=== PATIENT | male | born 1970 | race Caucasian/White ===

== ENCOUNTER 2023-12-22 12:43 | Inpatient (IN) | payer MEDICARE, OTHER, SELFPAY ==
[2023-12-22] VITALS (9 sets, daily range): BP systolic 141–172; BP diastolic 56–127; BMI 44.9; BMI 43.0; BMI 43.2
[2023-12-22] MEDS: DUONEB 3 ML INH ×3 (09:48→21:00)
[2023-12-22] MEDS: ZITHROMAX INFUSION 250 IV (10:00)
[2023-12-22] MEDS: DECADRON 10 MG IV (10:00)
--- NOTE | 2023-12-22 10:01 | ED.GENMED ---
History of Present Illness
<Ezra Mendoza Jr., PA-C - Last Filed: 12/22/23 11:08>
General
Chief Complaint: Breathing Problem
Source: patient, spouse and ambulance crew
Exam Limitations: none
Time Seen by Provider: 12/22/23 09:10
Nursing documentation reviewed up to this point in time: agreed with
Travel History
Have you had any contact with someone who has COVID-19?: No
Do you have any symptoms of coronavirus? Fever > 100 degrees, chills, cough, shortness of breath, sore throat, loss of taste or smell, muscle aches, or headache?: Yes
Symptoms:: SOB
History of Present Illness
History of Present Illness:
53-year-old male past medical history of paraplegia from the chest, COPD on chronic oxygen 2 L nasal cannula, CHF, pacemaker presenting to the emergency department today with concerns of significant worsening shortness of breath over the past few
days. Increasing oxygen need at home using nebulizers at home without relief. Denies specific chest pain. Denies obvious significant increasing swelling.
Past History
<Ezra Mendoza Jr., PA-C - Last Filed: 12/22/23 11:08>
Past History
ED Past Medical History: COPD, HTN, Hypercholesterolemia and Other (T6 paraplegic, Hematuria, DVT L leg)
ED Past Surgical History: Other (Green field filter)
Social History
Tobacco: Former smoker
Alcohol: None
Drug: None
Personal:
Living: with family
Employment: Disabled
Family History
Family History: Other (Noncontributory)
Review of Systems
<Ezra Mendoza Jr., PA-C - Last Filed: 12/22/23 11:08>
Review of Systems
Allergies reviewed?: Yes
All Other Systems: ROS reviewed and negative except as documented in HPI and ROS
Phy Exam
<Ezra Mendoza Jr., PA-C - Last Filed: 12/22/23 11:08>
Physical Exam
Physical Exam:
GENERAL: Alert , in no apparent distress
EYE: pupils equal and reactive
NECK: Supple, no significant adenopathy.
ENT: o/p clr, mmm.
CARDIAC: Regular rate and rhythm .
LUNGS: Diffuse inspiratory and expiratory wheezing
ABDOMEN: Soft, without focal tenderness, no r/g, no cvat
NEUROLOGICAL: Alert and oriented, no focal neuro deficits
SKIN: Warm and dry, skin intact.
MUSCULOSKELETAL: No edema, well perfused.
PSYCH: Normal and appropriate interaction.
Scores
<Ezra Mendoza Jr., PA-C - Last Filed: 12/22/23 11:08>
Heart Failure Risk
Heart Failure Risk Score: Not Applicable
Course
<Ezra Mendoza Jr., PA-C - Last Filed: 12/22/23 11:08>
Orders/Labs/Results
Orders:
Orders
12/22/23 09:21
EKG [Electrocardiogram (*1)] Urgent
Reason for Study: Chest Pain
EKG- Treatment ONCE
12/22/23 09:36
Dexamethasone Sod Phosphate [Decadron] 20 mg .ROUTE .STK-MED ONE
Ipratropium/Albuterol Sulfate [Duoneb] 3 ml .ROUTE .STK-MED ONE
12/22/23 09:39
Azithromycin 500 mg/250 ml [Zithromax Infusion] 500 mg in 250 ml IV NOW
Dexamethasone Sod Phosphate [Decadron] 10 mg IV NOW STA
Ipratropium/Albuterol Sulfate [Duoneb] 3 ml INH R NOW STA
Chest X-ray Portable [CR Chest Portable - 1 View] Urgent
Comment:
Reason For Exam: sob
Reason Study Needs to be Portable: Patient Unstable
12/22/23 09:48
Complete Blood Count/With Diff Urgent
Comprehensive Metabolic Panel Urgent
Lactic Acid Q4H
Comment: CANCEL 2nd LACTIC ACID IF 1st LACTIC ACID IS LESS THAN 2
NT-proBNP Urgent
PT/INR [Prothrombin Time] Urgent
Troponin I Urgent
12/22/23 09:58
Venous Blood Gas Urgent
%Oxygen/Room Air: 6
12/22/23 10:00
CefTRIAXone [Rocephin] 2,000 mg IV NOW STA
12/22/23 10:19
Sputum Culture [Respiratory Culture/Gram Stain] Urgent
GREGORIO Source: Sputum
Specimen Description:
Date Specimen was Collected: 12/22/23
Time Specimen was Collected: 10:07
12/22/23 11:37
Albuterol Nebs [Ventolin Nebules] 2.5 mg INH R NOW STA
12/22/23 11:44
COVID-19 Antigen Routine
Source: Nasal Swab
Procalcitonin Routine
PCT Algorithmm Indication: Respiratory
Influenza A+B Rapid Molecular Routine
GREGORIO Source: Nasal Swab
Specimen Description:
12/22/23 13:45
Lactic Acid Q4H
Comment: CANCEL 2nd LACTIC ACID IF 1st LACTIC ACID IS LESS THAN 2
Abnormal Lab Results
12/22/23 12/22/23
09:48 09:58
WBC 13.6 H 10^3/uL
(4.8-10.8)
MCHC 30.3 L g/dL
(33.0-37.0)
RDW 15.5 H %
(11.5-14.5)
MPV 11.3 H fL
(7.4-10.4)
Abs Immat Gran (auto) 0.2 H 10^3/uL
(0-0.05)
Absolute Neuts (auto) 11.8 H 10^3/uL
(1.4-6.5)
Absolute Lymphs (auto) 0.8 L 10^3/uL
(1.2-3.4)
Absolute Monos (auto) 0.7 H 10^3/uL
(0.1-0.6)
Immature Gran % 1.2 H %
(0-0.5)
Neutrophils % 86.5 H %
(42.2-75.2)
Lymphocytes % 5.8 L %
(20.5-51.1)
PT 31.9 H Sec
(11.4-14.6)
VBG pH 7.29 L
(7.32-7.43)
VBG pCO2 85 H* mmHg
(35-48)
VBG pO2 51 H mmHg
(30-50)
VBG HCO3 40.9 H mmol/L
(22-27)
Chloride 92 L mmol/L
(98-107)
Carbon Dioxide 40 H mmol/L
(22-30)
Creatinine 0.4 L mg/dL
(0.7-1.3)
Glucose 129 H mg/dl
(70-99)
Alkaline Phosphatase 128 H U/L
(38-126)
12/22/23 09:48
12/22/23 09:48
Vital Signs
Initial and Last Documented VS:
Initial Vital Signs
Temp Pulse Resp BP Pulse Ox
98.3 F 121 22 159/72 80
12/22/23 09:10 12/22/23 09:10 12/22/23 09:10 12/22/23 09:10 12/22/23 09:10
Last Documented Vital Signs
Temp Pulse Resp BP Pulse Ox
99.1 F 70 24 159/72 77
12/22/23 11:30 12/22/23 11:30 12/22/23 11:30 12/22/23 09:10 12/22/23 09:22
<Henry Sidhu MD - Last Filed: 12/22/23 11:45>
Orders/Labs/Results
Orders:
Orders
12/22/23 09:21
EKG [Electrocardiogram (*1)] Urgent
Reason for Study: Chest Pain
EKG- Treatment ONCE
12/22/23 09:36
Dexamethasone Sod Phosphate [Decadron] 20 mg .ROUTE .STK-MED ONE
Ipratropium/Albuterol Sulfate [Duoneb] 3 ml .ROUTE .STK-MED ONE
12/22/23 09:39
Azithromycin 500 mg/250 ml [Zithromax Infusion] 500 mg in 250 ml IV NOW
Dexamethasone Sod Phosphate [Decadron] 10 mg IV NOW STA
Ipratropium/Albuterol Sulfate [Duoneb] 3 ml INH R NOW STA
Chest X-ray Portable [CR Chest Portable - 1 View] Urgent
Comment:
Reason For Exam: sob
Reason Study Needs to be Portable: Patient Unstable
12/22/23 09:48
Complete Blood Count/With Diff Urgent
Comprehensive Metabolic Panel Urgent
Lactic Acid Q4H
Comment: CANCEL 2nd LACTIC ACID IF 1st LACTIC ACID IS LESS THAN 2
NT-proBNP Urgent
PT/INR [Prothrombin Time] Urgent
Troponin I Urgent
12/22/23 09:58
Venous Blood Gas Urgent
%Oxygen/Room Air: 6
12/22/23 10:00
CefTRIAXone [Rocephin] 2,000 mg IV NOW STA
12/22/23 10:19
Sputum Culture [Respiratory Culture/Gram Stain] Urgent
GREGORIO Source: Sputum
Specimen Description:
Date Specimen was Collected: 12/22/23
Time Specimen was Collected: 10:07
12/22/23 11:37
Albuterol Nebs [Ventolin Nebules] 2.5 mg INH R NOW STA
12/22/23 11:44
COVID-19 Antigen Routine
Source: Nasal Swab
Procalcitonin Routine
PCT Algorithmm Indication: Respiratory
Influenza A+B Rapid Molecular Routine
GREGORIO Source: Nasal Swab
Specimen Description:
12/22/23 13:45
Lactic Acid Q4H
Comment: CANCEL 2nd LACTIC ACID IF 1st LACTIC ACID IS LESS THAN 2
Abnormal Lab Results
12/22/23 12/22/23
09:48 09:58
WBC 13.6 H 10^3/uL
(4.8-10.8)
MCHC 30.3 L g/dL
(33.0-37.0)
RDW 15.5 H %
(11.5-14.5)
MPV 11.3 H fL
(7.4-10.4)
Abs Immat Gran (auto) 0.2 H 10^3/uL
(0-0.05)
Absolute Neuts (auto) 11.8 H 10^3/uL
(1.4-6.5)
Absolute Lymphs (auto) 0.8 L 10^3/uL
(1.2-3.4)
Absolute Monos (auto) 0.7 H 10^3/uL
(0.1-0.6)
Immature Gran % 1.2 H %
(0-0.5)
Neutrophils % 86.5 H %
(42.2-75.2)
Lymphocytes % 5.8 L %
(20.5-51.1)
PT 31.9 H Sec
(11.4-14.6)
VBG pH 7.29 L
(7.32-7.43)
VBG pCO2 85 H* mmHg
(35-48)
VBG pO2 51 H mmHg
(30-50)
VBG HCO3 40.9 H mmol/L
(22-27)
Chloride 92 L mmol/L
(98-107)
Carbon Dioxide 40 H mmol/L
(22-30)
Creatinine 0.4 L mg/dL
(0.7-1.3)
Glucose 129 H mg/dl
(70-99)
Alkaline Phosphatase 128 H U/L
(38-126)
12/22/23 09:48
12/22/23 09:48
Vital Signs
Initial and Last Documented VS:
Initial Vital Signs
Temp Pulse Resp BP Pulse Ox
98.3 F 121 22 159/72 80
12/22/23 09:10 12/22/23 09:10 12/22/23 09:10 12/22/23 09:10 12/22/23 09:10
Last Documented Vital Signs
Temp Pulse Resp BP Pulse Ox
99.1 F 70 24 159/72 77
12/22/23 11:30 12/22/23 11:30 12/22/23 11:30 12/22/23 09:10 12/22/23 09:22
<Ezra Mendoza Jr., PA-C - Last Filed: 12/22/23 11:08>
MDM/Problems Addressed
MDM/Problems Addressed:
53-year-old male presenting to the emergency department with worsening shortness of breath over the past few days. History of severe COPD. Upon arrival patient is tachycardic hypertensive pulse ox initially on 3 L nasal cannula in the high 70s.
This improved when receiving DuoNeb with oxygen at 6 L via facemask. Chest x-ray performed that showed likely pneumonia with started on ceftriaxone as well as azithromycin. Patient additionally given steroid. Patient found to have potential
pneumonia on x-ray given additional dose of ceftriaxone otherwise doing well here on additional nasal cannula oxygen at 6 L staying around 90% oxygen level. Plan to admit for further treatment as symptoms are ongoing.
<Ezra Mendoza Jr., PA-C - Last Filed: 12/22/23 11:08>
*Critical Care Note
Total Time (30-74mins, 75-104mins- exclusive of procedures): Not Applicable
ED Attending Note
<Ezra Mendoza Jr., PA-C - Last Filed: 12/22/23 11:08>
-
Portions of this chart may have been created with voice recognition software.� Occasional wrong word or��sound alike� substitutions may have occurred due to the inherent limitations of voice recognition software.
<Henry Sidhu MD - Last Filed: 12/22/23 11:45>
ED Attending Note
Patient seen and examined by attending physician: Yes
I performed the substantive portion of visit, reviewed & personally made and approve the management plan that is documented in note by myself or ISATU.: Yes
ED Attending Note:
53-year-old male history of paraplegia on chronic 2 L of oxygen presents with increased shortness of breath and cough the last 2 days. Patient is on Coumadin and faithful with medications. INR has been therapeutic per the patient. Symptoms are
moderate in nature. Normally runs a pulse ox in the low 90s on 2 L nasal cannula.
On arrival patient is mildly tachypneic and minimally breathless but able to speak well. Pulse ox 78% on 2 L when I walked in the room however this was just after x-ray.
Patient is paraplegic. He is warm and dry and perfusing well. No drooling or stridor. He has diffuse expiratory wheezing and a coarse cough with some yellow sputum. He is mildly tachycardic. Pacemaker in place.
EKG shows a paced rhythm at 120. Chest x-ray appears to be likely an infiltrate at the right base although questionable atypical CHF. This was reviewed with radiology.
Including cardiac pneumonia workup blood cultures sputum culture chest x-ray Neb treatments. Clearly warrants admission.
Patient was rechecked multiple times during his ER stay and remained relatively stable. Pulse ox is borderline but awake alert speaking without significant difficulty.
Discharge Plan
Departure
Patient Disposition: Admit
Date of Disposition: 12/22/23
Time of Disposition: 11:08
Admit to: Telemetry
Admit to doctor: Sandra
Presentation/result/management discussed w/ accepting MD/DO: Hospitalist
Patient with high blood pressure during this ER visit?: No
Condition: Good
Covid-19: Not Applicable
Discharge Problem:
COPD exacerbation, Pneumonia
Prescriptions:
No Action
gabapentin 300 MG capsule
300 mg PO BID
sertraline 50 MG tablet
50 mg PO DAILY
albuterol sulfate 1 PUFF HFA aerosol inhaler
1 puff inhalation R Q6HPRN PRN (Reason: sob)
amlodipine 5 MG tablet
5 mg PO DAILY
Trelegy Ellipta 1 EACH blister with device
1 puff inhalation R DAILY
sennosides [senna] 1 TABLET tablet
2 tab PO BID Qty: 120 0RF
warfarin [Coumadin] 6 MG tablet
12 mg PO QPM
Patient Comments:
dose per INR - pt has an INR monitoring device at home
docusate sodium 100 MG capsule
100 mg PO BID
lidocaine [Aspercreme (lidocaine)] 1 PATCH adhesive patch,medicated
2 patch topical DAILY 0RF
Rx Instructions:
apply to sacrum
Oxycodone Hcl [Oxycodone Hcl Er] 20 MG Tab.Er.12h
20 mg PO BID Qty: 10 0RF
oxycodone 5 MG tablet
5 mg PO Q4HPRN PRN (Reason: moderate to severe pain)
prednisone 10 mg Tablet
10 mg PO DAILY Qty: 20 0RF
Rx Instructions:
Take 40mg x 2 days; 30mg x 2 days; 20mg x 2 days; 10mg x 2 days then stop
furosemide 40 mg tablet
40 mg PO DAILY
baclofen 20 mg tablet
40 mg PO BID
aspirin 81 mg Tablet,Delayed Release (Dr/Ec)
81 mg PO DAILY Qty: 30 0RF
sulfamethoxazole-trimethoprim [Bactrim DS] 800-160 mg tablet
1 tab PO BID Qty: 12 0RF
pantoprazole [Protonix] 40 mg tablet,delayed release (DR/EC)
40 mg PO DAILY Qty: 30 0RF
Referrals:
Alida Sandy DO [Family Provider] -
Interventions
Interventions:
*Risk Screen - Suicide Last Done: 12/22/23 09:22
*General Assessment Last Done: 12/22/23 09:22
*Neglect/Abuse Screening Last Done: 12/22/23 09:22
ED- Fall Risk Assessment Last Done: 12/22/23 09:22
*ED COVID-19 Vaccine History Last Done: 12/22/23 09:22
ED- Cardiac Assessment Last Done: 12/22/23 09:22
ED- Pulmonary Assessment Last Done: 12/22/23 09:22
Discharge Date and Time
Print Language: TRINIDADIAN
[2023-12-22 10:06] LABS: % Basophils 0.4 % (0-2); % Eosinophils 0.7 % (0-6); % Immature Granulocytes 1.2 % (0-0.5); % Lymphocytes 5.8 % (20.5-51.1); % Monocytes 5.4 % (1.7-9.3); % Neutrophils 86.5 % (42.2-75.2); Absolute Basophils 0.1 10^3/uL (0-0.2); Absolute Eosinophils 0.1 10^3/uL (0-0.7); Absolute Immature Granulocytes 0.2 10^3/uL (0-0.05); Absolute Lymphocytes 0.8 10^3/uL (1.2-3.4); Absolute Monocytes 0.7 10^3/uL (0.1-0.6); Absolute Neutrophils 11.8 10^3/uL (1.4-6.5); Hematocrit 50.1 % (39.0-52.0); Hemoglobin 15.2 g/dL (13.0-18.0); Mean Corp Hgb Conc. 30.3 g/dL (33.0-37.0); Mean Corpuscular Hgb 27.8 pg (27.0-31.0); Mean Corpuscular Volume 91.6 fL (80.0-94.0); Mean Platelet Volume 11.3 fL (7.4-10.4); Nucleated Red Blood Cells % 0 % (-); Platelet Count 231 10^3/uL (130-400); Red Blood Cell Count 5.47 10^6/uL (4.70-6.10); Red Cell Dist. Width 15.5 % (11.5-14.5); White Blood Cell Count 13.6 10^3/uL (4.8-10.8)
[2023-12-22 10:10] LABS: Venous Blood Gas B.E. 10.2 mmol/L (-4 to +4); Venous Blood Gas HCO3 40.9 mmol/L (22-27); Venous Blood Gas O2 Sat % 85.1 %; Venous Blood Gas pH 7.29 (7.32-7.43); Venous Blood Gas pO2 51 mmHg (30-50)
[2023-12-22 10:13] LABS: Venous Blood Gas O2 Therapy 6
[2023-12-22 10:15] LABS: Venous Blood Gas pCO2 85 mmHg (35-48)
[2023-12-22 10:17] LABS: PT 31.9 Sec (11.4-14.6)
[2023-12-22 10:18] LABS: Lactic Acid 1.2 mmol/L (0.7-2.0)
[2023-12-22 10:20] LABS: ALT (SGPT) 20 U/L (0-50); AST (SGOT) 22 U/L (17-59); Alkaline Phosphatase 128 U/L (38-126); Blood Urea Nitrogen 11 mg/dl (9-20); Calcium 9.5 mg/dl (8.4-10.2); Carbon Dioxide 40 mmol/L (22-30); Chloride 92 mmol/L (98-107); Estimated Creatinine Clearance > 125 ml/min; Glucose 129 mg/dl (70-99); Potassium 4.4 mmol/L (3.5-5.1); Sodium 138 mmol/L (135-145); Total Bilirubin 0.9 mg/dl (0.2-1.3); Total Protein 7.8 g/dl (6.3-8.2); eGFR > 60.00
[2023-12-22 10:31] LABS: NT-proBNP 1580 pg/ml; Troponin I < 0.012 ng/ml
[2023-12-22] MEDS: ROCEPHIN 2000 MG IV (11:25)
--- NOTE | 2023-12-22 11:41 | HPS.HSE ---
Family Physician
-
Family Physician: Alida Sandy
Chief Complaint
-
Shortness of breath, wheezing
History of Present Illness
HPI: 53-year-old male past medical history of T6 paraplegia, COPD on chronic oxygen 2 L nasal cannula, CHF, pacemaker, history of left leg DVT/PE status post IVC filter, A-fib on Coumadin, niv-astohhh-requnzlja diabetes, chronic CHF,
okx-vxskeua-svjlrikxu diabetes; p/w worsening shortness of breath for several days, associated with wheezing.
Symptom did not improve despite increased use of inhaler, nebulizer, and home oxygen.
Patient denies other symptoms, such as fever/chills, chest pain/shortness of breath etc.
Medical History
Past Medical History
Past Medical History: Reports Other (As per HPI above)
Past Surgical History: Reports Other (IVC Green field filter)
Social History
Tobacco: Former Smoker
Alcohol: None
Drug: None
Living: Other (with girlfriend)
Family History
Family History: Not pertinent
Allergies / Home Medications
Allergies reflects when Allergies were last updated in [facility].
Home Medications with original date entered in [facility]
Allergy/Medication List:
Medications on admission are unable to be verified or confirmed at this time.
Review of Systems
-
Respiratory: Reports See HPI and Trouble Breathing
Physical Exam
Vital Signs
Vital Signs
Temp Pulse Resp BP Pulse Ox
37.3 C 70 24 159/72 77
12/22/23 11:30 12/22/23 11:30 12/22/23 11:30 12/22/23 09:10 12/22/23 09:22
Physical Exam
General: Well Developed, Well Nourished, Conversant, Respiratory Distress and Morbidly Obese
HEENT: NormoCephalic
Respiratory: Rhonchi and Non Labored Respirations; No Accessory Resp Muscle Use
Cardiac: S1/S2 and Regular Rhythm
GI: Soft and Normal Bowel Sounds
Skin: Warm and Dry
Neuro: Awake
Psych: Calm and Intact Judgment/Insight
Laboratory Results
-
12/22/23 09:48
12/22/23 09:48
Laboratory Results
PT 31.9 Sec (11.4-14.6) H 12/22/23 09:48
INR 3.10 12/22/23 09:48
Lactic Acid 1.2 mmol/L (0.7-2.0) 12/22/23 09:48
Total Bilirubin 0.9 mg/dl (0.2-1.3) 12/22/23 09:48
AST 22 U/L (17-59) 12/22/23 09:48
ALT 20 U/L (0-50) 12/22/23 09:48
Alkaline Phosphatase 128 U/L (38-126) H 12/22/23 09:48
Troponin I < 0.012 ng/ml 12/22/23 09:48
Data Reviewed
-
Diagnostic Radiology: Image Personally Visualized and interpreted and Report Reviewed by me
Lab Data: Labs Reviewed by me
Impression/Plan
-
HPI: 53-year-old male past medical history of T6 paraplegia, COPD on chronic oxygen 2 L nasal cannula, CHF, pacemaker, history of left leg DVT/PE status post IVC filter, A-fib on Coumadin, dja-rscwhcn-iqhrutjkw diabetes, chronic CHF,
eqj-vaowoty-qnyfeivpu diabetes; p/w worsening shortness of breath for several days, associated with wheezing.
Symptom did not improve despite increased use of inhaler, nebulizer, and home oxygen.
Patient denies other symptoms, such as fever/chills, chest pain/shortness of breath etc.
A/P:
# Acute on chronic hypoxic resp failure
# Acute hypercapnic resp failure
# COPD exacerbation
# Possible CAP
Cont 6L NC, HOME OFFICE CLAIM SPECIALIST on 2L NC
CXR with BL infiltrate, Check procal
cont empiric Abc ceftriaxone/azithromycin for now
Check MRSA screen, COVID and flu
# T6 level paraplegia (from a mechanical fall)
# History of spinal surgery with hardware placement
# Morbid Obesity , BMI 44
# Chronic Heart failure with preserved ejection fraction
hold diuresis as above
# Severe pulmonary hypertension
# Paroxysmal atrial fibrillation on Coumadin
Monitor daily INR
# Chronic opioid use and dependence
# Hypertension
cont HOME OFFICE CLAIM SPECIALIST Norvasc with holding parameter
# Hyperlipidemia
# NIDDM
cover with ISS
# Neurogenic bladder with chronic indwelling Burnett catheter
# History of urinary tract infection
# Chronic nephrolithiasis
# Left humerus fracture
# Chronic left lower extremity deep vein thrombosis with history of pulmonary embolism, s/p IVC filter placement
# Chronic calculous cholecystitis status post cholecystectomy
# Depression
DVT PPx: HOME OFFICE CLAIM SPECIALIST Coumadin. Monitor INR.
Code Status: Full Code
[2023-12-22] MEDS: VENTOLIN NEBULES 2.5 MG INH (11:44)
[2023-12-22 12:41] LABS: COVID-19 Antigen Negative (Negative)
[2023-12-22 13:01] LABS: Procalcitonin < 0.05 ng/ml (0.0-0.25)
[2023-12-22 14:47] LABS: Glucose - Point of Care 149 mg/dl (70-99)
[2023-12-22 17:21] LABS: Glucose - Point of Care 165 mg/dl (70-99)
[2023-12-22] MEDS: COUMADIN 12 MG PO (17:25)
[2023-12-22] MEDS: NOVOLOG FLEXPEN-LOW RESISTANCE 1 UNITS SC (17:42)
[2023-12-22] MEDS: LIORESAL 40 MG PO (19:52)
[2023-12-22] MEDS: COLACE 100 MG PO (19:52)
[2023-12-22] MEDS: SENOKOT 17.1999999999999993 MG PO (19:52)
[2023-12-22] MEDS: NEURONTIN 300 MG PO (19:52)
[2023-12-22] MEDS: MS CONTIN (EXTENDED RELEASE) 30 MG PO (19:54)
[2023-12-22 21:39] LABS: Glucose - Point of Care 127 mg/dl (70-99)
[2023-12-22] MEDS: DECADRON 4 MG IV (21:39)
[2023-12-22] MEDS: FLUSH (NSS) 2 FLUSH IV (21:42)
[2023-12-23 03:33] VITALS: BP 160/76
[2023-12-23 06:00] VITALS: BMI 43.0
[2023-12-23 06:49] LABS: % Basophils 0.1 % (0-2); % Immature Granulocytes 0.7 % (0-0.5); % Lymphocytes 7.1 % (20.5-51.1); % Monocytes 4.2 % (1.7-9.3); % Neutrophils 87.9 % (42.2-75.2); Absolute Immature Granulocytes 0.1 10^3/uL (0-0.05); Absolute Lymphocytes 0.7 10^3/uL (1.2-3.4); Absolute Monocytes 0.4 10^3/uL (0.1-0.6); Absolute Neutrophils 8.4 10^3/uL (1.4-6.5); Hemoglobin 14.5 g/dL (13.0-18.0); Mean Corp Hgb Conc. 30.9 g/dL (33.0-37.0); Mean Corpuscular Hgb 27.8 pg (27.0-31.0); Mean Platelet Volume 11.1 fL (7.4-10.4); Nucleated Red Blood Cells % 0 % (-); Platelet Count 234 10^3/uL (130-400); Red Blood Cell Count 5.22 10^6/uL (4.70-6.10); Red Cell Dist. Width 15.1 % (11.5-14.5); White Blood Cell Count 9.5 10^3/uL (4.8-10.8)
[2023-12-23 06:58] LABS: INR 3.17; PT 32.4 Sec (11.4-14.6)
[2023-12-23 07:30] LABS: Blood Urea Nitrogen 15 mg/dl (9-20); Calcium 9.5 mg/dl (8.4-10.2); Carbon Dioxide 36 mmol/L (22-30); Chloride 96 mmol/L (98-107); Estimated Creatinine Clearance > 125 ml/min; Glucose 129 mg/dl (70-99); Magnesium 2.1 mg/dl (1.6-2.3); Potassium 4.8 mmol/L (3.5-5.1); Sodium 139 mmol/L (135-145); eGFR > 60.00
[2023-12-23 07:40] VITALS: BP 165/74
[2023-12-23] MEDS: DUONEB INH (07:55)
[2023-12-23] MEDS: VENTOLIN NEBULES 2.5 MG INH ×4 (07:56→20:41)
[2023-12-23] MEDS: SYMBICORT 160/4.5 MCG INHALER 2 PUFF INH ×2 (07:56→20:40)
[2023-12-23] MEDS: SPIRIVA RESPIMAT 2.5 MCG 2 PUFF INH (07:56)
[2023-12-23 07:59] LABS: Glucose - Point of Care 121 mg/dl (70-99)
[2023-12-23] MEDS: NOVOLOG FLEXPEN-LOW RESISTANCE SC ×2 (08:31→11:33)
[2023-12-23] MEDS: LIORESAL 40 MG PO ×2 (08:32→21:00)
[2023-12-23] MEDS: NEURONTIN 300 MG PO ×2 (08:32→21:00)
[2023-12-23] MEDS: PROTONIX 40 MG PO (08:33)
[2023-12-23] MEDS: ZOLOFT 50 MG PO (08:33)
[2023-12-23] MEDS: LASIX 40 MG PO (08:33)
[2023-12-23] MEDS: MS CONTIN (EXTENDED RELEASE) 30 MG PO ×2 (08:33→21:00)
[2023-12-23] MEDS: SENOKOT 17.1999999999999993 MG PO ×2 (08:33→21:00)
[2023-12-23] MEDS: COLACE 100 MG PO ×2 (08:33→21:00)
[2023-12-23] MEDS: NORVASC 5 MG PO (08:33)
[2023-12-23] MEDS: ASPIR LOW (ENTERIC COATED) 81 MG PO (08:33)
[2023-12-23] MEDS: LIDOCAINE 4% PATCH TOPICAL (08:41)
[2023-12-23 08:59] LABS: Glycohemoglobin (HgbA1c) 6.5 % (4.0-5.6)
[2023-12-23] MEDS: DECADRON 4 MG IV ×2 (09:58→21:26)
[2023-12-23] MEDS: FLUSH (NSS) 1 FLUSH IV (09:59)
[2023-12-23] MEDS: DULCOLAX 10 MG RECTAL (10:01)
[2023-12-23] MEDS: OMNICEF 300 MG PO ×2 (10:17→21:00)
[2023-12-23 11:21] LABS: Glucose - Point of Care 148 mg/dl (70-99)
[2023-12-23 11:30] VITALS: BP 141/62
[2023-12-23] MEDS: MIRALAX 17 GRAMS PO (12:21)
[2023-12-23] MEDS: SENOKOT-S 1 TABLET PO (12:21)
--- NOTE | 2023-12-23 12:25 | W.PN.HOSP.TC ---
Addendum entered and electronically signed by Yohana Flores MD 12/23/23 12:37:
continue IV Decadron 4 IV Q12 hour for COPD exacerbation
Original Note:
Today's Communication/Plan
-
see A/P
Assessment / Plan
Assessment / Plan
HPI: 53-year-old male past medical history of T6 paraplegia, COPD on chronic oxygen 2 L nasal cannula, CHF, pacemaker, history of left leg DVT/PE status post IVC filter, A-fib on Coumadin, aee-ydvdbmv-vglnnxzva diabetes, chronic CHF,
lnq-thopkcd-yfgpujpzz diabetes; p/w worsening shortness of breath for several days, associated with wheezing.
Symptom did not improve despite increased use of inhaler, nebulizer, and home oxygen.
Patient denies other symptoms, such as fever/chills, chest pain/shortness of breath etc.
A/P:
# Acute on chronic hypoxic resp failure
# Acute hypercapnic resp failure
# COPD exacerbation
Cont 6L NC, NEEDLE VALVE OPERATOR on 2L NC
CXR with BL infiltrate however procal neg
Would cont empiric cefdinir, total Abx 5 days only
Follow MRSA screen which was already sent
COVID and flu are negative
# T6 level paraplegia (from a mechanical fall)
# History of spinal surgery with hardware placement
# Morbid Obesity, BMI 44
# Chronic Heart failure with preserved ejection fraction
cont NEEDLE VALVE OPERATOR lasix 40 mg daily
# Severe pulmonary hypertension
# Paroxysmal atrial fibrillation on Coumadin
Monitor daily INR
Hold Coumadin for 1 night 12/22 and restart 12/23 pm
# Chronic opioid use and dependence
# Hypertension
cont NEEDLE VALVE OPERATOR Norvasc with holding parameter
# Hyperlipidemia
# NIDDM
cover with ISS
# Neurogenic bladder with chronic indwelling Burnett catheter
# History of urinary tract infection
# Chronic nephrolithiasis
# Left humerus fracture
# Chronic left lower extremity deep vein thrombosis with history of pulmonary embolism, s/p IVC filter placement
# Chronic calculous cholecystitis status post cholecystectomy
# Depression
DVT PPx: NEEDLE VALVE OPERATOR Coumadin. Monitor INR.
Code Status: Full Code
DW partner at bedside
Anticipated Discharge: > 48 hours
Subjective/Interval History
-
Date of Service: December 23, 2023
Objective Data
-
Labs:
Laboratory Results
12/23/23
06:30
WBC 9.5
Hgb 14.5
Hct 47.0
Plt Count 234
PT 32.4 H
INR 3.17
Sodium 139
Potassium 4.8
Chloride 96 L
Carbon Dioxide 36 H
BUN 15
Creatinine 0.4 L
Glucose 129 H
Calcium 9.5
Vital Signs:
Vital Signs
Temp Pulse Resp BP Pulse Ox
36.6 C 72 18 141/62 94
12/23/23 11:30 12/23/23 11:30 12/23/23 11:30 12/23/23 11:30 12/23/23 11:30
I&O
12/22/23 12/23/23 12/24/23
06:59 06:59 06:59
Intake Total 1000 / 1000
Output Total 1525 / 1525
Balance -525 / -525
Review of Systems
-
History Source: Patient
All other systems: Reviewed and negative
Physical Exam
-
General: Well Developed, Well Nourished, Comfortable, Respiratory Distress, Conversant and Morbidly Obese
HEENT: Normocephalic, Atraumatic, Nose Appears Normal, Ears Appear Normal and Oxygen (6L NC)
Respiratory: Clear to Auscultation, Wheezes and Non Labored Respirations; Negative Accessory Resp Muscle Use
Cardiac: Regular Rhythm and S1/S2
GI: Soft, Nontender, Nondistended and Normal Bowel Sounds
Skin: Warm and Dry
Neuro: Awake, Alert, Oriented, AO x 3 and Other (paraplegic)
Psych: Calm and Intact Judgement/Insight
Data Reviewed
-
Diagnostic Radiology: Image personally visualized and interpreted and Report Reviewed by me
Labs: Labs Reviewed by me
--- NOTE | 2023-12-23 14:31 | CM ---
Reviewed the chart notes and spoke with the patient and his significant other at the bedside. The patient resides with his significant other in a two story home with a ramp to enter. The patient resides on first level. The patient has an electric
wheelchair, bariatric bed, home O2 through [employer]. The patient has had [facility] and [facility] in the past. The patient has [facility] daily. The patient confirmed his pharmacy of choice is the [facility]. continues to be
available to patient/family and is monitoring medical plan for needs at discharge.
Plan: Discharge plans will depend on the patient's progress.
--- NOTE | 2023-12-23 15:29 | PTOTSP ---
SPEECH THERAPY SWALLOW EVALUATION:
Patient exhibits grossly functional oropharyngeal swallow at bedside; However, patient is at risk for dysphagia/aspiration and related complications given complaints of chronic dysphagia symptoms, tenuous respiratory status, and limited mobility.
Patient with dysphagia/aspiration risk factors including COPD, CHF, T6 paraplegia, and chronic opioid use. Patient with history of recurrent pneumonia, now with elevated WBC (12/21 13.6) and Neutrophils % (12/22 87.9). CXR concerning for pneumonia.
Patient endorsed dysphagia symptoms including occasional choking with solid textures and globus sensation in throat. Recommend Videofluoroscopic Swallowing Study to further assess swallow physiology. Given chronicity of dysphagia, patient appears
safe to continue baseline diet of Regular solids and thin liquids until VSE. Recommend medications whole in puree. Aspiration precautions including: Upright positioning; Small single sips/bites; Slow rate of intake; Partial assist with set-up; Take
breaks for breathing; Oral care 3x/day to reduce risk for nosocomial infection. Speech therapy to follow with further recommendations following VSE and provide continued education regarding aspiration risks and precautions.
RECOMMEND:
1) Videofluoroscopic Swallowing Study
2) Regular texture diet and thin liquids
3) Medications whole in puree
4) Aspiration precautions including: Upright positioning; Small single sips/bites; Slow rate of intake; Partial assist with set-up; Take breaks for breathing; Oral care 3x/day to reduce risk for nosocomial infection
5) Speech therapy to follow
[2023-12-23 15:35] VITALS: BP 135/67
[2023-12-23 17:11] LABS: Glucose - Point of Care 156 mg/dl (70-99)
[2023-12-23] MEDS: NOVOLOG FLEXPEN-LOW RESISTANCE 1 UNITS SC (17:37)
[2023-12-23 19:33] VITALS: BP 139/57
[2023-12-23 21:45] LABS: Glucose - Point of Care 106 mg/dl (70-99)
[2023-12-23 23:14] VITALS: BP 142/72
[2023-12-24 03:32] VITALS: BP 139/72
[2023-12-24 06:00] VITALS: BMI 43.2
[2023-12-24 06:09] LABS: % Basophils 0.1 % (0-2); % Eosinophils 0.1 % (0-6); % Immature Granulocytes 0.6 % (0-0.5); % Lymphocytes 6.4 % (20.5-51.1); % Neutrophils 88.8 % (42.2-75.2); Absolute Immature Granulocytes 0.1 10^3/uL (0-0.05); Absolute Lymphocytes 0.8 10^3/uL (1.2-3.4); Absolute Monocytes 0.5 10^3/uL (0.1-0.6); Absolute Neutrophils 11.4 10^3/uL (1.4-6.5); Hematocrit 44.4 % (39.0-52.0); Hemoglobin 13.6 g/dL (13.0-18.0); Mean Corp Hgb Conc. 30.6 g/dL (33.0-37.0); Mean Corpuscular Hgb 27.5 pg (27.0-31.0); Mean Corpuscular Volume 89.9 fL (80.0-94.0); Mean Platelet Volume 11.4 fL (7.4-10.4); Nucleated Red Blood Cells % 0 % (-); Platelet Count 223 10^3/uL (130-400); Red Blood Cell Count 4.94 10^6/uL (4.70-6.10); Red Cell Dist. Width 15.3 % (11.5-14.5); White Blood Cell Count 12.9 10^3/uL (4.8-10.8)
[2023-12-24 06:14] LABS: INR 3.06; PT 31.6 Sec (11.4-14.6)
[2023-12-24 06:34] LABS: Blood Urea Nitrogen 18 mg/dl (9-20); Calcium 9.1 mg/dl (8.4-10.2); Carbon Dioxide 38 mmol/L (22-30); Chloride 95 mmol/L (98-107); Estimated Creatinine Clearance > 125 ml/min; Glucose 131 mg/dl (70-99); Potassium 4.7 mmol/L (3.5-5.1); Sodium 140 mmol/L (135-145); eGFR > 60.00
[2023-12-24 07:25] VITALS: BP 122/83
[2023-12-24] MEDS: SYMBICORT 160/4.5 MCG INHALER 2 PUFF INH ×2 (08:17→20:37)
[2023-12-24] MEDS: SPIRIVA RESPIMAT 2.5 MCG 2 PUFF INH (08:17)
[2023-12-24] MEDS: VENTOLIN NEBULES 2.5 MG INH ×4 (08:17→20:37)
[2023-12-24 08:27] LABS: Glucose - Point of Care 116 mg/dl (70-99)
[2023-12-24] MEDS: NORVASC 5 MG PO (09:22)
[2023-12-24] MEDS: NEURONTIN 300 MG PO ×2 (09:33→21:40)
[2023-12-24] MEDS: COLACE 100 MG PO ×2 (09:33→21:36)
[2023-12-24] MEDS: OMNICEF 300 MG PO ×2 (09:34→21:41)
[2023-12-24] MEDS: SENOKOT 17.1999999999999993 MG PO ×2 (09:34→21:41)
[2023-12-24] MEDS: LIORESAL 40 MG PO ×2 (09:35→21:36)
[2023-12-24] MEDS: MS CONTIN (EXTENDED RELEASE) 30 MG PO ×2 (09:35→21:40)
[2023-12-24] MEDS: PROTONIX 40 MG PO (09:35)
[2023-12-24] MEDS: LASIX 40 MG PO (09:35)
[2023-12-24] MEDS: ZOLOFT 50 MG PO (09:35)
[2023-12-24] MEDS: ASPIR LOW (ENTERIC COATED) 81 MG PO (09:35)
[2023-12-24] MEDS: LIDOCAINE 4% PATCH 2 PATCH TOPICAL (09:36)
[2023-12-24] MEDS: NOVOLOG FLEXPEN-LOW RESISTANCE SC ×2 (09:36→13:17)
[2023-12-24] MEDS: DECADRON 4 MG IV ×2 (10:48→21:41)
[2023-12-24] MEDS: ANTIFUNGAL CLEAR 1 APPLIC TOPICAL ×2 (10:48→21:36)
[2023-12-24 11:20] VITALS: BP 126/55
--- NOTE | 2023-12-24 11:21 | W.PN.HOSP.TC ---
Today's Communication/Plan
-
Monitor vital signs see plan
Continue with breathing treatments, steroids
Continue with Coumadin
Monitor INR
Metolazone
VSE
Assessment / Plan
Assessment / Plan
HPI: 53-year-old male past medical history of T6 paraplegia, COPD on chronic oxygen 2 L nasal cannula, CHF, pacemaker, history of left leg DVT/PE status post IVC filter, A-fib on Coumadin, huq-xtwjxta-fxebkqrfw diabetes, chronic CHF,
zsj-fnuciuc-mmoyskkbx diabetes; p/w worsening shortness of breath for several days, associated with wheezing.
Symptom did not improve despite increased use of inhaler, nebulizer, and home oxygen.
Patient denies other symptoms, such as fever/chills, chest pain/shortness of breath etc.
A/P:
# Acute on chronic hypoxic resp failure
# Acute hypercapnic resp failure
# COPD exacerbation
Cont 5L NC, MANAGER UTILITIES on 2L NC
CXR with BL infiltrate however procal neg
Would cont empiric cefdinir, total Abx 5 days only
Follow MRSA screen which was already sent
COVID and flu are negative
If symptoms do not improve then will need pulmonary evaluation
Patient has history of sleep apnea however not compliant with CPAP
VSE 12/23
# T6 level paraplegia (from a mechanical fall)
# History of spinal surgery with hardware placement
# Morbid Obesity, BMI 44
Groin fungal rash
cw micanozole
# Chronic Heart failure with preserved ejection fraction
cont MANAGER UTILITIES lasix 40 mg daily
# Severe pulmonary hypertension
# Paroxysmal atrial fibrillation on Coumadin
Monitor daily INR
coumadin restarted at lower dose 5mg
# Chronic opioid use and dependence
# Hypertension
cont MANAGER UTILITIES Norvasc with holding parameter
# Hyperlipidemia
# NIDDM
cover with ISS
# Neurogenic bladder with chronic indwelling Burnett catheter
# History of urinary tract infection
# Chronic nephrolithiasis
# Left humerus fracture
# Chronic left lower extremity deep vein thrombosis with history of pulmonary embolism, s/p IVC filter placement
# Chronic calculous cholecystitis status post cholecystectomy
# Depression
DVT PPx: MANAGER UTILITIES Coumadin. Monitor INR.
Code Status: Full Code
General: Well Developed, Well Nourished, Comfortable, Respiratory Distress, Conversant and Morbidly Obese
HEENT: Normocephalic, Atraumatic, Nose Appears Normal, Ears Appear Normal and Oxygen (6L NC)
Respiratory: Clear to Auscultation, Wheezes and Non Labored Respirations; Negative Accessory Resp Muscle Use
Cardiac: Regular Rhythm and S1/S2
GI: Soft, Nontender, Nondistended and Normal Bowel Sounds
Skin: Warm and Dry
Neuro: Awake, Alert, Oriented, AO x 3 and Other (paraplegic)
Psych: Calm and Intact Judgement/Insight
I spent a total of 52 minutes with the patient or on the floor. More than 50% of this time involved counseling and coordination of care.
Anticipated Discharge: > 48 hours
Subjective/Interval History
-
Date of Service: December 24, 2023
denies pain
Objective Data
-
Labs:
Laboratory Results
12/24/23
04:44
WBC 12.9 H
Hgb 13.6
Hct 44.4
Plt Count 223
PT 31.6 H
INR 3.06
Sodium 140
Potassium 4.7
Chloride 95 L
Carbon Dioxide 38 H
BUN 18
Creatinine 0.4 L
Glucose 131 H
Calcium 9.1
Vital Signs:
Vital Signs
Temp Pulse Resp BP Pulse Ox
97.6 F 84 18 122/83 95
12/24/23 07:25 12/24/23 09:35 12/24/23 08:21 12/24/23 09:35 12/24/23 08:21
I&O
12/23/23 12/24/23 12/25/23
06:59 06:59 06:59
Intake Total 1000 / 1000 0 / 1879
Output Total 1525 / 1525 3125 / 3125
Balance -525 / -525 -1245 / -1245
[2023-12-24 12:15] LABS: Glucose - Point of Care 121 mg/dl (70-99)
[2023-12-24 15:20] VITALS: BP 138/62
[2023-12-24 17:54] LABS: Glucose - Point of Care 159 mg/dl (70-99)
[2023-12-24] MEDS: NOVOLOG FLEXPEN-LOW RESISTANCE 1 UNITS SC (18:19)
[2023-12-24 19:18] VITALS: BP 113/68
[2023-12-24 21:33] LABS: Glucose - Point of Care 93 mg/dl (70-99)
[2023-12-24 23:22] VITALS: BP 130/66
[2023-12-25 03:41] VITALS: BP 136/78
[2023-12-25 03:41] LABS: Glucose - Point of Care 143 mg/dl (70-99)
[2023-12-25 06:00] VITALS: BMI 43.4
[2023-12-25 07:26] LABS: Glucose - Point of Care 112 mg/dl (70-99)
[2023-12-25] MEDS: NOVOLOG FLEXPEN-LOW RESISTANCE SC ×3 (07:26→17:00)
[2023-12-25 07:36] LABS: % Basophils 0.1 % (0-2); % Eosinophils 0.1 % (0-6); % Immature Granulocytes 0.3 % (0-0.5); % Lymphocytes 9.7 % (20.5-51.1); % Monocytes 8.3 % (1.7-9.3); % Neutrophils 81.5 % (42.2-75.2); Absolute Lymphocytes 1.1 10^3/uL (1.2-3.4); Absolute Neutrophils 9.4 10^3/uL (1.4-6.5); Hemoglobin 14.1 g/dL (13.0-18.0); Mean Corp Hgb Conc. 31.3 g/dL (33.0-37.0); Mean Corpuscular Hgb 27.8 pg (27.0-31.0); Mean Corpuscular Volume 88.6 fL (80.0-94.0); Mean Platelet Volume 11.1 fL (7.4-10.4); Nucleated Red Blood Cells % 0 % (-); Platelet Count 218 10^3/uL (130-400); Red Blood Cell Count 5.08 10^6/uL (4.70-6.10); Red Cell Dist. Width 15.1 % (11.5-14.5); White Blood Cell Count 11.5 10^3/uL (4.8-10.8)
[2023-12-25 07:45] LABS: PT 23.4 Sec (11.4-14.6)
[2023-12-25] MEDS: SYMBICORT 160/4.5 MCG INHALER 2 PUFF INH ×2 (07:49→20:06)
[2023-12-25] MEDS: VENTOLIN NEBULES 2.5 MG INH ×4 (07:49→20:06)
[2023-12-25] MEDS: SPIRIVA RESPIMAT 2.5 MCG 2 PUFF INH (07:52)
[2023-12-25 07:55] VITALS: BP 154/73
[2023-12-25 08:10] LABS: Blood Urea Nitrogen 18 mg/dl (9-20); Calcium 9.5 mg/dl (8.4-10.2); Chloride 93 mmol/L (98-107); Estimated Creatinine Clearance > 125 ml/min; Glucose 121 mg/dl (70-99); Potassium 4.2 mmol/L (3.5-5.1); Sodium 138 mmol/L (135-145); eGFR > 60.00
[2023-12-25 08:21] LABS: Carbon Dioxide 38 mmol/L (22-30)
[2023-12-25] MEDS: MS CONTIN (EXTENDED RELEASE) 30 MG PO ×2 (09:15→21:31)
[2023-12-25] MEDS: LIDOCAINE 4% PATCH 2 PATCH TOPICAL (09:15)
[2023-12-25] MEDS: OMNICEF 300 MG PO ×2 (09:15→21:30)
[2023-12-25] MEDS: ZOLOFT 50 MG PO (09:15)
[2023-12-25] MEDS: LIORESAL 40 MG PO ×2 (09:15→21:31)
[2023-12-25] MEDS: NORVASC 5 MG PO (09:16)
[2023-12-25] MEDS: LASIX 40 MG PO (09:16)
[2023-12-25] MEDS: SENOKOT 17.1999999999999993 MG PO ×2 (09:16→21:30)
[2023-12-25] MEDS: NEURONTIN 300 MG PO ×2 (09:16→21:30)
[2023-12-25] MEDS: ASPIR LOW (ENTERIC COATED) 81 MG PO (09:16)
[2023-12-25] MEDS: PROTONIX 40 MG PO (09:16)
[2023-12-25] MEDS: DECADRON 4 MG IV ×2 (09:17→21:31)
[2023-12-25] MEDS: COLACE 100 MG PO ×2 (09:17→21:31)
[2023-12-25] MEDS: ANTIFUNGAL CLEAR 1 APPLIC TOPICAL ×2 (09:18→21:30)
[2023-12-25 11:30] VITALS: BP 133/51
--- NOTE | 2023-12-25 11:30 | W.PN.HOSP.TC ---
Today's Communication/Plan
-
Monitor vital signs
see plan
Wean oxygen as tolerated
Increase Coumadin to home dose
cw decadron
monitor INR
Assessment / Plan
Assessment / Plan
HPI: 53-year-old male past medical history of T6 paraplegia, COPD on chronic oxygen 2 L nasal cannula, CHF, pacemaker, history of left leg DVT/PE status post IVC filter, A-fib on Coumadin, bog-cscican-ofjgtmnbp diabetes, chronic CHF,
dzm-wwaqfvm-ikimoihvr diabetes; p/w worsening shortness of breath for several days, associated with wheezing.
Symptom did not improve despite increased use of inhaler, nebulizer, and home oxygen.
Patient denies other symptoms, such as fever/chills, chest pain/shortness of breath etc.
A/P:
# Acute on chronic hypoxic resp failure
# Acute hypercapnic resp failure
# COPD exacerbation
Cont 4L NC, SHEET METAL WORKER SUPERVISOR on 2L NC
CXR with BL infiltrate however procal neg
Would cont empiric cefdinir, total Abx 5 days only
Follow MRSA screen which was already sent
COVID and flu are negative
If symptoms do not improve then will need pulmonary evaluation
Patient has history of sleep apnea however not compliant with CPAP
patient refused VSE; he will f/u with speech outpatient
# T6 level paraplegia (from a mechanical fall)
# History of spinal surgery with hardware placement
# Morbid Obesity, BMI 44
Groin fungal rash
cw micanozole
# Chronic Heart failure with preserved ejection fraction
cont SHEET METAL WORKER SUPERVISOR lasix 40 mg daily
# Severe pulmonary hypertension
# Paroxysmal atrial fibrillation on Coumadin
Monitor daily INR
coumadin restarted at lower dose 5mg
# Chronic opioid use and dependence
# Hypertension
cont SHEET METAL WORKER SUPERVISOR Norvasc with holding parameter
# Hyperlipidemia
# NIDDM
cover with ISS
# Neurogenic bladder with chronic indwelling Burnett catheter
# History of urinary tract infection
# Chronic nephrolithiasis
# Left humerus fracture
# Chronic left lower extremity deep vein thrombosis with history of pulmonary embolism, s/p IVC filter placement
# Chronic calculous cholecystitis status post cholecystectomy
# Depression
DVT PPx: SHEET METAL WORKER SUPERVISOR Coumadin. Monitor INR.
Code Status: Full Code
General: Well Developed, Well Nourished, Comfortable, Respiratory Distress, Conversant and Morbidly Obese
HEENT: Normocephalic, Atraumatic, Nose Appears Normal, Ears Appear Normal and Oxygen (6L NC)
Respiratory: Clear to Auscultation, Wheezes and Non Labored Respirations; Negative Accessory Resp Muscle Use
Cardiac: Regular Rhythm and S1/S2
GI: Soft, Nontender, Nondistended and Normal Bowel Sounds
Skin: Warm and Dry
Neuro: Awake, Alert, Oriented, AO x 3 and Other (paraplegic)
Psych: Calm and Intact Judgement/Insight
Anticipated Discharge: 24 - 48 hours
Subjective/Interval History
-
Date of Service: December 25, 2023
denies pain
Objective Data
-
Labs:
Laboratory Results
12/25/23
07:12
WBC 11.5 H
Hgb 14.1
Hct 45.0
Plt Count 218
PT 23.4 H
INR 2.10
Sodium 138
Potassium 4.2
Chloride 93 L
Carbon Dioxide 38 H
BUN 18
Creatinine 0.5 L
Glucose 121 H
Calcium 9.5
Vital Signs:
Vital Signs
Temp Pulse Resp BP Pulse Ox
97.8 F 72 16 154/73 100
12/25/23 07:55 12/25/23 09:16 12/25/23 07:55 12/25/23 09:16 12/25/23 07:55
I&O
12/24/23 12/25/2324
06:59 06:59 06:59
Intake Total 1879
Output Total 3125 / 3125 3725 / 3725
Balance -1245 / -1245 -1635 / -1635
[2023-12-25 11:41] LABS: Glucose - Point of Care 115 mg/dl (70-99)
[2023-12-25 15:00] VITALS: BP 144/75
[2023-12-25 16:47] LABS: Glucose - Point of Care 146 mg/dl (70-99)
[2023-12-25] MEDS: COUMADIN 4 MG PO (17:00)
[2023-12-25] MEDS: COUMADIN 5 MG PO (17:01)
[2023-12-25 19:37] VITALS: BP 143/61
[2023-12-25 21:54] LABS: Glucose - Point of Care 127 mg/dl (70-99)
[2023-12-25 23:24] VITALS: BP 142/65
[2023-12-26 03:23] VITALS: BP 132/65
--- NOTE | 2023-12-26 04:15 | DOWNTIME ---
There was a [employer] Client Tractor Mechanic Helper Downtime on 12/26/2023 from 0100 to 12/26/2023 at 0337. Downtime documentation of patient's care, including medication administrations, has been reconciled in the electronic record per guidelines. Refer to the
patient's paper chart under the miscellaneous tab to see printed paper medication records and downtime forms.
[2023-12-26 06:00] VITALS: BMI 42.4
[2023-12-26] MEDS: SPIRIVA RESPIMAT 2.5 MCG 2 PUFF INH (06:08)
[2023-12-26] MEDS: VENTOLIN NEBULES 2.5 MG INH ×4 (06:08→19:45)
[2023-12-26] MEDS: SYMBICORT 160/4.5 MCG INHALER 2 PUFF INH ×2 (06:08→19:45)
[2023-12-26 07:03] LABS: % Basophils 0.1 % (0-2); % Immature Granulocytes 0.3 % (0-0.5); % Lymphocytes 10.5 % (20.5-51.1); % Monocytes 8.4 % (1.7-9.3); % Neutrophils 80.7 % (42.2-75.2); Absolute Monocytes 0.8 10^3/uL (0.1-0.6); Absolute Neutrophils 7.6 10^3/uL (1.4-6.5); Hematocrit 46.5 % (39.0-52.0); Hemoglobin 14.1 g/dL (13.0-18.0); Mean Corp Hgb Conc. 30.3 g/dL (33.0-37.0); Mean Corpuscular Hgb 27.4 pg (27.0-31.0); Mean Corpuscular Volume 90.3 fL (80.0-94.0); Mean Platelet Volume 11.4 fL (7.4-10.4); Nucleated Red Blood Cells % 0 % (-); Platelet Count 191 10^3/uL (130-400); Red Blood Cell Count 5.15 10^6/uL (4.70-6.10); Red Cell Dist. Width 15.1 % (11.5-14.5); White Blood Cell Count 9.5 10^3/uL (4.8-10.8)
[2023-12-26 07:08] LABS: INR 1.77; PT 20.4 Sec (11.4-14.6)
[2023-12-26 07:33] LABS: Blood Urea Nitrogen 15 mg/dl (9-20); Calcium 9.2 mg/dl (8.4-10.2); Carbon Dioxide 39 mmol/L (22-30); Chloride 96 mmol/L (98-107); Estimated Creatinine Clearance > 125 ml/min; Glucose 125 mg/dl (70-99); Potassium 4.3 mmol/L (3.5-5.1); Sodium 140 mmol/L (135-145); eGFR > 60.00
[2023-12-26 07:35] VITALS: BP 140/58
[2023-12-26 07:49] LABS: Glucose - Point of Care 119 mg/dl (70-99)
[2023-12-26] MEDS: NOVOLOG FLEXPEN-LOW RESISTANCE SC ×2 (08:33→17:16)
[2023-12-26] MEDS: ASPIR LOW (ENTERIC COATED) 81 MG PO (09:02)
[2023-12-26] MEDS: OMNICEF 300 MG PO ×2 (09:02→19:58)
[2023-12-26] MEDS: ZOLOFT 50 MG PO (09:03)
[2023-12-26] MEDS: MS CONTIN (EXTENDED RELEASE) 30 MG PO ×2 (09:03→19:58)
[2023-12-26] MEDS: SENOKOT 17.1999999999999993 MG PO ×2 (09:03→19:58)
[2023-12-26] MEDS: PROTONIX 40 MG PO (09:03)
[2023-12-26] MEDS: LIORESAL 40 MG PO ×2 (09:03→19:58)
[2023-12-26] MEDS: NORVASC 5 MG PO (09:03)
[2023-12-26] MEDS: COLACE 100 MG PO ×2 (09:03→19:58)
[2023-12-26] MEDS: NEURONTIN 300 MG PO ×2 (09:03→19:58)
[2023-12-26] MEDS: DECADRON 4 MG IV ×2 (09:04→22:04)
[2023-12-26] MEDS: LASIX 40 MG PO (09:04)
[2023-12-26] MEDS: ANTIFUNGAL CLEAR 1 APPLIC TOPICAL ×2 (09:05→19:57)
[2023-12-26] MEDS: LIDOCAINE 4% PATCH TOPICAL (09:06)
[2023-12-26 11:20] VITALS: BP 107/52
--- NOTE | 2023-12-26 11:39 | W.PN.HOSP.TC ---
Today's Communication/Plan
-
Monitor vitals
see plan
Wean oxygen as tolerated; at home on 2L
Continue with IV steroids
Nebs
Possible discharge tomorrow if continues to improve
Assessment / Plan
Assessment / Plan
HPI: 53-year-old male past medical history of T6 paraplegia, COPD on chronic oxygen 2 L nasal cannula, CHF, pacemaker, history of left leg DVT/PE status post IVC filter, A-fib on Coumadin, rfp-bysmthx-urmkseuov diabetes, chronic CHF,
uzg-ffuwtsp-zrupnwxlg diabetes; p/w worsening shortness of breath for several days, associated with wheezing.
Symptom did not improve despite increased use of inhaler, nebulizer, and home oxygen.
Patient denies other symptoms, such as fever/chills, chest pain/shortness of breath etc.
A/P:
# Acute on chronic hypoxic resp failure
# Acute hypercapnic resp failure
# COPD exacerbation
Cont 4L NC, HYDROGEOLOGY PROFESSOR on 2L NC; wean o2 as tolerated
CXR with BL infiltrate however procal neg
Would cont empiric cefdinir, total Abx 5 days only
COVID and flu are negative
If symptoms do not improve then will need pulmonary evaluation
Patient has history of sleep apnea however not compliant with CPAP
patient refused VSE; he will f/u with speech outpatient
Continue with IV steroids
# T6 level paraplegia (from a mechanical fall)
# History of spinal surgery with hardware placement
# Morbid Obesity, BMI 44
Groin fungal rash
cw micanozole
# Chronic Heart failure with preserved ejection fraction
cont HYDROGEOLOGY PROFESSOR lasix 40 mg daily
# Severe pulmonary hypertension
# Paroxysmal atrial fibrillation on Coumadin
Monitor daily INR; 1.7 today
coumadin restarted at home dose
# Chronic opioid use and dependence
# Hypertension
cont HYDROGEOLOGY PROFESSOR Norvasc with holding parameter
# Hyperlipidemia
# NIDDM
cover with ISS
# Neurogenic bladder with chronic indwelling Burnett catheter
# History of urinary tract infection
# Chronic nephrolithiasis
# Left humerus fracture
# Chronic left lower extremity deep vein thrombosis with history of pulmonary embolism, s/p IVC filter placement
# Chronic calculous cholecystitis status post cholecystectomy
# Depression
DVT PPx: HYDROGEOLOGY PROFESSOR Coumadin. Monitor INR.
Code Status: Full Code
General: Well Developed, Well Nourished, Comfortable, Respiratory Distress, Conversant and Morbidly Obese
HEENT: Normocephalic, Atraumatic, Nose Appears Normal, Ears Appear Normal and Oxygen (6L NC)
Respiratory: Clear to Auscultation, Wheezes and Non Labored Respirations; Negative Accessory Resp Muscle Use
Cardiac: Regular Rhythm and S1/S2
GI: Soft, Nontender, Nondistended and Normal Bowel Sounds
Skin: Warm and Dry
Neuro: Awake, Alert, Oriented, AO x 3 and Other (paraplegic)
Psych: Calm and Intact Judgement/Insight
Anticipated Discharge: Within 24 hours
Subjective/Interval History
-
Date of Service: December 26, 2023
denies pain
Objective Data
-
Labs:
Laboratory Results
12/26/23
06:37
WBC 9.5
Hgb 14.1
Hct 46.5
Plt Count 191
PT 20.4 H
INR 1.77
Sodium 140
Potassium 4.3
Chloride 96 L
Carbon Dioxide 39 H
BUN 15
Creatinine 0.4 L
Glucose 125 H
Calcium 9.2
Vital Signs:
Vital Signs
Temp Pulse Resp BP Pulse Ox
97.3 F 72 18 140/58 92
12/26/23 07:35 12/26/23 11:33 12/26/23 11:33 12/26/23 09:04 12/26/23 07:35
I&O
12/25/23 12/26/23 12/27/23
06:59 06:59 06:59
Intake Total 2089
Output Total 3725 / 3725 5705 / 5705
Balance -1635 / -1635 -3765 / -3765
[2023-12-26 12:25] LABS: Glucose - Point of Care 215 mg/dl (70-99)
[2023-12-26] MEDS: FLEET MINERAL OIL ENEMA 133 ML RECTAL (12:27)
[2023-12-26] MEDS: NOVOLOG FLEXPEN-LOW RESISTANCE 2 UNITS SC (13:38)
[2023-12-26 15:40] VITALS: BP 116/54
--- NOTE | 2023-12-26 16:10 | PTCARENOTE ---
Patient c/o constipation despite scheduled bowel regimen in place, no documented BM since admission other than occasional smears. MD made aware, order for fleet enema placed, enema administered by this RN with assistance of another RN. No BM noted
after enema; MD made aware, stated monitor throughout rest of day, further treatment for constipation can be ordered overnight if constipation continues.
--- NOTE | 2023-12-26 16:22 | CM ---
IMM reviewed and placed on chart.
[2023-12-26 16:48] LABS: Glucose - Point of Care 123 mg/dl (70-99)
[2023-12-26] MEDS: COUMADIN 5 MG PO (17:16)
[2023-12-26] MEDS: COUMADIN 4 MG PO (17:16)
[2023-12-26 21:13] LABS: Glucose - Point of Care 177 mg/dl (70-99)
[2023-12-26] MEDS: CITROMA 300 ML PO (22:04)
[2023-12-26 23:07] VITALS: BP 91/72
[2023-12-26 23:12] VITALS: BP 121/65
[2023-12-27 06:00] VITALS: BMI 42.3
[2023-12-27 06:57] LABS: % Basophils 0.2 % (0-2); % Eosinophils 0.3 % (0-6); % Immature Granulocytes 0.6 % (0-0.5); % Lymphocytes 12.1 % (20.5-51.1); % Monocytes 6.7 % (1.7-9.3); % Neutrophils 80.1 % (42.2-75.2); Absolute Immature Granulocytes 0.1 10^3/uL (0-0.05); Absolute Lymphocytes 1.3 10^3/uL (1.2-3.4); Absolute Monocytes 0.7 10^3/uL (0.1-0.6); Absolute Neutrophils 8.7 10^3/uL (1.4-6.5); Hematocrit 47.1 % (39.0-52.0); Hemoglobin 14.4 g/dL (13.0-18.0); Mean Corp Hgb Conc. 30.6 g/dL (33.0-37.0); Mean Corpuscular Hgb 27.3 pg (27.0-31.0); Mean Corpuscular Volume 89.4 fL (80.0-94.0); Mean Platelet Volume 11.7 fL (7.4-10.4); Nucleated Red Blood Cells % 0 % (-); Platelet Count 217 10^3/uL (130-400); Red Blood Cell Count 5.27 10^6/uL (4.70-6.10); Red Cell Dist. Width 15.3 % (11.5-14.5); White Blood Cell Count 10.9 10^3/uL (4.8-10.8)
[2023-12-27 07:02] LABS: INR 1.87; PT 21.7 Sec (11.4-14.6)
[2023-12-27] MEDS: VENTOLIN NEBULES 2.5 MG INH ×4 (07:28→19:35)
[2023-12-27] MEDS: SYMBICORT 160/4.5 MCG INHALER 2 PUFF INH ×2 (07:30→19:36)
[2023-12-27] MEDS: SPIRIVA RESPIMAT 2.5 MCG 2 PUFF INH (07:30)
[2023-12-27 07:31] LABS: Glucose - Point of Care 122 mg/dl (70-99)
[2023-12-27 07:45] VITALS: BP 137/71
[2023-12-27] MEDS: NOVOLOG FLEXPEN-LOW RESISTANCE SC (08:32)
[2023-12-27 09:25] VITALS: BP 137/71
[2023-12-27 09:59] LABS: Blood Urea Nitrogen 16 mg/dl (9-20); Calcium 9.7 mg/dl (8.4-10.2); Carbon Dioxide 32 mmol/L (22-30); Chloride 95 mmol/L (98-107); Glucose 140 mg/dl (70-99); Potassium 4.8 mmol/L (3.5-5.1); Sodium 136 mmol/L (135-145)
[2023-12-27 10:13] LABS: Estimated Creatinine Clearance > 125 ml/min; eGFR > 60.00
[2023-12-27] MEDS: SENOKOT 17.1999999999999993 MG PO ×2 (10:14→20:15)
[2023-12-27] MEDS: LIORESAL 40 MG PO ×2 (10:14→20:15)
[2023-12-27] MEDS: ZOLOFT 50 MG PO (10:14)
[2023-12-27] MEDS: ASPIR LOW (ENTERIC COATED) 81 MG PO (10:14)
--- NOTE | 2023-12-27 10:14 | W.PN.HOSP.TC ---
Addendum entered and electronically signed by Hernandez Escalante MD 12/27/23 16:10:
Xray with questionable fracture. Podiatry was consulted however Dr Lozada recommends 'taping toes to splint right 2nd and 3rd toe' and they will follow outpatient
Addendum entered and electronically signed by Hernandez Escalante MD 12/27/23 13:32:
Notified by RN that patient fell off the bed while he was being moved. He denies any loss of consciousness or hit his head. He fell on his knees and appears might of fractured right second toe. Check stat x-ray now. If shows fracture then will
consult podiatry for evaluation
Original Note:
Today's Communication/Plan
-
Monitor vital signs
See plan
Will transition IV steroids to oral upon discharge
Possible discharge later today after bowel movement
Enema
Assessment / Plan
Assessment / Plan
HPI: 53-year-old male past medical history of T6 paraplegia, COPD on chronic oxygen 2 L nasal cannula, CHF, pacemaker, history of left leg DVT/PE status post IVC filter, A-fib on Coumadin, hdf-kphngdg-qosumdjpp diabetes, chronic CHF,
jkc-swahxhy-abcgxopzl diabetes; p/w worsening shortness of breath for several days, associated with wheezing.
Symptom did not improve despite increased use of inhaler, nebulizer, and home oxygen.
Patient denies other symptoms, such as fever/chills, chest pain/shortness of breath etc.
A/P:
# Acute on chronic hypoxic resp failure
# Acute hypercapnic resp failure
# COPD exacerbation
now back on his home o2,2L;
CXR with BL infiltrate however procal neg
finished empiric cefdinir, total Abx 5 days only
COVID and flu are negative
If symptoms do not improve then will need pulmonary evaluation
Patient has history of sleep apnea however not compliant with CPAP
patient refused VSE; he will f/u with speech outpatient
Continue with IV steroids
# T6 level paraplegia (from a mechanical fall)
# History of spinal surgery with hardware placement
Constipation
Continue with laxatives, enema today
Mag citrate 12/25
# Morbid Obesity, BMI 44
Groin fungal rash
cw micanozole
# Chronic Heart failure with preserved ejection fraction
cont STAFF MIDWIFE lasix 40 mg daily
# Severe pulmonary hypertension
# Paroxysmal atrial fibrillation on Coumadin
Monitor daily INR; 1.87 today
coumadin restarted at home dose
# Chronic opioid use and dependence
# Hypertension
cont STAFF MIDWIFE Norvasc with holding parameter
# Hyperlipidemia
# NIDDM
cover with ISS
# Neurogenic bladder with chronic indwelling Burnett catheter
# History of urinary tract infection
# Chronic nephrolithiasis
# Left humerus fracture
# Chronic left lower extremity deep vein thrombosis with history of pulmonary embolism, s/p IVC filter placement
# Chronic calculous cholecystitis status post cholecystectomy
# Depression
DVT PPx: STAFF MIDWIFE Coumadin. Monitor INR.
Code Status: Full Code
General: Well Developed, Well Nourished, Comfortable, Respiratory Distress, Conversant and Morbidly Obese
HEENT: Normocephalic, Atraumatic, Nose Appears Normal, Ears Appear Normal and Oxygen
Respiratory: Clear to Auscultation, Wheezes and Non Labored Respirations; Negative Accessory Resp Muscle Use
Cardiac: Regular Rhythm and S1/S2
GI: Soft, Nontender, Nondistended and Normal Bowel Sounds
Skin: Warm and Dry
Neuro: Awake, Alert, Oriented, AO x 3 and Other (paraplegic)
Psych: Calm and Intact Judgement/Insight
Anticipated Discharge: Today
Subjective/Interval History
-
Date of Service: December 27, 2023
denies pain
Objective Data
-
Labs:
Laboratory Results
12/27/23
06:27
WBC 10.9 H
Hgb 14.4
Hct 47.1
Plt Count 217
PT 21.7 H
INR 1.87
Sodium 136
Potassium 4.8
Chloride 95 L
Carbon Dioxide 32 H
BUN 16
Creatinine 0.5 L
Glucose 140 H
Calcium 9.7
Vital Signs:
Vital Signs
Temp Pulse Resp BP Pulse Ox
97.9 F 72 16 137/71 95
12/27/23 07:45 12/27/23 07:45 12/27/23 07:45 12/27/23 07:45 12/27/23 07:45
I&O
12/26/23 12/27/23 12/28/23
06:59 06:59 06:59
Intake Total 1939 / 1939 2220 / 2220
Output Total 5705 / 5705 4575 / 4575
Balance -3765 / -3765 -2355 / -2355
[2023-12-27] MEDS: PROTONIX 40 MG PO (10:15)
[2023-12-27] MEDS: NEURONTIN 300 MG PO ×2 (10:15→20:15)
[2023-12-27] MEDS: COLACE 100 MG PO ×2 (10:15→20:15)
[2023-12-27] MEDS: LASIX 40 MG PO (10:16)
[2023-12-27] MEDS: NORVASC 5 MG PO (10:16)
[2023-12-27] MEDS: MS CONTIN (EXTENDED RELEASE) 30 MG PO ×2 (10:16→20:15)
[2023-12-27] MEDS: DECADRON 4 MG IV ×2 (10:17→22:55)
[2023-12-27] MEDS: LIDOCAINE 4% PATCH TOPICAL (10:17)
[2023-12-27] MEDS: ANTIFUNGAL CLEAR 1 APPLIC TOPICAL ×2 (10:18→20:14)
--- NOTE | 2023-12-27 11:03 | CM ---
Reviewed the chart notes and spoke with the patient at the bedside. Discussed VN services. Patient declined VN at this time. CM continues to be available to patient/family and is monitoring medical plan for needs at discharge.
Plan: Discharge to home when medically stable.
[2023-12-27 11:26] LABS: Glucose - Point of Care 176 mg/dl (70-99)
[2023-12-27] MEDS: FLEET MINERAL OIL ENEMA 133 ML RECTAL (11:27)
[2023-12-27 12:33] VITALS: BP 138/63
[2023-12-27] MEDS: ROXICODONE 5 MG PO (12:40)
--- NOTE | 2023-12-27 13:07 | FALL ---
Description of Fall: Patient was being turned to side, legs slid on side of bed. Patient was assisted to kneeling position on the floor.
Injuries Noted: Right 2nd toe deformed
Action Taken: Damon lifted patient back to bed, MD notified, x-ray ordered, vitals stable
Name of Provider Notified: Dr Boris Ortega.
[2023-12-27] MEDS: NOVOLOG FLEXPEN-LOW RESISTANCE 1 UNITS SC ×2 (13:19→17:10)
[2023-12-27 15:55] VITALS: BP 125/63
[2023-12-27 16:28] LABS: Glucose - Point of Care 156 mg/dl (70-99)
[2023-12-27] MEDS: COUMADIN 5 MG PO (17:10)
[2023-12-27] MEDS: COUMADIN 4 MG PO (17:10)
[2023-12-27 21:40] LABS: Glucose - Point of Care 148 mg/dl (70-99)
[2023-12-27] MEDS: CITROMA 300 ML PO (22:54)
[2023-12-27 23:33] VITALS: BP 137/69
[2023-12-28 06:00] VITALS: BMI 41.4
[2023-12-28 07:14] LABS: Glucose - Point of Care 147 mg/dl (70-99)
[2023-12-28 07:20] LABS: % Basophils 0.1 % (0-2); % Eosinophils 0.2 % (0-6); % Immature Granulocytes 0.4 % (0-0.5); % Lymphocytes 8.7 % (20.5-51.1); % Monocytes 6.2 % (1.7-9.3); % Neutrophils 84.4 % (42.2-75.2); Absolute Immature Granulocytes 0.1 10^3/uL (0-0.05); Absolute Lymphocytes 1.1 10^3/uL (1.2-3.4); Absolute Monocytes 0.8 10^3/uL (0.1-0.6); Absolute Neutrophils 10.2 10^3/uL (1.4-6.5); Hematocrit 47.1 % (39.0-52.0); Hemoglobin 14.5 g/dL (13.0-18.0); Mean Corp Hgb Conc. 30.8 g/dL (33.0-37.0); Mean Corpuscular Hgb 27.6 pg (27.0-31.0); Mean Corpuscular Volume 89.5 fL (80.0-94.0); Mean Platelet Volume 11.3 fL (7.4-10.4); Nucleated Red Blood Cells % 0 % (-); Platelet Count 196 10^3/uL (130-400); Red Blood Cell Count 5.26 10^6/uL (4.70-6.10); Red Cell Dist. Width 15.3 % (11.5-14.5); White Blood Cell Count 12.1 10^3/uL (4.8-10.8)
[2023-12-28 07:26] LABS: INR 1.97; PT 22.6 Sec (11.4-14.6)
[2023-12-28 07:43] LABS: Blood Urea Nitrogen 14 mg/dl (9-20); Calcium 8.9 mg/dl (8.4-10.2); Carbon Dioxide 37 mmol/L (22-30); Chloride 94 mmol/L (98-107); Estimated Creatinine Clearance > 125 ml/min; Glucose 134 mg/dl (70-99); Potassium 4.5 mmol/L (3.5-5.1); Sodium 137 mmol/L (135-145); eGFR > 60.00
[2023-12-28] MEDS: NOVOLOG FLEXPEN-LOW RESISTANCE SC ×3 (07:44→16:50)
[2023-12-28] MEDS: SYMBICORT 160/4.5 MCG INHALER 2 PUFF INH ×2 (07:50→19:04)
[2023-12-28] MEDS: SPIRIVA RESPIMAT 2.5 MCG 2 PUFF INH (07:50)
[2023-12-28] MEDS: VENTOLIN NEBULES 2.5 MG INH ×2 (07:50→11:07)
[2023-12-28 07:55] VITALS: BP 135/68
[2023-12-28] MEDS: LASIX 40 MG PO (08:06)
[2023-12-28] MEDS: DULCOLAX 10 MG RECTAL (08:06)
[2023-12-28] MEDS: MIRALAX 17 GRAMS PO (08:06)
[2023-12-28] MEDS: NORVASC 5 MG PO (08:09)
[2023-12-28] MEDS: SENOKOT 17.1999999999999993 MG PO (08:09)
[2023-12-28] MEDS: NEURONTIN 300 MG PO (08:09)
[2023-12-28] MEDS: COLACE 100 MG PO (08:09)
[2023-12-28] MEDS: PROTONIX 40 MG PO (08:09)
[2023-12-28] MEDS: ASPIR LOW (ENTERIC COATED) 81 MG PO (08:09)
[2023-12-28] MEDS: MS CONTIN (EXTENDED RELEASE) 30 MG PO (08:09)
[2023-12-28] MEDS: ZOLOFT 50 MG PO (08:09)
[2023-12-28] MEDS: LIDOCAINE 4% PATCH TOPICAL (08:10)
[2023-12-28] MEDS: LIORESAL 40 MG PO (08:15)
[2023-12-28] MEDS: ANTIFUNGAL CLEAR 1 APPLIC TOPICAL (08:16)
[2023-12-28] MEDS: DECADRON 4 MG IV (10:43)
--- NOTE | 2023-12-28 10:53 | W.PN.HOSP.TC ---
Today's Communication/Plan
-
Monitor vital signs
see plan
Pain control
Splint applied, patient to follow-up with podiatry outpatient
Change steroids to oral
Discharge today
Time of discharge 38 minutes
Assessment / Plan
Assessment / Plan
HPI: 53-year-old male past medical history of T6 paraplegia, COPD on chronic oxygen 2 L nasal cannula, CHF, pacemaker, history of left leg DVT/PE status post IVC filter, A-fib on Coumadin, lls-ymnvivx-gimguzjym diabetes, chronic CHF,
lej-cwysbuc-hwrrcoirj diabetes; p/w worsening shortness of breath for several days, associated with wheezing.
Symptom did not improve despite increased use of inhaler, nebulizer, and home oxygen.
Patient denies other symptoms, such as fever/chills, chest pain/shortness of breath etc.
A/P:
# Acute on chronic hypoxic resp failure
# Acute hypercapnic resp failure
# COPD exacerbation
now back on his home o2,2L;
CXR with BL infiltrate however procal neg
finished empiric cefdinir, total Abx 5 days only
COVID and flu are negative
If symptoms do not improve then will need pulmonary evaluation
Patient has history of sleep apnea however not compliant with CPAP
patient refused VSE; he will f/u with speech outpatient
Continue with IV steroids; change to PO today on dc
# T6 level paraplegia (from a mechanical fall)
# History of spinal surgery with hardware placement
12/26 patient fell off the bed while he was being moved. He denies any loss of consciousness or hit his head. He fell on his knees and appears might fractured right second toe.
Xray with questionable fracture. Podiatry was consulted however Dr Lozada recommends 'taping toes to splint right 2nd and 3rd toe' and they will follow outpatient
Constipation
Continue with laxatives, enema today
Mag citrate 12/25;12/26
now with BM 12/27
# Morbid Obesity, BMI 44
Groin fungal rash
cw micanozole
# Chronic Heart failure with preserved ejection fraction
cont SCALE SHOOTER lasix 40 mg daily
# Severe pulmonary hypertension
# Paroxysmal atrial fibrillation on Coumadin
Monitor daily INR; 1.97 today
coumadin restarted at home dose
# Chronic opioid use and dependence
# Hypertension
cont SCALE SHOOTER Norvasc with holding parameter
# Hyperlipidemia
# NIDDM
cover with ISS
# Neurogenic bladder with chronic indwelling Burnett catheter
# History of urinary tract infection
# Chronic nephrolithiasis
# Left humerus fracture
# Chronic left lower extremity deep vein thrombosis with history of pulmonary embolism, s/p IVC filter placement
# Chronic calculous cholecystitis status post cholecystectomy
# Depression
DVT PPx: SCALE SHOOTER Coumadin. Monitor INR.
Code Status: Full Code
General: Well Developed, Well Nourished, Comfortable, Respiratory Distress, Conversant and Morbidly Obese
HEENT: Normocephalic, Atraumatic, Nose Appears Normal, Ears Appear Normal and Oxygen
Respiratory: Clear to Auscultation, Wheezes and Non Labored Respirations; Negative Accessory Resp Muscle Use
Cardiac: Regular Rhythm and S1/S2
GI: Soft, Nontender, Nondistended and Normal Bowel Sounds
Skin: Warm and Dry
Neuro: Awake, Alert, Oriented, AO x 3 and Other (paraplegic)
MSK: right 2nd toe splint
Psych: Calm and Intact Judgement/Insight
Anticipated Discharge: Today
Subjective/Interval History
-
Date of Service: December 28, 2023
denies pain
Objective Data
-
Labs:
Laboratory Results
12/28/23
06:52
WBC 12.1 H
Hgb 14.5
Hct 47.1
Plt Count 196
PT 22.6 H
INR 1.97
Sodium 137
Potassium 4.5
Chloride 94 L
Carbon Dioxide 37 H
BUN 14
Creatinine 0.5 L
Glucose 134 H
Calcium 8.9
Vital Signs:
Vital Signs
Temp Pulse Resp BP Pulse Ox
97.7 F 71 16 135/68 96
12/28/23 07:55 12/28/23 08:09 12/28/23 07:55 12/28/23 08:09 12/28/23 07:55
I&O
12/27/23 12/28/23 12/29/23
06:59 06:59 06:59
Intake Total 2220 / 2220 480 / 480
Output Total 4575 / 4575 3075 / 3075
Balance -2355 / -2355 -2595 / -2595
--- NOTE | 2023-12-28 11:08 | W.DCSUMMARY ---
Discharge Summary
Discharge Data
Date of Admission: 12/22/23
Date of Discharge: 12/28/23
-
Pending Results: No
Hospital Course
53-year-old male with past medical history of T6 paraplegia, COPD, CHF, pacemaker, DVT/PE, A-fib, ice-xoncbui-mrtyhpsuo diabetes mellitus, CHF, chronic opioid use and dependence, hypertension, hyperlipidemia, neurogenic bladder with chronic
indwelling Burnett catheter, cholecystitis, depression came to the hospital with acute on chronic hypoxic hypercapnic respiratory failure. Patient was treated with COPD exacerbation. Chest x-ray showed bilateral infiltrate however procalcitonin was
negative. Given COPD, patient was treated with 5 total days of cefdinir. COVID and flu was checked and were negative. It appeared that patient symptoms could also be secondary to his noncompliance with his CPAP for his sleep apnea. Video swallow
study was ordered however patient refused. Patient symptoms over time improved with IV steroids and breathing treatments. He was able to be weaned down to his home oxygen which is 2 L. While he was in the hospital, he fell off the bed and
appeared fractured right second toe. Podiatry was consulted who recommended patient to get tapping toes to splint right second and third toe and to follow-up with them outpatient. X-ray was consistent with questionable fracture. Patient was also
constipated on this hospitalization which over time improved with laxatives, enema. Once patient symptoms continue to improve he was then discharged home with instructions to follow-up with all his physicians outpatient.
Discharge Plan
-
Patient Disposition: Home (Routine Discharge)
Discharge Diagnosis/Procedures: Acute on chronic hypoxic respiratory failure
Acute hypercapnic respiratory failure
Possible right 2nd toe fracture 2/2 trauma
COPD exacerbation
Diet: As tolerated
Activity: As tolerated
Driving Restrictions: No driving
Bathing Restrictions: None
Blood Work: INR check over the weekend or sunday with PCP
Referrals:
Nikko Lozada DPM [Specified Professional Personl] - in less than 1 week
Santhosh Marquez MD [Active] -
Alida Sandy DO [Family Provider] - in less than 1 week
Prescriptions:
New
prednisone 10 mg Tablet
See Rx Instructions .ROUTE .COMPLEX Qty: 30 0RF
Rx Instructions:
Take By Mouth:
40 mg daily x3 days, 30 mg daily x3 days,
20 mg daily x3 days, 10 mg daily x3 days.
lidocaine 4 % Adhesive Patch,Medicated
2 patch topical DAILY Qty: 30 0RF
polyethylene glycol 3350 [HealthyLax] 17 gram Powder In Packet
17 g PO DAILYPRN PRN (Reason: constipation) Qty: 0 0RF
aspirin 81 mg Tablet,Delayed Release (Dr/Ec)
81 mg PO DAILY Qty: 0 0RF
Continued
sertraline 50 MG tablet
50 mg PO DAILY
amlodipine 5 MG tablet
5 mg PO DAILY
docusate sodium 100 MG capsule
100 mg PO BID
oxycodone 5 MG tablet
5 mg PO DAILYPRN PRN (Reason: severe pain)
furosemide 40 mg tablet
40 mg PO DAILY
baclofen 20 mg tablet
40 mg PO BID
pantoprazole [Protonix] 40 mg tablet,delayed release (DR/EC)
40 mg PO DAILY Qty: 30 0RF
sennosides [senna] 8.6 mg Tablet
17.2 mg PO DAILY
gabapentin 600 mg Tablet
300 mg PO BID
morphine 30 mg Tablet Extended Release
30 mg PO BID
warfarin 6 mg Tablet
9 mg PO HS
Fleet Enema 19-7 gram/118 mL Enema
118 ml MS DAILYPRN PRN (Reason: constipation)
albuterol sulfate 90 mcg/actuation Hfa Aerosol Inhaler
2 puff INHALATION R Q6HPRN PRN (Reason: wheezing)
unswlwwnorco-msdcqmss-dndvzl Tablet
1 tab PO DAILY
Trelegy Ellipta 200-62.5-25 mcg Blister With Device
1 inh INHALATION R DAILY
acetaminophen [Tylenol Extra Strength] 500 mg Tablet
1,000 mg PO BIDPRN PRN (Reason: mild pain)
Changed
nystatin [Nystop] 100,000 unit/gram Powder
1 applic TOPICAL BID Qty: 0 0RF
Discharge Orders:
Discharge Patient (As Directed); Ordered 12/28/23
Ordered By: Hernandez Escalante
Discharge Date and Time
Discharge Date/Time: 12/28/23 21:20
Print Language: NEPALI
[2023-12-28 11:41] LABS: Glucose - Point of Care 96 mg/dl (70-99)
--- NOTE | 2023-12-28 13:56 | CM ---
Reviewed the chart notes and spoke with the patient at the bedside. The patient is being discharged today. BLS transport required.
Plan: Discharge to home today via ambulance.
Medical and transport forms on chart.
[2023-12-28] MEDS: VENTOLIN NEBULES INH ×2 (15:44→20:04)
[2023-12-28 15:50] VITALS: BP 114/64
[2023-12-28 16:49] LABS: Glucose - Point of Care 134 mg/dl (70-99)
[2023-12-28] MEDS: COUMADIN 4 MG PO (17:23)
[2023-12-28] MEDS: ROXICODONE 5 MG PO (17:23)
[2023-12-28] MEDS: COUMADIN 5 MG PO (17:23)
--- NOTE | 2023-12-28 18:10 | PTCARENOTE ---
Discharge instructions printed and given to patient (stated that will review later). Ambulance scheduled for pharmacy picking tech to home at 2100 tonight.
[2023-12-28] MEDS: DUONEB 3 ML INH (19:03)
[2023-12-28 19:52] VITALS: BP 133/75
== END 2023-12-28 21:20 | disposition home or self-care (01) | DRG 190 ==
LOC: 2 NORTH 12:43
PROVIDERS: Physician Assistant; ADMITTING PHYSICIAN Internal Medicine; ATTENDING PHYSICIAN Internal Medicine; EMERGENCY PHYSICIAN Emergency Medicine; FAMILY PHYSICIAN Family Medicine
DX: J44.1 Chronic obstructive pulmonary disease with (acute) exacerbation (principal); J18.9 Pneumonia, unspecified organism; J96.21 Acute and chronic respiratory failure with hypoxia; J96.22 Acute and chronic respiratory failure with hypercapnia; Z68.41 Body mass index [BMI] 40.0-44.9, adult; G82.20 Paraplegia, unspecified; I50.32 Chronic diastolic (congestive) heart failure; K80.10 Calculus of gallbladder with chronic cholecystitis without obstruction; J44.0 Chronic obstructive pulmonary disease with (acute) lower respiratory infection; Z87.891 Personal history of nicotine dependence; Z11.52 Encounter for screening for COVID-19; E66.01 Morbid (severe) obesity due to excess calories; I11.0 Hypertensive heart disease with heart failure; I27.20 Pulmonary hypertension, unspecified; I48.0 Paroxysmal atrial fibrillation; Z79.01 Long term (current) use of anticoagulants; Z79.891 Long term (current) use of opiate analgesic; E11.9 Type 2 diabetes mellitus without complications; Z79.84 Long term (current) use of oral hypoglycemic drugs; F32.A Depression, unspecified; E78.00 Pure hypercholesterolemia, unspecified
CPT/HCPCS: 71045; 73630; 80048; 80053; 82805; 82962; 83036; 83605; 83735; 83880; 84145; 84484; 85025; 85610; 87070; 87147; 87205; 87502; 87811; 92610; 93005; 94640; 96365; 96375; 99285

== ENCOUNTER 2024-03-27 18:53 | Inpatient (IN) | payer MEDICARE, OTHER, SELFPAY ==
[2024-03-27] VITALS (31 sets, daily range): BP systolic 75–160; BP diastolic 47–113; BMI 46.7; BMI 45.1
[2024-03-27 16:30] LABS: Glucose - Point of Care 205 mg/dl (70-99)
[2024-03-27 16:43] LABS: % Basophils 0.6 % (0-2); % Eosinophils 0.6 % (0-6); % Immature Granulocytes 2.2 % (0-0.5); % Lymphocytes 11.4 % (20.5-51.1); % Monocytes 6.8 % (1.7-9.3); % Neutrophils 78.4 % (42.2-75.2); Absolute Basophils 0.1 10^3/uL (0-0.2); Absolute Eosinophils 0.1 10^3/uL (0-0.7); Absolute Immature Granulocytes 0.4 10^3/uL (0-0.05); Absolute Lymphocytes 2.1 10^3/uL (1.2-3.4); Absolute Monocytes 1.3 10^3/uL (0.1-0.6); Absolute Neutrophils 14.7 10^3/uL (1.4-6.5); Mean Corp Hgb Conc. 29.4 g/dL (33.0-37.0); Mean Corpuscular Hgb 25.6 pg (27.0-31.0); Nucleated Red Blood Cells % 0 % (-); Platelet Count 283 10^3/uL (130-400); Red Blood Cell Count 5.86 10^6/uL (4.70-6.10); Red Cell Dist. Width 18.4 % (11.5-14.5); White Blood Cell Count 18.7 10^3/uL (4.8-10.8)
--- NOTE | 2024-03-27 16:45 | EDRN ---
Dr. Valiente and respiratory at the bedside preparing for intubation. Dr. Valiente provided verbal RSI orders. Medications prepared for administration.
1633: Etomidate 30mg IV administered
1634: Rocuronium 120mg IV administered
1638: Patient intubated with 7.5 ETT 24 at the lip. Positive color change, lungs auscultated, ETCO2 72.
1640: Vent settings: Rate 20, Volume 500, PEEP 5, FiO2 100%
1643: Portable xray completed at the bedside.
[2024-03-27] MEDS: LASIX 80 MG IV (16:47)
--- NOTE | 2024-03-27 16:51 | ED.GENMED ---
Addendum entered and electronically signed by Josh Valiente MD 03/28/24 15:08:
PROCEDURE NOTE:
Performed by: Dr. Valiente
Consent: Verbal consent not obtained. The procedure was performed in an emergent situation.
Patient identity confirmed: arm band
Indications: respiratory failure and airway protection
Intubation method: video with glidescope
Patient status: paralyzed (RSI)
Preoxygenation: BVM
Sedatives: etomidate
Paralytic: rocuronium
Laryngoscope size: Mac 4
Tube size: 7.5 mm
Tube type: cuffed
Number of attempts: 1
Cords visualized: yes
Post-procedure assessment: chest rise, BS = bilaterally none over epigastrum, +CO2 detector
Breath sounds: equal and absent over the epigastrium
Cuff inflated: yes
ETT to lip: 23 cm
Tube secured with: adhesive tape
Chest x-ray interpreted by me.
Chest x-ray findings: endotracheal tube in appropriate position
Patient tolerance: Patient tolerated the procedure well with no immediate complications.
Original Note:
History of Present Illness
General
Chief Complaint: Breathing Problem
Time Seen by Provider: 03/27/24 16:29
History of Present Illness
History of Present Illness:
Patient is a 53-year-old male with a history of paraplegia, who is primarily bedbound, chronic indwelling Mane, history of COPD and CHF. He presents to the emergency department respiratory distress. Patient is obtunded on arrival and history is
obtained via medics who obtained history from patient's . She notes that over the past 3 days he has had gradually worsening shortness of breath. Gradually has become sleepier and more difficult to arouse. He denied any chest pain to her.
Patient arrives on CPAP.
Past History
Past History
ED Past Medical History: COPD, HTN, Hypercholesterolemia and Other (T6 paraplegic, Hematuria, DVT L leg)
ED Past Surgical History: Other (Green field filter)
Social History
Tobacco: Former smoker
Alcohol: None
Drug: None
Personal:
Living: with family
Employment: Disabled
Family History
Family History: Other (Noncontributory)
Phy Exam
Physical Exam
Physical Exam:
gen: obtunded, opens eyes to voice, obese
HEENT: moist mm
neck: unabel to asses JVD
card: tachycardia
resp: crackles and wheezes diffusely, agonally breathing
abd: rotund, soft
: mane inplace, draining clear yellow urine
ext: trace, symmetric edema
neuro: sleepy, rousable by voice, not speaking, not following commands
Scores
Heart Failure Risk
Heart Failure Risk Score: Yes
History of Stroke or TIA: No
History of intubation for respiratory distress: Yes
Heart rate on ED arrival >/= 110: Yes
SaO2 <90% on arrival on room air: Yes
HR >/=110 during 3min walk test (or too ill to perform test): Yes
ECG has acute ischemic changes: No
Urea >/=12mmol/L (BUN 33.6mg/dL): No
Serum CO2>/=35mmol/L: Yes
Troponin I or T elevated to IL Level (0.4mg/dL): Yes
NT-proBNP >/=5,000ng/L (5,000pg/ml): No
HF Risk Score: 9
Admission Status: VERY HIGH RISK 89% Consider admission to hospital
Sepsis
Sepsis Screening
Sepsis Assessment: Severe Sepsis
Sepsis Screening: Need for mechanical ventilation or BiPAP
Sepsis Screen
Sepsis Screen: Severe Sepsis
Date: 03/27/24
Time: 23:05
Course
Orders/Labs/Results
Orders:
Orders
03/27/24 16:22
Etomidate [Amidate] 40 mg .ROUTE .STK-MED ONE
Rocuronium [place] [Rocuronium] 200 mg .ROUTE .STK-MED ONE
03/27/24 16:25
Electrocardiogram (*1) Urgent
Reason for Study: Other
Other Reason for Exam: Respiratory Distress
Cardiac Monitoring- Treatment ONCE
EKG- Treatment ONCE
IV Insert/Care/Rem.- Treatment PRN
03/27/24 16:35
Comprehensive Metabolic Panel Urgent
Triglycerides Urgent
Comment: ADD ON
Venous Blood Gas Urgent
%Oxygen/Room Air: 87
Comment: pt on CPAP
03/27/24 16:36
Complete Blood Count/With Diff Urgent
03/27/24 16:38
PTT Urgent
Prothrombin Time Urgent
CR Chest Portable - 1 View Stat
Comment:
Reason For Exam: post intubation
Reason Study Needs to be Portable: Patient Unstable
03/27/24 16:40
Propofol 1,000,000 Mcg/100 ml [Diprivan] 1,000,000 mcg in 100 ml .ROUTE .STK-MED
03/27/24 16:43
NT-proBNP Urgent
Troponin I Urgent
03/27/24 16:46
FentaNYL 1,000 MCG/100 ML [Sublimaze] 1,000 mcg in 100 ml IV NOW
Indication:: Light Sedation
Begin Infusion:: Now
Goal:: pain score </= 1, CPOT 0-2
Maximum dose in mcg/hr:: 300
Continue currently infusing dose and titrate:: Yes
Titration Instructions:: Titrate every 30 minutes if patient exhibits signs of pain or discomfort
Titration Instructions:: (pain score >/= 2, CPOT >/= 3).
Titration Instructions:: Administer bolus dose and increase infusion by 25 mcg/hr.
Taper Instructions:: If pain score at goal for 4 consecutive hours (pain score </= 1, CPOT 0-2)
Taper Instructions:: decrease infusion by 50 mcg/hr every 2 hours.
Taper Instructions:: When dose </= 50 mcg/hr may turn infusion off and consider PRN
Taper Instructions:: intermittent bolus doses only.
Over-sedation Instructions:: If CPOT 0-2 (goal) and RASS -3 to -5 (below goal) decrease sedative by 50%
Over-sedation Instructions:: first. If pain score remains at goal and RASS remains below goal in 1 hour,
Over-sedation Instructions:: decrease opioid infusion by 50%.
Notify provider:: immediately if pt exhibits: chest wall rigidity, hemodynamic instability,
Notify provider:: agitation/pain despite maximum dosing, pain when RASS below goal.
Additional Instructions:: Patient MUST be mechanically ventilated.
Fentanyl Citrate/Pf [Sublimaze] 50 mcg IV NOW STA
Fentanyl Citrate/Pf [Sublimaze] 50 mcg IV [id number] PRN
Furosemide [Lasix] 100 mg .ROUTE .STK-MED ONE
Furosemide [Lasix] 80 mg IV NOW STA
Propofol 1,000,000 Mcg/100 ml [Diprivan] 1,000,000 mcg in 100 ml IV NOW
Indication:: Light Sedation
Begin Infusion:: Now
Goal:: RASS 0 to -2
Maximum dose in mcg/kg/min:: 50
Initial dose based on RASS:: Yes
If RASS is:: +1 or pt hemodynamically unstable (SBP < 90mmHg), initiate at 10 mcg/kg/min
If RASS is:: +2, initiate at 20 mcg/kg/min
If RASS is:: greater than or equal to +3, initiate at 30 mcg/kg/min
Titration Instructions:: Titrate by 5-10 mcg/kg/min every 5 minutes until RASS 0 to -2 achieved.
Taper Instructions:: If RASS is at or below goal for 4 consecutive hours decrease infusion by
Taper Instructions:: 5-10 mcg/kg/min every 2 hours to off.
Over-sedation Instructions:: If CPOT 0-2 (at goal) AND RASS -3 to -5 (below goal) decrease sedative by
Over-sedation Instructions:: 50% first. If pain score remains at goal and RASS remains below goal in
Over-sedation Instructions:: 1 hour, decrease opioid infusion by 50%.
Notify provider:: immediately if patient exhibits signs/symptoms of propofol-related
Notify provider:: infusion syndrome.
Additional Instructions:: Patient MUST be mechanically ventilated and MUST receive analgesia.
03/27/24 16:48
Albuterol Sulfate [Ventolin Nebules] 7.5 mg INH R NOW STA
03/27/24 16:49
Furosemide [Lasix] 80 mg IV NOW STA
03/27/24 17:44
Lactic Acid Urgent
Urinalysis Reflex To Culture Urgent
Date Specimen was Collected: 03/27/24
Time Specimen was Collected: 17:42
Urine Microscopic Reflex Cult Urgent
Urine Culture Urgent
GREGORIO Source: U
Specimen Description:
Date Specimen was Collected: 03/27/24
Time Specimen was Collected: 17:42
03/27/24 17:46
Mane [Mane Placement- Treatment] ONCE
Reason for insertion: Chronic Mane on Admit
03/27/24 18:07
COVID-19 Antigen Urgent
Source: Nasal Swab
Blood Culture Urgent
GREGORIO Source: Blood/Venous
Specimen Description:
Influenza A+B Rapid Molecular Urgent
GREGORIO Source: Nasal Swab
Specimen Description:
03/27/24 18:10
Admit/Transfer Patient As Directed
Co-Sign Provider:
Level of Care: Inpatient admission
Assign to:: ICU
Physician / Group: Eda Fenton
Diagnosis: acute hypoxic/hypercarbic resp failure
Reason for Hospitalization: acute hypoxic/hypercarbic resp failure
Expected length of stay greater than two midnights?: Yes
ELOS- Estimated Length of Stay in days: 5
I certify the patient meets the requirements for IP care: Yes
PRN Pain Medication Management As Directed
May give lesser potent ordered pain med per pt: Yes
preference::
Protocol:: Medication orders for pain may be administered in a
manner that supports deferring to patient preference
when the pt is:
- Requesting an ordered lesser potent pain medication.
Least to most potent pain medications are defined
as: acetaminophen < NSAID < tramadol < opioids
(morphine, oxycodone, hydromorphone).
- Requesting a lesser dose of the same medication IF
ORDERED.
- Requesting a less intrusive route of administration
if both routes are prescribed by the provider (PO <
IV).
03/27/24 18:12
Code Status As Directed
Resuscitation Status: Full Code
03/27/24 18:22
CefTRIAXone [Rocephin] 1,000 mg IV NOW STA
03/27/24 18:24
CT Head W/o Iv Contrast Urgent
Comment:
Reason For Exam: obtunded
03/27/24 18:38
Doxycycline Hyclate [Vibramycin] 100 mg 0.9% Sodium Chloride 250 ml [Nss] 250 ml IV NOW
03/27/24 18:59
Venous Blood Gas Urgent
%Oxygen/Room Air: 85
03/27/24 19:16
Acetaminophen [Tylenol] 650 mg TUBE Q4HPRN PRN
Bisacodyl [Dulcolax] 10 mg RECTAL [id number] PRN
Dextrose 50%-Water [Dextrose 50% Syringe] 12.5 grams IV [id number] PRN
Docusate W/Senna [Senokot-S] 1 tablet TUBE BIDPRN PRN
FentaNYL 1,000 MCG/100 ML [Sublimaze] 1,000 mcg in 100 ml IV PER PROTOCOL
Indication:: Light Sedation
Begin Infusion:: Now
Goal:: pain score </= 1, CPOT 0-2, RASS 0 to -2
Maximum dose in mcg/hr:: 300
Continue currently infusing dose and titrate:: Yes
Titration Instructions:: Titrate every 30 minutes if patient exhibits signs of pain or discomfort
Titration Instructions:: (pain score >/= 2, CPOT>/= 3).
Titration Instructions:: Administer bolus dose and increase infusion by 25 mcg/hr.
Taper Instructions:: If pain score at goal for 4 consecutive hours (pain score </= 1, CPOT 0-2)
Taper Instructions:: decrease infusion by 50 mcg/hr every 2 hours.
Taper Instructions:: When dose </= 50 mcg/hr may turn infusion off and consider PRN
Taper Instructions:: intermittent bolus doses only.
Over-sedation Instructions:: If CPOT 0-2 (goal) and RASS -3 to -5 (below goal) decrease sedative by 50%
Over-sedation Instructions:: first. If pain score remains at goal and RASS remains below goal in 1 hour,
Over-sedation Instructions:: decrease opioid infusion by 50%.
Notify provider:: immediately if pt exhibits: chest wall rigidity, hemodynamic instability,
Notify provider:: agitation/pain despite maximum dosing, pain when RASS -3 to -5 (below goal)
Additional Instructions:: Patient MUST be mechanically ventilated.
Glucagon [GlucaGen] 1 mg IM PRN PRN
Ipratropium/Albuterol Sulfate [Duoneb] 3 ml INH R Q4HPRN PRN
Polyethylene Glycol Powder [Miralax] 17 grams PO DAILYPRN PRN
Propofol 1,000,000 Mcg/100 ml [Diprivan] 1,000,000 mcg in 100 ml IV PER PROTOCOL
Indication:: Light Sedation
Begin Infusion:: Now
Goal:: RASS 0 to -2
Maximum dose in mcg/kg/min:: 50
Continue currently infusion dose and titrate:: Yes
Titration Instructions:: Titrate by 5-10 mcg/kg/min every 5 minutes until RASS 0 to -2 achieved.
Taper Instructions:: If RASS is at or below goal for 4 consecutive hours decrease infusion by
Taper Instructions:: 5-10 mcg/kg/min every 2 hours to off.
Over-sedation Instructions:: If CPOT 0-2 (at goal) AND RASS -3 to -5 (below goal) decrease sedative by
Over-sedation Instructions:: 50% first. If pain score remains at goal and RASS remains below goal in
Over-sedation Instructions:: 1 hour, decrease opioid infusion by 50%.
Notify provider:: immediately if patient exhibits signs/symptoms of propofol-related
Notify provider:: infusion syndrome.
Additional Instructions:: Patient MUST be mechanically ventilated and MUST recieve analgesia
03/27/24 19:16
CARDIOLOGY CONSULT Routine
Consulting Provider: Nick Harper
Was physician already notified: Yes
Consult Director Supply Chain [Director Supply Chain Consult] Routine
Consulting Provider: Ronal Hong
Was physician already notified: Yes
HF DIETARY CONSULT Routine
HF EDUCATOR CONSULT Routine
Comment:
DVT Contraindication [VTE Contraindication] Routine
VTE Mechanical Device Contraindication: Medical Contraindication
Pharmocologic Contraindication: Medical Contraindication
Sputum Culture [Respiratory Culture/Gram Stain] Routine
GREGORIO Source: Sputum
Specimen Description:
Activity As Directed
Activity Level: Bedrest
Bedside Glucose Monitoring As Directed
Frequency: AC&HS
Additional Instructions:: Change to q6h if pt on TPN, tube feeding or not eating
Intake/ Output As Directed
Frequency: Per unit guidelines
Patient Education As Directed
Type: CHF folder
Comment: give on admission. Document in Interdisciplinary Education record
Sleep Apnea Assessment by RN As Directed
Comment:
Physician Instructions:
Vital Signs As Directed
Frequency: Other
Additional Instructions:: Q12 or per unit guidelines if more frequent.
Vital Signs As Directed
Frequency: Per unit guidelines
Weight As Directed
Frequency: Daily
Pulse Ox/cont/shift [RESP] Routine
Quantity: 1
Special Instructions: Daily pulse oximetry at rest. If greater than 92% at rest also obtain pulse oximetry
while ambulating as tolerated.
Ventilator Initial Settings [RESP] Routine
Tidal Volume: 500
Rate: 20
FIO2: 80
PEEP: 5
03/27/24 20:00
Cefepime HCl [Maxipime] 2,000 mg IV Q8H
Docusate Sodium [Colace Liquid] 100 mg TUBE BID
Ipratropium/Albuterol Sulfate [Duoneb] 3 ml INH R QID
03/27/24 20:27
Triglycerides Routine
Comment: baseline levels with propofol infusion
Troponin I Q6H
Comment: at admission & every 6 hours x 2 (3 total), ECG to be done with each level
MRSA Screen Routine
GREGORIO Source: Nose
Specimen Description:
03/27/24 22:00
Warfarin [Coumadin] 9 mg TUBE HS
03/28/24 04:00
Troponin I Q6H
Comment: at admission & every 6 hours x 2 (3 total), ECG to be done with each level
03/28/24 06:00
Echo 2D MMode Color/Doppler IN AM
Reason for Study: heart failure
Electrocardiogram (*1) IN AM
Reason for Study: Other
Other Reason for Exam: heart failure
NPO
Allow oral meds: Yes
Allow clear liquids: No
Basic Metabolic Panel IN AM
Complete Blood Count/With Diff IN AM
Comprehensive Metabolic Panel IN AM
Glycohemoglobin (HgbA1c) IN AM
INR [Prothrombin Time] IN AM
Magnesium IN AM
TSH IN AM
CR Chest Portable - 1 View IN AM
Comment:
Reason For Exam: heart failure
Reason Study Needs to be Portable: Unable to Transport
03/28/24 07:30
Insulin Aspart Corrective Low [Novolog Flexpen-Low Resistance] See Protocol SC AC
03/28/24 08:00
Doxycycline Hyclate [Vibramycin] 100 mg 0.9% Sodium Chloride 250 ml [Nss] 250 ml IV Q12H
Furosemide [Lasix] 80 mg IV BID AT 0800,1600
Pantoprazole [Protonix IV] 40 mg IV DAILY
Polyethylene Glycol Powder [Miralax] 17 grams TUBE DAILY
Sertraline HCl [Zoloft] 50 mg TUBE DAILY
03/29/24 06:00
INR [Prothrombin Time] IN AM
03/30/24 06:00
INR [Prothrombin Time] IN AM
Triglycerides Q3D
Comment: every 72 hours while patient is on propofol
03/31/24 06:00
INR [Prothrombin Time] IN AM
04/01/24 06:00
INR [Prothrombin Time] IN AM
04/02/24 06:00
INR [Prothrombin Time] IN AM
Triglycerides Q3D
Comment: every 72 hours while patient is on propofol
04/03/24 06:00
INR [Prothrombin Time] IN AM
04/04/24 06:00
INR [Prothrombin Time] IN AM
04/05/24 06:00
INR [Prothrombin Time] IN AM
Triglycerides Q3D
Comment: every 72 hours while patient is on propofol
Abnormal Lab Results
03/27/24 03/27/24 03/27/24
16:28 16:35 16:36
WBC 18.7 H 10^3/uL
(4.8-10.8)
MCH 25.6 L pg
(27.0-31.0)
MCHC 29.4 L g/dL
(33.0-37.0)
RDW 18.4 H %
(11.5-14.5)
MPV 11.0 H fL
(7.4-10.4)
Abs Immat Gran (auto) 0.4 H 10^3/uL
(0-0.05)
Absolute Neuts (auto) 14.7 H 10^3/uL
(1.4-6.5)
Absolute Monos (auto) 1.3 H 10^3/uL
(0.1-0.6)
Immature Gran % 2.2 H %
(0-0.5)
Neutrophils % 78.4 H %
(42.2-75.2)
Lymphocytes % 11.4 L %
(20.5-51.1)
PT
APTT
VBG pH 7.07 L*
(7.32-7.43)
VBG pCO2 > 115 H* mmHg
(35-48)
VBG pO2 61 H mmHg
(30-50)
VBG HCO3 38.5 H mmol/L
(22-27)
Chloride 94 L mmol/L
(98-107)
Carbon Dioxide 36 H mmol/L
(22-30)
Creatinine 0.5 L mg/dL
(0.7-1.3)
Glucose 203 H mg/dl
(70-99)
Alkaline Phosphatase 155 H U/L
(38-126)
Total Protein 8.3 H g/dl
(6.3-8.2)
Ur Occult Blood Reflex
Leukocyte Esterase Rfl
Urine RBC
Urine WBC (Reflex)
Urine Bacteria (Reflex)
Urine Albumin (Reflex)
POC Glucose 205 H mg/dl
(70-99)
03/27/24 03/27/24
16:38 17:44
WBC
MCH
MCHC
RDW
MPV
Abs Immat Gran (auto)
Absolute Neuts (auto)
Absolute Monos (auto)
Immature Gran %
Neutrophils %
Lymphocytes %
PT 27.7 H Sec
(11.4-14.6)
APTT 43.1 H Sec
(23.4-35.0)
VBG pH
VBG pCO2
VBG pO2
VBG HCO3
Chloride
Carbon Dioxide
Creatinine
Glucose
Alkaline Phosphatase
Total Protein
Ur Occult Blood Reflex 4+ A
(Negative)
Leukocyte Esterase Rfl 2+ A
(Negative)
Urine RBC 3-6 A /HPF
(0-2)
Urine WBC (Reflex) 21-25 A /HPF
(0-5)
Urine Bacteria (Reflex) Many A
(Negative)
Urine Albumin (Reflex) 3+ A
(Neg - Trace)
POC Glucose
03/27/24 16:36
03/27/24 16:35
Vital Signs
Initial and Last Documented VS:
Initial Vital Signs
Pulse Resp BP Pulse Ox
120 34 160/56 77
03/27/24 16:21 03/27/24 16:21 03/27/24 16:21 03/27/24 16:21
Last Documented Vital Signs
Temp Pulse Resp BP Pulse Ox
99.2 F 70 20 118/66 98
03/27/24 20:06 03/27/24 22:00 03/27/24 22:00 03/27/24 22:00 03/27/24 22:00
*Critical Care Note
Total Time (30-74mins, 75-104mins- exclusive of procedures): 40
ED Attending Note
ED Attending Note
ED Attending Note:
Patient presents to the emergency department in respiratory distress: Suspected hypercarbia on arrival given. His obtundation. Patient also hypoxic saturating in the high 80s on CPAP. Given mental status patient was intubated. Initial VBG
showing CO2 greater than 115. Chest x-ray showing diffuse pulmonary edema. Suspect primary CHF as a cause of his syndrome. Given 80 mg of IV Lasix. Will admit to the ICU.
-
Portions of this chart may have been created with voice recognition software.� Occasional wrong word or��sound alike� substitutions may have occurred due to the inherent limitations of voice recognition software.
Discharge Plan
Departure
Patient Disposition: Admit
Date of Disposition: 03/27/24
Time of Disposition: 17:13
Admit to: ICU
Admit to doctor: ICU
Presentation/result/management discussed w/ accepting MD/DO: Hospitalist
Discharge Problem:
Acute respiratory failure with hypoxia and hypercarbia, COPD (chronic obstructive pulmonary disease), CHF (congestive heart failure)
Interventions
Interventions:
*Risk Screen - Suicide Last Done: 03/27/24 20:15
*General Assessment Last Done: 03/27/24 17:00
*Neglect/Abuse Screening Last Done: 03/27/24 17:00
*ED COVID-19 Vaccine History Last Done: 03/27/24 20:15
*Nursing Disposition Last Done: 03/27/24 19:31
ED- Cardiac Assessment Last Done: 03/27/24 18:00
ED- Pulmonary Assessment Last Done: 03/27/24 18:00
Discharge Date and Time
Discharge Date/Time: 03/27/24 19:32
[2024-03-27 16:53] LABS: Venous Blood Gas B.E. 3.1 mmol/L (-4 to +4); Venous Blood Gas HCO3 38.5 mmol/L (22-27); Venous Blood Gas O2 Sat % 88.3 %; Venous Blood Gas pO2 61 mmHg (30-50)
[2024-03-27 16:54] LABS: Venous Blood Gas pCO2 > 115 mmHg (35-48); Venous Blood Gas pH 7.07 (7.32-7.43)
[2024-03-27] MEDS: DIPRIVAN 100 IV ×2 (16:59→23:50)
[2024-03-27] MEDS: SUBLIMAZE 50 MCG IV (17:00)
[2024-03-27] MEDS: SUBLIMAZE 100 IV (17:00)
[2024-03-27 17:03] LABS: ALT (SGPT) 26 U/L (0-50); AST (SGOT) 26 U/L (17-59); Albumin 4.4 g/dl (3.5-5.0); Alkaline Phosphatase 155 U/L (38-126); Blood Urea Nitrogen 9 mg/dl (9-20); Calcium 9.3 mg/dl (8.4-10.2); Carbon Dioxide 36 mmol/L (22-30); Estimated Creatinine Clearance > 125 ml/min; Glucose 203 mg/dl (70-99); Total Protein 8.3 g/dl (6.3-8.2); eGFR > 60.00
[2024-03-27 17:07] LABS: INR 2.55; PT 27.7 Sec (11.4-14.6)
[2024-03-27 17:08] LABS: APTT 43.1 Sec (23.4-35.0)
[2024-03-27 17:12] LABS: Chloride 94 mmol/L (98-107); Potassium 4.6 mmol/L (3.5-5.1); Sodium 142 mmol/L (135-145)
[2024-03-27 17:18] LABS: NT-proBNP 1430 pg/ml; Troponin I < 0.012 ng/ml
[2024-03-27 17:26] LABS: Triglycerides 123 mg/dl (10-149)
[2024-03-27] MEDS: VENTOLIN NEBULES 7.5 MG INH (17:28)
--- NOTE | 2024-03-27 17:45 | HPS.HSE ---
Addendum entered and electronically signed by Eda Fenton MD 03/27/24 18:41:
covid and flu negative
Original Note:
Family Physician
-
Family Physician: NOT KNOW UNKNOWN - PT DOES
Chief Complaint
-
obtunded
History of Present Illness
Mr. Adam Guzman is a 53 yo man with hx paraplegia (primarily bedbound) with chronic indwelling burnett catheter, COPD, CHF, DVT/PE, Atrial Fibrillation, NIDDM, chronic opiate use and dependence, HTN, HLD presents to the ER in respiratory distress,
found to be obtunded on arrival.
reported increasing shortness of breath over past 3 days. She also reported increasing sputum production. He had been on one week of Cefuroxime
He was found to be obtunded in setting of significant respiratory acidosis s/p intubation in the ER.
Last admission 12/21-12/27 for COPD exacerbation with acute on chronic hypoxic/hypercapnic respiratory failure. Reported he is noncompliant with CPAP for WILBERT. He improved with steroids and nebulizers.
Medical History
Past Medical History
Past Medical History: Reports Other (As per HPI above)
Past Surgical History: Reports Other (IVC Green field filter)
Social History
Tobacco: Former Smoker
Alcohol: None
Drug: None
Living: Other (with girlfriend)
Family History
Family History: Not pertinent
Allergies / Home Medications
Allergies reflects when Allergies were last updated in [facility].
Home Medications with original date entered in [facility]
Allergy/Medication List:
Allergies
Allergy/AdvReac Type Severity Reaction Status Date / Time
No Known Allergies Allergy Verified 03/27/24 16:30
Home Medications
sertraline 50 mg tablet 50 mg PO DAILY depression 06/11/16
amlodipine 5 mg tablet 5 mg PO DAILY blood pressure 03/28/20
docusate sodium 100 mg capsule 100 mg PO BID Constipation 12/06/21
oxycodone 5 mg tablet 5 mg PO DAILYPRN PRN severe pain 07/24/23
baclofen 20 mg tablet 40 mg PO BID Muscle Spasms 07/31/23
furosemide 40 mg tablet 40 mg PO DAILY Fluid Retention/Swelling 07/31/23
pantoprazole 40 mg tablet,delayed release (Protonix) 40 mg PO DAILY #30 tabs 07/31/23
albuterol sulfate 90 mcg/actuation aerosol inhaler 2 puff inhalation R Q6HPRN PRN wheezing 12/22/23
fluticasone fur. 200 mcg-umeclid 62.5 mcg-vilant 25 mcg inhalat.powder (Trelegy Ellipta) 1 inh inhalation R DAILY 12/22/23
gabapentin 600 mg tablet 300 mg PO BID 12/22/23
morphine 30 mg tablet,extended release 30 mg PO BID 12/22/23
oeiikyyodvda-wybeumfi-mjntlq tablet 1 tab PO DAILY 12/22/23
sennosides 8.6 mg tablet (senna) 17.2 mg PO DAILY 12/22/23
sodium phosphates 19 gram-7 gram/118 mL enema (Fleet Enema) 118 ml SC DAILYPRN PRN constipation 12/22/23
warfarin 6 mg tablet 9 mg PO HS 12/22/23
nystatin 100,000 unit/gram topical powder (Nystop) 1 applic topical BID groin #0 grams 12/28/23
polyethylene glycol 3350 17 gram oral powder packet (HealthyLax) 17 g PO DAILYPRN PRN constipation #0 ea 12/28/23
cefuroxime axetil 500 mg tablet 500 mg PO BID 03/27/24
Review of Systems
-
Unable to obtain full review of systems at this time due to: Patient Intubation
History Source: Patient
Physical Exam
Vital Signs
Vital Signs
Temp Pulse Resp BP Pulse Ox
99.0 F 70 20 92/50 100
03/27/24 17:07 03/27/24 17:15 03/27/24 17:15 03/27/24 17:15 03/27/24 17:15
Physical Exam
General: Other (obese, intubted)
HEENT: Atraumatic
Respiratory: No Wheezes
Cardiac: S1/S2 and Regular Rhythm
GI: Soft and Non Tender
Musculoskeletal: No Edema
Skin: Warm and Dry; No Rash
Neuro: Sedated
Psych: Calm
Laboratory Results
-
03/27/24 16:36
03/27/24 16:35
Laboratory Results
PT 27.7 Sec (11.4-14.6) H 03/27/24 16:38
INR 2.55 03/27/24 16:38
APTT 43.1 Sec (23.4-35.0) H 03/27/24 16:38
Total Bilirubin 1.0 mg/dl (0.2-1.3) 03/27/24 16:35
AST 26 U/L (17-59) 03/27/24 16:35
ALT 26 U/L (0-50) 03/27/24 16:35
Alkaline Phosphatase 155 U/L (38-126) H 03/27/24 16:35
Troponin I < 0.012 ng/ml 03/27/24 16:43
Data Reviewed
-
Diagnostic Radiology: Report Reviewed by me
Lab Data: Labs Reviewed by me
Impression/Plan
-
Mr. Adam Guzman is a 53 yo man with hx paraplegia (primarily bedbound) with chronic indwelling burnett catheter, COPD, CHF, DVT/PE, Atrial Fibrillation, NIDDM, chronic opiate use and dependence, HTN, HLD presents to the ER in respiratory distress,
found to be obtunded on arrival in setting of hypoxic/hypercarbic resp failure s/p intubation.
Triage VS: P 76, BP 103/59
LABS: WBC 18.7, Hg 15, PLT 283, Na 142, K+ 4.6, Cl 94, CO2 36, Cr 0.5, Glucose 203, liver enzymes WNL
blood gas: 7.07/=>115, 61
EKG: V paced rhythm, HR 139
CXR
IMPRESSION:
The tip of the endotracheal tube is in satisfactory position 2.5 cm above the andrea.
Moderate pulmonary edema with small bilateral pleural effusions
MAR: lasix 80mg IV x 1, fentanyl, propofol, albuterol
Acute Hypoxic and Hypercarbic Respiratory Failure
Heart Failure preserved EF acute Exacerbation
WILBERT, non-compliant with CPAP
possible Acute Bronchitis
-s/p intubation in the ER
-admit to ICU
-continue current vent settings with repeat VBG now
-sedation with profopol/fentanyl
-given increased sputum production over past week not responsive to Cefuroxime - will broaden abx to Cefepime/Azithromycin
-obtain head CT given patient on coumadin
-IV Lasix 80 BID
-TTE
-trend Troponin
-Cardiology consult
-Nail Kegger consult
-while on fentanyl drip - hold home sedating meds: Morphine, Oxycodone, Baclofen, Gabapentin
Hx COPD, does not seem to be in acute exacerbation
-continue standing nebs and PRN
-hold on steroids for now
Paraplegia
Bedbound
Chronic Indwelling Burnett Catheter
Atrial Fibrillation
-METAL FRAMER coumadin
-daily INR
NIDDM
ISS
Chronic Opiate Use and Dependence
-home regimen: Morphine 30mg PO BID, Oxy 5 PRN
Essential Hypertension
-hold METAL FRAMER Amlodipine
DVT PPx: Coumadin
FULL CODE
Total Critical Care Time 55 minutes. I was immediately available to the patient and staff. I personally examined, reviewed labs, diagnostic images/reports, interpretations, treatment plans, discussed patient care with other providers and family
or caregivers (if patient is unable to make decisions), entered orders as appropriate and documented the medical record.
[2024-03-27 18:02] LABS: Urine Albumin 3+ (Neg - Trace); Urine Bilirubin Negative (Negative); Urine Character Very Cloudy (Clear); Urine Color Yellow; Urine Glucose Negative (Negative); Urine Ketone Negative (Negative); Urine Leukocyte 2+ (Negative); Urine Nitrite Negative (Negative); Urine Occult Blood 4+ (Negative); Urine Specific Gravity 1.025 (<1.030); Urine Urobilinogen 1+ (Neg - 1+)
[2024-03-27 18:09] LABS: Lactic Acid 1.6 mmol/L (0.7-2.0)
[2024-03-27 18:18] LABS: Urine Bacteria Many (Negative); Urine White Cell 21-25 /HPF (0-5)
[2024-03-27 18:36] LABS: COVID-19 Antigen Negative (Negative)
[2024-03-27 19:07] LABS: Venous Blood Gas B.E. 8.4 mmol/L (-4 to +4); Venous Blood Gas HCO3 38.6 mmol/L (22-27); Venous Blood Gas O2 Sat % 81.9 %; Venous Blood Gas pH 7.27 (7.32-7.43); Venous Blood Gas pO2 47 mmHg (30-50)
[2024-03-27 19:09] LABS: Venous Blood Gas pCO2 84 mmHg (35-48)
[2024-03-27] MEDS: DUONEB 3 ML INH (19:35)
[2024-03-27] MEDS: VIBRAMYCIN 260 MG IV (19:58)
--- NOTE | 2024-03-27 20:12 | W.PN.SEPSIS ---
Sepsis
Vital Signs
Temp Pulse Resp BP Pulse Ox
99.2 F 71 20 86/50 92
03/27/24 20:06 03/27/24 20:00 03/27/24 20:00 03/27/24 20:00 03/27/24 20:06
Physical Exam
Physical Exam:
A focused exam was performed after fluid resuscitation.
Capillary Refill
Bilateral Upper Extremity:
Jose Time: Less than 3 sec
Bilateral Lower Extremity:
Jose Time: Less than 3 sec
Pulse Evaluation
Bilateral Radial:
Pulse Evaluation: Present
Bilateral Dorsalis Pedis:
Pulse Evaluation: Present
[2024-03-27] MEDS: SOLU-MEDROL PF 125 MG IV (20:35)
[2024-03-27] MEDS: STERILE WATER FOR INJECTION 10 ML IV (20:35)
[2024-03-27] MEDS: MAXIPIME 2000 MG IV (20:36)
[2024-03-27 20:51] LABS: Triglycerides 94 mg/dl (10-149)
[2024-03-27 20:52] LABS: B.E. 10.7 mmol/L; HCO3 36.3 mmol/L (21-28); O2 Saturation % 98.1 % (94-98); PCO2 51 mmHg (35-48); PO2 70 mmHg (83-108); pH 7.46 (7.35-7.45)
[2024-03-27 21:04] LABS: Troponin I 0.042 ng/ml
[2024-03-27] MEDS: LEVOPHED 250 IV (21:12)
--- NOTE | 2024-03-27 21:30 | PTCARENOTE ---
rec'd patient from ED around 1930. intubated with #7.5 ETT, 24 @ lip, vent settings AC 20/500/5/60%. large amt thick clear oral and ETT secretions. pupils 2mm sluggish, not following commands at this time. remains on prop/fent gtts. b/l soft wrist
restraints ordered and applied. V paced on monitor. MAP <65, ICU [employer] made aware, levo gtt ordered and initiated. VAT at bedside attempting for PICC insertion. NPO status, OGT in place. awaiting CXR to confirm placement. chronic mane exchanged in
ED, mane care done, reva urine noted. labs sent. CHG bath done. care ongoing.
[2024-03-27] MEDS: LIORESAL 40 MG TUBE (23:23)
[2024-03-27] MEDS: NEURONTIN 300 MG TUBE (23:23)
[2024-03-27] MEDS: COUMADIN 9 MG TUBE (23:23)
[2024-03-27] MEDS: COLACE LIQUID 100 MG TUBE (23:23)
[2024-03-27] MEDS: NOVOLOG FLEXPEN-MODERATE RESISTANCE 1 UNITS SC (23:24)
[2024-03-27 23:33] LABS: Glucose - Point of Care 152 mg/dl (70-99)
[2024-03-28] VITALS (31 sets, daily range): BP systolic 93–145; BP diastolic 52–73; BMI 45.1
[2024-03-28] MEDS: SUBLIMAZE 100 IV ×3 (00:07→19:02)
--- NOTE | 2024-03-28 00:16 | PTCARENOTE ---
CXR confirmed placement of OGT and PICC. gtts switched with new tubing to PICC. meds given through OGT. oral care and suction provided. care ongoing.
--- NOTE | 2024-03-28 00:32 | VATNOTE ---
MARCIA PICC REDIRECTED PER RADIOLOGIST ORDERS. BOTH LUMENS FLUSH WELL AND HAVE A GOOD BR. CXR NOW READ BY RUBIO RAYO TO BE SVC AND GOOD TO USE. PCN MADE AWARE.
[2024-03-28] MEDS: STERILE WATER FOR INJECTION 10 ML IV ×3 (03:37→19:37)
[2024-03-28] MEDS: MAXIPIME 2000 MG IV ×3 (03:43→19:36)
[2024-03-28] MEDS: DIPRIVAN 100 IV ×5 (03:43→22:35)
[2024-03-28 04:21] LABS: INR 2.69
[2024-03-28 04:27] LABS: % Basophils 0.1 % (0-2); % Immature Granulocytes 0.5 % (0-0.5); % Lymphocytes 4.5 % (20.5-51.1); % Monocytes 0.8 % (1.7-9.3); % Neutrophils 94.1 % (42.2-75.2); Absolute Immature Granulocytes 0.1 10^3/uL (0-0.05); Absolute Lymphocytes 0.6 10^3/uL (1.2-3.4); Absolute Monocytes 0.1 10^3/uL (0.1-0.6); Absolute Neutrophils 11.9 10^3/uL (1.4-6.5); Hemoglobin 13.3 g/dL (13.0-18.0); Mean Corp Hgb Conc. 31.7 g/dL (33.0-37.0); Mean Corpuscular Volume 82.2 fL (80.0-94.0); Mean Platelet Volume 11.5 fL (7.4-10.4); Nucleated Red Blood Cells % 0 % (-); Platelet Count 236 10^3/uL (130-400); Red Blood Cell Count 5.11 10^6/uL (4.70-6.10); Red Cell Dist. Width 17.3 % (11.5-14.5); White Blood Cell Count 12.6 10^3/uL (4.8-10.8)
[2024-03-28 04:34] LABS: B.E. 10.1 mmol/L; HCO3 34.3 mmol/L (21-28); PCO2 43 mmHg (35-48); PO2 105 mmHg (83-108); pH 7.51 (7.35-7.45)
[2024-03-28 04:37] LABS: ALT (SGPT) 21 U/L (0-50); AST (SGOT) 21 U/L (17-59); Albumin 3.5 g/dl (3.5-5.0); Alkaline Phosphatase 113 U/L (38-126); Blood Urea Nitrogen 17 mg/dl (9-20); Calcium 8.8 mg/dl (8.4-10.2); Carbon Dioxide 34 mmol/L (22-30); Chloride 96 mmol/L (98-107); Estimated Creatinine Clearance > 125 ml/min; Glucose 172 mg/dl (70-99); Magnesium 1.8 mg/dl (1.6-2.3); Potassium 4.5 mmol/L (3.5-5.1); Sodium 138 mmol/L (135-145); Total Bilirubin 1.1 mg/dl (0.2-1.3); Total Protein 6.7 g/dl (6.3-8.2); eGFR > 60.00
--- NOTE | 2024-03-28 04:40 | PTCARENOTE ---
AM labs sent. pt opening eyes, moving arms, nods y/n. pt diaphoretic, pt cleaned and repositioned with new sheets. AM EKG done. oral care provided, ETT adjusted. care ongoing.
[2024-03-28 04:41] LABS: Troponin I 0.033 ng/ml
[2024-03-28 05:08] LABS: TSH 0.66 uIU/ml (0.47-4.68)
[2024-03-28] MEDS: NOVOLOG FLEXPEN-MODERATE RESISTANCE 1 UNITS SC (05:28)
[2024-03-28] MEDS: LASIX 80 MG IV ×2 (07:23→15:42)
[2024-03-28] MEDS: PROTONIX IV 40 MG IV (07:23)
[2024-03-28] MEDS: VIBRAMYCIN 260 MG IV ×2 (07:24→20:21)
[2024-03-28] MEDS: NEURONTIN 300 MG TUBE ×2 (07:24→19:37)
[2024-03-28] MEDS: COLACE LIQUID 100 MG TUBE ×2 (07:24→19:36)
[2024-03-28] MEDS: MIRALAX 17 GRAMS TUBE (07:24)
[2024-03-28] MEDS: NSS (PRESERVATIVE FREE) 10 ML IV (07:24)
[2024-03-28] MEDS: ZOLOFT 50 MG TUBE (07:24)
[2024-03-28] MEDS: LIORESAL 40 MG TUBE ×2 (07:24→19:36)
--- NOTE | 2024-03-28 07:38 | CON.INTV ---
Consultation
Consultation Request
Date/Time Consultation Requested: 03/28/2024-7 AM
Date/Time Consultation Performed: 03/28/2024-7:30 AM
Requesting Provider: Hospitalist
Performing Provider: Dr. Hong
Reason for Consultation: Ventilator/critical care management
Medical History
-
Chief Complaint: Mental status changes/obtunded
History of Present Illness:
53-year-old paraplegic male primarily bedbound with chronic indwelling Burnett catheter, COPD, CHF, DVT/PE, atrial fibrillation, ywp-abbtutg-lkkxdzydp diabetes, chronic opiate use with history of hypercapnic respiratory failure presented obtunded with
respiratory acidosis requiring intubation-funeral director consulted for ventilator/critical care management 03/28/2024. Patient is lethargic and sedated on the ventilator and review of systems was unobtainable. He has moderate amounts of thick
secretions. He is on pressors.
Past Medical History
Past Medical History: None (Paraplegia. Hypertension. Hyperlipidemia. COPD. CHF. DVT/PE/IVC filter. Atrial fibrillation. Diabetes. Chronic opiate use and dependence.)
Social History
Tobacco: Former Smoker
Alcohol: None
Drug: None
Personal: Partner (Girlfriend)
Occupational Exposures: No known asbestos exposure
Environmental Exposures: No known tuberculosis exposure
Family History
Family History: Reviewed & Not Pertinent
Allergies / Home Medications
Allergies
Allergy/AdvReac Type Severity Reaction Status Date / Time
No Known Allergies Allergy Verified 03/27/24 16:30
Home Medications
�Medication �Instructions �Recorded �Confirmed �Last Taken �Type
sertraline 50 mg tablet 50 mg PO DAILY depression 06/11/16 03/27/24 12/21/23 History
amlodipine 5 mg tablet 5 mg PO DAILY blood pressure 03/28/20 03/27/24 12/21/23 History
docusate sodium 100 mg capsule 100 mg PO BID Constipation 12/06/21 03/27/24 12/21/23 History
oxycodone 5 mg tablet 5 mg PO DAILYPRN PRN severe pain 07/24/23 03/27/24 2 Days Ago History
~12/20/23
baclofen 20 mg tablet 40 mg PO BID Muscle Spasms 07/31/23 03/27/24 12/21/23 History
furosemide 40 mg tablet 40 mg PO DAILY Fluid 07/31/23 03/27/24 12/21/23 History
Retention/Swelling
pantoprazole 40 mg tablet,delayed 40 mg PO DAILY #30 tabs 07/31/23 03/27/24 12/21/23 Rx
release (Protonix)
albuterol sulfate 90 mcg/actuation 2 puff inhalation R Q6HPRN PRN 12/22/23 03/27/24 12/21/23 History
aerosol inhaler wheezing
fluticasone fur. 200 mcg-umeclid 1 inh inhalation R DAILY 12/22/23 03/27/24 12/21/23 History
62.5 mcg-vilant 25 mcg
inhalat.powder (Trelegy Ellipta)
gabapentin 600 mg tablet 300 mg PO BID 12/22/23 03/27/24 12/21/23 History
morphine 30 mg tablet,extended 30 mg PO BID 12/22/23 03/27/24 12/21/23 History
release
tozjirgdoozu-zrjrhwbc-odqgat tablet 1 tab PO DAILY 12/22/23 03/27/24 12/21/23 History
sennosides 8.6 mg tablet (senna) 17.2 mg PO DAILY 12/22/23 03/27/24 12/21/23 History
sodium phosphates 19 gram-7 118 ml [place] DAILYPRN PRN constipation 12/22/23 03/27/24 3 Days Ago History
gram/118 mL enema (Fleet Enema) ~12/19/23
warfarin 6 mg tablet 9 mg PO HS 12/22/23 03/27/24 12/21/23 History
nystatin 100,000 unit/gram topical 1 applic topical BID groin #0 grams 12/28/23 03/27/24 4 Days Ago Rx
powder (Nystop) ~12/18/23
polyethylene glycol 3350 17 gram 17 g PO DAILYPRN PRN constipation 12/28/23 03/27/24 Unknown Rx
oral powder packet (HealthyLax) #0 ea
cefuroxime axetil 500 mg tablet 500 mg PO BID 03/27/24 03/27/24 Unknown History
Review of Systems
-
Unable to Obtain full review of systems at this time due to: Other (Per HPI)
Vitals / Labs / Diagnostic Testing
Vital Signs
Temp Pulse Resp BP Pulse Ox
98.8 F 70 20 109/58 95
03/28/24 04:14 03/28/24 07:23 03/28/24 06:00 03/28/24 07:23 03/28/24 06:00
Lab Data
03/28/24 03:55
03/28/24 03:55
Laboratory Results
03/27/24 03/27/24 03/28/24
16:38 20:44 03:55
PT 27.7 H 29.0 H
INR 2.55 2.69
APTT 43.1 H
pH 7.46 H
pCO2 51 H
pO2 70 L
HCO3 36.3 H
O2 Delivery Level
03/28/24
04:26
PT
INR
APTT
pH 7.51 H
pCO2 43
pO2 105
HCO3 34.3 H
O2 Delivery Level
Microbiology
03/27/24 18:07 Nasal Swab Influenza Types A & B (GUILLAUME) - Final
Negative for Influenza A & B, NAAT
Negative results must be combined with clinical observations
and patient history.
Nucleic Acid Amplification test (NAAT)performed on the
[employer] platform.
Diagnostic Testing:
Physical Exam
-
Exam:
Well-nourished and well-developed in no apparent distress
HEENT-atraumatic, normocephalic, oral tracheal intubation
Neck-supple, no JVD, no bruit
Heart-regular rate and rhythm-no murmurs, rubs or gallops
Chest with diminished breath sounds, prolonged expiratory time and no wheezes, rhonchi or crackles
Abdomen-soft, nontender, nondistended, no hepatosplenomegaly
Extremities-no cyanosis, clubbing, edema and good peripheral pulses
Integument-intact, no rashes, lesions or ecchymosis
Neurology not alert, not oriented and paraplegic
Assessment
-
53-year-old paraplegic male primarily bedbound with chronic indwelling Burnett catheter, COPD, CHF, DVT/PE, atrial fibrillation, lnl-wtqmvqy-nuemvqjft diabetes, chronic opiate use with history of hypercapnic respiratory failure presented obtunded with
respiratory acidosis requiring intubation-funeral director consulted for ventilator/critical care management 03/28/2024.
Respiratory failure-acute hypoxemic and hypercapnic-VBG 03/27/2024 pH 7.0, pCO2 >115
Intubated 03/27/2024
Extubated
CHF with preserved EF
Bronchitis
Leukocytosis
COPD without significant acute exacerbation
Hyperglycemia
Conditions present prior to admission:
Hospitalized COPD exacerbation 12/30-pulmonary not involved
Hospitalized 07/2023-sepsis, intubated, UTI-E. coli and pneumonia-Serratia
Hospitalized 03/2000 20-8 mm obstructing right ureteral calculus
Paraplegia-T6 since 2007-hunting accident
Hypertension.
Hyperlipidemia.
COPD/asthma overlap-Gold stage II-maintained on Trelegy
Former [id number]
Restrictive lung disease-morbid obesity, cervical and thoracic metallic rods
WILBERT noncompliant with CPAP
CHF.
DVT/PE/IVC filter.
Pulmonary hypertension-PA systolic 60-65
Chronic anticoagulation-Coumadin
Atrial fibrillation.
Chronic nephrolithiasis
Chronic indwelling Burnett catheter
Diabetes.
Chronic opiate use and dependence.
Plan
Patient will be admitted to medical intensive care unit
Ventilator settings reviewed
ABG reviewed
Adjust ventilator-decrease rate to 12-reviewed with SANDAL PARTS ASSEMBLER
Spontaneous breathing trial once hemodynamically and neurologically improved-transition to BiPAP
VAP prevention protocol
Nebulizers as needed
Symbicort 160/4.5 in addition to albuterol
Check cultures
Sputum culture
Empiric antibiotics
Monitor leukocytosis
Follow chest x-ray
Diuresis as tolerated
Monitor renal function, electrolytes, intake/output, lower extremity edema and weight
Replace electrolytes as needed
Trend troponin
Check echocardiogram
Cardiology consultation-pending
Monitor blood sugar
Insulin supplementation as needed
DVT prophylaxis-on Coumadin
GI prophylaxis while on ventilator and septic-on pantoprazole
Early nutrition
Early mobilization
Patient was instructed to follow-up with pulmonary/sleep disorders on multiple occasions and patient was contacted for appointments repeatedly-had an appointment 02/10/2022 and no showed
Critical care statement: A total of 55 minutes of critical care time was provided for this patient today. This includes management of unstable vital signs, evaluation of the patient at bedside, reviewing the patient's pertinent medical records
including radiographs, ventilator management, pressor management, microbiology, laboratory evaluations, and discussion with primary team, consultants, pharmacy, nutrition, physical therapy, case management, charge nurse, critical care nursing, and
respiratory therapy.
Diagnostic data:
Chest x-ray 03/27/2024-tip of endotracheal tube 2.5 cm above andrea, moderate pulmonary edema, small to moderate bilateral pleural effusions
Echocardiogram 07/30/2023-EF 55-60%, aortic sclerosis, PA systolic 60-65
Data Reviewed
-
EKG: Report reviewed by me
Radiology: Report reviewed by me
Medical Tests (Nuc Med, Echo etc): Report reviewed by me
Labs: Labs reviewed by me
Old Records: Reviewed
Critical Care Time (in minutes): 55
[2024-03-28] MEDS: SYMBICORT 160/4.5 MCG INHALER 4 PUFF INH ×2 (07:44→19:42)
[2024-03-28] MEDS: DUONEB 3 ML INH ×4 (07:44→19:42)
[2024-03-28 08:59] LABS: Glucose - Point of Care 157 mg/dl (70-99)
[2024-03-28 09:03] LABS: Glycohemoglobin (HgbA1c) 6.3 % (4.0-5.6)
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
--- NOTE | 2024-03-28 10:37 | CM ---
Reviewed the chart notes, and patient seen at bedside on vent. Per chart review patient resides with his significant other in a two story home with a ramp to enter. The patient resides on first level. The patient has an electric wheelchair,
bariatric bed, home O2 through [employer]. The patient has had [facility] and [facility] in the past. The patient has [facility] daily and has had [facility] in the past. The patient uses the pharmacy; [facility] [place]. Patient PCP is
Dr. Sandy in the past, CM will review assessment with significant other when she comes in. CM will continues to follow for discharge planning needs..
Plan: Discharge plans will depend on the patient's progress; prior plan has been to return home with hhc and significant other to provide supports.
[2024-03-28] MEDS: SODIUM PHOSPHATE 255 MEQ IV (11:28)
[2024-03-28] MEDS: NOVOLOG FLEXPEN-MODERATE RESISTANCE SC ×3 (11:38→23:06)
[2024-03-28 11:47] LABS: Glucose - Point of Care 134 mg/dl (70-99)
--- NOTE | 2024-03-28 13:00 | CARDSERVLU ---
Echocardiogram with Lumason completed after protocol screening completed. Allergies verified.
Patent IV site: __l ANTECUBE___
IV site flushed with 0.9% NaCl pre and post administration.
Diluted bolus method utilized to enhance visualization of ventricular langston.
Total volume given: _4___ mL
Patient tolerated all procedures well without complications.
--- NOTE | 2024-03-28 15:09 | W.PN.HOSP.TC ---
Today's Communication/Plan
-
see note
Assessment / Plan
Assessment / Plan
1. Acute hypoxic and hypercapnic respiratory failure
Ventilator dependent respiratory failure
Possible aspiration versus community acquired pneumonia
-Patient was unresponsive in ER and found to have hypercapnic respiratory failure
-Admission VBG showing pCO2 > 115 and ph~ 7
-Patient was intubated in the ER and follow-up ABG showing improvement with resolution of hypercapnic resp failure
-Patient had likely component of OHS but patient is non compliant with CPAP/BiPAP
-Patient may have component of possible aspiration versus CAP, maintain on rocephin/doxycycline
-COVID/flu negative. Respiratory culture pending.
2. Acute metabolic encephalopathy
-Patient was unresponsive secondary to significant hypercapnia
-Waking up and following commands appropriately on sedation vacation
3. COPD
-Minimal wheezing on exam
-Maintain on nebulizer therapy
4. Acute on Chronic diastolic HF
-Echocardiogram showing EF 65 to 70%. Pulm artery pressure of 30 mmHg
-Patient weight has been elevated to ~135 kg in comparison to 129kg in December
-Difficult volume assessment due to body habitus
-Patient currently getting IV Lasix 80 mg twice daily, follow-up renal function and weight
5. Shock - Unknown vaiety
-Secondary to need of propofol. Currently off of vasopressors
6. Paraplegic due to spinal injury
Chronic pain and narcotic dependance
-ECONOMIC DEVELOPMENT MANAGER reviewed and patient on MS Contin 30 mg twice daily, also takes oxycodone 5 mg as needed
7. Paroxysmal Atrial Fibrillation
-Continue home dose of Coumadin, follow-up INR
-Patient on antibiotics and may have supratherapeutic INR tomorrow
8. Type II DM
-Maintain on insulin sliding scale
9. Essential Hypertension
-hold BP meds as BP controlled
DVT PPx: Coumadin
FULL CODE
Total critical care time 42 mins . Total critical care time documented does not include time spent on separately billed procedures or the services of residents, students, nurses or physician assistants. I personally saw and examined the patient. I
have reviewed all diagnostic interpretations and treatment plans as written. I was present for the presley portions of any procedures performed and the inclusive time noted in any critical care statement. Critical care time includes patient management
by me, time spent at the patients bedside, time to review lab and imaging results, discussing patient care, documentation in the medical record, and time spent with the family or caregiver.
Anticipated Discharge: > 48 hours
Subjective/Interval History
-
Date of Service: March 28, 2024
Patient remains intubated
Undergoing sedation vacation
No acute issues overnight
Afebrile
Was on small amount of vasopressor, improved
Objective Data
-
Labs:
Laboratory Results
03/28/24 03/28/24
03:55 04:26
WBC 12.6 H
Hgb 13.3
Hct 42.0
Plt Count 236
PT 29.0 H
INR 2.69
HCO3 34.3 H
Sodium 138
Potassium 4.5
Chloride 96 L
Carbon Dioxide 34 H
BUN 17
Creatinine 0.6 L
Glucose 172 H
Calcium 8.8
Total Bilirubin 1.1
AST 21
ALT 21
Alkaline Phosphatase 113
Vital Signs:
Vital Signs
Temp Pulse Resp BP Pulse Ox
98.0 F 70 12 119/60 94
03/28/24 11:23 03/28/24 13:00 03/28/24 13:00 03/28/24 13:00 03/28/24 13:00
I&O
03/27/24 03/28/24 03/29/24
06:59 06:59 06:59
Intake Total 584.4 / 619.4 526.8 / 526.8
Output Total 600 / 600 600 / 600
Balance -15.6 / 19.4 -73.2 / -73.2
Review of Systems
-
Unable to obtain full review of systems at this time due to: Patient Intubation
Physical Exam
-
General: Comfortable and Morbidly Obese
HEENT: Oxygen (On ventilator)
Respiratory: Wheezes
Cardiac: Regular Rhythm and S1/S2; Negative Murmur or Rub
GI: Soft, Nontender and Nondistended
Musculoskeletal: No Edema
Neuro: Awake (On sedation vacation and following commands appropriately)
Psych: Calm
--- NOTE | 2024-03-28 16:15 | PTCARENOTE ---
Pt remains off Levophed - BP stable. Opens eyes to verbal stimuli and nods yes/no. Plan to attempt to wean from vent in AM.
[2024-03-28 17:49] LABS: Glucose - Point of Care 116 mg/dl (70-99)
--- NOTE | 2024-03-28 19:20 | PTCARENOTE ---
On assessment pt intubated and sedated. pt 7.5 ETT 25 at the lip, AC 12/500/40%/5, pulse ox 95%, not following commands at this time but opened eyes and able to tracked staff, pt remains on PROP/Fen gtt, B/L soft wrist restraints intact, V paced on
the monitor HR 70, OGT 55@ lip, low int suction, chronic mane #16, RUE PICC.
[2024-03-28] MEDS: COUMADIN 9 MG TUBE (21:08)
[2024-03-28 21:29] LABS: Glucose - Point of Care 131 mg/dl (70-99)
[2024-03-28] MEDS: SUBLIMAZE 50 MCG IV (22:02)
[2024-03-28 23:15] LABS: Glucose - Point of Care 124 mg/dl (70-99)
[2024-03-29] VITALS (29 sets, daily range): BP systolic 112–178; BP diastolic 56–76; BMI 45.1
--- NOTE | 2024-03-29 | PTCARENOTE ---
no changes from prior assessment, pt remains on prop/fen gtt
[2024-03-29] MEDS: MAXIPIME 2000 MG IV ×3 (04:04→19:32)
[2024-03-29] MEDS: STERILE WATER FOR INJECTION 10 ML IV ×3 (04:04→19:33)
[2024-03-29] MEDS: DIPRIVAN 100 IV ×4 (04:05→19:59)
[2024-03-29] MEDS: SUBLIMAZE 50 MCG IV (04:05)
[2024-03-29 04:18] LABS: Hematocrit 39.3 % (39.0-52.0); Hemoglobin 12.3 g/dL (13.0-18.0); Mean Corp Hgb Conc. 31.3 g/dL (33.0-37.0); Mean Corpuscular Hgb 25.5 pg (27.0-31.0); Mean Corpuscular Volume 81.4 fL (80.0-94.0); Mean Platelet Volume 10.9 fL (7.4-10.4); Platelet Count 214 10^3/uL (130-400); Red Blood Cell Count 4.83 10^6/uL (4.70-6.10); Red Cell Dist. Width 18.1 % (11.5-14.5); White Blood Cell Count 13.4 10^3/uL (4.8-10.8)
[2024-03-29] MEDS: SUBLIMAZE 100 IV ×2 (04:21→14:48)
[2024-03-29 04:34] LABS: INR 2.77; PT 29.2 Sec (11.4-14.6)
[2024-03-29 04:56] LABS: Blood Urea Nitrogen 24 mg/dl (9-20); Calcium 8.3 mg/dl (8.4-10.2); Carbon Dioxide 34 mmol/L (22-30); Chloride 98 mmol/L (98-107); Estimated Creatinine Clearance > 125 ml/min; Glucose 115 mg/dl (70-99); Potassium 3.8 mmol/L (3.5-5.1); Sodium 140 mmol/L (135-145); eGFR > 60.00
--- NOTE | 2024-03-29 05:07 | PTCARENOTE ---
no changes from prior assessment, pt was suctioned 3-4 times during the night, increased oral secretions, continues with fen/prop gtt, pt nods appropriately
[2024-03-29] MEDS: NOVOLOG FLEXPEN-MODERATE RESISTANCE SC ×4 (05:59→23:02)
[2024-03-29 06:08] LABS: Glucose - Point of Care 126 mg/dl (70-99)
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
[2024-03-29] MEDS: DUONEB 3 ML INH ×4 (07:23→19:48)
[2024-03-29] MEDS: SYMBICORT 160/4.5 MCG INHALER 4 PUFF INH ×2 (07:23→19:48)
--- NOTE | 2024-03-29 07:51 | PTCARENOTE ---
0700 assumed care. Patient in bed; Intubated and sedated. Propofol 20mcg and Fentanyl at 100mcg; 07:30: Propofol and Fentanyl Placed on hold for Wean trial;
RASS 0 Awake and following commands. Restraints soft to b/l wrist to prevent pt of removing ETT;
99.8(Axillary) AV 70; BP via left UA: 123/67 MAP 83; no edema pedal pulses +2
ETT left 7.5/24-25cm Vent : AC 12/500/40%/+5; Peak 27; VT 456/94% RR 14; Suction via ETT and PO small white thin secretion Lungs sound: course. bed precaution initiated . 07:30 Wean trial 5/5/40% Peak 14; VT 347; RR 17;
Abdomen soft non tender
Chronic indwelling Burnett clear reva urine. Burnett care done per hospital's protocol
[2024-03-29] MEDS: ZOLOFT 50 MG TUBE (08:22)
[2024-03-29] MEDS: MIRALAX 17 GRAMS TUBE (08:22)
[2024-03-29] MEDS: COLACE LIQUID 100 MG TUBE ×2 (08:22→19:31)
[2024-03-29] MEDS: NSS (PRESERVATIVE FREE) 10 ML IV (08:22)
[2024-03-29] MEDS: LASIX 80 MG IV (08:23)
[2024-03-29] MEDS: LIORESAL 40 MG TUBE ×2 (08:23→19:31)
[2024-03-29] MEDS: NEURONTIN 300 MG TUBE ×2 (08:24→19:32)
[2024-03-29] MEDS: PROTONIX IV 40 MG IV (08:28)
[2024-03-29] MEDS: VIBRAMYCIN 260 MG IV (08:29)
[2024-03-29 08:48] LABS: B.E. 8.6 mmol/L; HCO3 35.7 mmol/L (21-28); O2 Saturation % 91.2 % (94-98); PCO2 59 mmHg (35-48); pH 7.39 (7.35-7.45)
[2024-03-29 08:49] LABS: O2 Therapy 40
[2024-03-29 08:51] LABS: PO2 59 mmHg (83-108)
--- NOTE | 2024-03-29 09:09 | PTCARENOTE ---
ABG: PH 7.39; CO2 59; CO3 35.7; O2 92% patient placed back on (S)CMV mode : 12/500/+5/40% Weaning trial on 5/5/40% from 07:30 to 0900. pt back on Propofol and Fentanyl HOB elevated
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
[2024-03-29 12:57] LABS: Glucose - Point of Care 130 mg/dl (70-99)
--- NOTE | 2024-03-29 14:48 | W.PN.HOSP.TC ---
Today's Communication/Plan
-
see note
Assessment / Plan
Assessment / Plan
1. Acute hypoxic and hypercapnic respiratory failure
Ventilator dependent respiratory failure
CAP from proteus
-Patient was unresponsive in ER and found to have hypercapnic respiratory failure
-Admission VBG showing pCO2 > 115 and ph~ 7
-Patient was intubated in the ER and follow-up ABG showing improvement with resolution of hypercapnic resp failure
-Patient had likely component of OHS but patient is non compliant with CPAP/BiPAP
-COVID/flu negative.
-Resp culture growing Proteus, further susceptibility pending
-Discontinue doxycycline, continue cefepime
-Patient to be ABG also showing patient having recurrence of hypercapnia. Vent weaning per recreation attendant.
2. Acute metabolic encephalopathy
-Patient was unresponsive secondary to significant hypercapnia
-Waking up and following commands appropriately on sedation vacation
3. COPD
-Minimal wheezing on exam
-Maintain on nebulizer therapy
4. Acute on Chronic diastolic HF
-Echocardiogram showing EF 65 to 70%. Pulm artery pressure of 30 mmHg
-Patient weight has been elevated to ~135 kg in comparison to 129kg in December
-Difficult volume assessment due to body habitus
-Patient lasix has been changed to oral lasix 80mg/d through tube
5. Shock - Unknown variety
-Secondary to need of propofol possibly. Currently off of vasopressors
6. Paraplegic due to spinal injury
Chronic pain and narcotic dependance
-ECCLESIASTICAL WORKER reviewed and patient on MS Contin 30 mg twice daily, also takes oxycodone 5 mg as needed
-Started back on baclofen therapy
-Patient currently on fentanyl drip and once off of it will require to be resumed back on morphine home regimen
7. Paroxysmal Atrial Fibrillation
-Continue home dose of Coumadin, follow-up INR
-Patient on antibiotics and may have supratherapeutic INR tomorrow
8. Type II DM
-Maintain on insulin sliding scale
9. Essential Hypertension
-hold BP meds as BP controlled
DVT PPx: Coumadin
FULL CODE
Total critical care time 38 mins . Total critical care time documented does not include time spent on separately billed procedures or the services of residents, students, nurses or physician assistants. I personally saw and examined the patient. I
have reviewed all diagnostic interpretations and treatment plans as written. I was present for the presley portions of any procedures performed and the inclusive time noted in any critical care statement. Critical care time includes patient management
by me, time spent at the patients bedside, time to review lab and imaging results, discussing patient care, documentation in the medical record, and time spent with the family or caregiver.
Anticipated Discharge: > 48 hours
Subjective/Interval History
-
Date of Service: March 29, 2024
Patient remains intubated and not able to tolerate SBT in the morning
Off of vasopressors
No other acute issues reported overnight
Objective Data
-
Labs:
Laboratory Results
03/29/24 03/29/24
04:00 08:37
WBC 13.4 H
Hgb 12.3 L
Hct 39.3
Plt Count 214
PT 29.2 H
INR 2.77
HCO3 35.7 H
Sodium 140
Potassium 3.8
Chloride 98
Carbon Dioxide 34 H
BUN 24 H
Creatinine 0.6 L
Glucose 115 H
Calcium 8.3 L
Vital Signs:
Vital Signs
Temp Pulse Resp BP Pulse Ox
99.1 F 70 12 141/70 94
03/29/24 12:56 03/29/24 11:03 03/29/24 11:03 03/29/24 08:23 03/29/24 12:00
I&O
03/28/24 03/29/24 03/30/24
06:59 06:59 06:59
Intake Total 584.4 / 619.4 1314.45 / 1314.45 106.8 / 106.8
Output Total 600 / 600 1635 / 1685 1400 / 1400
Balance -15.6 / 19.4 -320.55 / -370.55 -1293.2 / -1293.2
Review of Systems
-
Unable to obtain full review of systems at this time due to: Acuity and Patient Intubation
Physical Exam
-
General: Comfortable and Morbidly Obese
HEENT: Oxygen (On ventilator)
Respiratory: Wheezes
Cardiac: Regular Rhythm and S1/S2; Negative Murmur or Rub
GI: Soft, Nontender and Nondistended
Musculoskeletal: No Edema
Neuro: Sedated
Psych: Calm
--- NOTE | 2024-03-29 18:47 | PTCARENOTE ---
Patient in bed Intubated and Sedated RASS -1; Patient Drowsy, Open eyes to touch, following commends. Denies pain. ETT 7.5 24-25cm RT lip. AC: /40/+5. OJ to Lower inter. suction . Denies nausea. No edema Chronic Burnett draining clear yellow
urine . HOB elevated Restraints b/L wrist to prevent attempt to remove ETT
--- NOTE | 2024-03-29 18:56 | PTCARENOTE ---
On assessment pt intubated and sedated. pt 7.5 ETT 24 at the lip, AC 12/500/40%/5, pulse ox 96%, opened eyes and able to tracked staff, pt remains on PROP/Fen gtt, B/L soft wrist restraints intact, V paced on the monitor HR 70, OGT 56@ lip, low int
suction, chronic mane #16, RUE PICC.
[2024-03-29] MEDS: COUMADIN 9 MG TUBE (21:40)
[2024-03-29 23:04] LABS: Glucose - Point of Care 109 mg/dl (70-99)
[2024-03-30] VITALS (29 sets, daily range): BP systolic 95–169; BP diastolic 56–94; PULSE 2–78; BMI 44.8
[2024-03-30] MEDS: DIPRIVAN 100 IV ×2 (00:07→04:51)
[2024-03-30] MEDS: SUBLIMAZE 100 IV (00:08)
--- NOTE | 2024-03-30 00:32 | PTCARENOTE ---
Sacrum red and blanchable, foam applied, pt repositioned q2h, pt drowsy but able to open eyes and follow commands
[2024-03-30] MEDS: STERILE WATER FOR INJECTION 10 ML IV ×3 (03:21→20:12)
[2024-03-30] MEDS: MAXIPIME 2000 MG IV ×3 (03:21→20:12)
[2024-03-30 03:36] LABS: Hematocrit 40.1 % (39.0-52.0); Hemoglobin 12.5 g/dL (13.0-18.0); Mean Corp Hgb Conc. 31.2 g/dL (33.0-37.0); Mean Corpuscular Hgb 26.6 pg (27.0-31.0); Mean Corpuscular Volume 85.3 fL (80.0-94.0); Mean Platelet Volume 11.2 fL (7.4-10.4); Platelet Count 186 10^3/uL (130-400); Red Cell Dist. Width 18.1 % (11.5-14.5); White Blood Cell Count 11.1 10^3/uL (4.8-10.8)
[2024-03-30 03:50] LABS: INR 2.64; PT 28.1 Sec (11.4-14.6)
[2024-03-30 04:01] LABS: Blood Urea Nitrogen 26 mg/dl (9-20); Calcium 8.5 mg/dl (8.4-10.2); Carbon Dioxide 36 mmol/L (22-30); Chloride 99 mmol/L (98-107); Estimated Creatinine Clearance > 125 ml/min; Glucose 103 mg/dl (70-99); Potassium 3.8 mmol/L (3.5-5.1); Sodium 142 mmol/L (135-145); Triglycerides 217 mg/dl (10-149); eGFR > 60.00
--- NOTE | 2024-03-30 04:30 | PTCARENOTE ---
no changes from prior assessment, pt continues with fen/prop gtt, pt tracks and follows commands
[2024-03-30 04:58] LABS: Glucose - Point of Care 98 mg/dl (70-99)
[2024-03-30] MEDS: NOVOLOG FLEXPEN-MODERATE RESISTANCE SC ×3 (05:03→16:53)
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
[2024-03-30] MEDS: SYMBICORT 160/4.5 MCG INHALER 4 PUFF INH (07:33)
[2024-03-30] MEDS: DUONEB 3 ML INH ×4 (07:33→20:10)
--- NOTE | 2024-03-30 07:59 | PTCARENOTE ---
0700 assumed care. patient intubated and Sedated . over night Propofol 25mcg and Fentanyl 100mcg. Vent AC 12/500/40% +5 ETT 7.5/24-25cm RT limp. Suction for large amount oral and via ETT white thick secretion.
Vs: 97.0(oral) BP via left upper arm 144/64 MAP 84; V-P 70 POX 91%/40% CO2 42;
Vent Weaning 5/5/40% Peak 12/VT 351 RR 21; Burnett draining dark clear reva urine call varghese within reach
[2024-03-30 08:02] LABS: Glucose - Point of Care 106 mg/dl (70-99)
[2024-03-30] MEDS: NEURONTIN 300 MG TUBE (08:06)
[2024-03-30] MEDS: COLACE LIQUID 100 MG TUBE (08:06)
[2024-03-30] MEDS: LIORESAL 40 MG TUBE (08:07)
[2024-03-30] MEDS: MIRALAX 17 GRAMS TUBE (08:07)
[2024-03-30] MEDS: NSS (PRESERVATIVE FREE) 10 ML IV (08:07)
[2024-03-30] MEDS: ZOLOFT 50 MG TUBE (08:07)
[2024-03-30] MEDS: LASIX 80 MG TUBE (08:07)
[2024-03-30] MEDS: PROTONIX IV 40 MG IV (08:07)
--- NOTE | 2024-03-30 08:53 | W.PN.HOSP.TC ---
Today's Communication/Plan
-
see note
Assessment / Plan
Assessment / Plan
1. Acute hypoxic and hypercapnic respiratory failure
Ventilator dependent respiratory failure
CAP from proteus
-Patient was unresponsive in ER and found to have hypercapnic respiratory failure
-Admission VBG showing pCO2 > 115 and ph~ 7
-Patient was intubated in the ER and follow-up ABG showing improvement with resolution of hypercapnic resp failure
-Patient had likely component of OHS but patient is non compliant with CPAP/BiPAP
-COVID/flu negative.
-Resp culture growing Proteus, further susceptibility pending
-Patient on cefepime, can be transitioned to Rocephin versus oral Omnicef based on clinical course and susceptibility. on day 4/5 of abx, can be prolonged if needed.
-Vent weaning effort ongoing, repeat ABG pending today.
-Patient at very high risk of recurrent hypercapnic respiratory failure as already shown on SBT trial. Patient have to be on BiPAP when sleeping or will end up requiring reintubation.
2. Acute metabolic encephalopathy - resolved
-Patient was unresponsive secondary to significant hypercapnia
-Waking up and following commands appropriately on sedation vacation
3. COPD
-Lung exam relatively clear today
-Maintain on nebulizer therapy
4. Acute on Chronic diastolic HF
-Echocardiogram showing EF 65 to 70%. Pulm artery pressure of 30 mmHg
-Patient weight has been elevated to ~135 kg in comparison to 129kg in December
-Difficult volume assessment due to body habitus
-Patient lasix has been changed to oral lasix 80mg/d through tube
5. Shock - Unknown variety
-Secondary to need of propofol possibly. Currently off of vasopressors
6. Paraplegic due to spinal injury
Chronic pain and narcotic dependance
-BRIDGE CARPENTER reviewed and patient on MS Contin 30 mg twice daily, also takes oxycodone 5 mg as needed
-Started back on baclofen therapy
-Patient currently on fentanyl drip and once off of it will require to be resumed back on morphine home regimen
7. Paroxysmal Atrial Fibrillation
-Continue home dose of Coumadin, follow-up INR
-INR remains therapeutic
8. Type II DM
-Maintain on insulin sliding scale
9. Essential Hypertension
-Blood pressure better today, oral Norvasc can be resumed
DVT PPx: Coumadin
FULL CODE
Total critical care time 39 mins . Total critical care time documented does not include time spent on separately billed procedures or the services of residents, students, nurses or physician assistants. I personally saw and examined the patient. I
have reviewed all diagnostic interpretations and treatment plans as written. I was present for the presley portions of any procedures performed and the inclusive time noted in any critical care statement. Critical care time includes patient management
by me, time spent at the patients bedside, time to review lab and imaging results, discussing patient care, documentation in the medical record, and time spent with the family or caregiver.
Anticipated Discharge: > 48 hours
Subjective/Interval History
-
Date of Service: March 30, 2024
Patient ongoing sedation vacation, calm and following commands appropriately
Not on any vasopressors
Did not have any fever episode overnight
Objective Data
-
Labs:
Laboratory Results
03/30/24 03/30/24
03:25 08:45
WBC 11.1 H
Hgb 12.5 L
Hct 40.1
Plt Count 186
PT 28.1 H
INR 2.64
HCO3 Pending
Sodium 142
Potassium 3.8
Chloride 99
Carbon Dioxide 36 H
BUN 26 H
Creatinine 0.5 L
Glucose 103 H
Calcium 8.5
Vital Signs:
Vital Signs
Temp Pulse Resp BP Pulse Ox
98.1 F 70 22 144/64 91
03/30/24 07:00 03/30/24 08:16 03/30/24 08:16 03/30/24 08:07 03/30/24 08:16
I&O
03/29/24 03/30/24 03/31/24
06:59 06:59 06:59
Intake Total 1314.45 / 1314.45 692.5 / 692.5 0 / 0
Output Total 1635 / 1685 1964 50 / 50
Balance -320.55 / -370.55 -1272.5 / -1322.5 -50 / -50
Review of Systems
-
Unable to obtain full review of systems at this time due to: Acuity and Patient Intubation
Physical Exam
-
General: Comfortable and Morbidly Obese
HEENT: Oxygen (On ventilator)
Respiratory: Clear to Auscultation
Cardiac: Regular Rhythm and S1/S2; Negative Murmur or Rub
GI: Soft, Nontender and Nondistended
Musculoskeletal: No Edema
Neuro: Awake (Waking up off of sedation)
Psych: Calm
[2024-03-30 09:19] LABS: B.E. 6.9 mmol/L; O2 Saturation % 92.9 % (94-98); PCO2 52 mmHg (35-48); PO2 61 mmHg (83-108); pH 7.41 (7.35-7.45)
--- NOTE | 2024-03-30 09:56 | PTCARENOTE ---
Patient been on wean since 07:30 5/5/40% . Tolerating well. Extubated to 6L of oxygen . BP 140/64 HR 72; 95% 6L 90%/4L. pt AAO x3, conversive. Restraints taking off. Chronic Burnett draining reva urine
[2024-03-30 11:31] LABS: Glucose - Point of Care 115 mg/dl (70-99)
[2024-03-30] MEDS: DULCOLAX 10 MG RECTAL (13:56)
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
--- NOTE | 2024-03-30 16:40 | PTOTSP ---
SPEECH THERAPY SWALLOW EVALUATION:
Patient exhibits grossly functional oropharyngeal swallow at this time; However, patient is at risk for dysphagia/aspiration and related complications given history of complaints of chronic dysphagia symptoms, tenuous respiratory/pulmonary status,
and limited mobility. Patient with acute and chronic dysphagia/aspiration risk factors including recent 4-day endotracheal intubation, COPD, CHF, T6 paraplegia, and chronic opioid use. Patient with history of recurrent pneumonia, now with elevated
WBC 11.1 (03/30). CXR concerning for atelectasis vs. pneumonia. Patient currently denying dysphagia symptoms, though previously endorsed chronic dysphagia symptoms during admission 12/2023 including choking with solids, globus sensation, recurrent
pneumonias. VSE had been attempted during previous admission 12/2023, though patient ultimately declined VSE at that time, reporting no longer having swallowing issues. Recommended Videofluoroscopic Swallowing Study at current time to further assess
swallow physiology as unable to rule out aspiration at bedside. Patient declined VSE at this time despite rationale and discussion regarding risk for aspiration and related complications. Discussed aspiration precautions with patient at length; Pt
verbally reported he understood recommendations. Given chronicity of previously reported dysphagia symptoms, as well as intact cognition and ability to implement aspiration precautions and safe swallow strategies, patient appears safe to resume
baseline diet of Regular solids and thin liquids. Recommend medications whole with liquid as best tolerated. Aspiration precautions including: Upright positioning; Small single sips/bites; Slow rate of intake; Partial assist with set-up; Take breaks
for breathing; Oral care 3x/day to reduce risk for nosocomial infection. Speech therapy to follow, provide continued education regarding aspiration risks/precautions and VSE procedure rationale, monitor CXR and labs, assess diet tolerance and modify
as appropriate, and complete VSE if/when pt agreeable.
RECOMMEND:
1) Videofluoroscopic Swallowing Study (pt currently declining)
2) Regular texture diet and thin liquids
3) Medications whole with liquid
4) Aspiration precautions including: Upright positioning; Small single sips/bites; Slow rate of intake; Partial assist with set-up; Take breaks for breathing; Oral care 3x/day to reduce risk for nosocomial infection; Only provide p.o. when SpO2>90%
and RR<30; Alternate textures; Monitor for signs of aspiration; D/c oral diet if any decline in mental or respiratory status
5) Speech therapy to follow
[2024-03-30 16:55] LABS: Glucose - Point of Care 117 mg/dl (70-99)
--- NOTE | 2024-03-30 18:16 | PTCARENOTE ---
patient in bed . on 6L via nasal canula PO X 94% . Chronic Burnett draining reva urine. Clear by ST for regular consistency diet .
--- NOTE | 2024-03-30 19:29 | PTCARENOTE ---
On assessment pt AAOx3, denies pain and SOB, V paced on the monitor, 4L NC, lungs course, extubated this AM, cholesterol lowering diet, chronic MARCIA mane PICC, call varghese in reach.
[2024-03-30] MEDS: SYMBICORT 160/4.5 MCG INHALER 2 PUFF INH (20:10)
[2024-03-30] MEDS: LIORESAL TUBE (20:25)
[2024-03-30] MEDS: NEURONTIN TUBE (20:25)
[2024-03-30] MEDS: COLACE LIQUID TUBE (20:25)
[2024-03-30] MEDS: NEURONTIN 300 MG PO (20:30)
[2024-03-30] MEDS: COLACE 100 MG PO (20:30)
[2024-03-30] MEDS: LIORESAL 40 MG PO (20:31)
[2024-03-30] MEDS: COUMADIN 9 MG PO (22:11)
[2024-03-30 22:33] LABS: Glucose - Point of Care 104 mg/dl (70-99)
[2024-03-31] VITALS (19 sets, daily range): BP systolic 99–146; BP diastolic 36–74; PULSE 2–80; BMI 44.1
--- NOTE | 2024-03-31 | PTCARENOTE ---
no changes from prior assessment, pt placed on bipap HS, call varghese in reach
[2024-03-31] MEDS: STERILE WATER FOR INJECTION 10 ML IV (03:31)
[2024-03-31] MEDS: MAXIPIME 2000 MG IV (03:31)
[2024-03-31 03:51] LABS: Hematocrit 40.5 % (39.0-52.0); Hemoglobin 12.7 g/dL (13.0-18.0); Mean Corp Hgb Conc. 31.4 g/dL (33.0-37.0); Mean Corpuscular Hgb 25.6 pg (27.0-31.0); Mean Corpuscular Volume 81.7 fL (80.0-94.0); Mean Platelet Volume 11.3 fL (7.4-10.4); Platelet Count 207 10^3/uL (130-400); Red Blood Cell Count 4.96 10^6/uL (4.70-6.10); Red Cell Dist. Width 17.7 % (11.5-14.5); White Blood Cell Count 12.2 10^3/uL (4.8-10.8)
[2024-03-31 04:15] LABS: INR 2.28
--- NOTE | 2024-03-31 04:18 | PTCARENOTE ---
Restless and unable to sleep due to BIPAP per pt, call varghese in reach
[2024-03-31 04:21] LABS: Blood Urea Nitrogen 17 mg/dl (9-20); Calcium 8.9 mg/dl (8.4-10.2); Carbon Dioxide 30 mmol/L (22-30); Chloride 100 mmol/L (98-107); Estimated Creatinine Clearance > 125 ml/min; Glucose 96 mg/dl (70-99); Potassium 3.4 mmol/L (3.5-5.1); Sodium 140 mmol/L (135-145); eGFR > 60.00
[2024-03-31] MEDS: KCL ELIXIR 40 MEQ PO (06:11)
[2024-03-31] MEDS: SYMBICORT 160/4.5 MCG INHALER 2 PUFF INH ×2 (07:15→19:22)
[2024-03-31] MEDS: DUONEB 3 ML INH (07:15)
--- NOTE | 2024-03-31 07:41 | W.PN.HOSP.TC ---
Addendum entered and electronically signed by Beka Lund MD 03/31/24 14:36:
No new complaints. sitting at bedside.
NAD, resting comfortably in bed on home O2 via nasal cannula
Scleral anicteric
Moist mucous membranes
No JVD
CTA bilateral
Distant heart sounds likely related to COPD history
Soft nontender nondistended bowel sounds active
No peripheral pitting edema
Moves extremities spontaneously
AAOx3
Acute hypoxic and acute on chronic hypercapnic respiratory failure requiring intubation s/p extubation. Related to PNA and HFpEF. Currently on IV antibiotics transitioning to p.o. for Proteus CAP. On baseline home O2 with goal SpO2 greater than
88%. Per pulmonary will require home BiPAP as pCO2 greater than 115. Therefore case management consulted for home BiPAP needs.
-Per pulmonary noncompliant with BiPAP/CPAP and has been lost to follow-up as he cancels/no-shows to appointments
Proteus PNA complete total 7days of atb per Pulm
HFpEF, acute on chronic, EF 65-70%, NYHA class III-IV. On IV diuretics, close to euvolemia, Likely able to transition to PO for home diuretic needs, Await cards recs.
PAF on coumadin continue goal INR 2-3
Likely able to DC with in 24hours.
Original Note:
Today's Communication/Plan
-
Continue enteric diuresis, continue oral ABX, discharge planning
Assessment / Plan
Assessment / Plan
1. Acute hypoxic and hypercapnic respiratory failure
Ventilator dependent respiratory failure
CAP from proteus, COVID/flu negative.
-Patient was unresponsive in ER and found to have hypercapnic respiratory failure, intubated in ER upon arrival
-Extubated 03/30, at baseline O2 requirement 2.5L NC
-Tolerated BiPAP for 6 hours overnight
-Resp culture growing Proteus, pansusceptible
-Previously on cefepime. Day 5 of ABX. Will begin Ceftin p.o. 500 for 8 more doses. Pulm recs appreciated
Acute HFpEF
-8 kg weight loss with diuresis. Respiratory failure likely multifactorial -infectious + heart failure. Continue p.o. diuresis 80mg lasix
-Appreciate cardiology input
- Will need outpatient cardiology f/u
2. Acute metabolic encephalopathy - resolved
- Resolve. Patient is awake alert and responsive
3. COPD
-Lung exam with mild scattered wheezing
-Maintain on nebulizer therapy
4. Acute on Chronic diastolic HF
-Echocardiogram showing EF 65 to 70%. Pulm artery pressure of 30 mmHg
-Patient weight has been elevated to 139kg on arrival, baseline in December 127 kg
-Continue lasix 80mg/d through tube
5. Shock - Unknown variety
-Secondary to need of propofol possibly. Currently off of vasopressors. Remains hemodynamically stable.
6. Paraplegic due to spinal injury
Chronic pain and narcotic dependance
-PLASTIC SURGERY TECHNICIAN reviewed and patient on MS Contin 30 mg twice daily, also takes oxycodone 5 mg as needed
-Started back on baclofen therapy
-Back on home morphine dose
7. Paroxysmal Atrial Fibrillation
-Continue home dose of Coumadin, follow INR
-INR remains therapeutic
8. Type II DM
-Maintain on insulin sliding scale
9. Essential Hypertension
-Continue amlodipine as blood pressure stable
DVT PPx: Coumadin
FULL CODE
Anticipated Discharge: Within 24 hours
Subjective/Interval History
-
Date of Service: March 31, 2024
Patient feels well. Complains of abdominal bloating/distended now resolved
Objective Data
-
Labs:
Laboratory Results
03/31/24
03:42
WBC 12.2 H
Hgb 12.7 L
Hct 40.5
Plt Count 207
PT 25.0 H
INR 2.28
Sodium 140
Potassium 3.4 L
Chloride 100
Carbon Dioxide 30
BUN 17
Creatinine 0.5 L
Glucose 96
Calcium 8.9
Vital Signs:
Vital Signs
Temp Pulse Resp BP Pulse Ox
97.8 F 70 18 118/49 96
03/31/24 04:18 03/31/24 07:17 03/31/24 07:17 03/31/24 06:14 03/31/24 07:17
I&O
03/30/24 03/31/24 04/01/24
06:59 06:59 06:59
Intake Total 692.5 / 692.5 300 / 300
Output Total 1964 1600 / 1600
Balance -1272.5 / -1322.5 -1300 / -1300
Review of Systems
-
History Source: Patient
Constitutional: Reports No Symptoms; Denies Fever
Respiratory: Denies Cough, Trouble Breathing or Wheezing
Cardiac: Denies Chest Pain or Palpitations
Abdomen/GI: Reports Other (Bloating); Denies Abdominal Pain, Nausea, Vomiting or Diarrhea
Physical Exam
-
General: No Apparent Distress and Comfortable
HEENT: Atraumatic and Moist Mucous Membranes
Respiratory: Wheezes (Mild scattered wheezing), Non Labored Respirations and Other; Negative Rales, Rhonchi or Crackles
Cardiac: Other (Distant heart sounds, normal peripheral pulses)
GI: Soft, Nontender, Nondistended and Normal Bowel Sounds
Genito-urinary: Clear Urine and Burnett
Musculoskeletal: No Clubbing, No Cyanosis and No Edema
Skin: Warm and Dry
Neuro: Awake and Alert
Psych: Calm
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
[2024-03-31] MEDS: LASIX 80 MG TUBE (07:52)
[2024-03-31] MEDS: NORVASC 5 MG PO (07:52)
[2024-03-31] MEDS: ZOLOFT 50 MG PO (07:52)
[2024-03-31] MEDS: NSS (PRESERVATIVE FREE) 10 ML IV ×2 (07:53→07:54)
[2024-03-31] MEDS: NEURONTIN 300 MG PO ×2 (07:53→20:47)
[2024-03-31] MEDS: LIORESAL 40 MG PO ×2 (07:53→20:47)
[2024-03-31] MEDS: COLACE 100 MG PO (07:54)
[2024-03-31] MEDS: PROTONIX IV 40 MG IV (07:54)
[2024-03-31] MEDS: MIRALAX 17 GRAMS TUBE (07:54)
--- NOTE | 2024-03-31 08:05 | W.PN.INTV ---
Today's Communication / Plan
Recommendations
Extubated yesterday and doing well on nasal cannula
Imperative that he continues with nocturnal BiPAP --> CM consult to get patient a Respiratory Assist Device for home use prior to seeing us in the office
Dr. Hong had a long talk with patient in regards to necessity once extubated
Gentle diuresis with PO lasix
Antibiotics to complete a 7 day course
No indication for thoracentesis at this time given today's CXR and chest US
Patient is stable for downgrade out of ICU to telemetry. Mail Machine Operator/Pulmonary service will now sign off - outpatient Pulmonary/Sleep medicine office follow-up will be arranged. Please reconsult if there are any additional questions/concerns, or
if patient's respiratory status deteriorates.
Assessment
-
53-year-old paraplegic male primarily bedbound with chronic indwelling Burnett catheter, COPD, CHF, DVT/PE, atrial fibrillation, dty-klclcqv-qxbeqgjcy diabetes, chronic opiate use with history of hypercapnic respiratory failure presented obtunded with
respiratory acidosis requiring intubation-software configuration specialist consulted for ventilator/critical care management 03/28/2024.
Impression:
Respiratory failure-acute hypoxemic and hypercapnic-VBG 03/27/2024 pH 7.0, pCO2 >115
Intubated 03/27/2024
Extubated 03/30/2024
Suspected OHS
CHF with preserved EF
Bronchitis
Leukocytosis
Elevated troponin likely due to demand ischemia with type II RI
COPD without significant acute exacerbation
Hyperglycemia - resolved
Conditions present prior to admission:
Hospitalized COPD exacerbation 12/30-pulmonary not involved
Hospitalized 07/2023-sepsis, intubated, UTI-E. coli and pneumonia-Serratia
Hospitalized 03/2000 20-8 mm obstructing right ureteral calculus
Paraplegia-T6 since 2007-hunting accident
Hypertension.
Hyperlipidemia.
COPD/asthma overlap-Gold stage II-maintained on Trelegy
Chronic hypercapnia suspected-baseline pCO2 50-55
Former aoecjh-60-epiy-year
Restrictive lung disease-morbid obesity, cervical and thoracic metallic rods
WILBERT noncompliant with CPAP
CHF.
DVT/PE/IVC filter.
Pulmonary hypertension-PA systolic 60-65
Chronic anticoagulation-Coumadin
Atrial fibrillation.
Chronic nephrolithiasis
Chronic indwelling Burnett catheter
Diabetes.
Chronic opiate use and dependence.
Plan
Extubated to nasal cannula yesterday now - now on 4L/min saturating 93% (baseline home O2 is 2.5L/min ATC)
Continue aspiration precautions
Titrate supplemental O2 flow rate to maintain SpO2 88-95%
Patient uses Trelegy at home � start Spiriva, stop standing DuoNebs; continue with Symbicort 160mcg, rinsing mouth after use
Chest ultrasound today shows no significant right-sided pleural effusion - no indication for thoracentesis at this time
Continue with nocturnal BiPAP 20/[id number], titrating O2 flow rate to keep saturations of 88-95%
Trend VBG to assure pCO2 and pH are stable
Case management consult recommended to get patient a respiratory assist device for home use as there may be a delay between patient discharge and a seeing him in the office
It is imperative to get him nocturnal PAP to avoid re-admission given his severity of hypercapnia that he presented with this current hospitalization
Cultures reviewed
MRSA screen positive
Negative for influenza
Blood cultures negative
Urine culture negative
Sputum culture 03/28/2024-many WBCs, many mixed bacterial organisms, growing Proteus mirabilis-only resistant to tetracycline
Transition antibiotics from cefepime (started evening of 03/27/2024) to PO antibiotics with cefuroxime 500 mg BID to finish out 7 day course
Trend leukocytosis
Follow chest x-ray
Keep MAP>65
Continue gentle diuresis - currently on PO lasix 80mg once daily
Monitor renal function, electrolytes, intake/output, lower extremity edema and weight
Replace electrolytes as needed to keep K>4, Mg>2
No longer need to trend troponin given it peaked at 0.042 on 03/27/2024
Echocardiogram 03/28/2024-EF 65-70%, aortic sclerosis without stenosis, PASP 30mmHg - compared to July 2023 the PA systolic has decreased from 60-65mmHg
Cardiology consultation noted-correspondence reviewed-mild CHF suspected
Continue to follow blood sugar with goal 140-180mg/dL
Insulin SQ supplementation as needed
DVT prophylaxis-on Coumadin with goal INR 2-3
GI prophylaxis: N/A (however he does take PPI at home - so ok to continue, but TRX from IV to PO)
Patient was instructed to follow-up with pulmonary/sleep disorders on multiple occasions and patient was contacted for appointments repeatedly-had an appointment 02/10/2022 and no showed --> will arrange for outpatient follow up.
Patient is stable for downgrade out of ICU to telemetry. Mail Machine Operator/Pulmonary service will now sign off - outpatient Pulmonary/Sleep medicine office follow-up will be arranged. Thank you for allowing us to be involved in the care of this patient.
Please reconsult if there are any additional questions/concerns, or if patient's respiratory status deteriorates.
Diagnostic data:
CXR 03/31/2024: No active cardiopulmonary disease.
Chest x-ray 03/27/2024-tip of endotracheal tube 2.5 cm above andrea, moderate pulmonary edema, small to moderate bilateral pleural effusions
Chest US 03/31/2024: There is no significant right pleural effusion
Echocardiogram 07/30/2023-EF 55-60%, aortic sclerosis, PA systolic 60-65
Total time spent today was 55 minutes for this encounter. Time includes reviewing laboratory test/imaging results, reviewing pertinent medical records, obtaining and reviewing medical history, performing an appropriate exam, ordering medications,
tests and procedures. Time also includes documentation of this encounter, coordinating patient care and communicating with other healthcare professionals. Total time does not include separately billed tests performed on this date of service.
Subjective Dataa
Subjective Data
Date of Service:
Date of Service: March 31, 2024
Chief Complaint: Mail Machine Operator Follow Up, Pulmonary Follow Up and Vent Management Follow Up
Subjective:
This morning, patient was seen and evaluated and was in no acute distress. BP 123/52, heart rate 70 and saturating 93% on 4 L/min. Patient wore BiPAP 20/10 overnight, bled with 4 L/min. He understands that he needs to wear the BiPAP with sleep
and is motivated to do so. Patient's girlfriend, Nguyen, at bedside. All questions were answered.
Review of Systems
General: Other (Negative unless mentioned above)
Objective Data
Data Reviewed
Vital Signs / I&O / Oxygen:
Vital Signs
Temp Pulse Resp BP Pulse Ox
97.7 F 70 18 133/60 96
03/31/24 07:41 03/31/24 07:52 03/31/24 07:17 03/31/24 07:52 03/31/24 07:41
Intake and Output
03/30/24 03/31/24 04/01/24
06:59 06:59 06:59
Intake Total 692.5 / 692.5 300 / 300
Output Total 1964 1600 / 1600
Balance -1272.5 / -1322.5 -1300 / -1300
SaO2 [CPAP] 92
SaO2 [A/C] 95
SaO2 96
Nasal Cannula flow liters per 4
minute
Physical Exam
General: Respiratory Distress (n), Comfortable and Other (Thick neck)
HEENT: Normocephalic, Anicteric and Moist Mucous Membranes
Cardiovascular: Other (regular rate)
Respiratory: Wheeze (negative), Crackles (Basilar), Rhonchi (n), Non-Labored Respirations, Accessory Resp Muscle Use (n) and Stridor (n)
GI: Soft, Distended (abd. obesity) and Non Tender
Neurology: AO x 3, Tremors (negative) and Other (Paraplegia)
Skin: Warm, Dry, Good Color, Cyanosis (n), Jaundice (n) and Rash (n)
Labs/Micro/Reports
Lab Data
03/31/24 03:42
03/31/24 03:42
Laboratory Results
03/30/24 03/31/24
09:08 03:42
PT 25.0 H
INR 2.28
pH 7.41
pCO2 52 H
pO2 61 L
HCO3 33.0 H
O2 Delivery Level
Microbiology
03/27/24 18:07 Blood/Venous Blood Culture - Preliminary
No Growth in 72 hours- Final report to follow
03/28/24 04:16 Sputum Respiratory Culture - Final
Proteus mirabilis
03/28/24 04:16 Sputum Gram Stain - Final
03/27/24 20:27 Nose MRSA Screen - Final
Staph aureus MRSA
03/27/24 17:44 Urine Urine Culture - Final
[2024-03-31] MEDS: SPIRIVA RESPIMAT 2.5 MCG 2 PUFF INH (10:10)
[2024-03-31] MEDS: MS CONTIN (EXTENDED RELEASE) 30 MG PO ×2 (11:34→20:47)
[2024-03-31] MEDS: SENOKOT 17.2 MG PO (11:34)
[2024-03-31] MEDS: KLOR-CON 40 MEQ PO (11:34)
[2024-03-31] MEDS: THERAGRAN 1 TABLET PO (11:34)
[2024-03-31] MEDS: CEFTIN 500 MG PO ×2 (11:41→20:47)
--- NOTE | 2024-03-31 12:32 | PTCARENOTE ---
Updated plan of cares with patient and family at bedside this am. Updates with Hospitalist team and junior designer team in and out at bedside. Continue to collaborate with respiratory cares team. Cpap assist wean o2 to 2.5lpm. Saturation and assessment
follow up ongoing. Assessment unchanged from am. VSS continue ongoing documentation follow up. Now medical surgical status. Medications with review to pharmacy. Continue emar follow up. Teaching ongoing and as needed. Dr Brambila and cardiology team in
to see patient at this time. Continue supportive cares.
--- NOTE | 2024-03-31 15:22 | CM ---
Addendum entered by Otiila Torres 03/31/24 15:41:
Pt will need BLS transport home
Medical necessity and transport form on chart
Original Note:
CM reviewed pt with Dr. Reyes- ADC tomorrow
CM requested to arrange for home bipap
Bedside meeting with pt and SO who is also paid caregiver through [facility] program
Pt already has a bipap at home provided through [employer]
He notes he has been unable to utilize the mask previously provided and has not been using his bipap
TT/respiratory- plan for pt to take home mask from hospital which pt notes he is able to utilize well
Update to Santa/Josh- requesting re-education from RT on dc for bipap machine per pt request
On day of dc, alert Josh/Santa and she will arrange for home teaching of bipap
Pt declined VN
Discharge Disposition- home, no needs
--- NOTE | 2024-03-31 15:35 | PTCARENOTE ---
Update with family and [facility] staff. Prep for med/surgical transfer. Updated plan of cares. Report given. 600 ml urine emptied pre transport. VS as documented.
--- NOTE | 2024-03-31 16:09 | PTCARENOTE ---
Patient transferred from ICU. Report received from RN. Patient oriented to floor. Call varghese in place.
[2024-03-31] MEDS: COLACE PO (20:48)
[2024-03-31] MEDS: COUMADIN 9 MG PO (20:51)
[2024-04-01 04:07] VITALS: PULSE 2; PULSE 70
[2024-04-01 05:12] LABS: Venous Blood Gas B.E. 6.8 mmol/L (-4 to +4); Venous Blood Gas HCO3 33.3 mmol/L (22-27); Venous Blood Gas O2 Sat % 98.2 %; Venous Blood Gas pCO2 55 mmHg (35-48); Venous Blood Gas pH 7.39 (7.32-7.43); Venous Blood Gas pO2 88 mmHg (30-50)
[2024-04-01 05:22] LABS: Hematocrit 40.8 % (39.0-52.0); Hemoglobin 12.8 g/dL (13.0-18.0); Mean Corp Hgb Conc. 31.4 g/dL (33.0-37.0); Mean Corpuscular Hgb 26.4 pg (27.0-31.0); Mean Corpuscular Volume 84.1 fL (80.0-94.0); Mean Platelet Volume 11.2 fL (7.4-10.4); Platelet Count 176 10^3/uL (130-400); Red Blood Cell Count 4.85 10^6/uL (4.70-6.10); Red Cell Dist. Width 17.2 % (11.5-14.5); White Blood Cell Count 10.5 10^3/uL (4.8-10.8)
[2024-04-01 05:34] LABS: INR 2.37; PT 25.8 Sec (11.4-14.6)
[2024-04-01 05:41] LABS: Blood Urea Nitrogen 11 mg/dl (9-20); Calcium 8.9 mg/dl (8.4-10.2); Carbon Dioxide 30 mmol/L (22-30); Chloride 100 mmol/L (98-107); Estimated Creatinine Clearance > 125 ml/min; Glucose 97 mg/dl (70-99); Magnesium 1.9 mg/dl (1.6-2.3); Phosphorus 2.6 mg/dl (2.5-4.5); Potassium 3.8 mmol/L (3.5-5.1); Sodium 140 mmol/L (135-145); eGFR > 60.00
[2024-04-01 06:00] VITALS: BMI 44.5
[2024-04-01 07:00] VITALS: BP 115/59
[2024-04-01] MEDS: SYMBICORT 160/4.5 MCG INHALER 2 PUFF INH (07:50)
[2024-04-01] MEDS: SPIRIVA RESPIMAT 2.5 MCG 2 PUFF INH (07:50)
[2024-04-01] MEDS: MS CONTIN (EXTENDED RELEASE) 30 MG PO (09:13)
[2024-04-01] MEDS: NEURONTIN 300 MG PO (09:13)
[2024-04-01] MEDS: LIORESAL 40 MG PO (09:13)
[2024-04-01] MEDS: LASIX 80 MG PO (09:13)
[2024-04-01] MEDS: ZOLOFT 50 MG PO (09:14)
[2024-04-01] MEDS: THERAGRAN 1 TABLET PO (09:14)
[2024-04-01] MEDS: CEFTIN 500 MG PO (09:14)
[2024-04-01] MEDS: NORVASC 5 MG PO (09:14)
[2024-04-01] MEDS: PROTONIX 40 MG PO (09:14)
[2024-04-01] MEDS: DESENEX/MITRAZOL/ZEASORB 1 APPLIC TOPICAL (09:14)
[2024-04-01] MEDS: COLACE PO (09:17)
[2024-04-01] MEDS: SENOKOT PO (09:17)
--- NOTE | 2024-04-01 10:49 | PTCARENOTE ---
MD made aware of patient with hx diabetes, accuchecks and insulin ordered previously in admission discontinued on 03/30. No new orders at this time per MD.
--- NOTE | 2024-04-01 11:12 | W.PN.HOSP.TC ---
Addendum entered and electronically signed by Beka Lund MD 04/01/24 12:29:
dc time spent 34mins reviewing chart, teaching residents and speaking wiht Mr. Guzman.
-Discussed complaince of medications, following heart healthy diet and 1.5l fluid restriction daily
-Following up with pulmonary and cardiology
-Complaince with home Bipap. States he needs education on home bipap machine. CM to set this up
-Complete atb po.
DC home.
Original Note:
Today's Communication/Plan
-
COntinue PO abx, PO diuresis. DC planning
Assessment / Plan
Assessment / Plan
1. Acute hypoxic and hypercapnic respiratory failure
Ventilator dependent respiratory failure
CAP from proteus, COVID/flu negative.
-Patient was unresponsive in ER and found to have hypercapnic respiratory failure, intubated in ER upon arrival
-Extubated 03/30, at baseline O2 requirement 2.5L NC
-Tolerates BiPap. Pt is to be provided a mask and education in order to properly use Bipap at home.
-Resp culture growing Proteus, pansusceptible
-Will continue Ceftin to complete 6 doses. Pulm recs appreciated
- Will need pulm F/U
2. Acute metabolic encephalopathy
resolved
3. Acute on Chronic diastolic HF
-Echocardiogram showing EF 65 to 70%. Pulm artery pressure of 30 mmHg
-Patient weight has been elevated to 139kg on arrival, baseline in December 127 kg. Ongoing weight loss and marked improvement in symptoms.
-Continue lasix 80mg
-Will need cardiology outpt f/u
4. COPD
-Lung exam with mild scattered wheezing
-Maintain on nebulizer therapy
5. Shock - Uncertain cause
-Secondary to need of propofol possibly. Off vasopressors. Remains hemodynamically stable.
6. Paraplegic due to spinal injury
Chronic pain and narcotic dependance
-REPLENISHMENT SPECIALIST reviewed and patient on MS Contin 30 mg twice daily, also takes oxycodone 5 mg as needed
-Started back on baclofen therapy
-Back on home morphine dose
7. Paroxysmal Atrial Fibrillation
-Continue home dose of Coumadin, follow INR
-INR remains therapeutic
8. Type II DM
-Maintain on insulin sliding scale
9. Essential Hypertension
-Continue amlodipine as blood pressure stable
DVT PPx: Coumadin
FULL CODE
Anticipated Discharge: Today
Subjective/Interval History
-
Date of Service: April 01, 2024
No acute overnight events
Pt states he feels well and would like to be discharged
Objective Data
-
Labs:
Laboratory Results
04/01/24
04:50
WBC 10.5
Hgb 12.8 L
Hct 40.8
Plt Count 176
PT 25.8 H
INR 2.37
Sodium 140
Potassium 3.8
Chloride 100
Carbon Dioxide 30
BUN 11
Creatinine 0.5 L
Glucose 97
Calcium 8.9
Vital Signs:
Vital Signs
Temp Pulse Resp BP Pulse Ox
97.5 F 68 16 115/59 95
04/01/24 07:00 04/01/24 09:14 04/01/24 07:53 04/01/24 09:14 04/01/24 10:47
I&O
03/31/24 04/01/24 04/02/24
06:59 06:59 06:59
Intake Total 300 / 300 1080 / 1080
Output Total 1600 / 1600 1850 / 1850
Balance -1300 / -1300 -770 / -770
Review of Systems
-
History Source: Patient
Constitutional: Denies Fever
Respiratory: Reports Wheezing (mild)
Cardiac: Denies Chest Pain or Palpitations
Abdomen/GI: Reports No Symptoms; Denies Abdominal Pain, Nausea, Constipated or Bloated
Physical Exam
-
General: No Apparent Distress and Comfortable; Negative Respiratory Distress
Respiratory: Clear to Auscultation, Wheezes (scattered) and Non Labored Respirations; Negative Rales or Rhonchi
Cardiac: S1/S2; Negative Murmur or Rub
GI: Soft, Nontender, Nondistended and Normal Bowel Sounds
Genito-urinary: Clear Urine
Musculoskeletal: No Cyanosis and No Edema
Skin: Warm and Dry
Psych: Calm
--- NOTE | 2024-04-01 11:52 | CM ---
Addendum entered by Bailey Sotelo 04/01/24 13:15:
Ambulance forms on chart. Time TBD
Addendum entered by Bailey Sotelo 04/01/24 13:13:
IMM explained & signed. In chart
Original Note:
Spoke with Santa from [facility].
Will send a RT out to home teach use of BIPAP.
Hospital to provide mask.
PATIENT NEEDS TO CALL [facility] AT [phone] when he is leaving the hospital.
PLAN: Discharge to home, declined VN
--- NOTE | 2024-04-01 13:43 | W.DCSUMMARY ---
Documented by User: Kinsey Reyes MD, Resident 04/01/24 14:38
Discharge Summary
Discharge Data
Date of Admission: 03/27/24
Date of Discharge: 04/01/24
-
Pending Results: No
Hospital Course
Discharge physician: Beka Lund MD; Kinsey Reyes MD
Principal discharge diagnosis:
Acute on chronic hypoxic and hypercapnic respiratory failure
Acute on chronic heart failure with preserved ejection fraction
Shock
Bronchitis
Hyperglycemia
Type II CO
Chronic discharge diagnoses
Neurogenic bladder with chronic indwelling Burnett catheter.
Asthma/chronic obstructive pulmonary disease
Morbid obesity
Paroxysmal atrial fibrillation on Coumadin.
Type 2 diabetes.
Hyperlipidemia.
Chronic left lower extremity deep vein thrombosis with history of pulmonary embolism and IVC filter placement.
T6 level paraplegia
Depression
Hypertension
Chronic opioid use/dependence
OHS noncompliant with CPAP/BiPAP
Hospital course:
53-year-old male with history of above who presented to the ED on 03/27 in respiratory distress, found to be obtunded on arrival. He was found to be in respiratory acidosis necessitating intubation, and in shock requiring pressors. Follow-up ABG
showed improvement with resolution of hypercapnic respiratory failure. Diuresis was started with IV Lasix 80 mg twice daily, with close monitoring of renal function and weight. Cefepime was started pending sputum/blood cultures. Symptoms improved
markedly with respiratory acidosis resolving and patient was successfully extubated on 03/30
As patient is on warfarin, this was continued and INR was closely followed and remained therapeutic throughout stay.
Sputum culture 03/28 culture positive for pansensitive Proteus mirabilis. Negative for COVID/flu. Blood and urine cultures were negative.
Hyperglycemia was maintained on insulin sliding scale.
DuoNebs was provided. Nocturnal BiPAP was provided and patient continued to tolerate.
IV cefepime was converted to Ceftin to be completed outpatient, and IV Lasix was converted to 80 mg p.o.
Other chronic conditions were maintained on home therapy as appropriate.
Respiratory status and symptoms continued to improve. He is stable for discharge with daily weights instructions, fluid restriction, changes to home medications including 20 mg of potassium. Strong recommendation to adhere to nightly BiPAP. He is
to follow-up with pulmonology and cardiology outpatient. To complete BMP and INR within 3 to 5 days of discharge. Close follow-up with PCP
Important data:
Echo 03/28: normal left ventricular size and systolic function. Apical segment appears akinetic. LV ejection fraction is 65-70% by visual assessment. Mild concentric left ventricular hypertrophy. Grossly normal right ventricular size and function in
limited views. Aortic sclerosis without stenosis. Mild tricuspid regurgitation. Estimated pulmonary artery pressure of 30 mmHg, assuming a right atrial pressure of 3 mmHg
Repeat EKG 03/28: Ventricular-paced rhythm
CT head without IV contrast 03/27: No acute intracranial abnormalities
CXR 03/27: Moderate pulmonary edema with small bilateral pleural effusions
Chest ultrasound 03/31: There is no significant right pleural effusion
Consults:
Cardiology
Heart failure educator
Twisting Frame Fixer
Discharge Plan
-
Patient Disposition: Home (Routine Discharge)
Discharge Diagnosis/Procedures: Acute hypoxic and hypercapnic respiratory failure, acute CHF exacerbation, bronchitis
Diet: 2 Gram Sodium and Restrict fluids to 48 oz
Activity: As tolerated
Specialty Instructions: Weigh Daily- Call MD for wt gain/loss 3 lbs overnight/5 lbs in 1 week
Instructions: *DCA Heart Failure Instructions
Referrals:
Landen Pace MD [Active] - in two to four weeks (Or any provider-needs sleep study, PFT)
Abel Brambila MD [Active] -
UNKNOWN - PT DOES,NOT KNOW [Family Provider] -
Additional Discharge Medication Instructions: Please follow up with pulmonology and cardiology
It is important for you to use your BiPAP machine every night
Labwork: BMP and INR tests within 3-5 days from discharge
Prescriptions:
New
cefuroxime axetil 500 mg Tablet
500 mg PO BID Qty: 4 0RF
furosemide 80 mg Tablet
80 mg PO DAILY Qty: 30 0RF
potassium chloride 20 mEq tablet extended release
20 meq PO DAILY Qty: 30 0RF
Continued
sertraline 50 MG tablet
50 mg PO DAILY
amlodipine 5 MG tablet
5 mg PO DAILY
docusate sodium 100 MG capsule
100 mg PO BID
oxycodone 5 MG tablet
5 mg PO DAILYPRN PRN (Reason: severe pain)
Patient Comments:
03/27/2024: last filled 03/18/24, 30 tabs for 30 days from [facility]
baclofen 20 mg tablet
40 mg PO BID
sennosides [senna] 8.6 mg Tablet
17.2 mg PO DAILY
gabapentin 600 mg Tablet
300 mg PO BID
morphine 30 mg Tablet Extended Release
30 mg PO BID
Patient Comments:
03/27/2024: last filled 03/21/24, 60 tabs for 30 days from [id number]
warfarin 6 mg Tablet
9 mg PO HS
Fleet Enema 19-7 gram/118 mL Enema
118 ml NH DAILYPRN PRN (Reason: constipation)
albuterol sulfate 90 mcg/actuation Hfa Aerosol Inhaler
2 puff INHALATION R Q6HPRN PRN (Reason: wheezing)
lkqjxwpdjcgx-eaulfnck-gauwnz Tablet
1 tab PO DAILY
Trelegy Ellipta 200-62.5-25 mcg Blister With Device
1 inh INHALATION R DAILY
polyethylene glycol 3350 [HealthyLax] 17 gram Powder In Packet
17 g PO DAILYPRN PRN (Reason: constipation) Qty: 0 0RF
nystatin [Nystop] 100,000 unit/gram Powder
1 applic TOPICAL BID Qty: 0 0RF
cefuroxime axetil 500 mg tablet
500 mg PO BID
pantoprazole [Protonix] 40 mg tablet,delayed release (DR/EC)
40 mg PO DAILY
Discontinued
furosemide 40 mg tablet
40 mg PO DAILY
Discharge Orders:
Discharge Patient (As Directed); Ordered 04/01/24
Ordered By: Kinsey Reyes
Discharge Date and Time
Discharge Date/Time: 04/01/24 19:02
Print Language: KOSOVAN

Documented by User: Beka Lund MD 04/02/24 12:43
Discharge Summary
Discharge Data
Date of Admission: 03/27/24
Date of Discharge: 04/02/24
-
Additional Pending Results:
hypokalemia
paroxysmal atrial fibrillation
Discharge Plan
-
Patient Disposition: Home (Routine Discharge)
Discharge Diagnosis/Procedures: Acute hypoxic and hypercapnic respiratory failure, acute CHF exacerbation, bronchitis
Diet: 2 Gram Sodium and Restrict fluids to 48 oz
Activity: As tolerated
Specialty Instructions: Weigh Daily- Call MD for wt gain/loss 3 lbs overnight/5 lbs in 1 week
Instructions: *DCA Heart Failure Instructions
Referrals:
Landen Pace MD [Active] - in two to four weeks (Or any provider-needs sleep study, PFT)
Abel Brambila MD [Active] -
UNKNOWN - PT DOES,NOT KNOW [Family Provider] -
Additional Discharge Medication Instructions: Please follow up with pulmonology and cardiology
It is important for you to use your BiPAP machine every night
Labwork: BMP and INR tests within 3-5 days from discharge
Prescriptions:
New
cefuroxime axetil 500 mg Tablet
500 mg PO BID Qty: 4 0RF
furosemide 80 mg Tablet
80 mg PO DAILY Qty: 30 0RF
potassium chloride 20 mEq tablet extended release
20 meq PO DAILY Qty: 30 0RF
Continued
sertraline 50 MG tablet
50 mg PO DAILY
amlodipine 5 MG tablet
5 mg PO DAILY
docusate sodium 100 MG capsule
100 mg PO BID
oxycodone 5 MG tablet
5 mg PO DAILYPRN PRN (Reason: severe pain)
Patient Comments:
03/27/2024: last filled 03/18/24, 30 tabs for 30 days from [id number]
baclofen 20 mg tablet
40 mg PO BID
sennosides [senna] 8.6 mg Tablet
17.2 mg PO DAILY
gabapentin 600 mg Tablet
300 mg PO BID
morphine 30 mg Tablet Extended Release
30 mg PO BID
Patient Comments:
03/27/2024: last filled 03/21/24, 60 tabs for 30 days from [id number]
warfarin 6 mg Tablet
9 mg PO HS
Fleet Enema 19-7 gram/118 mL Enema
118 ml NH DAILYPRN PRN (Reason: constipation)
albuterol sulfate 90 mcg/actuation Hfa Aerosol Inhaler
2 puff INHALATION R Q6HPRN PRN (Reason: wheezing)
lbtlkoakenaa-gyqmcubi-ipwslr Tablet
1 tab PO DAILY
Trelegy Ellipta 200-62.5-25 mcg Blister With Device
1 inh INHALATION R DAILY
polyethylene glycol 3350 [HealthyLax] 17 gram Powder In Packet
17 g PO DAILYPRN PRN (Reason: constipation) Qty: 0 0RF
nystatin [Nystop] 100,000 unit/gram Powder
1 applic TOPICAL BID Qty: 0 0RF
cefuroxime axetil 500 mg tablet
500 mg PO BID
pantoprazole [Protonix] 40 mg tablet,delayed release (DR/EC)
40 mg PO DAILY
Discontinued
furosemide 40 mg tablet
40 mg PO DAILY
Discharge Orders:
Discharge Patient (As Directed); Ordered 04/01/24
Ordered By: Kinsey Reyes
Discharge Date and Time
Discharge Date/Time: 04/01/24 19:02
Print Language: KOSOVAN
--- NOTE | 2024-04-01 14:10 | VATNOTE ---
Order for PICC D/C requested from .
[2024-04-01 15:00] VITALS: BP 132/62
--- NOTE | 2024-04-01 15:00 | PN.CDI ---
CDI
- -
CDI:
Physician Documentation Request
Admit Date: 03/27/24 18:53
Dear Doctor Amy,
Patient admitted for respiratory failure.
03/31 Cardiology PN: 'Permanent atrial fibrillation'
04/01 Hospitalist PN: 'Paroxysmal Atrial Fibrillation -Continue home dose of Coumadin, follow INR -INR remains therapeutic'
If possible, please provide further specificity regarding atrial fibrillation, such as:
Permanent atrial fibrillation - when a decision has been made to accept the presence of AF and there is no further attempt to restore or maintain sinus rhythm
Paroxysmal atrial fibrillation - terminates spontaneously or with intervention within 7 days of onset
Other - please specify
Use of terms such as suspected, likely, concern for, or probable (associated with a specific diagnosis that is being evaluated, monitored, or treated as if it exists) are acceptable and can be coded in the inpatient setting, when documented at the
time of discharge.
Thank you,
Praveena Parker RN, BSN
CDI Specialist
Available via [place] text
Please use your independent medical judgment in providing your response.
--- NOTE | 2024-04-01 15:06 | PN.CDI ---
CDI
- -
CDI:
Physician Documentation Request
Admit Date: 03/27/24 18:53
Dear Doctor Amy,
Patient admitted respiratory failure.
03/31 Potassium level: 3.4
03/31 Potassium chloride 80 meq PO administered
Based on the above, could you clarify in the progress notes, the appropriate diagnosis, if significant, that supports the above abnormalities and additional evaluation, monitoring and/or treatment rendered:
Hypokalemia
Abnormal lab value insignificant
Other
Use of terms such as suspected, likely, concern for, or probable (associated with a specific diagnosis that is being evaluated, monitored, or treated as if it exists) are acceptable and can be coded in the inpatient setting, when documented at the
time of discharge.
Thank you,
Praveena Parker RN, BSN
CDI Specialist
Available via [place] text
Please use your independent medical judgment in providing your response.
[2024-04-01 18:26] VITALS: BP 145/64
--- NOTE | 2024-04-01 18:43 | PTCARENOTE ---
Patient discharged home. This RN reviewed discharge instructions and medications with patient and patient verbalized understanding. Script provided to patient for outpatient labs per resident. R PICC removed by IV team prior to discharge. Patient
belongings gathered in room, patient changed and mane emptied prior to transport. BIPAP mask given to patient to take home. Patient transported home by ambulance team.
--- NOTE | 2024-04-02 09:35 | W.HF.CON ---
Heart Failure
- LV Function
Left ventricular function study result: LV Ejection fraction >40%
Ejection Fraction Percentage: 65-70
- ARNI
Patient already on ARNI: No
Heart Failure ARNI Not Indicated: LV Ejection Fraction >/= 40%
- ACEI/ARB
Patient already on ACEI/ARB: No
Heart Failure ACEI/ARB Not Indicated: LV Ejection Fraction > 40%
- Beta [place]hia
Patient already on Evidence Based Beta Lakeshia: No
Heart Failure Evidence Based Beta [place]hia Not Indicated: LV Ejection Fraction > 40%
- Mineralocorticord Receptor Antagonist
Patient already on MRA: No
Heart Failure MRA Not Indicated: LV Ejection Fraction > 40%
- SGLT-2 Inhibitor
Patient already on SGLT-2 Inhibitor: No
Heart Failure SGLT-2 Inhibitor Not Indicated: LV Ejection Fraction >40%
- Afib Anticoagulation
Patient already on Anticoagulation for Afib: Yes
- NYHA CHF Classification
NYHA CHF Classification Level: Class III - Symptoms w/ min exertion, interferes w/ nml daily activity
- ACC/AHA Stage
ACC/AHA Stage: Stage C: Symptomatic Heart Failure
== END 2024-04-01 19:02 | disposition home or self-care (01) | DRG 208 ==
LOC: 2 NORTH 18:53
PROVIDERS: Hospitalist; Internal Medicine Critical Care Medicine; Nurse Practitioner Family; ADMITTING PHYSICIAN Student in an Organized Health Care Education/Training Program; ATTENDING PHYSICIAN Hospitalist; CONSULT PHYSICIAN Internal Medicine Critical Care Medicine; EMERGENCY PHYSICIAN Emergency Medicine; OTHER PHYSICIAN Internal Medicine Cardiovascular Disease
PROC: 5A1945Z Respiratory Ventilation, 24-96 Consecutive Hours (ICD-10-PCS; 2024-03-27)
PROC: 0BH17EZ Insertion of Endotracheal Airway into Trachea, Via Natural or Artificial Opening (ICD-10-PCS; 2024-03-27)
PROC: 5A09357 Assistance with Respiratory Ventilation, Less than 24 Consecutive Hours, Continuous Positive Airway Pressure (ICD-10-PCS; 2024-03-27)
DX: J15.69 Pneumonia due to other Gram-negative bacteria (principal); G93.41 Metabolic encephalopathy; J96.21 Acute and chronic respiratory failure with hypoxia; I50.33 Acute on chronic diastolic (congestive) heart failure; I21.A1 Myocardial infarction type 2; J96.22 Acute and chronic respiratory failure with hypercapnia; E87.29 Other acidosis; G82.20 Paraplegia, unspecified; I42.9 Cardiomyopathy, unspecified; I48.21 Permanent atrial fibrillation; Z68.41 Body mass index [BMI] 40.0-44.9, adult; I44.2 Atrioventricular block, complete; F11.20 Opioid dependence, uncomplicated; R57.9 Shock, unspecified; J44.0 Chronic obstructive pulmonary disease with (acute) lower respiratory infection; I27.20 Pulmonary hypertension, unspecified; I11.0 Hypertensive heart disease with heart failure; E11.65 Type 2 diabetes mellitus with hyperglycemia; E66.01 Morbid (severe) obesity due to excess calories; F32.A Depression, unspecified; I70.0 Atherosclerosis of aorta; Z95.828 Presence of other vascular implants and grafts; B96.4 Proteus (mirabilis) (morganii) as the cause of diseases classified elsewhere; J40 Bronchitis, not specified as acute or chronic; J98.4 Other disorders of lung; E78.00 Pure hypercholesterolemia, unspecified; F17.200 Nicotine dependence, unspecified, uncomplicated; G47.33 Obstructive sleep apnea (adult) (pediatric); I44.30 Unspecified atrioventricular block; K59.00 Constipation, unspecified; N20.0 Calculus of kidney; N31.9 Neuromuscular dysfunction of bladder, unspecified; I48.0 Paroxysmal atrial fibrillation; E87.6 Hypokalemia; Z96.0 Presence of urogenital implants; Z91.199 Patient's noncompliance with other medical treatment and regimen due to unspecified reason; Z74.01 Bed confinement status; Z79.01 Long term (current) use of anticoagulants; Z79.899 Other long term (current) drug therapy; Z95.0 Presence of cardiac pacemaker; Z86.19 Personal history of other infectious and parasitic diseases; Z86.711 Personal history of pulmonary embolism; Z86.718 Personal history of other venous thrombosis and embolism; Z11.52 Encounter for screening for COVID-19
CPT/HCPCS: 36600; 70450; 71045; 76604; 80048; 80053; 81003; 81015; 82805; 82962; 83036; 83605; 83735; 83880; 84100; 84443; 84478; 84484; 85025; 85027; 85610; 85730; 87040; 87070; 87077; 87086; 87147; 87186; 87205; 87502; 87811; 92610; 93005; 93306; 94002; 94003; 94640; 94660; 96374; 96375; 99291; Q9950

== ENCOUNTER 2024-09-18 00:06 | Inpatient (IN) | payer MEDICARE, OTHER, SELFPAY ==
[2024-09-17] VITALS (13 sets, daily range): BP systolic 87–176; BP diastolic 27–78
[2024-09-17] MEDS: AMIDATE 20 MG IV (20:33)
--- NOTE | 2024-09-17 20:33 | EDRN ---
Patient arrived via EMS from Home.
Patient has extensive chronic medical history. Patient is reported to have fallen out of a tree many years ago. Paraplegic, diabetes, indwelling catheter, COPD, pacemaker.
EMS found patient to be cyanotic on his typical 2L NC. Started him on neb treatment and increased to non rebreather.
Once in the ambulance they attempted Bipap which decreased patient's SPo2 from 80% to 55%.
Upon arrival, Patient was intubated using 8.0 ETT measuring 24 at the lip with good color change. XRAY ordered for placement.
20 etomidate and 100 rocc used for intubation.
Vent setting 14/500/50/70%
[2024-09-17] MEDS: ROCURONIUM 100 MG IV (20:34)
--- NOTE | 2024-09-17 20:44 | ED.GENMED ---
History of Present Illness
General
Chief Complaint: Breathing Problem
Time Seen by Provider: 09/17/24 20:38
History of Present Illness
History of Present Illness:
TIME OF INITIAL ENCOUNTER: 8:25 PM
HPI:
The patient arrived in severe respiratory distress and I initially spoke to EMS for history. He reportedly lives at home with family. He has a history of paraplegia related to a fall from a tree in 2007. He has been having increasing shortness of
breath over the last few days. Details of HPI are limited currently. He is reportedly on Coumadin. Girlfriend states that his primary care doctor placed him on amoxicillin due to shortness of breath over the last few days.
EXAM:
GENERAL: Critically ill in appearance and cyanotic, elevated BMI
HEENT: Moist oral mucosa
CARDIOVASCULAR: No murmurs, tachycardic heart rate, regular rhythm, No chest wall tenderness
PULMONARY: Severe respiratory distress, increased work of breathing, decreased breath sounds equally with scant wheeze
ABDOMEN: Soft with no peritoneal signs, no tenderness
NEUROLOGIC: Absent strength of the lower extremities, some strength noted to the upper extremities
PSYCHIATRIC: Minimally responsive but he was able to follow simple command upon arrival
EXTREMITIES: Nontender, no edema, moves all extremities equally
SKIN: No rash, no lesions
NUMBER AND COMPLEXITY OF PROBLEMS ADDRESSED AT THE ENCOUNTER
� Chronic conditions affecting care: COPD/former smoker, uses home oxygen, CHF, high blood pressure diabetes
� Acute Exacerbation and/or Progression of Chronic Illness: This is an acute problem
� Differential Diagnosis includes: COPD exacerbation, CHF exacerbation, general deconditioning, doubt PE as the patient has a therapeutic INR
AMOUNT AND/OR COMPLEXITY OF DATA TO BE REVIEWED AND ANALYZED
� I performed an independent evaluation of and my interpretation is:
EKG: V-paced
CT:
X-rays: Chest x-ray shows some volume overload
Laboratory Studies: White count 18.3, hemoglobin 14.1, INR 2.4, bicarb is 38, VBG had been canceled by the lab but initially noted to be hypercapnic respiratory acidosis
Other:
� Review of other/old records: The patient was admitted here in March with acute on chronic hypoxemic and hypercapnic respiratory failure along with acute on chronic heart failure with pEF.
� Clinical information was obtained by an independent historian: I spoke to girlfriend in the family room
� Prescriptions/Medications Considered but not given:
� Further testing considered but not performed:
RISK OF COMPLICATIONS AND/OR MORBIDITY OR MORTALITY OF PATIENT MANAGEMENT
� Social determinants of health affecting care: Lives at home with girlfriend who is caregiver
� Discussion with other providers: Dr. Oneill for admission
� Escalation of care including admission/observation vs risk of discharge considered: The patient arrives cyanotic with room air sats in the 50% per EMS. He has a history of hypercapnic respiratory failure/COPD as well as HFpEF.
The patient was intubated upon arrival. He was given nebs and IV steroids. He was also diuresed based on the chest x-ray appearance. Blood pressure started to drop and I did order Levophed.
ANY OTHER UPDATES:
Past History
Past History
ED Past Medical History: COPD, HTN, Hypercholesterolemia and Other (T6 paraplegic, Hematuria, DVT L leg)
ED Past Surgical History: Other (Green field filter)
Social History
Tobacco: Former smoker
Alcohol: None
Drug: None
Personal:
Living: with family
Employment: Disabled
Family History
Family History: Other (Noncontributory)
Phy Exam
Physical Exam
Physical Exam:
See HPI
Scores
Heart Failure Risk
Heart Failure Risk Score: Not Applicable
Course
Orders/Labs/Results
Orders:
Orders
09/17/24 20:32
Electrocardiogram (*1) Urgent
Reason for Study: Other
Other Reason for Exam: Respiratory Distress
EKG- Treatment ONCE
09/17/24 20:37
CR Chest Portable - 1 View Urgent
Comment:
Reason For Exam: respiratory failure
Reason Study Needs to be Portable: Patient Unstable
09/17/24 20:39
Propofol 1,000,000 Mcg/100 ml [Diprivan] 1,000,000 mcg in 100 ml .ROUTE .[facility]
09/17/24 20:41
Complete Blood Count/With Diff Urgent
Comprehensive Metabolic Panel Urgent
INR [Prothrombin Time] Urgent
NT-proBNP Urgent
PTT Urgent
Comment: ADD ON
Triglycerides Routine
Comment: baseline levels with propofol infusion
Troponin I Urgent
Etomidate [Amidate 20 mg] 20 mg IV NOW STA
Rocuronium [place] [Rocuronium] 100 mg IV NOW STA
09/17/24 20:42
Dexamethasone Sod Phosphate [Decadron] 10 mg IV NOW STA
Ipratropium/Albuterol Sulfate [Duoneb] 3 ml INH R NOW STA
Ipratropium/Albuterol Sulfate [Duoneb] 3 ml INH R NOW STA
09/17/24 20:45
Carboxymethylcellulose [Refresh Celluvisc Gel] 1 drops OPHTH Q12H
Propofol 1,000,000 Mcg/100 ml [Diprivan] 1,000,000 mcg in 100 ml IV PER PROTOCOL
Indication:: Deep Sedation
Begin Infusion:: Now
Goal:: RASS -3 to -5 or BIS < 60 or ventilator synchrony
Maximum dose in mcg/kg/min:: 50
Initial Dose in mcg/kg/min:: 5
Titration Instructions:: Titrate by 5-10 mcg/kg/min every 5 minutes until RASS -3 to -5 or
Titration Instructions:: BIS < 60 or ventilator synchrony is met.
Titration Instructions:: Administer analgesia bolus dose(s) & titrate analgesia prior to
Titration Instructions:: adjusting sedation.
Taper Instructions:: If RASS is at or below goal for 4 consecutive hours decrease infusion by
Taper Instructions:: 5-10 mcg/kg/min every 2 hours. Do not wean infusion to off if patient is
Taper Instructions:: receiving a continuous NMBA or has received bolus NMBA with the past 3 hrs
Over-sedation Instructions:: If BIS < 40 and synchronous with ventilator decrease infusion by
Over-sedation Instructions:: 5-10 mcg/kg/min every 2 hour until BIS = 40-60.
Notify provider:: immediately if patient exhibits signs/symptoms of propofol-related
Notify provider:: infusion syndrome.
Additional Instructions:: Patient MUST be mechanically ventilated and MUST receive analgesia.
09/17/24 20:49
Furosemide [Lasix] 40 mg IV NOW STA
09/17/24 21:30
ABG [Arterial Blood Gas] Urgent
%Oxygen/Room Air: 70
Comment: on vent
NORepinephrine 4 MG/250 ML [Levophed] 4 mg in 250 ml IV PER PROTOCOL
Initial dose in mcg/min, then titrate:: 5
Titrate to keep:: MAP > 65 mmHg
Titrate by mcg/min:: 1-2 mcg/min
Frequency of titrations (minutes):: 5
Maximum dose in ICU in mcg/min:: 30
Maximum dose in IMU in mcg/min:: 8
Maximum dose in IVU in mcg/min:: 4
Begin to taper infusion when:: Remained at goal for 4hrs
Taper by mcg/min:: 1-2 mcg/min
Frequency of taper (minutes) if patient maintains goal:: 30
Taper to off?: Yes
If infusion off & no longer maintaining goal:: Contact Provider
09/17/24 21:33
Add On- LAB Urgent
Tests Added?: PTT
09/17/24 21:46
COVID-19 Antigen Urgent
Source: Nasal Swab
Fentanyl, Urine Urgent
Urinalysis Reflex To Culture Urgent
Date Specimen was Collected: 09/17/24
Time Specimen was Collected: 21:43
Urine Drug Abuse Screen Urgent
Date Specimen was Collected: 09/17/24
Time Specimen was Collected: 21:43
Urine Microscopic Reflex Cult Urgent
Influenza A+B Rapid Molecular Urgent
GREGORIO Source: Nasal Swab
Specimen Description:
Urine Culture Urgent
GREGORIO Source: U
Specimen Description:
Date Specimen was Collected: 09/17/24
Time Specimen was Collected: 21:43
09/17/24 22:00
Flush (0.9% Sodium Chloride) [Flush (Nss)] See Dose Instructions IV PER PROTOCOL
09/17/24 22:12
Fentanyl Citrate/Pf [Sublimaze] 100 mcg .ROUTE .[facility]
09/17/24 22:13
Fentanyl Citrate/Pf [Sublimaze] 75 mcg IV NOW STA
09/18/24 08:00
Polyethylene Glycol Powder [Miralax] 17 grams TUBE DAILY
09/20/24 06:00
Triglycerides Q3D
Comment: every 72 hours while patient is on propofol
09/23/24 06:00
Triglycerides Q3D
Comment: every 72 hours while patient is on propofol
09/26/24 06:00
Triglycerides Q3D
Comment: every 72 hours while patient is on propofol
Abnormal Lab Results
09/17/24 09/17/24 09/17/24
20:41 21:30 21:46
WBC 18.3 H 10^3/uL
(4.8-10.8)
MCH 24.1 L pg
(27.0-31.0)
MCHC 27.8 L g/dL
(33.0-37.0)
RDW 19.5 H %
(11.5-14.5)
MPV 10.8 H fL
(7.4-10.4)
Abs Immat Gran (auto) 0.5 H 10^3/uL
(0-0.05)
Absolute Neuts (auto) 15.0 H 10^3/uL
(1.4-6.5)
Absolute Monos (auto) 1.1 H 10^3/uL
(0.1-0.6)
Immature Gran % 2.9 H %
(0-0.5)
Neutrophils % 81.9 H %
(42.2-75.2)
Lymphocytes % 7.9 L %
(20.5-51.1)
PT 26.8 H Sec
(11.4-14.6)
APTT 35.6 H Sec
(23.4-35.0)
pH 7.29 L
(7.35-7.45)
pCO2 78 H* mmHg
(35-48)
pO2 146 H mmHg
(83-108)
HCO3 37.5 H mmol/L
(21-28)
ABG O2 Sat (Measured) 99.5 H %
(94-98)
Chloride 91 L mmol/L
(98-107)
Carbon Dioxide 38 H mmol/L
(22-30)
Creatinine 0.5 L mg/dL
(0.7-1.3)
Glucose 230 H mg/dl
(70-99)
Alkaline Phosphatase 151 H U/L
(38-126)
Triglycerides 164 H mg/dl
(10-149)
Ur Occult Blood Reflex 4+ A
(Negative)
Leukocyte Esterase Rfl 1+ A
(Negative)
Urine RBC 11-15 A /HPF
(0-2)
Urine Bacteria (Reflex) Few A
(Negative)
Urine Albumin (Reflex) 3+ A
(Neg - Trace)
Urine Opiates Screen Positive H
(Negative)
09/17/24 20:41
09/17/24 20:41
Vital Signs
Initial and Last Documented VS:
Initial Vital Signs
Temp Pulse Resp BP Pulse Ox
36.7 C 120 20 111/72 91
09/17/24 20:30 09/17/24 20:30 09/17/24 20:30 09/17/24 20:30 09/17/24 20:30
Last Documented Vital Signs
Temp Pulse Resp BP Pulse Ox
36.7 C 70 16 176/50 80
09/17/24 20:30 09/17/24 22:00 09/17/24 22:00 09/17/24 22:00 09/17/24 21:22
Procedures
Intubations
Procedure completed by: Nm, Dr. Martin
Method of Intubation: glidescope
Tube size (cm): 8.0
Placement confirmed by: CXR and capnography
Breath sounds after intubation: equal
Intubation complications: no complications
*Critical Care Note
Total Time (30-74mins, 75-104mins- exclusive of procedures): 55min
comment:
The patient is critically ill upon arrival. He required intubation and I did monitor his respiratory status closely while on the ventilator. He was markedly hypoxic upon arrival. He was diuresed and treated for COPD. ABG reviewed.
ED Attending Note
-
Portions of this chart may have been created with voice recognition software.� Occasional wrong word or��sound alike� substitutions may have occurred due to the inherent limitations of voice recognition software.
Discharge Plan
Departure
Patient Disposition: Admit
Date of Disposition: 09/17/24
Time of Disposition: 21:28
Presentation/result/management discussed w/ accepting MD/DO: Hospitalist
Discharge Problem:
Acute hypercapnic respiratory failure
Prescriptions:
No Action
sertraline 50 MG tablet
50 mg PO DAILY
amlodipine 5 MG tablet
5 mg PO DAILY
docusate sodium 100 MG capsule
100 mg PO BID
oxycodone 5 MG tablet
5 mg PO DAILYPRN PRN (Reason: severe pain)
Patient Comments:
09/17/24: last filled 09/15/24 for 30 tabs over 30 days per PDMP
baclofen 20 mg tablet
40 mg PO BID
sennosides [senna] 8.6 mg Tablet
17.2 mg PO DAILY
gabapentin 600 mg Tablet
300 mg PO BID
morphine 30 mg Tablet Extended Release
30 mg PO BID
Patient Comments:
09/17/24: last filled 08/25/24 for 60 tabs over 30 days per PDMP
warfarin 6 mg Tablet
9 mg PO HS
Patient Comments:
09/17/24: Family unsure of current dosing, patient last filled 180x 6mg tabs on 07/17/24
albuterol sulfate 90 mcg/actuation Hfa Aerosol Inhaler
2 puff INHALATION R Q6HPRN PRN (Reason: wheezing)
Trelegy Ellipta 200-62.5-25 mcg Blister With Device
1 inh INHALATION R DAILY
polyethylene glycol 3350 [HealthyLax] 17 gram Powder In Packet
17 g PO DAILYPRN PRN (Reason: constipation) Qty: 0 0RF
pantoprazole [Protonix] 40 mg tablet,delayed release (DR/EC)
40 mg PO DAILY
furosemide 40 mg Tablet
40 mg PO DAILY
amoxicillin-pot clavulanate [Augmentin] 875-125 mg Tablet
1 tab PO BID
Linzess 72 mcg Capsule
72 mcg PO DAILY
Referrals:
UNKNOWN - PT NOT,INTERVIEWE [Family Provider] -
Interventions
Interventions:
*Risk Screen - Suicide Last Done: 09/17/24 20:30
*General Assessment Last Done: 09/17/24 21:10
*Neglect/Abuse Screening Last Done: 09/17/24 20:30
*ED- Fall Risk Assessment Last Done: 09/17/24 21:10
*ED COVID-19 Vaccine History Last Done: 09/17/24 21:10
ED- Cardiac Assessment Last Done: 09/17/24 21:22
ED- Pulmonary Assessment Last Done: 09/17/24 21:42
Discharge Date and Time
Print Language: TOGOLESE
[2024-09-17] MEDS: DUONEB 3 ML INH ×2 (20:46→20:47)
[2024-09-17] MEDS: DECADRON 10 MG IV (20:47)
[2024-09-17] MEDS: DIPRIVAN 100 IV (20:47)
[2024-09-17 20:49] LABS: % Basophils 0.7 % (0-2); % Eosinophils 0.7 % (0-6); % Immature Granulocytes 2.9 % (0-0.5); % Lymphocytes 7.9 % (20.5-51.1); % Monocytes 5.9 % (1.7-9.3); % Neutrophils 81.9 % (42.2-75.2); Absolute Basophils 0.1 10^3/uL (0-0.2); Absolute Eosinophils 0.1 10^3/uL (0-0.7); Absolute Immature Granulocytes 0.5 10^3/uL (0-0.05); Absolute Lymphocytes 1.5 10^3/uL (1.2-3.4); Absolute Monocytes 1.1 10^3/uL (0.1-0.6); Hematocrit 50.7 % (39.0-52.0); Hemoglobin 14.1 g/dL (13.0-18.0); Mean Corp Hgb Conc. 27.8 g/dL (33.0-37.0); Mean Corpuscular Hgb 24.1 pg (27.0-31.0); Mean Corpuscular Volume 86.8 fL (80.0-94.0); Mean Platelet Volume 10.8 fL (7.4-10.4); Nucleated Red Blood Cells % 0 % (-); Platelet Count 271 10^3/uL (130-400); Red Blood Cell Count 5.84 10^6/uL (4.70-6.10); Red Cell Dist. Width 19.5 % (11.5-14.5); White Blood Cell Count 18.3 10^3/uL (4.8-10.8)
[2024-09-17 20:57] LABS: INR 2.42; PT 26.8 Sec (11.4-14.6)
[2024-09-17 21:03] LABS: Anisocytosis Slight; Normal RBC Morphology No
[2024-09-17] MEDS: REFRESH CELLUVISC GEL OPHTH (21:03)
[2024-09-17 21:04] LABS: Hypochromasia Slight; Macrocytosis Slight
--- NOTE | 2024-09-17 21:04 | RESPNOTE ---
pt intubated @ 2034 in ER due to respiratory distress, pt preoxygenated via ambu bag prior to intubation. pt intubated with 8.0 ETT @ 24, placement confirmed with positive EtCO2 color change, bilateral breath sounds and CXR. placed on AC settings at
this time. will continue to monitor
[2024-09-17 21:05] LABS: Poikilocytosis Slight; Stomatocytes Slight
[2024-09-17] MEDS: LASIX 40 MG IV (21:06)
[2024-09-17 21:07] LABS: ALT (SGPT) 18 U/L (0-50); AST (SGOT) 21 U/L (17-59); Alkaline Phosphatase 151 U/L (38-126); Blood Urea Nitrogen 12 mg/dl (9-20); Carbon Dioxide 38 mmol/L (22-30); Chloride 91 mmol/L (98-107); Glucose 230 mg/dl (70-99); Potassium 4.6 mmol/L (3.5-5.1); Sodium 136 mmol/L (135-145); Total Bilirubin 0.7 mg/dl (0.2-1.3); Total Protein 8.1 g/dl (6.3-8.2); Triglycerides 164 mg/dl (10-149); eGFR > 60.00
[2024-09-17 21:11] LABS: NT-proBNP 1500 pg/ml; Troponin I < 0.012 ng/ml
[2024-09-17] MEDS: LEVOPHED 250 IV (21:34)
[2024-09-17 21:35] LABS: HCO3 37.5 mmol/L (21-28); O2 Saturation % 99.5 % (94-98); PO2 146 mmHg (83-108); pH 7.29 (7.35-7.45)
--- NOTE | 2024-09-17 21:36 | PHANOTE ---
med rec tech(09/17/24)- Unable to interview patient, interviewed family for home meds. Family was unsure about some medications and some dosing frequencies, which were left unconfirmed in the chart, including the warfarin dose.
[2024-09-17 21:38] LABS: PCO2 78 mmHg (35-48)
[2024-09-17 21:43] LABS: APTT 35.6 Sec (23.4-35.0)
[2024-09-17 22:00] LABS: Urine Albumin 3+ (Neg - Trace); Urine Bilirubin Negative (Negative); Urine Character Clear (Clear); Urine Color Yellow; Urine Glucose Negative (Negative); Urine Ketone Negative (Negative); Urine Leukocyte 1+ (Negative); Urine Nitrite Negative (Negative); Urine Occult Blood 4+ (Negative); Urine Specific Gravity 1.015 (<1.030); Urine Urobilinogen Negative (Neg - 1+)
[2024-09-17 22:05] LABS: Urine Calcium Oxalate Crystals Present
[2024-09-17 22:07] LABS: Urine Bacteria Few (Negative)
[2024-09-17 22:13] LABS: Amphetamines Negative (Negative); Barbiturates Negative (Negative); Benzodiazepines Negative (Negative); Buprenorphine Negative (Negative); Cocaine Negative (Negative); Marijuana Negative (Negative); Methadone Negative (Negative); Methamphetamines Negative (Negative); Opiates Positive (Negative); Phencyclidine Negative (Negative); Tricyclic Antidepressants Negative (Negative)
[2024-09-17] MEDS: SUBLIMAZE 75 MCG IV (22:14)
[2024-09-17 22:15] LABS: COVID-19 Antigen Negative (Negative)
[2024-09-17 22:43] LABS: Fentanyl, Urine Negative (Negative)
--- NOTE | 2024-09-17 23:09 | HPS.HSE ---
Family Physician
-
Family Physician: INTERVIEWE UNKNOWN - PT NOT
Chief Complaint
-
SOB
History of Present Illness
Patient is a 53y M with PMH significant for paraplegia s/p spinal cord injury, CHF and COPD / WILBERT who presents to ED in respiratory distress. Patient was intubated in the ED. History obtained from ED staff and significant other at the bedside.
S.O. states that patient has chronic chest congestion that occasionally 'flares' up on him. This has been the case for the past 1-2 weeks. His PCP placed him on amoxicillin one week ago - but with no improvement in his symptoms. She denies any
noted fevers at home. No associated GI symptoms, etc. No known sick contacts. No recent med changes other than abx.
This evening, patient developed sudden and severe SOB and was unable to get his breath. 911 was called and patient brought to the ED for further evaluation.
He was noted to be in extremis on arrival and was intubated in the ED.
He is sedated at the time of my examination.
S.O. notes that patient has been using his PAP therapy at as prescribed.
He had a very similar presentation / admission in 03/2024 due to Proteus pneumonia +/- pulm edema and CHF.
Medical History
Past Medical History
Past Medical History: Reports Other
Additional Past Medical History:
Paraplegia s/p Spinal Cord Injury
COPD
Chronic HFpEF
Atrial Fibrillation
COPD
DM-II
Hypertension
History of DVT / PE
Chronic Pain Syndrome
Chronic Opioid Dependence
Morbid Obesity
Chronic Indwelling Burnett Catheter / Neurogenic Bladder
Past Surgical History: Reports Other
Additional Past Surgical History:
IVC Filter
Cervical / Thoracic Spine Stabilization with Hardware
Social History
Tobacco: Former Smoker (Quit smoking 4 years ago. Approx 20 pack years total use.)
Alcohol: Occasional (Rarely.)
Drug: None
Personal: Partner
Family History
Family History: Not pertinent
Allergies / Home Medications
Allergies reflects when Allergies were last updated in [employer].
Home Medications with original date entered in [employer]
Allergy/Medication List:
Allergies
Allergy/AdvReac Type Severity Reaction Status Date / Time
No Known Allergies Allergy Verified 03/27/24 16:30
Home Medications
sertraline 50 mg tablet 50 mg PO DAILY depression 06/11/16
amlodipine 5 mg tablet 5 mg PO DAILY blood pressure 03/28/20
docusate sodium 100 mg capsule 100 mg PO BID Constipation 12/06/21
oxycodone 5 mg tablet 5 mg PO DAILYPRN PRN severe pain 07/24/23
baclofen 20 mg tablet 40 mg PO BID Muscle Spasms 07/31/23
albuterol sulfate 90 mcg/actuation aerosol inhaler 2 puff inhalation R Q6HPRN PRN wheezing 12/22/23
fluticasone fur. 200 mcg-umeclid 62.5 mcg-vilant 25 mcg inhalat.powder (Trelegy Ellipta) 1 inh inhalation R DAILY Lung/Breathing Issues 12/22/23
gabapentin 600 mg tablet 300 mg PO BID Pain 12/22/23
morphine 30 mg tablet,extended release 30 mg PO BID Pain 12/22/23
sennosides 8.6 mg tablet (senna) 17.2 mg PO DAILY Constipation 12/22/23
warfarin 6 mg tablet 9 mg PO HS Blood Clot Prevention/Tx 12/22/23
polyethylene glycol 3350 17 gram oral powder packet (HealthyLax) 17 g PO DAILYPRN PRN constipation #0 ea 12/28/23
pantoprazole 40 mg tablet,delayed release (Protonix) 40 mg PO DAILY Gastrointestinal Issue 03/28/24
amoxicillin 875 mg-potassium clavulanate 125 mg tablet 1 tab PO BID 09/17/24
furosemide 40 mg tablet 40 mg PO DAILY 09/17/24
linaclotide 72 mcg capsule (Linzess) 72 mcg PO DAILY 09/17/24
Review of Systems
-
Unable to obtain full review of systems at this time due to: Patient Intubation
History Source: Family
Constitutional: Denies Fever
Respiratory: Reports Cough and Trouble Breathing; Denies Hemoptysis
Cardiac: Denies Chest Pain
Abdomen/GI: Denies Nausea, Vomiting or Diarrhea
: Reports Burnett
Neurological: Denies Headache
Physical Exam
Vital Signs
Vital Signs
Temp Pulse Resp BP Pulse Ox
98.0 F 70 16 113/58 80
09/17/24 20:30 09/17/24 22:45 09/17/24 22:45 09/17/24 22:45 09/17/24 21:22
Physical Exam
General: Other (53y M sedated / intubated in the ED.)
HEENT: Moist mucous membranes and Other (ETT in place. Thick neck without appreciable JVD.)
Respiratory: Other (Scattered squeaks / wheezes without discrete rales / rhonchi.)
Cardiac: S1/S2 and Irregular Rhythm; No Murmur
GI: Non Tender, Non Distended, Normal Bowel Sounds and Other (Obese)
Genito-urinary: Other (Burnett in place draining reva colored urine.)
Musculoskeletal: No Clubbing, No Cyanosis and Other (Trace pedal edema.)
Neuro: Sedated
Laboratory Results
-
09/17/24 20:41
09/17/24 20:41
Laboratory Results
PT 26.8 Sec (11.4-14.6) H 09/17/24 20:41
INR 2.42 09/17/24 20:41
APTT 35.6 Sec (23.4-35.0) H 09/17/24 20:41
pH 7.29 (7.35-7.45) L 09/17/24 21:30
pCO2 78 mmHg (35-48) H* 09/17/24 21:30
pO2 146 mmHg (83-108) H 09/17/24 21:30
HCO3 37.5 mmol/L (21-28) H 09/17/24 21:30
Total Bilirubin 0.7 mg/dl (0.2-1.3) 09/17/24 20:41
AST 21 U/L (17-59) 09/17/24 20:41
ALT 18 U/L (0-50) 09/17/24 20:41
Alkaline Phosphatase 151 U/L (38-126) H 09/17/24 20:41
Troponin I < 0.012 ng/ml 09/17/24 20:41
Impression/Plan
-
A/P: Patient is a 53y M with PMH significant for paraplegia, COPD and CHF who presents to ED in respiratory distress.
Acute on Chronic Hypoxemic and Hypercapnic Respiratory Failure
Possible Atypical Pneumonia
- Admit to ICU for further evaluation and treatment.
- ? atypical pneumonia v pulmonary edema as etiology of respiratory distress.
- Continue vent support and follow ABG / change as needed.
- Soft Boarder evaluation for additional recommendations.
- Pain / sedation protocol.
- Empiric abx for pneumonia - including doxycycline via tube for potential atypical infection.
- Follow for clinical improvement. Sedation holiday / SBT when appropriate.
Acute on Chronic HFpEF
- BNP elevated - similar to prior admission.
- Received short course of IV Lasix during that stay - discharged to home on 80mg daily.
- Since changed back to prior 40mg daily dosing.
- IV Lasix 40mg BID for now.
- Follow I/os, daily weights, etc.
- Cardiology evaluation.
- Update Echo.
- Follow for clinical improvement.
Hypotension
- Patient developed hypotension in the ED after induction / intubation / sedation and diuretic administration.
- Currently on Levophed at low dose and BP improving / stable.
- Wean off of pressors as able. Limit sedation as able.
- Check lactic acid.
COPD without Acute Exacerbation
- Recent congestion, but no noted wheezing on exam.
- Observe off of systemic steroids for now.
- Continue inhaled medications.
Paroxysmal Atrial Fibrillation
- Stable. Not on any chronotropic medications.
- Continue Coumadin for stroke risk reduction and follow daily INR.
DM-II
- Patient not currently on any DM medications. Hyperglycemic on initial labs without anion gap elevation, etc.
- Follow glucose and cover with SSI for now.
- Update A1C.
Paraplegia
Chronic Pain Syndrome
Chronic Opioid Dependence
Chronic Indwelling Burnett
- Stable. Hold sedating meds from home while on propofol / fentanyl.
- Resume once extubated / stable.
- Maintain Burnett.
- UDS consistent with prescribed medications.
History of DVT
DVT Prophylaxis
- Continue Coumadin and follow INR.
- s/p IVC filter placement.
Code Status: Full
[2024-09-17 23:59] LABS: Lactic Acid 1.1 mmol/L (0.7-2.0)
[2024-09-18] VITALS (116 sets, daily range): BP systolic 89–163; BP diastolic 35–93; BMI 43.6
[2024-09-18] MEDS: SUBLIMAZE 50 MCG IV ×3 (00:27→13:10)
--- NOTE | 2024-09-18 00:30 | PTCARENOTE ---
Patient received from ED, intubated and sedated on Propofol. Patient opens eyes. V paced on monitor, afebrile, blood pressure as documented. Palpable pulses throughout, no edema note. 8 ETT at 24 cm at the lip, on AC 16 TV 500 FIO2 50% Peep 5,
pulse ox 88-89%, peep increased to 8, pulse ox 93-94%. Large amount of oral secretions. Lungs with rhonchi and scattered exp wheeze. Abdomen obese, incontinent of large amount of loose brown stool. Patient has chronic mane draining small amount
of yellow urine. MASD noted in groin. #20 g with Propofol gtt infusing as ordered, Levophed gtt infusing at 5 mcg/mi. CHG bath given
[2024-09-18] MEDS: SUBLIMAZE 100 IV ×2 (00:36→21:42)
[2024-09-18] MEDS: DIPRIVAN 100 IV ×5 (00:46→23:34)
[2024-09-18 01:14] LABS: Glucose - Point of Care 169 mg/dl (70-99)
[2024-09-18] MEDS: MAXIPIME 2000 MG IV ×3 (01:31→17:27)
[2024-09-18] MEDS: STERILE WATER FOR INJECTION 10 ML IV ×3 (01:31→17:27)
[2024-09-18 04:16] LABS: B.E. 15.9 mmol/L; O2 Saturation % 96.5 % (94-98); PCO2 49 mmHg (35-48); PO2 69 mmHg (83-108); pH 7.53 (7.35-7.45)
[2024-09-18 04:21] LABS: HCO3 40.9 mmol/L (21-28)
--- NOTE | 2024-09-18 04:41 | PTCARENOTE ---
Patient reassessed, eyes open to command. Nods head. Weaning levophed gtt, labs sent. No other changes in assessment
[2024-09-18 05:00] LABS: Hematocrit 44.2 % (39.0-52.0); Hemoglobin 12.9 g/dL (13.0-18.0); Mean Corp Hgb Conc. 29.2 g/dL (33.0-37.0); Mean Corpuscular Hgb 23.9 pg (27.0-31.0); Mean Corpuscular Volume 81.9 fL (80.0-94.0); Mean Platelet Volume 10.9 fL (7.4-10.4); Platelet Count 254 10^3/uL (130-400); Red Cell Dist. Width 18.9 % (11.5-14.5); White Blood Cell Count 12.6 10^3/uL (4.8-10.8)
[2024-09-18 05:12] LABS: ALT (SGPT) 17 U/L (0-50); AST (SGOT) 25 U/L (17-59); Albumin 3.3 g/dl (3.5-5.0); Alkaline Phosphatase 106 U/L (38-126); Blood Urea Nitrogen 14 mg/dl (9-20); Calcium 8.7 mg/dl (8.4-10.2); Carbon Dioxide 39 mmol/L (22-30); Chloride 93 mmol/L (98-107); Direct Bilirubin 0.4 mg/dl (0.0-0.4); Estimated Creatinine Clearance > 125 ml/min; Glucose 146 mg/dl (70-99); INR 2.32; Magnesium 1.9 mg/dl (1.6-2.3); PT 25.9 Sec (11.4-14.6); Phosphorus 1.8 mg/dl (2.5-4.5); Potassium 4.5 mmol/L (3.5-5.1); Sodium 136 mmol/L (135-145); Total Bilirubin 1.1 mg/dl (0.2-1.3); Total Protein 6.8 g/dl (6.3-8.2); Triglycerides 106 mg/dl (10-149); eGFR > 60.00
[2024-09-18 05:27] LABS: Procalcitonin 0.21 ng/ml (0.0-0.25)
[2024-09-18 05:32] LABS: Troponin I 0.025 ng/ml
[2024-09-18 05:45] LABS: TSH Reflex To Free T4 0.38 uIU/ml (0.47-4.68)
[2024-09-18 06:15] LABS: Free T4 1.37 ng/dl (0.78-2.19)
[2024-09-18] MEDS: MIRALAX TUBE (07:55)
--- NOTE | 2024-09-18 08:00 | PTCARENOTE ---
Patient received from previous RN, intubated and sedated on Propofol/fent, levo running at 2 mcg/min via RAC. Patient opens eyes, follows commands. V paced on monitor, afebrile, blood pressure as documented. Palpable pulses throughout, no edema
note. 8 ETT at 24 cm at the right lip, on AC 16 TV 500 FIO2 50% Peep 8, pulse ox 96%. Large amount of oral secretions. Lungs with coarse rhonchi and scattered exp wheeze. Abdomen obese,Sacrum red, Patient has chronic mane draining small amount
of yellow urine. MASD noted in groin. Oral care, mane care and CHG bath given. Turned and repositioned per protocol, sport bed set to continuous lateral rotation. Safe environment maintained. Plan discussed with resident and attending Dr. Vega.
--- NOTE | 2024-09-18 08:00 | W.PN.HOSP.TC ---
Today's Communication/Plan
-
see bold
Assessment / Plan
Assessment / Plan
53y M with PMH significant for paraplegia, COPD and CHF who presents to ED in respiratory distress.
Acute on Chronic Hypoxemic and Hypercapnic Respiratory Failure
Possible Atypical Pneumonia
- Appreciate integrity analyst input, continue vent management as per integrity analyst
- Flu/covid neg, urinary strep/legionella neg
- Continue cefepime and doxycycline, follow-up on cultures
Acute on Chronic HFpEF
- BNP elevated - similar to prior admission.
- Cardiology following, continue IV Lasix as able
- Trend creatinine, trend daily weights
Drug-induced shock
- Patient developed hypotension in the ED after induction / intubation / sedation and diuretic administration.
- Lactic acid normal. Continue Levophed, wean as tolerated
COPD without Acute Exacerbation
- Observe off of systemic steroids for now.
- Continue inhaled medications.
Paroxysmal Atrial Fibrillation
History of DVT status post IVC filter
- Status post pacemaker placement, device interrogated and functioning fine 09/18
- Continue Coumadin
DM-II
- Patient not currently on any DM medications. Hyperglycemic on initial labs without anion gap elevation, etc.
- Hemoglobin A1c 6.3, continue Accu-Cheks, sliding scale insulin
Paraplegia
Chronic Pain Syndrome
Chronic Opioid Dependence
Chronic Indwelling Burnett
- Stable. Hold sedating meds from home while on propofol / fentanyl.
- Resume once extubated / stable.
- Maintain Burnett. UDS consistent with prescribed medications.
Obesity due to excess calories
-Affects all aspects of care
DVT prophylaxis�Coumadin
Code Status: Full
Total time spent to see the patient on the floor, examine the patient, review data and lab results, discuss treatment plan with patient, nursing staff around 50 minutes.
Physical Exam
General: Morbidly obese, intubated
HEENT: Normocephalic, Atraumatic, EOMI
Respiratory: Coarse breath sounds with scattered trace expiratory wheezing
Cardiac: Normal S1/S2, Regular Rate and Rhythm
GI: Soft, Nontender, Nondistended, Normal Bowel Sounds
Extremities: No Clubbing, Cyanosis, or Edema
Neuro: Nonfocal/Grossly Intact
Psych: Calm, Cooperative
Anticipated Discharge: > 48 hours
Subjective/Interval History
-
Date of Service: September 18, 2024
Patient is intubated. No fever, no vomiting.
Objective Data
-
Labs:
Laboratory Results
09/17/24 09/17/24 09/17/24
20:41 21:02 21:30
WBC 18.3 H
Hgb 14.1
Hct 50.7
Plt Count 271
PT 26.8 H
INR 2.42
APTT 35.6 H
HCO3 Cancelled 37.5 H
Sodium 136
Potassium 4.6
Chloride 91 L
Carbon Dioxide 38 H
BUN 12
Creatinine 0.5 L
Glucose 230 H
Calcium 9.0
Total Bilirubin 0.7
AST 21
ALT 18
Alkaline Phosphatase 151 H
09/18/24 09/18/24 09/18/24
00:11 04:11 04:29
WBC 12.6 H
Hgb 12.9 L
Hct 44.2
Plt Count 254
PT 25.9 H
INR 2.32
APTT
HCO3 Cancelled 40.9 H*
Sodium 136
Potassium 4.5
Chloride 93 L
Carbon Dioxide 39 H
BUN 14
Creatinine 0.5 L
Glucose 146 H
Calcium 8.7
Total Bilirubin 1.1
AST 25
ALT 17
Alkaline Phosphatase 106
Vital Signs:
Vital Signs
Temp Pulse Resp BP Pulse Ox
97.7 F 70 16 116/61 97
09/18/24 04:00 09/18/24 07:45 09/18/24 07:45 09/18/24 07:45 09/18/24 07:45
I&O
09/17/24 09/18/24 09/19/24
06:59 06:59 06:59
Intake Total 200.5 / 237.6 37.1 / 37.1
Output Total 1800 / 1800
Balance -1599.5 / -1562.4 37.1 / 37.1
--- NOTE | 2024-09-18 08:14 | CON.INTV ---
Consultation
Consultation Request
Date/Time Consultation Requested: 09/18/2024
Date/Time Consultation Performed: 09/18/2024 09:00
Requesting Provider: Kvng Oneill DO
Performing Provider: Santhosh Marquez MD
Reason for Consultation: Acute Hypoxemic and Hypercapnic Respiratory Failure
Medical History
-
Chief Complaint: Respiratory distress
History of Present Illness:
The patient is a 53-year-old male with history of paraplegia s/p spinal cord injury primarily bedbound, CHF, COPD, DVT/PE, A-fib, and NIDDM, on chronic opioid use with history of hypercapnic respiratory failure presented with severe respiratory
distress requiring intubation in the ER.
Most of the history is obtained from chart review, nurse and previous admission records.
Patient had chest congestion for past couple of weeks and was started on amoxicillin by the family doctor however his symptoms did not improve. No known sick contact and no recent changes in medication..
Patient was on ventilator and sedated at the time of this consult. On fentanyl and propofol drip. Patient required Levophed overnight when MAP dropped below 65, later weaned off at 8 AM. However patient's blood pressure dropped to 70s and oxygen
saturation to 60s during repositioning and he was put back on Levophed.
Past Medical History: Paraplegia s/p Spinal Cord Injury, COPD, Chronic HFpEF, Atrial Fibrillation, COPD, DM-II, Hypertension, History of DVT / PE, Chronic Pain Syndrome, Chronic Opioid Dependence, Morbid Obesity, Chronic Indwelling Burnett Catheter /
Neurogenic Bladder
Past surgical history:IVC Filter, Cervical / Thoracic Spine Stabilization with Hardware
Past Medical History
Past Medical History: Other (as above)
Past Surgical History: Other (As in HPI)
Social History
Tobacco: Former Smoker
Alcohol: Occasional
Drug: None
Family History
Family History: Reviewed & Not Pertinent
Allergies / Home Medications
Allergies
Allergy/AdvReac Type Severity Reaction Status Date / Time
No Known Allergies Allergy Verified 03/27/24 16:30
Home Medications
�Medication �Instructions �Recorded �Confirmed �Last Taken �Type
sertraline 50 mg tablet 50 mg PO DAILY depression 06/11/16 09/17/24 12/21/23 History
amlodipine 5 mg tablet 5 mg PO DAILY blood pressure 03/28/20 03/27/24 12/21/23 History
docusate sodium 100 mg capsule 100 mg PO BID Constipation 12/06/21 09/17/24 12/21/23 History
oxycodone 5 mg tablet 5 mg PO DAILYPRN PRN severe pain 07/24/23 09/17/24 2 Days Ago History
~12/20/23
baclofen 20 mg tablet 40 mg PO BID Muscle Spasms 07/31/23 09/17/24 12/21/23 History
albuterol sulfate 90 mcg/actuation 2 puff inhalation R Q6HPRN PRN 12/22/23 09/17/24 12/21/23 History
aerosol inhaler wheezing
fluticasone fur. 200 mcg-umeclid 1 inh inhalation R DAILY 12/22/23 09/17/24 12/21/23 History
62.5 mcg-vilant 25 mcg Lung/Breathing Issues
inhalat.powder (Trelegy Ellipta)
gabapentin 600 mg tablet 300 mg PO BID Pain 12/22/23 09/17/24 12/21/23 History
morphine 30 mg tablet,extended 30 mg PO BID Pain 12/22/23 09/17/24 12/21/23 History
release
sennosides 8.6 mg tablet (senna) 17.2 mg PO DAILY Constipation 12/22/23 09/17/24 12/21/23 History
warfarin 6 mg tablet 9 mg PO HS Blood Clot Prevention/Tx 12/22/23 03/27/24 12/21/23 History
polyethylene glycol 3350 17 gram 17 g PO DAILYPRN PRN constipation 12/28/23 09/17/24 Unknown Rx
oral powder packet (HealthyLax) #0 ea
pantoprazole 40 mg tablet,delayed 40 mg PO DAILY Gastrointestinal 03/28/24 03/27/24 Unknown History
release (Protonix) Issue
amoxicillin 875 mg-potassium 1 tab PO BID 09/17/24 09/17/24 Unknown History
clavulanate 125 mg tablet
furosemide 40 mg tablet 40 mg PO DAILY 09/17/24 09/17/24 Unknown History
linaclotide 72 mcg capsule 72 mcg PO DAILY 09/17/24 09/17/24 Unknown History
(Linzess)
Review of Systems
-
Unable to Obtain full review of systems at this time due to: Patient Intubation
Vitals / Labs / Diagnostic Testing
Vital Signs
Temp Pulse Resp BP Pulse Ox
97.7 F 70 16 116/61 97
09/18/24 04:00 09/18/24 07:45 09/18/24 07:45 09/18/24 07:45 09/18/24 07:45
Lab Data
09/18/24 04:29
09/18/24 04:29
Laboratory Results
09/17/24 09/17/24 09/17/24
20:41 21:02 21:30
PT 26.8 H
INR 2.42
APTT 35.6 H
pH Cancelled 7.29 L
pCO2 Cancelled 78 H*
pO2 Cancelled 146 H
HCO3 Cancelled 37.5 H
O2 Delivery Level Cancelled
09/18/24 09/18/24 09/18/24
00:11 04:11 04:29
PT 25.9 H
INR 2.32
APTT
pH Cancelled 7.53 H
pCO2 Cancelled 49 H
pO2 Cancelled 69 L
HCO3 Cancelled 40.9 H*
O2 Delivery Level Cancelled
Microbiology
09/17/24 21:46 Nasal Swab Influenza Types A & B (GUILLAUME) - Final
Negative for Influenza A & B, NAAT
Negative results must be combined with clinical observations
and patient history.
Nucleic Acid Amplification test (NAAT)performed on the
[employer] ID NOW platform.
Physical Exam
-
HEENT: Other (Morbidly obese, appears chronically ill)
Cardiovascular: S1/S2 and Regular Rhythm
Respiratory: Other (Coarse breath sounds)
GI: Soft, Non Distended and Non Tender
Neurology: Other (Not alert, not oriented and paraplegic)
Assessment
-
53-year-old paraplegic male primarily bedbound with chronic indwelling Burnett catheter, COPD, CHF, DVT/PE, atrial fibrillation, pep-arvkpfl-oeatohnzq diabetes, chronic opiate use with history of hypercapnic respiratory failure presented with
respiratory distress.
CxR: IMPRESSION:
1. SEVERE ACUTE INTERSTITIAL and ALVEOLAR CARDIOGENIC PULMONARY EDEMA.
2. Endotracheal tube in normal position.
3. Extensive bilateral posterior instrumentation in the upper and midthoracic spine
Echo 03/28/2024: EF 65-70%, mild LVH, grossly normal RV function, aortic sclerosis, mild TR, pulmonary artery pressure 30
#Acute on chronic hypoxemic and hypercapnic respiratory failure: Intubated 09/17/2024; ABG on arrival with pH 7.29, pCO2 78, pO2 146, HCO3 37.5
#Pneumonia??
#Acute on chronic HFpEF
#Leukocytosis
#COPD
#Hyperglycemia with history of type 2 diabetes
#Paroxysmal A-fib
# History of complete heart block
#Elevated troponins
#Abnormal urinalysis
# Hypophosphatemia
Plan:
-Ventilator settings reviewed; PEEP 8, oxygen 50%
-ABG from 09/18/2024 with pH 7.53, pCO2 49, pO2 69, bicarb 40.9
-Spontaneous breathing trial once hemodynamically and neurologically improved-transition to BiPAP
-Check Sputum culture; flu and COVID-negative
-Continue empiric antibiotics doxycycline and cefepime for now
-Trend leukocytosis; improving
-Dobbhoff for meds and consideration of starting tube feeds once able
-Fluticasone and DuoNeb
-Check blood culture
-Diuresis as tolerated; currently add IV Lasix 40 mg twice daily
-Monitor renal function, electrolytes, intake/output, lower extremity edema and weight
-Replace electrolytes as needed
-Trend troponin
-proBNP 1500
-Cardiology consultation-pending
-Echo to assess heart status
-Monitor blood sugar
-Insulin supplementation as needed
-A1c 6.3
-Check urine Legionella and strep pneumo
DVT prophylaxis-resume Coumadin via Dobbhoff ; goal INR 2�3
GI prophylaxis while on ventilator on pantoprazole IV 40 mg daily
Early nutrition
Early mobilization after extubation
Data Reviewed
-
EKG: Report reviewed by me
Radiology: Report reviewed by me
Labs: Labs reviewed by me, Discussed with Physician and Discussed with Nurse
Old Records: Reviewed
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
[2024-09-18] MEDS: PROTONIX IV 40 MG IV (08:52)
[2024-09-18] MEDS: LASIX 40 MG IV ×2 (08:52→17:28)
[2024-09-18] MEDS: NSS (PRESERVATIVE FREE) 10 ML IV (08:52)
[2024-09-18] MEDS: VIBRAMYCIN TUBE (08:53)
[2024-09-18] MEDS: REFRESH CELLUVISC GEL 1 DROPS OPHTH (08:53)
[2024-09-18] MEDS: DESENEX/MITRAZOL/ZEASORB 1 APPLIC TOPICAL ×2 (08:53→20:03)
[2024-09-18 09:20] LABS: Glycohemoglobin (HgbA1c) 6.3 % (4.0-5.6)
--- NOTE | 2024-09-18 09:24 | PTCARENOTE ---
Pt turned and repositioned-desatted to 50%s, coughing and asynchronus with vent; next bp 80/30s. Levo restarted at 4 mcg/min, see flowsheet.
--- NOTE | 2024-09-18 09:33 | W.PN.UPDATE ---
Update Note
Progress Note Update
Currently intubated. Prop 30 and fent 50. Levophed at 4mcg/min. BP 98/40, HR 70, Spo2 96% on AC/CMV 14/500/8/50%.
Impression:
#Acute respiratory failure with hypercapnia and hypoxia
#Acute encephalopathy due to above now intubated (09/18/2024)
#Morbid obesity
#Circulatory shock on vasopressors
#Leukocytosis
#Acute anemia
#DM type II c/b hyperglycemia
#Elevated troponin
#Hypophosphatemia
#Chronic mane due to neurogenic bladder
#Hx of paraplegia s/p fall from tree
#Hx of CHB s/p PPM (currently V-paced)
#Chronic opiate use due to chronic pain
Plan:
- Wean down sedation to maintain RASS 0 to -2
[2024-09-18] MEDS: DUONEB 3 ML INH ×3 (11:36→19:20)
[2024-09-18 12:05] LABS: Glucose - Point of Care 132 mg/dl (70-99)
--- NOTE | 2024-09-18 12:05 | CM ---
Patient with Hx paraplegia, neurogenic bladder, CHF, COPD, WILBERT with Dx Acute on Chronic Hypoxemic and Hypercapnic Respiratory Failure, Possible Atypical Pneumonia, HF, hypotension. Intubated/vent. Receiving Levophed gtt, IV Abx, IV Lasix. Per
nurse assessment; following commands.
Met with patient and spoke with Nguyenmarlo Zheng, his SO by phone;
the patient resides with his significant other in a two story home with a ramp to enter and first floor setup.
He sleeps in a bariatric bed, and vanda lift is used for transfers OOB to electric w/c.
The patient does self caths, and is otherwise incontinent and incontinent pads are used.
He is unable to access the bathroom so given a sponge bath by his caregiver Nguyen.
Nguyen is his caregiver through [facility] and receives 10-11 paid hrs each day through the Waiver Program.
DME - home O2 concentrator/portables through [employer], CPAP, bariatric bed, vanda lift, electric w/c, cath supplies
Prior [facility]
Nguyen is unaware of any SNF or AR since she has known him.
PCP - Venessa Sandy
Pharmacy - [facility]
Nguyen says that the patient usually transports home by ambulance.
CM continuing to follow.
Plan TBD.
--- NOTE | 2024-09-18 13:00 | VATNOTE ---
09/18 PICC ordered d/t viscous IV medication patient requires. maximum sterile barrier technique used to obtain and insert RT DL 5FR PICC in the brachial vein. TCL 48CM, ECL0. Patient tolerated. bedside x-ray ordered for picc tip placement
confirmation.
--- NOTE | 2024-09-18 13:25 | W.CARD.DEVCH ---
Cardiac Device Check
-
Device: Pacemaker
Sandwich And Drink Cart Operator: Medtronic
The patient's device was interrogated with assistance of the device promotional representative. The device had normal function. No abnormalities seen.
[2024-09-18] MEDS: LEVOPHED 250 IV (13:54)
--- NOTE | 2024-09-18 14:10 | PTCARENOTE ---
Burnett changed out, DHT placed with assist of JENELLE Roberson. PICC placed by VAT RN. Awaiting xray to confirm DHT placement.
[2024-09-18 15:22] LABS: Troponin I 0.016 ng/ml
--- NOTE | 2024-09-18 16:07 | PTCARENOTE ---
Per street car inspector, DHT ok to use. VAT RN in room adjusting PICC at this time. Echo completed.
--- NOTE | 2024-09-18 16:11 | VATNOTE ---
retracted right picc 2cm per radiologist report, per protocol.
[2024-09-18] MEDS: NEUTRA-PHOS POWDER PACKET 500 MG TUBE ×2 (17:27→20:03)
[2024-09-18 17:39] LABS: Glucose - Point of Care 138 mg/dl (70-99)
[2024-09-18] MEDS: COUMADIN 6 MG TUBE (18:03)
[2024-09-18] MEDS: MORPHINE ORAL SOLUTION 10 MG TUBE ×2 (18:04→21:10)
[2024-09-18] MEDS: TYLENOL ORAL SOLUTION 650 MG TUBE (18:04)
[2024-09-18] MEDS: FLOVENT 220 MCG INHALER 4 PUFF INH (19:20)
--- NOTE | 2024-09-18 20:00 | PTCARENOTE ---
Received patient arousable to voice, follows commands, nods appropriately, denies pain. V paced on monitor in the 70s, titrating levo to maintain MAP>65. Normothermic, weak palpable pedal pulses. 8.0 ETT, 24 at the lip, on the right. Lung sounds
coarse with rhonchi throughout, thick clear oral and endotracheal secretions. Saturating 97%, vent settings 14/500/50%/8. Right nare DHT at 65 cm. Abdomen round, obese, hypoactive bowel sounds. Chronic mane in place draining yellow urine. Desenex
applied to b/l groin. Right DL PICC and LFA PIV patent, WNL. Propofol and fentanyl gtt ongoing per order. Mouth care done, repositioned. Hourly rounding and patient safety checks ongoing.
[2024-09-18] MEDS: VIBRAMYCIN 100 MG TUBE (20:03)
[2024-09-18] MEDS: LIORESAL 40 MG TUBE (20:03)
[2024-09-18] MEDS: NEURONTIN 300 MG TUBE (20:03)
[2024-09-19] VITALS (13 sets, daily range): BP systolic 83–149; BP diastolic 40–78; PULSE 2–99; BMI 43.2
[2024-09-19] MEDS: MAXIPIME 2000 MG IV ×2 (00:08→08:58)
[2024-09-19] MEDS: TYLENOL ORAL SOLUTION 650 MG TUBE ×3 (00:08→13:03)
[2024-09-19] MEDS: STERILE WATER FOR INJECTION 10 ML IV ×2 (00:08→08:58)
--- NOTE | 2024-09-19 00:17 | PTCARENOTE ---
Patient assessment unchanged from previous. Burnett care done, mouth care done, repositioned.
[2024-09-19] MEDS: DEXTROSE 50% SYRINGE 12.5 GRAMS IV (00:27)
[2024-09-19 00:35] LABS: Glucose - Point of Care 69 mg/dl (70-99)
[2024-09-19 00:58] LABS: Glucose - Point of Care 172 mg/dl (70-99)
[2024-09-19] MEDS: MORPHINE ORAL SOLUTION 10 MG TUBE ×3 (01:34→10:03)
[2024-09-19 05:02] LABS: B.E. 14.8 mmol/L; HCO3 39.9 mmol/L (21-28); Ionized Calcium 1.14 mMOL/L (1.15-1.33); PCO2 50 mmHg (35-48); PO2 95 mmHg (83-108); Potassium 3.6 mMOL/L (3.5-5.1); Sodium 135 mMOL/L (136-145); pH 7.51 (7.35-7.45)
[2024-09-19 05:04] LABS: O2 Therapy 50
[2024-09-19 05:05] LABS: Hematocrit 39.9 % (39.0-52.0); Hemoglobin 12.3 g/dL (13.0-18.0); Mean Corp Hgb Conc. 30.8 g/dL (33.0-37.0); Mean Corpuscular Hgb 24.1 pg (27.0-31.0); Mean Corpuscular Volume 78.1 fL (80.0-94.0); Mean Platelet Volume 10.6 fL (7.4-10.4); Platelet Count 233 10^3/uL (130-400); Red Blood Cell Count 5.11 10^6/uL (4.70-6.10); Red Cell Dist. Width 19.6 % (11.5-14.5); White Blood Cell Count 11.2 10^3/uL (4.8-10.8)
[2024-09-19 05:14] LABS: INR 1.52; PT 18.8 Sec (11.4-14.6)
[2024-09-19 05:47] LABS: Blood Urea Nitrogen 17 mg/dl (9-20); Calcium 8.5 mg/dl (8.4-10.2); Carbon Dioxide 36 mmol/L (22-30); Chloride 95 mmol/L (98-107); Estimated Creatinine Clearance > 125 ml/min; Glucose 118 mg/dl (70-99); Phosphorus 3.3 mg/dl (2.5-4.5); Potassium 3.8 mmol/L (3.5-5.1); Sodium 135 mmol/L (135-145); eGFR > 60.00
[2024-09-19] MEDS: DIPRIVAN 100 IV (05:51)
[2024-09-19 06:08] LABS: Glucose - Point of Care 118 mg/dl (70-99)
[2024-09-19] MEDS: DUONEB 3 ML INH (07:24)
[2024-09-19] MEDS: FLOVENT 220 MCG INHALER 4 PUFF INH (07:24)
--- NOTE | 2024-09-19 07:55 | PTCARENOTE ---
Received patient from night RN 07:15, awake and oriented, intubated-follows commands, nods appropriately, denies pain. levo, fent and prop were further weaned overnight, levo currently off since 05:50. Fent and prop turned off at 07:25 for SAT...SBT
initiated at 07:40 per RT. Pt remains V paced on monitor in the 70s, BPs as documented. Right radial Thu was placed overnight. Pt has been normothermic. 8.0 ETT, 24 at the lip-centered. Lung sounds coarse with rhonchi throughout, thick clear oral
and endotracheal secretions, lessened overnight. Pt down 1 kilo since yesterday. Saturating 93% on wean of 02/13 40%. Right nare DHT at 65 cm. Abdomen round, obese, hypoactive bowel sounds. Chronic mane in place draining yellow urine. Right DL PICC
and LFA PIV patent. Pt with no complaints at this time. Safe environment maintained.
--- NOTE | 2024-09-19 08:28 | W.PN.INTV ---
Addendum entered and electronically signed by Santhosh Marquez MD 09/19/24 19:54:
CDI inquiry response: Acute encephalopathy is due to elevated CO2 due to acute hypercapnic respiratory failure
Original Note:
Today's Communication / Plan
Recommendations
Extubated to BiPAP
Continue IV antibiotic; switched cefepime to ceftriaxone
Continue IV diuresis for now
Repeat chest x-ray today
Warfarin 12 mg today and home dose of 9 mg starting from tomorrow
Assessment
-
53-year-old paraplegic male primarily bedbound with chronic indwelling Burnett catheter, COPD, CHF, DVT/PE, atrial fibrillation, [id number] diabetes, chronic opiate use with history of hypercapnic respiratory failure presented with
respiratory distress.
CxR: IMPRESSION:
1. SEVERE ACUTE INTERSTITIAL and ALVEOLAR CARDIOGENIC PULMONARY EDEMA.
2. Endotracheal tube in normal position.
3. Extensive bilateral posterior instrumentation in the upper and midthoracic spine
Echo 03/28/2024: EF 65-70%, mild LVH, grossly normal RV function, aortic sclerosis, mild TR, pulmonary artery pressure 30
ECHO 09/18/24:
CONCLUSIONS
1. Very technically difficult study despite use of Definity .
2. Normal left ventricular size with mild concentric left ventricular
hypertrophy. Normal left ventricular systolic function with estimated left
ventricular ejection fraction of 60 to 65% by visual estimation. No gross wall
motion abnormalities. Diastolic function indeterminate.
3. Normal right ventricular size and systolic function.
4. No gross valvular abnormalities.
5. No pericardial effusion.
No significant changes compared to prior echocardiogram from 2023.
#Acute on chronic hypoxemic and hypercapnic respiratory failure: Intubated 09/17/2024; ABG on arrival with pH 7.29, pCO2 78, pO2 146, HCO3 37.5
# Acute encephalopathy requiring intubation
#Acute on chronic HFpEF
#Leukocytosis
#COPD
#Hyperglycemia with history of type 2 diabetes
#Paroxysmal A-fib
#History of complete heart block
#Elevated troponins
#Abnormal urinalysis
#Hypophosphatemia
#Hypochloremia
#Subclinical hypothyroidism
Plan:
-Extubated after successful SBT.; Transition to BiPAP; wean as tolerated after 1 to 2 hours
-ABG from 09/19/2024 AM with pH 7.51, pCO2 50, pO2 95, bicarb 39.9
-Sputum culture pending; flu and COVID-negative
-MRSA positive ;continue empiric antibiotics doxycycline, cefepime switched to ceftriaxone 2 g daily to complete total of 5 days
-Trend leukocytosis; improving; down to 11.2
-Dobbhoff for meds and consideration of starting tube feeds once able
-Fluticasone and DuoNeb switched to Spiriva and Symbicort
-blood culture pending
-s/p 2 bags Neutra-Phos on 09/18
-Check repeat chest x-ray today
-INR is subtherapeutic 1.5 ( goal of 2�3)
Patient received warfarin 6 mg last night, confirmed that his home dose is 9 mg will give 12 mg today and resume 9 mg tomorrow
-Diuresis as tolerated; currently add IV Lasix 40 mg twice daily
-Monitor renal function, electrolytes, intake/output, lower extremity edema and weight
-Replace electrolytes as needed
-Trops peaked at 0.02
-proBNP 1500
-Cardiology following; not a candidate for SGLT2 given chronic indwelling Burnett
-Monitor blood sugar
-Insulin supplementation as needed
-A1c 6.3
-Goal BG 140�180
-urine Legionella and strep pneumo negative
DVT prophylaxis-Coumadin via Dobbhoff ; goal INR 2�3
GI prophylaxis: pantoprazole IV 40 mg daily
Early nutrition
Early mobilization after extubation
Potential downgrade out of ICU later today/tomorrow, will continue to follow for pulmonary consult
Subjective Dataa
Subjective Data
Date of Service:
Date of Service: September 19, 2024
Chief Complaint: Brass Buffer Follow Up
Subjective:
Patient seen and evaluated this AM. He is much more awake today. Off pressors as of 6 am and also off of all sedation. HR 71, O2 95%, BP 106/67. SBT trial started at 7:40. Minimal secretions. Right radial Thu was placed overnight. 1 kg weight
loss since yesterday
Offers no new complaints.
Review of Systems
General: Fever (n)
Cardiopulmonary: Cough (n) and Chest Pain (n)
GI: Abdominal Pain (n)
Neuro: Headache (n)
Genitourinary: Burnett
Objective Data
Data Reviewed
Vital Signs / I&O / Oxygen:
Vital Signs
Temp Pulse Resp BP Pulse Ox
99.6 F 71 16 106/67 95
09/19/24 03:19 09/19/24 07:57 09/19/24 07:57 09/19/24 06:00 09/19/24 08:00
Intake and Output
09/18/24 09/19/24 09/20/24
06:59 06:59 06:59
Intake Total 200.5 / 237.6 849.1 / 859.8 10.7 / 10.7
Output Total 1800 / 1800 2269 / 2284
Balance -1599.5 / -1562.4 -1419.9 / -1424.2 -4.3 / -4.3
SaO2 [CPAP] 95
SaO2 [A/C] 96
SaO2 92
Physical Exam
General: Comfortable
Cardiovascular: S1-S2 and Regular Rhythm
Respiratory: Non-Labored Respirations
GI: Non Tender and Normal Bowel Sounds
Neurology: Awake and Alert
Skin: Warm and Dry
Labs/Micro/Reports
Lab Data
09/19/24 04:48
09/19/24 04:48
Laboratory Results
09/19/24
04:48
PT 18.8 H
INR 1.52
pH 7.51 H
pCO2 50 H
pO2 95
HCO3 39.9 H
O2 Delivery Level 50
Microbiology
09/18/24 13:49 Urine Legionella Urinary Antigen - Final
Negative for Legionella pneumophila Serogroup 1 antigen.
A negative result does not rule out the possiblity of
Legionella infection due to other serogroups or species of
Legionella. Clinical correlation is recommended.
09/18/24 13:49 Urine Streptococcus pneumoniae Antigen (M - Final
Negative for Streptococcus pneumoniae antigen.
A negative result does not exclude infection with
Streptococcus pneumoniae. Clinical correlation is
recommended.
09/18/24 12:02 Endotracheal Gram Stain - Preliminary
09/17/24 21:46 Nasal Swab Influenza Types A & B (GUILLAUME) - Final
Negative for Influenza A & B, NAAT
Negative results must be combined with clinical observations
and patient history.
Nucleic Acid Amplification test (NAAT)performed on the
[employer] NOW platform.
[2024-09-19] MEDS: DESENEX/MITRAZOL/ZEASORB 1 APPLIC TOPICAL ×2 (08:56→19:35)
[2024-09-19] MEDS: ZOLOFT 50 MG TUBE (08:57)
[2024-09-19] MEDS: LIORESAL 40 MG TUBE (08:57)
[2024-09-19] MEDS: VIBRAMYCIN 100 MG TUBE (08:57)
[2024-09-19] MEDS: SENNA SYRUP 17.6 MG TUBE (08:57)
[2024-09-19] MEDS: NEURONTIN 300 MG TUBE (08:57)
[2024-09-19] MEDS: MIRALAX 17 GRAMS TUBE (08:57)
[2024-09-19] MEDS: PROTONIX IV 40 MG IV (08:58)
[2024-09-19] MEDS: NSS (PRESERVATIVE FREE) 10 ML IV (08:58)
[2024-09-19] MEDS: LASIX 40 MG IV ×2 (08:59→17:14)
[2024-09-19 09:02] LABS: HCO3 39.6 mmol/L (21-28); O2 Saturation % 95.9 % (94-98); PCO2 52 mmHg (35-48); PO2 66 mmHg (83-108); pH 7.49 (7.35-7.45)
--- NOTE | 2024-09-19 09:42 | W.PN.HOSP.TC ---
Today's Communication/Plan
-
see bold
Assessment / Plan
Assessment / Plan
53y M with PMH significant for paraplegia, COPD and CHF who presents to ED in respiratory distress.
Acute on Chronic Hypoxemic and Hypercapnic Respiratory Failure
Possible Atypical Pneumonia
- Appreciate waste water or water plant operator input, patient extubated 09/19, currently on BiPAP, wean as tolerated
- Flu/covid neg, urinary strep/legionella neg
- Appreciate waste water or water plant operator input, antibiotics changed to Rocephin
Acute on Chronic HFpEF
- BNP elevated - similar to prior admission.
- Cardiology following, continue IV Lasix as able
- Trend creatinine, trend daily weights
Drug-induced shock
- Patient developed hypotension in the ED after induction / intubation / sedation and diuretic administration.
- Lactic acid normal. Off Levophed 09/18
COPD without Acute Exacerbation
- Observe off of systemic steroids for now.
- Continue inhaled medications.
Paroxysmal Atrial Fibrillation
History of DVT status post IVC filter
- Status post pacemaker placement, device interrogated and functioning fine 09/18
- Continue Coumadin
DM-II
- Patient not currently on any DM medications. Hyperglycemic on initial labs without anion gap elevation, etc.
- Hemoglobin A1c 6.3, continue Accu-Cheks, sliding scale insulin
Paraplegia
Chronic Pain Syndrome
Chronic Opioid Dependence
Chronic Indwelling Burnett
- Resume home pain medication regimen when able
- Maintain Burnett. UDS consistent with prescribed medications.
Obesity due to excess calories
-Affects all aspects of care
DVT prophylaxis�Coumadin
Code Status: Full
Total time spent to see the patient on the floor, examine the patient, review data and lab results, discuss treatment plan with patient, nursing staff around 40 minutes.
Physical Exam
General: Morbidly obese, intubated
HEENT: Normocephalic, Atraumatic, EOMI
Respiratory: Coarse breath sounds with scattered trace expiratory wheezing
Cardiac: Normal S1/S2, Regular Rate and Rhythm
GI: Soft, Nontender, Nondistended, Normal Bowel Sounds
Extremities: No Clubbing, Cyanosis, or Edema
Neuro: Nonfocal/Grossly Intact
Psych: Calm, Cooperative
Anticipated Discharge: > 48 hours
Subjective/Interval History
-
Date of Service: September 19, 2024
Patient extubated, currently on BiPAP. Denies shortness of breath. Has intermittent coughing. No nausea, no vomiting. No fever, no pain.
Objective Data
-
Labs:
Laboratory Results
09/19/24 09/19/24
04:48 08:55
WBC 11.2 H
Hgb 12.3 L
Hct 39.9
Plt Count 233
PT 18.8 H
INR 1.52
HCO3 39.9 H 39.6 H
Sodium 135
Potassium 3.8
Chloride 95 L
Carbon Dioxide 36 H
BUN 17
Creatinine 0.5 L
Glucose 118 H
Calcium 8.5
Vital Signs:
Vital Signs
Temp Pulse Resp BP Pulse Ox
99.6 F 70 16 148/73 91
09/19/24 03:19 09/19/24 08:59 09/19/24 07:57 09/19/24 08:59 09/19/24 09:34
I&O
09/18/24 09/19/24 09/20/24
06:59 06:59 06:59
Intake Total 200.5 / 237.6 849.1 / 859.8 10.7 / 10.7
Output Total 1800 / 1800 2269 / 2284
Balance -1599.5 / -1562.4 -1419.9 / -1424.2 -4.3 / -4.3
--- NOTE | 2024-09-19 10:32 | PTCARENOTE ---
Extubated to bipap at 10:28 -pt tolerated well. Restraints off, safe environment maintained. Pt's SO Nguyen at bedside.
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
--- NOTE | 2024-09-19 11:16 | PN.CDI ---
CDI
- -
CDI:
Physician Documentation Request
Admit Date: 09/18/24 00:06
Dear Doctor Jimmy,
Please review the following and provide your response in the progress notes.
Clinical Indicators:
Pt admitted with Acute on chronic hypoxic and hypercapnic respiratory failure and acute on chronic HFpEF.
09/18 Progress note: ' He was shortly thereafter trialed on BiPAP with saturations dropping to 80%, and once he was intubated his saturations improved to 96%. BP was 111/72. Initial labs showed leukocytosis to 18.3, Hb 14.1, initial blood gas
showed acute on chronic hypercapnia with pH 7.29, pCO2 78, serum bicarbonate 38....Acute encephalopathy due to above now intubated (09/18/2024)'
Please specify the known or suspected type of the documented encephalopathy.
Metabolic
Septic
Toxic
Toxic metabolic
Anoxic
Other
Use of terms such as suspected, likely, concern for, or probable (associated with a specific diagnosis that is being evaluated, monitored, or treated as if it exists) are acceptable and can be coded in the inpatient setting, when documented at the
time of discharge.
Thank you,
Dorys Hernandez RN, BSN
CDI Specialist
[facility]
Please use your independent medical judgment in providing your response.
--- NOTE | 2024-09-19 11:39 | PN.CDI ---
CDI
- -
CDI:
Physician Documentation Request
Admit Date: 09/18/24 00:06
Dear Doctor Do,
Please review the following and provide your response in the progress notes.
Clinical Indicators:
Pt admitted with Acute on chronic hypoxic and hypercapnic respiratory failure and acute on chronic HFpEF.
09/18 Progress Note: ' Paroxysmal Atrial Fibrillation'
09/18 Cardiology: ' permanent atrial fibrillation (on Coumadin, managed by PCP)'
If possible, please clarify further specificity regarding atrial fibrillation, such as:
Permanent atrial fibrillation - when a decision has been made to accept the presence of AF and there is no further attempt to restore or maintain sinus rhythm
Paroxysmal atrial fibrillation - terminates spontaneously or with intervention within 7 days of onset
Other - please specify
Use of terms such as suspected, likely, concern for, or probable (associated with a specific diagnosis that is being evaluated, monitored, or treated as if it exists) are acceptable and can be coded in the inpatient setting, when documented at the
time of discharge.
Thank you,
Dorys Hernandez RN, BSN
CDI Specialist
[place] [facility]
Please use your independent medical judgment in providing your response.
[2024-09-19 12:03] LABS: Glucose - Point of Care 120 mg/dl (70-99)
[2024-09-19] MEDS: STERILE WATER FOR INJECTION 20 ML IV (13:03)
[2024-09-19] MEDS: ROCEPHIN 2000 MG IV (13:03)
--- NOTE | 2024-09-19 14:10 | CM ---
CM following re: discharge planning.
Reviewed pty's chart, met with pt and pt's SO at bedside.
Pt extubated to Bi-pap at 10:28 A.M -pt tolerated well, Dobbhoff for medications, continue antibiotics, continue supportive care.
PT and OT will evaluate the pt when clinically appropriate to determine a level of care at discharge.
Pt lives with his significant other Nguyen in a two story home with a ramp to enter and first floor setup. He sleeps in a bariatric bed, and Damon lift is used for transfers OOB to electric w/c. The patient does self caths, and is otherwise
incontinent and incontinent pads are used. SO Nguyen is his caregiver through [facility] and receives 10-11 paid hours each day through the Waiver Program.
D/C plan: most likely home with VN services and resumptions of caregiver services.
CM will follow with discharge plan updates as hospitalization progresses
[2024-09-19] MEDS: MORPHINE ORAL SOLUTION TUBE (15:45)
--- NOTE | 2024-09-19 16:29 | PTCARENOTE ---
Pt reassessed, tolerating nasal cannula at 4L with sa02 95%. No complaints. Speech therapist Sherry in to eval pt, recommending regular diet/thin liquids with supervision. Pt downgraded to tele per feature writer.
--- NOTE | 2024-09-19 16:45 | PTOTSP ---
SPEECH THERAPY SWALLOW EVALUATION:
Patient exhibits grossly functional oropharyngeal swallow at bedside; However, given patient's history of multiple recurrent and recent pneumonias, history of dysphagia symptoms including coughing with p.o. intake, and acute and chronic dysphagia
risk factors including limited mobility, suboptimal positioning, COPD, and recent endotracheal intubation, patient remains at HIGH RISK for aspiration and related complications. Unable to exclude dysphagia/aspiration at bedside. Discussed
recommendation for instrumental assessment of swallowing (i.e. VSE) to further assess swallow physiology; Patient declined VSE at this time, as well as declined VSE during x2 prior admissions in past ~1 year, despite rationale regarding requiring
imaging to determine presence of aspiration. Discussed aspiration precautions with patient at length; Pt verbally reported he understood recommendations. Given chronicity of previously reported dysphagia symptoms, as well as intact cognition and
ability to implement aspiration precautions and safe swallow strategies, patient appears safe to resume baseline diet of Regular solids and thin liquids. Recommend medications whole with liquid as best tolerated. Aspiration precautions including:
Upright positioning; Small single sips/bites; Slow rate of intake; Partial assist with set-up; Take breaks for breathing; Only provide p.o. when SpO2>90%, RR<30; Monitor for signs of aspiration and d/c oral diet if ANY decline in mental or
respiratory status. Recommend Oral care 3x/day to reduce risk for nosocomial infection. Consider outpatient instrumental assessment of swallowing (i.e. FEES) if willing/able, though patient declining at this time. Speech therapy to follow briefly,
provide continued education regarding aspiration risks/precautions and VSE procedure rationale, monitor CXR and labs, assess diet tolerance and modify as appropriate, and complete VSE if/when pt agreeable.
RECOMMEND:
1) Videofluoroscopic Swallowing Study (pt currently declining)
2) Regular texture diet and thin liquids
3) Medications whole with liquid
4) Aspiration precautions including: Upright positioning; Small single sips/bites; Slow rate of intake; Partial assist with set-up; Take breaks for breathing; Only provide p.o. when SpO2>90% and RR<30; Alternate textures; Monitor for signs of
aspiration; D/c oral diet if any decline in mental or respiratory status
5) Oral care 3x/day to reduce risk for nosocomial infection
6) Speech therapy to follow briefly; Consider outpatient FEES if willing/able
[2024-09-19 18:05] LABS: Glucose - Point of Care 123 mg/dl (70-99)
[2024-09-19] MEDS: COUMADIN 12 MG TUBE (18:12)
[2024-09-19] MEDS: TYLENOL 650 MG PO ×3 (18:13→23:28)
[2024-09-19] MEDS: SYMBICORT 160/4.5 MCG INHALER 2 PUFF INH (19:31)
[2024-09-19] MEDS: MS CONTIN (EXTENDED RELEASE) 30 MG PO (19:34)
[2024-09-19] MEDS: NEURONTIN 300 MG PO (19:35)
[2024-09-19] MEDS: LIORESAL 40 MG PO (19:35)
[2024-09-19] MEDS: VIBRAMYCIN 100 MG PO (19:35)
--- NOTE | 2024-09-19 20:35 | PTCARENOTE ---
Received pt from previous RN. Pt is AAOx3. Vpaced w/ BBB and PVCs on the monitor. On 3L NC O2 sat 93%, lungs rhonchi/coarse. Bipap HS. Burnett in place, hygiene provided. Incont of bowel. MASD groin, powder provided. Mouth care provided. Pt is laying
in bed with call varghese in reach.
[2024-09-19 21:49] LABS: Glucose - Point of Care 134 mg/dl (70-99)
[2024-09-20] VITALS (8 sets, daily range): BP systolic 114–153; BP diastolic 60–89; PULSE 2–95; BMI 42.1
[2024-09-20] MEDS: TYLENOL 650 MG PO ×4 (03:46→20:37)
[2024-09-20 04:11] LABS: Hematocrit 43.6 % (39.0-52.0); Hemoglobin 13.1 g/dL (13.0-18.0); Mean Platelet Volume 11.1 fL (7.4-10.4); Platelet Count 190 10^3/uL (130-400); Red Blood Cell Count 5.45 10^6/uL (4.70-6.10); Red Cell Dist. Width 19.9 % (11.5-14.5); White Blood Cell Count 11.2 10^3/uL (4.8-10.8)
[2024-09-20 04:22] LABS: INR 1.58; PT 19.1 Sec (11.4-14.6)
[2024-09-20 04:32] LABS: Blood Urea Nitrogen 16 mg/dl (9-20); Calcium 8.8 mg/dl (8.4-10.2); Carbon Dioxide 38 mmol/L (22-30); Chloride 95 mmol/L (98-107); Estimated Creatinine Clearance > 125 ml/min; Glucose 91 mg/dl (70-99); Potassium 3.5 mmol/L (3.5-5.1); Sodium 139 mmol/L (135-145); eGFR > 60.00
--- NOTE | 2024-09-20 08:33 | W.PN.HOSP.TC ---
Today's Communication/Plan
-
see bold
Assessment / Plan
Assessment / Plan
53y M with PMH significant for paraplegia, COPD and CHF who presents to ED in respiratory distress.
Acute on Chronic Hypoxemic and Hypercapnic Respiratory Failure
Possible Atypical Pneumonia
- Appreciate shroud line tier input, patient extubated 09/19, s/p BiPAP, currently on 3 L of oxygen, wean as tolerated
- Flu/covid neg, urinary strep/legionella neg
- Appreciate shroud line tier input, antibiotics changed to Rocephin
Acute on Chronic HFpEF
- BNP elevated - similar to prior admission.
- Cardiology following, continue IV Lasix as able
- Trend creatinine, trend daily weights
Essential hypertension
� Resumed home amlodipine 5 mg daily
Dysphagia
-SPL recommends VSE, patient declining
-Continue regular diet, thin liquids, medications home with liquids, aspiration precautions
-Consider outpatient fiberoptic endoscopic evaluation of swallowing if able�patient declining as well
Drug-induced shock
- Patient developed hypotension in the ED after induction / intubation / sedation and diuretic administration.
- Lactic acid normal. Off Levophed 09/18
COPD without Acute Exacerbation
- Observe off of systemic steroids for now.
- Continue inhaled medications.
Paroxysmal Atrial Fibrillation
History of DVT status post IVC filter
- Status post pacemaker placement, device interrogated and functioning fine 09/18
- Continue Coumadin
DM-II
- Patient not currently on any DM medications. Hyperglycemic on initial labs without anion gap elevation, etc.
- Hemoglobin A1c 6.3, continue Accu-Cheks, sliding scale insulin
Paraplegia
Chronic Pain Syndrome
Chronic Opioid Dependence
Chronic Indwelling Burnett
- Continue home opioid regimen
Obesity due to excess calories
-Affects all aspects of care
DVT prophylaxis�Coumadin
Code Status: Full
Total time spent to see the patient on the floor, examine the patient, review data and lab results, discuss treatment plan with patient, nursing staff around 51 minutes.
Updated at bedside 09/20
Physical Exam
General: Morbidly obese, intubated
HEENT: Normocephalic, Atraumatic, EOMI
Respiratory: Coarse breath sounds with scattered trace expiratory wheezing
Cardiac: Normal S1/S2, Regular Rate and Rhythm
GI: Soft, Nontender, Nondistended, Normal Bowel Sounds
Extremities: No Clubbing, Cyanosis, or Edema
Neuro: Nonfocal/Grossly Intact
Psych: Calm, Cooperative
Anticipated Discharge: 24 - 48 hours
Subjective/Interval History
-
Date of Service: September 20, 2024
Patient denies pain. Denies shortness of breath. No fever, no vomiting. He is tolerating his diet.
Objective Data
-
Labs:
Laboratory Results
09/20/24
03:42
WBC 11.2 H
Hgb 13.1
Hct 43.6
Plt Count 190
PT 19.1 H
INR 1.58
Sodium 139
Potassium 3.5
Chloride 95 L
Carbon Dioxide 38 H
BUN 16
Creatinine 0.6 L
Glucose 91
Calcium 8.8
Vital Signs:
Vital Signs
Temp Pulse Resp BP Pulse Ox
97.0 F 70 17 153/89 96
09/20/24 03:48 09/20/24 06:00 09/20/24 06:00 09/20/24 04:00 09/20/24 06:00
I&O
09/19/24 09/20/24 09/21/24
06:59 06:59 06:59
Intake Total 849.1 / 859.8 1600.7 / 1600.7
Output Total 2269 / 2284 1974
Balance -1419.9 / -1424.2 -374.3 / -374.3
[2024-09-20] MEDS: SYMBICORT 160/4.5 MCG INHALER 2 PUFF INH ×2 (09:12→17:33)
[2024-09-20] MEDS: SPIRIVA RESPIMAT 2.5 MCG 2 PUFF INH (09:12)
[2024-09-20] MEDS: NORVASC 5 MG PO (09:25)
[2024-09-20] MEDS: NEURONTIN 300 MG PO ×2 (09:25→20:37)
[2024-09-20] MEDS: MS CONTIN (EXTENDED RELEASE) 30 MG PO ×2 (09:25→20:36)
[2024-09-20] MEDS: PROTONIX 40 MG PO (09:25)
[2024-09-20] MEDS: VIBRAMYCIN 100 MG PO ×2 (09:25→20:37)
[2024-09-20] MEDS: ZOLOFT 50 MG PO (09:26)
[2024-09-20] MEDS: LIORESAL 40 MG PO ×2 (09:26→20:37)
[2024-09-20] MEDS: NSS (PRESERVATIVE FREE) IV (09:26)
[2024-09-20] MEDS: LASIX 40 MG IV ×2 (09:29→16:21)
[2024-09-20] MEDS: DESENEX/MITRAZOL/ZEASORB 1 APPLIC TOPICAL ×2 (09:29→20:42)
[2024-09-20] MEDS: NOVOLOG FLEXPEN-LOW RESISTANCE SC ×3 (09:37→17:36)
[2024-09-20 09:50] LABS: Glucose - Point of Care 93 mg/dl (70-99)
[2024-09-20] MEDS: ROCEPHIN 2000 MG IV (11:52)
[2024-09-20] MEDS: STERILE WATER FOR INJECTION 20 ML IV (11:53)
[2024-09-20] MEDS: TYLENOL PO (11:53)
[2024-09-20 13:42] LABS: Glucose - Point of Care 144 mg/dl (70-99)
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
--- NOTE | 2024-09-20 14:38 | PTCARENOTE ---
report given to Rafa ALMANZAR. Will transfer patient to tele floor.
[2024-09-20] MEDS: FLUSH (NSS) 2 FLUSH IV (16:21)
[2024-09-20] MEDS: ALDACTONE 12.5 MG PO (16:24)
[2024-09-20 16:59] LABS: Glucose - Point of Care 115 mg/dl (70-99)
[2024-09-20] MEDS: ROXICODONE 5 MG PO (18:21)
[2024-09-20] MEDS: COUMADIN 9 MG PO (20:37)
[2024-09-20 22:52] LABS: Glucose - Point of Care 95 mg/dl (70-99)
[2024-09-21] VITALS (7 sets, daily range): BP systolic 116–132; BP diastolic 60–71; PULSE 2–97; BMI 42.7
[2024-09-21] MEDS: TYLENOL PO (01:22)
[2024-09-21] MEDS: TYLENOL 650 MG PO ×5 (03:23→21:10)
[2024-09-21 05:11] LABS: Hematocrit 42.9 % (39.0-52.0); Hemoglobin 13.1 g/dL (13.0-18.0); Mean Corp Hgb Conc. 30.5 g/dL (33.0-37.0); Mean Corpuscular Hgb 24.3 pg (27.0-31.0); Mean Corpuscular Volume 79.6 fL (80.0-94.0); Mean Platelet Volume 10.6 fL (7.4-10.4); Platelet Count 193 10^3/uL (130-400); Red Blood Cell Count 5.39 10^6/uL (4.70-6.10); Red Cell Dist. Width 19.8 % (11.5-14.5); White Blood Cell Count 10.4 10^3/uL (4.8-10.8)
[2024-09-21 05:21] LABS: INR 1.65; PT 19.7 Sec (11.4-14.6)
[2024-09-21 05:36] LABS: Blood Urea Nitrogen 15 mg/dl (9-20); Carbon Dioxide 37 mmol/L (22-30); Chloride 92 mmol/L (98-107); Estimated Creatinine Clearance > 125 ml/min; Glucose 89 mg/dl (70-99); Potassium 3.5 mmol/L (3.5-5.1); Sodium 137 mmol/L (135-145); eGFR > 60.00
[2024-09-21 07:17] LABS: Glucose - Point of Care 115 mg/dl (70-99)
[2024-09-21] MEDS: NOVOLOG FLEXPEN-LOW RESISTANCE SC ×2 (07:40→16:48)
[2024-09-21] MEDS: SPIRIVA RESPIMAT 2.5 MCG 2 PUFF INH (08:07)
[2024-09-21] MEDS: SYMBICORT 160/4.5 MCG INHALER 2 PUFF INH ×2 (08:07→21:00)
[2024-09-21] MEDS: LASIX 40 MG IV ×2 (08:34→15:50)
[2024-09-21] MEDS: FLUSH (NSS) 2 FLUSH IV ×3 (08:35→15:50)
[2024-09-21] MEDS: VIBRAMYCIN 100 MG PO ×2 (08:36→21:10)
[2024-09-21] MEDS: ALDACTONE 12.5 MG PO (08:36)
[2024-09-21] MEDS: PROTONIX 40 MG PO (08:36)
[2024-09-21] MEDS: ZOLOFT 50 MG PO (08:36)
[2024-09-21] MEDS: LIORESAL 40 MG PO ×2 (08:36→21:10)
[2024-09-21] MEDS: NORVASC 5 MG PO (08:36)
[2024-09-21] MEDS: NEURONTIN 300 MG PO ×2 (08:36→21:10)
[2024-09-21] MEDS: MS CONTIN (EXTENDED RELEASE) 30 MG PO ×2 (08:36→21:10)
[2024-09-21] MEDS: NSS (PRESERVATIVE FREE) IV (08:37)
[2024-09-21] MEDS: DESENEX/MITRAZOL/ZEASORB 1 APPLIC TOPICAL ×2 (08:54→21:09)
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
[2024-09-21] MEDS: KCL 40 MEQ PO (10:07)
[2024-09-21 11:49] LABS: Glucose - Point of Care 206 mg/dl (70-99)
[2024-09-21] MEDS: ROCEPHIN 2000 MG IV (12:04)
[2024-09-21] MEDS: STERILE WATER FOR INJECTION 20 ML IV (12:04)
[2024-09-21] MEDS: NOVOLOG FLEXPEN-LOW RESISTANCE 2 UNITS SC (13:20)
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
[2024-09-21 16:46] LABS: Glucose - Point of Care 104 mg/dl (70-99)
[2024-09-21] MEDS: COUMADIN 12 MG PO (17:09)
[2024-09-21 21:21] LABS: Glucose - Point of Care 123 mg/dl (70-99)
[2024-09-22] VITALS (7 sets, daily range): BP systolic 109–147; BP diastolic 48–71; PULSE 2–88; BMI 41.6
[2024-09-22] MEDS: TYLENOL PO ×2 (00:37→23:33)
[2024-09-22] MEDS: TYLENOL 650 MG PO ×5 (03:29→20:08)
[2024-09-22 07:01] LABS: Glucose - Point of Care 105 mg/dl (70-99)
[2024-09-22] MEDS: NOVOLOG FLEXPEN-LOW RESISTANCE SC ×4 (07:04→17:45)
[2024-09-22] MEDS: SYMBICORT 160/4.5 MCG INHALER 2 PUFF INH ×2 (08:00→21:28)
[2024-09-22] MEDS: SPIRIVA RESPIMAT 2.5 MCG 2 PUFF INH (08:00)
[2024-09-22] MEDS: NORVASC 5 MG PO (09:13)
[2024-09-22] MEDS: VIBRAMYCIN 100 MG PO ×2 (09:13→20:08)
[2024-09-22] MEDS: NEURONTIN 300 MG PO ×2 (09:14→20:08)
[2024-09-22] MEDS: LIORESAL 40 MG PO ×2 (09:14→20:08)
[2024-09-22] MEDS: PROTONIX 40 MG PO (09:15)
[2024-09-22] MEDS: ALDACTONE 12.5 MG PO (09:15)
[2024-09-22] MEDS: ZOLOFT 50 MG PO (09:16)
[2024-09-22] MEDS: MS CONTIN (EXTENDED RELEASE) 30 MG PO ×2 (09:16→20:09)
[2024-09-22] MEDS: LASIX 40 MG IV (09:17)
[2024-09-22] MEDS: DESENEX/MITRAZOL/ZEASORB 1 APPLIC TOPICAL ×2 (09:17→20:07)
[2024-09-22] MEDS: NSS (PRESERVATIVE FREE) IV (09:18)
[2024-09-22] MEDS: FLUSH (NSS) 2 FLUSH IV (09:19)
[2024-09-22 09:32] LABS: Hematocrit 45.9 % (39.0-52.0); Hemoglobin 13.6 g/dL (13.0-18.0); Mean Corp Hgb Conc. 29.6 g/dL (33.0-37.0); Mean Corpuscular Hgb 24.2 pg (27.0-31.0); Mean Corpuscular Volume 81.7 fL (80.0-94.0); Mean Platelet Volume 11.2 fL (7.4-10.4); Platelet Count 204 10^3/uL (130-400); Red Blood Cell Count 5.62 10^6/uL (4.70-6.10); Red Cell Dist. Width 19.9 % (11.5-14.5); White Blood Cell Count 10.3 10^3/uL (4.8-10.8)
[2024-09-22 09:41] LABS: INR 1.95; PT 22.4 Sec (11.4-14.6)
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
[2024-09-22 10:19] LABS: Blood Urea Nitrogen 15 mg/dl (9-20); Calcium 9.1 mg/dl (8.4-10.2); Carbon Dioxide 38 mmol/L (22-30); Chloride 94 mmol/L (98-107); Estimated Creatinine Clearance > 125 ml/min; Glucose 95 mg/dl (70-99); Magnesium 1.8 mg/dl (1.6-2.3); Potassium 3.8 mmol/L (3.5-5.1); Sodium 136 mmol/L (135-145); eGFR > 60.00
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
[2024-09-22 13:50] LABS: Glucose - Point of Care 117 mg/dl (70-99)
--- NOTE | 2024-09-22 16:17 | CM ---
Patient seen at bedside.
PICC removed today
patient SO paid caregivers through waiver
discussed VN-declines
PLAN: Home with caregiver assistance, declines VN
transportation forms on chart. Ramp to enter home
[2024-09-22] MEDS: LASIX 40 MG PO (17:37)
[2024-09-22 17:45] LABS: Glucose - Point of Care 140 mg/dl (70-99)
[2024-09-22] MEDS: COUMADIN 9 MG PO (18:19)
[2024-09-22 21:12] LABS: Glucose - Point of Care 134 mg/dl (70-99)
[2024-09-23 03:33] VITALS: PULSE 2
[2024-09-23] MEDS: TYLENOL PO (03:50)
[2024-09-23 05:12] VITALS: BMI 41.5
[2024-09-23 07:09] VITALS: BP 145/77
[2024-09-23 07:15] LABS: Glucose - Point of Care 87 mg/dl (70-99)
[2024-09-23] MEDS: NOVOLOG FLEXPEN-LOW RESISTANCE SC ×2 (07:19→12:51)
[2024-09-23] MEDS: SYMBICORT 160/4.5 MCG INHALER 2 PUFF INH (07:25)
[2024-09-23] MEDS: SPIRIVA RESPIMAT 2.5 MCG 2 PUFF INH (07:25)
[2024-09-23 07:43] LABS: INR 1.94; PT 22.3 Sec (11.4-14.6)
[2024-09-23 07:56] LABS: Blood Urea Nitrogen 15 mg/dl (9-20); Calcium 9.1 mg/dl (8.4-10.2); Carbon Dioxide 37 mmol/L (22-30); Chloride 96 mmol/L (98-107); Estimated Creatinine Clearance > 125 ml/min; Glucose 97 mg/dl (70-99); Potassium 3.7 mmol/L (3.5-5.1); Sodium 138 mmol/L (135-145); eGFR > 60.00
[2024-09-23] MEDS: NEURONTIN 300 MG PO (08:27)
[2024-09-23] MEDS: PROTONIX 40 MG PO (08:27)
[2024-09-23] MEDS: NORVASC 5 MG PO (08:27)
[2024-09-23] MEDS: VIBRAMYCIN 100 MG PO (08:27)
[2024-09-23] MEDS: ZOLOFT 50 MG PO (08:28)
[2024-09-23] MEDS: TYLENOL 650 MG PO ×3 (08:28→15:05)
[2024-09-23] MEDS: NSS (PRESERVATIVE FREE) IV (08:28)
[2024-09-23] MEDS: MS CONTIN (EXTENDED RELEASE) 30 MG PO (08:28)
[2024-09-23] MEDS: ALDACTONE 12.5 MG PO (08:29)
[2024-09-23] MEDS: LIORESAL 40 MG PO (08:29)
[2024-09-23] MEDS: LASIX 40 MG IV ×2 (08:30→15:05)
[2024-09-23] MEDS: DESENEX/MITRAZOL/ZEASORB 1 APPLIC TOPICAL (08:34)
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
--- NOTE | 2024-09-23 11:46 | CM ---
Patient seen at bedside
transport time 3pm today
IMM n/a
PLAN: Home with caregiver assistance, declines VN
transportation forms on chart. 3pm transport. Ramp to enter home
[2024-09-23 14:05] LABS: Glucose - Point of Care 122 mg/dl (70-99)
--- NOTE | 2024-09-23 14:49 | W.DCSUMMARY ---
Discharge Summary
Discharge Data
Date of Admission: 09/18/24
Date of Discharge: 09/23/24
-
Pending Results: No
Hospital Course
53 years old male presented with respiratory distress. Patient was intubated for hypoxia and was admitted to the intensive care unit. Patient had low blood pressure and needed vasopressor with Levophed initially. The initial diagnosis was
possible sepsis/septic shock or cardiogenic shock. Subsequently, patient improved and extubated to nasal cannula. Patient did not have positive blood culture. He had negative procalcitonin. He did not have significant infiltrate on chest
radiography. Conclusion was likely cardiogenic shock. Patient reported history of shortness of breath that lasted few days before arrival to the hospital. He was started on aggressive diuretic therapy after improvement in his blood pressure.
Patient responded well. Echocardiogram showed preserved ejection fraction and patient was diagnosed with acute on chronic heart failure with a preserved ejection fraction. Sputum culture tested positive for Proteus. Positive sputum culture was
reflective of colonization more than active infection. Patient improved significantly without targeted therapy with antibiotic. Patient reported that he had home oxygen therapy. Clinical Cytogeneticist Scientist recommended to increase dose of Lasix to twice a day
and addition of Aldactone. Patient remained hemodynamically stable. He declined visiting nurses and wanted to continue with caregiver services. accounts manager was involved in discharge planning. Patient was discharged in a stable condition.
Discharge Plan
-
Patient Disposition: Home (Routine Discharge)
Discharge Diagnosis/Procedures: Acute hypoxia, back to baseline
Acute on chronic heart failure with a preserved ejection fraction. You are seen by radio operator ground. Lasix changed to 40 mg twice a day, added Aldactone 25 mg.
Potential side effects of Lasix include hypokalemia, renal injury, hypotension.
Potential side effects of Aldactone include hyperkalemia, renal injury, gynecomastia, hypotension.
Diet: As tolerated
Blood Work: BMP in one week
Specialty Instructions: Weigh Daily- Call MD for wt gain/loss 3 lbs overnight/5 lbs in 1 week
Referrals:
Rosita Mathews CRNP [Specified Professional Personl] - 09/29/24 10:40 am (You have a cardiology follow-up appointment at the [facility] office with Dr. Brambila's nurse practitioner, Rosita. Please call with questions)
UNKNOWN - PT NOT,INTERVIEWE [Family Provider] -
Prescriptions:
New
spironolactone [Aldactone] 25 mg tablet
25 mg PO DAILY Qty: 30 0RF
furosemide [Lasix] 40 mg tablet
40 mg PO BID Qty: 60 0RF
Continued
sertraline 50 MG tablet
50 mg PO DAILY
amlodipine 5 MG tablet
5 mg PO DAILY
docusate sodium 100 MG capsule
100 mg PO BID
oxycodone 5 MG tablet
5 mg PO DAILYPRN PRN (Reason: severe pain)
Patient Comments:
09/17/24: last filled 09/15/24 for 30 tabs over 30 days per PDMP
baclofen 20 mg tablet
40 mg PO BID
sennosides [senna] 8.6 mg Tablet
17.2 mg PO DAILY
gabapentin 600 mg Tablet
300 mg PO BID
morphine 30 mg Tablet Extended Release
30 mg PO BID
Patient Comments:
09/17/24: last filled 08/25/24 for 60 tabs over 30 days per PDMP
warfarin 6 mg Tablet
9 mg PO HS
Patient Comments:
09/17/24: Family unsure of current dosing, patient last filled 180x 6mg tabs on 07/17/24
albuterol sulfate 90 mcg/actuation Hfa Aerosol Inhaler
2 puff INHALATION R Q6HPRN PRN (Reason: wheezing)
Trelegy Ellipta 200-62.5-25 mcg Blister With Device
1 inh INHALATION R DAILY
polyethylene glycol 3350 [HealthyLax] 17 gram Powder In Packet
17 g PO DAILYPRN PRN (Reason: constipation) Qty: 0 0RF
pantoprazole [Protonix] 40 mg tablet,delayed release (DR/EC)
40 mg PO DAILY
Linzess 72 mcg Capsule
72 mcg PO DAILY
Discontinued
furosemide 40 mg Tablet
40 mg PO DAILY
amoxicillin-pot clavulanate [Augmentin] 875-125 mg Tablet
1 tab PO BID
Discharge Orders:
Discharge Patient (As Directed); Ordered 09/23/24
Ordered By: Agustin Raphael
Discharge Date and Time
Print Language: TAJIK
[2024-09-23 14:51] VITALS: BP 104/54
== END 2024-09-23 15:43 | disposition home or self-care (01) | DRG 291 ==
LOC: 2 NORTH 00:06
PROVIDERS: Emergency Medicine; Family Medicine; Nurse Practitioner Primary Care; Radiology Diagnostic Radiology; ADMITTING PHYSICIAN Hospitalist; ATTENDING PHYSICIAN Internal Medicine; CONSULT PHYSICIAN Internal Medicine Cardiovascular Disease; CONSULT PHYSICIAN Internal Medicine Critical Care Medicine; EMERGENCY PHYSICIAN Emergency Medicine
PROC: 02HV33Z Insertion of Infusion Device into Superior Vena Cava, Percutaneous Approach (ICD-10-PCS; 2024-09-18)
DX: I11.0 Hypertensive heart disease with heart failure (principal); I50.33 Acute on chronic diastolic (congestive) heart failure; J96.21 Acute and chronic respiratory failure with hypoxia; J96.22 Acute and chronic respiratory failure with hypercapnia; R57.0 Cardiogenic shock; G82.20 Paraplegia, unspecified; I48.21 Permanent atrial fibrillation; F11.20 Opioid dependence, uncomplicated; E66.2 Morbid (severe) obesity with alveolar hypoventilation; Z68.41 Body mass index [BMI] 40.0-44.9, adult; G93.49 Other encephalopathy; G89.4 Chronic pain syndrome; J44.9 Chronic obstructive pulmonary disease, unspecified; F17.200 Nicotine dependence, unspecified, uncomplicated; N31.9 Neuromuscular dysfunction of bladder, unspecified; E11.65 Type 2 diabetes mellitus with hyperglycemia; I27.20 Pulmonary hypertension, unspecified; I42.9 Cardiomyopathy, unspecified
CPT/HCPCS: 31500; 36600; 71045; 74018; 80048; 80053; 80306; 80307; 81003; 81015; 82248; 82330; 82805; 82962; 83036; 83605; 83735; 83880; 84100; 84132; 84145; 84302; 84439; 84443; 84478; 84484; 85025; 85027; 85610; 85730; 87040; 87070; 87077; 87086; 87147; 87186; 87205; 87449; 87502; 87811; 87899; 92610; 93005; 93306; 94002; 94003; 94640; 94660; 96365; 96366; 96367; 96375; 99291; Q9957

== ENCOUNTER 2025-01-05 22:57 | Inpatient (IN) | payer MEDICARE, OTHER, SELFPAY ==
[2025-01-05] VITALS (32 sets, daily range): BP systolic 67–177; BP diastolic 30–84; BMI 44.5
[2025-01-05] MEDS: NSS 1000 IV ×2 (20:29→22:32)
[2025-01-05] MEDS: TYLENOL 1000 MG PO (20:32)
[2025-01-05 20:40] LABS: ALT (SGPT) 16 U/L (0-50); AST (SGOT) 23 U/L (17-59); Albumin 4.0 g/dl (3.5-5.0); Alkaline Phosphatase 111 U/L (38-126); Blood Urea Nitrogen 33 mg/dl (9-20); Calcium 9.0 mg/dl (8.4-10.2); Carbon Dioxide 32 mmol/L (22-30); Chloride 95 mmol/L (98-107); Estimated Creatinine Clearance 82 ml/min; Glucose 146 mg/dl (70-99); Potassium 4.7 mmol/L (3.5-5.1); Sodium 134 mmol/L (135-145); Total Protein 7.6 g/dl (6.3-8.2); eGFR 59.36
[2025-01-05 20:43] LABS: Urine Character Slightly Cloudy (Clear)
[2025-01-05 20:48] LABS: Hematocrit 45.4 % (39.0-52.0); Hemoglobin 14.4 g/dL (13.0-18.0); Mean Corp Hgb Conc. 31.7 g/dL (33.0-37.0); Mean Corpuscular Volume 79.6 fL (80.0-94.0); Nucleated Red Blood Cells % 0 % (-); Platelet Count 203 10^3/uL (130-400); Red Cell Dist. Width 18.7 % (11.5-14.5)
[2025-01-05 20:57] LABS: COVID-19 Antigen Negative (Negative)
[2025-01-05 21:20] LABS: Urine White Cell 16-20 /HPF (0-5)
--- NOTE | 2025-01-05 21:21 | ED.GENMED ---
History of Present Illness
<Galileo Rodriguez DO - Last Filed: 01/05/25 21:52>
General
Chief Complaint: Urinary Symptoms
Time Seen by Provider: 01/05/25 20:05
<Mirna Zavala PA-C - Last Filed: 01/06/25 03:11>
General
Source: patient
Exam Limitations: none
Nursing documentation reviewed up to this point in time: agreed with
History of Present Illness
History of Present Illness:
Patient is a 54-year-old male with history of quadriplegia with indwelling Mane catheter, COPD on home oxygen, CHF, hypertension, diabetes who presents to the emergency department for evaluation of decreased urinary output. Patient states that
last night he did not notice much output from his Mane catheter and also had some lower back discomfort. This morning�patient reports continued minimal output from Mane catheter as well as fever at home of 100.8. He reports feeling weak. No
cough or chest pain. He denies any nausea or vomiting.
Patient reports drinking a significant mount of water and does not feel that he is producing enough urine.
Patient does have history of urosepsis. He is on chronic O2 for COPD
Past History
<Galileo Rodriguez DO - Last Filed: 01/05/25 21:52>
Past History
ED Past Medical History: COPD, HTN, Hypercholesterolemia and Other (T6 paraplegic, Hematuria, DVT L leg)
ED Past Surgical History: Other (Green field filter)
Social History
Tobacco: Former smoker
Alcohol: None
Drug: None
Personal:
Living: with family
Employment: Disabled
Family History
Family History: Other (Noncontributory)
Review of Systems
<Mirna Zavala PA-C - Last Filed: 01/06/25 03:11>
Review of Systems
Allergies reviewed?: Yes
All Other Systems: ROS reviewed and negative except as documented in HPI and ROS
Phy Exam
<Mirna Zavala PA-C - Last Filed: 01/06/25 03:11>
Physical Exam
Physical Exam:
Vitals: Stable vital signs on arrival. Temp 102.3 F
General: Patient is in no apparent distress.
Skin: Warm and dry, no rashes or lesions
Head: Normocephalic, atraumatic
Eyes: Sclera nonicteric.
Throat: Protecting airway
Neck: Normal ROM, no cervical spine tenderness, no meningismus
Cardiac: Regular rate and rhythm, no murmurs.
Pulm: On supplemental oxygen. Mild tachypnea. Minimal wheeze bilaterally, otherwise clear breath sounds
.
Abdomen: Abdomen soft and nontender. No rebound tenderness or guarding
Extremities: No evidence of cyanosis or edema. Palpable DP pulses bilaterally
Neuro: AAOx3. Fluid speech. Grossly intact. Paresis of extremities
Psychiatric: Normal affect.
Sepsis
<Mirna Zavala PA-C - Last Filed: 01/06/25 03:11>
Sepsis Screening
Sepsis Assessment: Septic Shock
Sepsis Screening: Hypotension, Worsening O2 Saturation, Need for mechanical ventilation or BiPAP, Sustained Hypotension-SBP <90,MAP<65, or SBP decrease 40mmHg or more and Vasopressor support required
Sepsis Screen
Sepsis Screen: Septic Shock
Date: 01/05/25
Time: 21:20
Course
<Galileo Rodriguez DO - Last Filed: 01/05/25 21:52>
Orders/Labs/Results
Orders:
Orders
01/05/25 Dinner
NPO
Allow oral meds: No
Allow clear liquids: No
01/05/25 20:00
Electrocardiogram (*1) Urgent
Reason for Study: Other
Other Reason for Exam: Possible Sepsis
Cardiac Monitoring- Treatment ONCE
EKG- Treatment ONCE
IV Insert/Care/Rem.- Treatment PRN
01/05/25 20:02
Complete Blood Count/With Diff Urgent
Comprehensive Metabolic Panel Urgent
Magnesium Urgent
Comment: ADD ON
Phosphorus Urgent
Triglycerides Urgent
Comment: ADD ON
Blood Culture Q20M
GREGORIO Source: Blood/Venous
Specimen Description:
Comment: Urgent from separate sites. If patient screens positive for possible sepsis
01/05/25 20:03
Lactic Acid Q4H
Comment: ON ICE, CANCEL 2ND ORDER IF FIRST LACTIC ACID LEVEL <2
Urinalysis Reflex To Culture Urgent
Date Specimen was Collected: 01/05/25
Time Specimen was Collected: 20:00
Urine Microscopic Reflex Cult Urgent
Urine Culture Urgent
GREGORIO Source: U
Specimen Description:
Date Specimen was Collected: 01/05/25
Time Specimen was Collected: 20:00
01/05/25 20:22
0.9% Sodium Chloride 1000 ml [Nss] 1,000 ml IV BOLUS
Acetaminophen [Tylenol] 1,000 mg PO NOW STA
01/05/25 20:23
CT Abd/pelvis W Iv Cont Urgent
Comment:
Reason For Exam: fever, back pain, chronic mane
CR Chest - 2 Views Urgent
Comment:
Reason For Exam: Fever, cough
01/05/25 20:30
COVID-19 Antigen Urgent
Source: Nasal Swab
Influenza A+B Rapid Molecular Urgent
GREGORIO Source: Nasal Swab
Specimen Description:
01/05/25 21:00
Cefepime HCl [Maxipime] 2,000 mg IV NOW STA
01/05/25 21:09
Ketorolac [Toradol] 15 mg .ROUTE .STK-MED ONE
01/05/25 21:12
Ipratropium/Albuterol Sulfate [Duoneb] 3 ml .ROUTE .STK-MED ONE
01/05/25 21:23
Blood Culture Q20M
GREGORIO Source: Blood/Venous
Specimen Description:
Comment: Urgent from separate sites. If patient screens positive for possible sepsis
01/05/25 21:24
Vancomycin [Vancocin] 2,000 mg 0.9% Sodium Chloride 500 ml [Nss] 500 ml IV NOW
01/05/25 21:29
Ketorolac [Toradol] 15 mg IV NOW STA
01/05/25 21:32
Propofol 1,000,000 Mcg/100 ml [Diprivan] 1,000,000 mcg in 100 ml .ROUTE .STK-MED
01/05/25 21:40
Etomidate [Amidate] 20 mg IV NOW STA
01/05/25 21:45
Chest X-ray Portable [CR Chest Portable - 1 View] Stat
Comment:
Reason For Exam: post intubation
Reason Study Needs to be Portable: Unable to Transport
01/05/25 21:48
Propofol 1,000,000 Mcg/100 ml [Diprivan] 1,000,000 mcg in 100 ml IV NOW
Indication:: Light Sedation
Begin Infusion:: Now
Goal:: RASS 0 to -2
Maximum dose in mcg/kg/min:: 50
Initial dose based on RASS:: Yes
If RASS is:: +1 or pt hemodynamically unstable (SBP < 90mmHg), initiate at 10 mcg/kg/min
If RASS is:: +2, initiate at 20 mcg/kg/min
If RASS is:: greater than or equal to +3, initiate at 30 mcg/kg/min
Titration Instructions:: Titrate by 5-10 mcg/kg/min every 5 minutes until RASS 0 to -2 achieved.
Taper Instructions:: If RASS is at or below goal for 4 consecutive hours decrease infusion by
Taper Instructions:: 5-10 mcg/kg/min every 2 hours to off.
Over-sedation Instructions:: If CPOT 0-2 (at goal) AND RASS -3 to -5 (below goal) decrease sedative by
Over-sedation Instructions:: 50% first. If pain score remains at goal and RASS remains below goal in
Over-sedation Instructions:: 1 hour, decrease opioid infusion by 50%.
Notify provider:: immediately if patient exhibits signs/symptoms of propofol-related
Notify provider:: infusion syndrome.
Additional Instructions:: Patient MUST be mechanically ventilated and MUST receive analgesia.
01/05/25 22:02
NORepinephrine 4 MG/250 ML [Levophed] 4 mg in 250 ml .ROUTE .STK-MED
01/05/25 22:05
Restraints - Non Violent As Directed
Justification-Patient:: 1-Attempts to remove tube
Restraint Type-: Soft Limb-L&R Wrist/4rail
Apply From (date): 01/05/25
Apply from (time): 22:05
Remove (date): 01/06/25
Remove (time): 23:59
01/05/25 22:15
NORepinephrine 4 MG/250 ML [Levophed] 4 mg in 250 ml IV PER PROTOCOL
Initial dose in mcg/min, then titrate:: 4
Titrate to keep:: MAP > 65 mmHg
Titrate by mcg/min:: 1-2 mcg/min
Frequency of titrations (minutes):: 5
Maximum dose in ICU in mcg/min:: 30
Maximum dose in IMU in mcg/min:: 8
Maximum dose in IVU in mcg/min:: 4
Begin to taper infusion when:: Remained at goal for 4hrs
Taper by mcg/min:: 1-2 mcg/min
Frequency of taper (minutes) if patient maintains goal:: 30
Taper to off?: Yes
If infusion off & no longer maintaining goal:: Contact Provider
01/05/25 22:23
0.9% Sodium Chloride 1000 ml [Nss] 1,000 ml IV BOLUS
01/05/25 22:39
Admit/Transfer Patient As Directed
Co-Sign Provider:
Level of Care: Inpatient admission
Assign to:: ICU
Physician / Group: Brayan Rodriguez
Diagnosis: septic shock, VEE
Reason for Hospitalization: septic shock, VEE, UTI, PNA
Expected length of stay greater than two midnights?: Yes
ELOS- Estimated Length of Stay in days: 3
I certify the patient meets the requirements for IP care: Yes
01/05/25 22:40
PRN Pain Medication Management As Directed
May give lesser potent ordered pain med per pt: Yes
preference::
Protocol:: Medication orders for pain may be administered in a
manner that supports deferring to patient preference
when the pt is:
- Requesting an ordered lesser potent pain medication.
Least to most potent pain medications are defined
as: acetaminophen < NSAID < tramadol < opioids
(morphine, oxycodone, hydromorphone).
- Requesting a lesser dose of the same medication IF
ORDERED.
- Requesting a less intrusive route of administration
if both routes are prescribed by the provider (PO <
IV).
01/05/25 22:48
Code Status As Directed
Resuscitation Status: Full Code
01/05/25 23:00
Flush (0.9% Sodium Chloride) [Flush (Nss)] See Dose Instructions IV PER PROTOCOL
01/05/25 23:47
0.9% Sodium Chloride 1000 ml [Nss] 1,000 ml IV 120 mls/hr
Ipratropium/Albuterol Sulfate [Duoneb] 3 ml INH R Q4HPRN PRN
VANCOMYCIN Pharmacy to Dose [VANCOCIN Pharmacy to Dose] 1 each Pharmacy To Prepare [Call Pharmacy To Prepare] 0 ml IV PER PROTOCOL
01/05/25 23:47
Electrocardiogram (*1) Urgent
Reason for Study: Other
Other Reason for Exam: baseline ICU
Comment: upon arrival to ICU (if not done in ED or in last 24 hours)
Windows Admin Consult Urgent
Consulting Provider: Ronal Hong
Was physician already notified: Yes
Protime/PTT Urgent
Comment: upon arrival to ICU (if not done in ED or in last 24 hours)
Activity As Directed
Activity Level: As Tolerated
Bedside Glucose Monitoring-ONCE As Directed
Comment: upon arrival to ICU
Mane Catheter [Catheter- Indwelling] As Directed
Reason for insertion: Chronic Mane on Admit
Intake/ Output As Directed
Frequency: Per unit guidelines
Notify MD As Directed
Notify physician if: While in ICU level of care:
glucose greater than or equal to 180 mg/dL once, contact provider to initiate Critical
Care Glycemic Protocol Target Range 140-180 mg/dL.
Vital Signs As Directed
Frequency: Per unit guidelines
Weight As Directed
Frequency: Daily
Comment: height and weight upon arrival to ICU.
DX Deep Vein Thrombosis Video Routine
01/06/25 00:00
Heparin 5,000 units SC Q8
01/06/25 06:00
Basic Metabolic Panel IN AM
Complete Blood Count/No Diff IN AM
Piperacillin/Tazo 3.375 Gram [Zosyn] 3.375 gram in 50 ml IV Q6H
01/06/25 08:00
Pantoprazole [Protonix IV] 40 mg IV BID
Abnormal Lab Results
01/05/25 01/05/25 01/05/25
20:02 20:03 21:21
WBC 27.4 H 10^3/uL
(4.8-10.8)
MCV 79.6 L fL
(80.0-94.0)
MCH 25.3 L pg
(27.0-31.0)
MCHC 31.7 L g/dL
(33.0-37.0)
RDW 18.7 H %
(11.5-14.5)
MPV 11.3 H fL
(7.4-10.4)
Abs Immat Gran (auto) 0.2 H 10^3/uL
(0-0.05)
Absolute Neuts (auto) 24.2 H 10^3/uL
(1.4-6.5)
Absolute Lymphs (auto) 0.9 L 10^3/uL
(1.2-3.4)
Absolute Monos (auto) 2.0 H 10^3/uL
(0.1-0.6)
Immature Gran % 0.6 H %
(0-0.5)
Neutrophils % 88.3 H %
(42.2-75.2)
Lymphocytes % 3.3 L %
(20.5-51.1)
Sodium 134 L mmol/L
(135-145)
Chloride 95 L mmol/L
(98-107)
Carbon Dioxide 32 H mmol/L
(22-30)
BUN 33 H mg/dl
(9-20)
Creatinine 1.4 H mg/dL
(0.7-1.3)
Glucose 146 H mg/dl
(70-99)
Triglycerides 173 H mg/dl
(10-149)
Ur Occult Blood Reflex 3+ A
(Negative)
Leukocyte Esterase Rfl 3+ A
(Negative)
Urine RBC 3-6 A /HPF
(0-2)
Urine WBC (Reflex) 16-20 A /HPF
(0-5)
Urine Bacteria (Reflex) Moderate A
(Negative)
Urine Albumin (Reflex) 2+ A
(Neg - Trace)
POC Glucose 151 H mg/dl
(70-99)
06/30/25 20:02
01/05/25 20:02
Vital Signs
Initial and Last Documented VS:
Initial Vital Signs
Pulse Resp BP
72 21 114/70
01/05/25 19:51 01/05/25 19:51 01/05/25 19:51
Last Documented Vital Signs
Temp Pulse Resp BP Pulse Ox
100.2 F 120 18 95/70 93
01/06/25 00:14 01/06/25 02:15 01/06/25 01:17 01/06/25 01:48 01/06/25 02:15
<Mirna Zavala PA-C - Last Filed: 01/06/25 03:11>
Orders/Labs/Results
Orders:
Orders
01/05/25 Dinner
NPO
Allow oral meds: No
Allow clear liquids: No
01/05/25 20:00
Electrocardiogram (*1) Urgent
Reason for Study: Other
Other Reason for Exam: Possible Sepsis
Cardiac Monitoring- Treatment ONCE
EKG- Treatment ONCE
IV Insert/Care/Rem.- Treatment PRN
01/05/25 20:02
Complete Blood Count/With Diff Urgent
Comprehensive Metabolic Panel Urgent
Magnesium Urgent
Comment: ADD ON
Phosphorus Urgent
Triglycerides Urgent
Comment: ADD ON
Blood Culture Q20M
GREGORIO Source: Blood/Venous
Specimen Description:
Comment: Urgent from separate sites. If patient screens positive for possible sepsis
01/05/25 20:03
Lactic Acid Q4H
Comment: ON ICE, CANCEL 2ND ORDER IF FIRST LACTIC ACID LEVEL <2
Urinalysis Reflex To Culture Urgent
Date Specimen was Collected: 01/05/25
Time Specimen was Collected: 20:00
Urine Microscopic Reflex Cult Urgent
Urine Culture Urgent
GREGORIO Source: U
Specimen Description:
Date Specimen was Collected: 01/05/25
Time Specimen was Collected: 20:00
01/05/25 20:22
0.9% Sodium Chloride 1000 ml [Nss] 1,000 ml IV BOLUS
Acetaminophen [Tylenol] 1,000 mg PO NOW STA
01/05/25 20:23
CT Abd/pelvis W Iv Cont Urgent
Comment:
Reason For Exam: fever, back pain, chronic mnae
CR Chest - 2 Views Urgent
Comment:
Reason For Exam: Fever, cough
01/05/25 20:30
COVID-19 Antigen Urgent
Source: Nasal Swab
Influenza A+B Rapid Molecular Urgent
GREGORIO Source: Nasal Swab
Specimen Description:
01/05/25 21:00
Cefepime HCl [Maxipime] 2,000 mg IV NOW STA
01/05/25 21:09
Ketorolac [Toradol] 15 mg .ROUTE .STK-MED ONE
01/05/25 21:12
Ipratropium/Albuterol Sulfate [Duoneb] 3 ml .ROUTE .STK-MED ONE
01/05/25 21:23
Blood Culture Q20M
GREGORIO Source: Blood/Venous
Specimen Description:
Comment: Urgent from separate sites. If patient screens positive for possible sepsis
01/05/25 21:24
Vancomycin [Vancocin] 2,000 mg 0.9% Sodium Chloride 500 ml [Nss] 500 ml IV NOW
01/05/25 21:29
Ketorolac [Toradol] 15 mg IV NOW STA
01/05/25 21:32
Propofol 1,000,000 Mcg/100 ml [Diprivan] 1,000,000 mcg in 100 ml .ROUTE .STK-MED
01/05/25 21:40
Etomidate [Amidate] 20 mg IV NOW STA
01/05/25 21:45
Chest X-ray Portable [CR Chest Portable - 1 View] Stat
Comment:
Reason For Exam: post intubation
Reason Study Needs to be Portable: Unable to Transport
01/05/25 21:48
Propofol 1,000,000 Mcg/100 ml [Diprivan] 1,000,000 mcg in 100 ml IV NOW
Indication:: Light Sedation
Begin Infusion:: Now
Goal:: RASS 0 to -2
Maximum dose in mcg/kg/min:: 50
Initial dose based on RASS:: Yes
If RASS is:: +1 or pt hemodynamically unstable (SBP < 90mmHg), initiate at 10 mcg/kg/min
If RASS is:: +2, initiate at 20 mcg/kg/min
If RASS is:: greater than or equal to +3, initiate at 30 mcg/kg/min
Titration Instructions:: Titrate by 5-10 mcg/kg/min every 5 minutes until RASS 0 to -2 achieved.
Taper Instructions:: If RASS is at or below goal for 4 consecutive hours decrease infusion by
Taper Instructions:: 5-10 mcg/kg/min every 2 hours to off.
Over-sedation Instructions:: If CPOT 0-2 (at goal) AND RASS -3 to -5 (below goal) decrease sedative by
Over-sedation Instructions:: 50% first. If pain score remains at goal and RASS remains below goal in
Over-sedation Instructions:: 1 hour, decrease opioid infusion by 50%.
Notify provider:: immediately if patient exhibits signs/symptoms of propofol-related
Notify provider:: infusion syndrome.
Additional Instructions:: Patient MUST be mechanically ventilated and MUST receive analgesia.
01/05/25 22:02
NORepinephrine 4 MG/250 ML [Levophed] 4 mg in 250 ml .ROUTE .STK-MED
01/05/25 22:05
Restraints - Non Violent As Directed
Justification-Patient:: 1-Attempts to remove tube
Restraint Type-: Soft Limb-L&R Wrist/4rail
Apply From (date): 01/05/25
Apply from (time): 22:05
Remove (date): 01/06/25
Remove (time): 23:59
01/05/25 22:15
NORepinephrine 4 MG/250 ML [Levophed] 4 mg in 250 ml IV PER PROTOCOL
Initial dose in mcg/min, then titrate:: 4
Titrate to keep:: MAP > 65 mmHg
Titrate by mcg/min:: 1-2 mcg/min
Frequency of titrations (minutes):: 5
Maximum dose in ICU in mcg/min:: 30
Maximum dose in IMU in mcg/min:: 8
Maximum dose in IVU in mcg/min:: 4
Begin to taper infusion when:: Remained at goal for 4hrs
Taper by mcg/min:: 1-2 mcg/min
Frequency of taper (minutes) if patient maintains goal:: 30
Taper to off?: Yes
If infusion off & no longer maintaining goal:: Contact Provider
01/05/25 22:23
0.9% Sodium Chloride 1000 ml [Nss] 1,000 ml IV BOLUS
01/05/25 22:39
Admit/Transfer Patient As Directed
Co-Sign Provider:
Level of Care: Inpatient admission
Assign to:: ICU
Physician / Group: Brayan Rodriguez
Diagnosis: septic shock, VEE
Reason for Hospitalization: septic shock, VEE, UTI, PNA
Expected length of stay greater than two midnights?: Yes
ELOS- Estimated Length of Stay in days: 3
I certify the patient meets the requirements for IP care: Yes
01/05/25 22:40
PRN Pain Medication Management As Directed
May give lesser potent ordered pain med per pt: Yes
preference::
Protocol:: Medication orders for pain may be administered in a
manner that supports deferring to patient preference
when the pt is:
- Requesting an ordered lesser potent pain medication.
Least to most potent pain medications are defined
as: acetaminophen < NSAID < tramadol < opioids
(morphine, oxycodone, hydromorphone).
- Requesting a lesser dose of the same medication IF
ORDERED.
- Requesting a less intrusive route of administration
if both routes are prescribed by the provider (PO <
IV).
01/05/25 22:48
Code Status As Directed
Resuscitation Status: Full Code
01/05/25 23:00
Flush (0.9% Sodium Chloride) [Flush (Nss)] See Dose Instructions IV PER PROTOCOL
01/05/25 23:47
0.9% Sodium Chloride 1000 ml [Nss] 1,000 ml IV 120 mls/hr
Ipratropium/Albuterol Sulfate [Duoneb] 3 ml INH R Q4HPRN PRN
VANCOMYCIN Pharmacy to Dose [VANCOCIN Pharmacy to Dose] 1 each Pharmacy To Prepare [Call Pharmacy To Prepare] 0 ml IV PER PROTOCOL
01/05/25 23:47
Electrocardiogram (*1) Urgent
Reason for Study: Other
Other Reason for Exam: baseline ICU
Comment: upon arrival to ICU (if not done in ED or in last 24 hours)
Windows Admin Consult Urgent
Consulting Provider: Ronal Hong
Was physician already notified: Yes
Protime/PTT Urgent
Comment: upon arrival to ICU (if not done in ED or in last 24 hours)
Activity As Directed
Activity Level: As Tolerated
Bedside Glucose Monitoring-ONCE As Directed
Comment: upon arrival to ICU
Mane Catheter [Catheter- Indwelling] As Directed
Reason for insertion: Chronic Mane on Admit
Intake/ Output As Directed
Frequency: Per unit guidelines
Notify MD As Directed
Notify physician if: While in ICU level of care:
glucose greater than or equal to 180 mg/dL once, contact provider to initiate Critical
Care Glycemic Protocol Target Range 140-180 mg/dL.
Vital Signs As Directed
Frequency: Per unit guidelines
Weight As Directed
Frequency: Daily
Comment: height and weight upon arrival to ICU.
DX Deep Vein Thrombosis Video Routine
01/06/25 00:00
Heparin 5,000 units SC Q8
01/06/25 06:00
Basic Metabolic Panel IN AM
Complete Blood Count/No Diff IN AM
Piperacillin/Tazo 3.375 Gram [Zosyn] 3.375 gram in 50 ml IV Q6H
01/06/25 08:00
Pantoprazole [Protonix IV] 40 mg IV BID
Abnormal Lab Results
01/05/25 01/05/25 01/05/25
20:02 20:03 21:21
WBC 27.4 H 10^3/uL
(4.8-10.8)
MCV 79.6 L fL
(80.0-94.0)
MCH 25.3 L pg
(27.0-31.0)
MCHC 31.7 L g/dL
(33.0-37.0)
RDW 18.7 H %
(11.5-14.5)
MPV 11.3 H fL
(7.4-10.4)
Abs Immat Gran (auto) 0.2 H 10^3/uL
(0-0.05)
Absolute Neuts (auto) 24.2 H 10^3/uL
(1.4-6.5)
Absolute Lymphs (auto) 0.9 L 10^3/uL
(1.2-3.4)
Absolute Monos (auto) 2.0 H 10^3/uL
(0.1-0.6)
Immature Gran % 0.6 H %
(0-0.5)
Neutrophils % 88.3 H %
(42.2-75.2)
Lymphocytes % 3.3 L %
(20.5-51.1)
Sodium 134 L mmol/L
(135-145)
Chloride 95 L mmol/L
(98-107)
Carbon Dioxide 32 H mmol/L
(22-30)
BUN 33 H mg/dl
(9-20)
Creatinine 1.4 H mg/dL
(0.7-1.3)
Glucose 146 H mg/dl
(70-99)
Triglycerides 173 H mg/dl
(10-149)
Ur Occult Blood Reflex 3+ A
(Negative)
Leukocyte Esterase Rfl 3+ A
(Negative)
Urine RBC 3-6 A /HPF
(0-2)
Urine WBC (Reflex) 16-20 A /HPF
(0-5)
Urine Bacteria (Reflex) Moderate A
(Negative)
Urine Albumin (Reflex) 2+ A
(Neg - Trace)
POC Glucose 151 H mg/dl
(70-99)
01/05/25 20:02
01/05/25 20:02
Vital Signs
Initial and Last Documented VS:
Initial Vital Signs
Pulse Resp BP
72 21 114/70
01/05/25 19:51 01/05/25 19:51 01/05/25 19:51
Last Documented Vital Signs
Temp Pulse Resp BP Pulse Ox
100.2 F 120 18 95/70 93
01/06/25 00:14 01/06/25 02:15 01/06/25 01:17 01/06/25 01:48 01/06/25 02:15
Procedures
<Galileo Rodriguez DO - Last Filed: 01/05/25 21:52>
Intubations
Procedure completed by: Galileo Rodriguez DO
Method of Intubation: glidescope
Tube size (cm): 8.0
Placement confirmed by: auscutation, CXR, capnography and direct visualization
Breath sounds after intubation: equal
Intubation complications: no complications
IV Access
Indication: RN unable to obtain and Physician skill needed
Performed by:: Galileo Rodriguez DO
Site:: R arm
Gauge:: 18
Ultrasound Guidance: Yes
<Mirna Zavala PA-C - Last Filed: 01/06/25 03:11>
MDM/Problems Addressed
Differential Diagnosis Includes:
Not limited to: Sepsis, cystitis, pyelonephritis, nephrolithiasis, appendicitis, diverticulitis, viral illness, pneumonia, etc.
MDM/Problems Addressed:
54-year-old male with history as documented significant for quadriplegia with chronic indwelling Mane catheter, COPD on home oxygen who presents to the emergency department with little output from Mane catheter and fever. He also reports some
lower back discomfort no chest pain, worsening shortness of breath, or significant cough. Patient arrives febrile to 102.3F however otherwise with stable vital signs. He is normotensive. On exam�patient conversational however somewhat
ill-appearing. Heart regular rate with clear lungs bilaterally. No focal tenderness noted on abdominal exam. Mane catheter appears to be draining relatively clear urine and bladder scan reveals < 5ml in bladder. No evidence of acute urinary
retention. With chronic indwelling Mane catheter, low back pain, and fever�concern for acute urologic infectious process. ED plan: Labs, lactic acid, blood cultures, urinalysis, viral studies, chest x-ray, CT scan abdomen/pelvis. Will give IV
fluids, Tylenol and reassess
Update: Labs reviewed: Significant leukocytosis of 27.4 with left shift. Chemistry reveals mild VEE 5 with creatinine 1.4, otherwise no clinically significant abnormalities. Lactic acid is normal. UA somewhat indicative of infection, also with
3-6 RBCs. Patient meets sepsis criteria�suspected urologic source. Will give IV cefepime.
Update 2119: Patient returned from x-ray and became acutely hemodynamically unstable. He is tachypneic, hypotensive and tachycardic. He is experiencing rigors and significant diaphoresis. Suspect septic shock. IV access was obtained and IV
fluids continued. However�patient continued to decompensate and decision was made to intubate patient as he was having difficulty protecting his airway. Patient intubated without difficulty and placed on propofol drip. See procedure note.
Update 2203 PM: Following intubation�patient became hypotensive in 60s/30s. Will start Levophed. At this point�patient appears to be in septic shock however source unknown. Will add vancomycin. will proceed with CT scan when stabilized. Critical
care ROUTEMAN down to assess patient at bedside. Patient will require admission to ICU for further management. Case discussed with hospitalist.
Update 2345 PM: Patient transported up to ICU pending official CT report.
Update 00:30: CT report independently reviewed by me which does appear to show an obstructing calculus at right UVJ. CT report confirms a 7 x 8 mm stone at right UVJ. Case was discussed with urology, Dr. Valenzuela who is aware. At this
point�suspect septic shock secondary to infected obstructing ureteral calculus.
Chronic conditions affecting care:
History of kidney stones and urosepsis, COPD on home O2, chronic indwelling Mane catheter
Acute Exacerbation and/or Progression of Chronic Illness:
Septic shock secondary to obstructing right ureteral calculus
<Galileo Rodriguez DO - Last Filed: 01/05/25 21:52>
*Pulse Oximetry
SaO2: 95
Nasal Cannula flow liters per minute: 3
<Mirna Zavala PA-C - Last Filed: 01/06/25 03:11>
*Radiology
Radiology exam reviewed: preliminary read by ED provider (CT reviewed by me-obstructing stone in right ureter) and radiology read reviewed
*Pulse Oximetry
Patient hypoxic: yes
*EKG
Interpreted by ED Provider?: Yes
EKG Intrepretation Date: 01/05/25
Interpretation: abnormal
Heart Rate: 71
Rate: normal
Rhythm: ventricular paced
*Seat Cover Maker Interpretation
Rate: normal
Interpretation: abnormal
Heart Rate: 74
Rhythm: ventricular paced
*Critical Care Note
Total Time (30-74mins, 75-104mins- exclusive of procedures): 55
comment:
Critical care statement: A total of 55 minutes of critical care time was provided for this patient. This includes management of unstable vital signs, evaluation of the patient at bedside, reviewing the patient's pertinent medical records, discussion
with consultants, review of old EKGs and review of pertinent medical records. This time with separate from time utilized to perform the aforementioned documented procedures
Data Reviewed
Review of Other/Old Records Reveals: Radiology Studies (CT report from 03/27/2020 which shows obstructing right UPJ stone)
<Mirna Zavala PA-C - Last Filed: 01/06/25 03:11>
Patient Management
Discussion with other providers: Hospitalist and Fitter / Welder (Case discussed with urologist)
Escalation/DeEscalation of care consider admission/obs:
Admit to ICU
<Galileo Rodriguez DO - Last Filed: 01/05/25 21:52>
Update Note
Update Note:
9:45 PM patient continued to decompensate quickly. At this point, it was decided to intubate due to to the fact that he is now having trouble protecting his airway. Patient intubated without
ED Attending Note
<Galileo Rodriguez DO - Last Filed: 01/05/25 21:52>
ED Attending Note
Patient seen and examined by attending physician: Yes
I performed the substantive portion of visit, reviewed & personally made and approve the management plan that is documented in note by myself or ISATU.: Yes
ED Attending Note:
I have seen and evaluated the patient with a [id number] encounter. I have spoken to the advance practicer provider and involved in the medical history, the physical exam, medical decision making.
Evaluation and management service: agree unless noted differently below.
Results interpretation: agree unless noted differently below.
Focused HPI: 54-year-old male presenting for evaluation of decreased urinary output, back pain and fever. Patient does have a history of paraplegia and has a chronic Mane. On arrival, patient found to be febrile
Physical exam: Soft and nontender abdomen. Lungs clear
Medical Decision Making: When patient arrived after getting a chest x-ray, he appeared to be in septic shock. He is febrile, sweaty and hypotensive. Patient continued IV fluids. Patient had already been given IV cefepime for presumed urinary
source . Will add vancomycin.
-
Portions of this chart may have been created with voice recognition software.� Occasional wrong word or��sound alike� substitutions may have occurred due to the inherent limitations of voice recognition software.
Discharge Plan
Departure
Patient Disposition: Admit
Date of Disposition: 01/05/25
Time of Disposition: 22:13
Admit to: ICU
Presentation/result/management discussed w/ accepting MD/DO: Hospitalist
Discharge Problem:
Septic shock
Interventions
Interventions:
*Risk Screen - Suicide Last Done: 01/06/25 00:49
*General Assessment Last Done: 01/05/25 20:36
*Neglect/Abuse Screening Last Done: 01/05/25 20:36
*ED- Fall Risk Assessment Last Done: 01/05/25 20:36
*ED COVID-19 Vaccine History Last Done: 01/06/25 00:49
*Nursing Disposition Last Done: 01/05/25 23:45
ED-Male Genitourinary Assessment Last Done: 01/05/25 20:36
Discharge Date and Time
Discharge Date/Time: 01/05/25 23:45
[2025-01-05] MEDS: MAXIPIME 2000 MG IV (21:25)
[2025-01-05 21:30] LABS: Glucose - Point of Care 151 mg/dl (70-99)
[2025-01-05] MEDS: TORADOL 15 MG IV (21:30)
--- NOTE | 2025-01-05 21:56 | PHANOTE ---
01/05/2025, significant other does not know pt.'s meds.; pt. intubated at time of interview; used pharmacy records to compile a list of pt.'s meds.; ec[facility] records are outdated; could not confirm pt.'s meds.
[2025-01-05] MEDS: AMIDATE 20 MG IV (21:57)
[2025-01-05] MEDS: DIPRIVAN 100 IV (21:58)
[2025-01-05] MEDS: LEVOPHED 250 IV (22:04)
[2025-01-05] MEDS: VANCOCIN 540 MG IV (22:06)
--- NOTE | 2025-01-05 22:58 | HPS.HSE ---
Family Physician
-
Family Physician: Alida Sandy
Chief Complaint
-
decreased urine output
History of Present Illness
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
diabetes, obesity, nephrolithiasis, history of DVT/PE status post IVC filter presenting with decreased urinary output. He states that he did not notice much output from his Burnett catheter yesterday. This morning he noted fever 100.8. He reported
feeling weak. No cough or shortness of breath or chest pain. No nausea or vomiting. No diarrhea. His Burnett catheter was changed yesterday. He complained of some abdominal bloating but no shyam pain. He did complain of bilateral lower back pain.
Patient decompensated and was sweating, hypotensive after chest x-ray. He was intubated due to difficulty protecting his airway.
He drinks alcohol occasionally. Does not smoke.
Medical History
Past Medical History
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
diabetes, obesity, nephrolithiasis, history of DVT/PE status post IVC filter)
Past Surgical History: Reports None
Social History
Tobacco: Former Smoker
Alcohol: Occasional
Drug: None
Family History
Family History: Not pertinent
Allergies / Home Medications
Allergies reflects when Allergies were last updated in [facility].
Home Medications with original date entered in [facility]
Allergy/Medication List:
Allergies
Allergy/AdvReac Type Severity Reaction Status Date / Time
No Known Allergies Allergy Verified 03/27/24 16:30
Home Medications
sertraline 50 mg tablet 50 mg PO DAILY depression 06/11/16
amlodipine 5 mg tablet 5 mg PO DAILY blood pressure 03/28/20
docusate sodium 100 mg capsule 100 mg PO DAILY Constipation 12/06/21
oxycodone 5 mg tablet 0 mg PO DIRECTED severe pain 07/24/23
baclofen 20 mg tablet 40 mg PO BID Muscle Spasms 07/31/23
albuterol sulfate 90 mcg/actuation aerosol inhaler 2 puff inhalation R Q6HPRN PRN wheezing 12/22/23
fluticasone fur. 200 mcg-umeclid 62.5 mcg-vilant 25 mcg inhalat.powder (Trelegy Ellipta) 1 inh inhalation R DAILY Lung/Breathing Issues 12/22/23
gabapentin 600 mg tablet 300 mg PO BID Pain 12/22/23
morphine 30 mg tablet,extended release 30 mg PO BID Pain 12/22/23
sennosides 8.6 mg tablet (senna) 17.2 mg PO DAILY Constipation 12/22/23
warfarin 6 mg tablet 0 mg PO .SEE BELOW Blood Clot Prevention/Tx 12/22/23
polyethylene glycol 3350 17 gram oral powder packet (HealthyLax) 17 g PO DAILYPRN PRN constipation #0 ea 12/28/23
pantoprazole 40 mg tablet,delayed release (Protonix) 40 mg PO DAILY Gastrointestinal Issue 03/28/24
spironolactone 25 mg tablet (Aldactone) 25 mg PO DAILY #30 tabs 09/23/24
acetaminophen 325 mg tablet (Tylenol) 650 mg PO DAILYPRN PRN mild pain 01/05/25
furosemide 40 mg tablet (Lasix) 40 mg PO DAILY 01/05/25
potassium chloride 20 mEq tablet,extended release(part/cryst) 20 meq PO DAILY 01/05/25
therapeutic multivitamin 1 tab PO DAILY 01/05/25
Review of Systems
-
History Source: Patient
A 12 point ROS was completed and negative except as noted: Yes
Constitutional: Reports No Symptoms
EENT: Reports No Symptoms
Respiratory: Reports No Symptoms
Cardiac: Reports No Symptoms
Abdomen/GI: Reports See HPI
: Reports No Symptoms
Musculoskeletal: Reports See HPI
Skin: Reports No Symptoms
Neurological: Reports No Symptoms
Endocrine: Reports No Symptoms
Hematologic/Lymphatic: Reports No Symptoms
Psych: Reports No Symptoms
Physical Exam
Vital Signs
Vital Signs
Temp Pulse Resp BP Pulse Ox
102.3 F H 121 19 110/43 100
01/05/25 19:53 01/05/25 22:45 01/05/25 22:45 01/05/25 22:45 01/05/25 22:45
Physical Exam
General: Well Developed, Well Nourished and No Apparent Distress
HEENT: NormoCephalic, Moist mucous membranes and Atraumatic
Respiratory: Clear
Cardiac: S1/S2 and Regular Rhythm; No Murmur or Rub
GI: Soft, Non Tender, Non Distended and Normal Bowel Sounds; No Organomegaly
Rectal: Deferred by Provider
Musculoskeletal: No Clubbing, No Cyanosis and No Edema
Skin: No Rash
Neuro: Nonfocal/grossly intact
Laboratory Results
-
01/05/25 20:02
01/05/25 20:02
Laboratory Results
Lactic Acid 1.5 mmol/L (0.7-2.0) 01/05/25 20:03
Total Bilirubin 1.3 mg/dl (0.2-1.3) 01/05/25 20:02
AST 23 U/L (17-59) 01/05/25 20:02
ALT 16 U/L (0-50) 01/05/25 20:02
Alkaline Phosphatase 111 U/L (38-126) 01/05/25 20:02
Data Reviewed
-
Lab Data: Labs Reviewed by me
Old Records: Reviewed
Impression/Plan
-
IMPRESSION:
PLAN:
# Septic shock (fever, tachycardia, leukocytosis, hypotension) suspect acute pyelonephritis versus obstructive stone versus intra-abdominal process
-Intubated for airway protection
- Chest x-ray shows hazy opacity in the right upper lobe which may represent atelectasis or pneumonia
-COVID and influenza negative
- Urinalysis shows 16-20 WBC, negative nitrates, +3 leukocyte Estrace
- Blood cultures
- Urine culture
-Burnett catheter changed yesterday, and is draining urine
- IV fluids
-Check I's and O's
- Vancomycin/Zosyn
- CT abdomen pelvis to rule out intra-abdominal process
- Patient on propofol
- Patient on Levophed
- Protonix 40 IV daily
# Acute kidney injury
- IV fluids
T6 spinal cord injury since 2007
Acquired spastic quadriplegia chronic Burnett catheter
Chronic opioid dependence
- Hold opiates
COPD
- On 2.5 L at baseline
- Continue Trelegy
- DuoNebs every 6 hours as needed
Obstructive sleep apnea
- Uses CPAP at night
Chronic HFpEF
- Hold spironolactone
- hold Lasix
History of dysphagia
Permanent atrial fibrillation
- Hold Coumadin
History of bradycardia status post permanent pacemaker
History of DVT/PE status post IVC filter
Essential hypertension
History of nephrolithiasis
Type 2 diabetes
- Insulin sliding scale
Obesity
Anxiety/depression
Former smoker
Full code
DVT prophylaxis�heparin
N.p.o.
[2025-01-05 23:13] LABS: Triglycerides 173 mg/dl (10-149)
[2025-01-06] VITALS (9 sets, daily range): BP systolic 78–167; BP diastolic 45–135; BMI 44.1
[2025-01-06 00:19] LABS: Magnesium 1.7 mg/dl (1.6-2.3)
[2025-01-06] MEDS: NSS 1000 IV ×4 (00:21→23:23)
[2025-01-06 00:23] LABS: Glucose - Point of Care 144 mg/dl (70-99)
[2025-01-06] MEDS: SUBLIMAZE 50 MCG IV ×3 (00:37→23:18)
[2025-01-06] MEDS: SUBLIMAZE 100 IV ×2 (00:40→23:16)
--- NOTE | 2025-01-06 01:17 | W.PN.UPDATE ---
Update Note
Progress Note Update
Procedure Note: Arterial Line�
� Left Wrist Arrow 20 (09/09)�
Diagnosis:�Sepsis�
IV Line Comments: Uneventful Procedure�
Parth's test completed pre-procedure: Yes�
A-Line Comments: Sterile technique as per standard protocol, Ultrasound guided insertion�
Functioning A-line in situ: Yes�
A-line Insertion Start Time:�0045�
A-line in at:��0100
--- NOTE | 2025-01-06 01:21 | W.PN.SEPSIS ---
Sepsis
Vital Signs
Temp Pulse Resp BP Pulse Ox
100.2 F 109 10 113/72 95
01/06/25 00:14 01/05/25 23:56 01/05/25 23:56 01/05/25 23:56 01/05/25 23:56
Physical Exam
Physical Exam:
A focused exam was performed after fluid resuscitation.
Capillary Refill
Bilateral Lower Extremity:
Jose Time: Less than 3 sec
Pulse Evaluation
Bilateral Posterior Tibial:
Pulse Evaluation: Present
[2025-01-06] MEDS: HEPARIN 5000 UNITS SC ×2 (01:22→23:20)
--- NOTE | 2025-01-06 01:26 | CONS.URO ---
Consultation
-
Date/Time Consultation Performed: 01/06/2025 0120
Performing Provider: Nicolas
Reason for Consultation: Right Ureteral Stone
Medical History
History of Present Illness
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
fibrillation on Coumadin, diabetes, obesity, nephrolithiasis, history of DVT/PE status post IVC filter presenting with decreased urinary output. He states that he did not notice much output from his Burnett catheter yesterday. This morning he noted
fever 100.8. He reported feeling weak. No cough or shortness of breath or chest pain. No nausea or vomiting. No diarrhea. His Burnett catheter was changed yesterday. He complained of some abdominal bloating but no shyam pain. He did complain of
bilateral lower back pain.'
Patient decompensated and was sweating, hypotensive after chest x-ray. He was intubated due to difficulty protecting his airway.
03/[address] Chan's op note' 'Cystourethroscopy demonstrated normal course and caliber of the urethra. The bladder was severely distorted due to patient's severe constipation with significant anterior elevation of the posterior bladder
wall creating difficulty in catheterization of the ureteral orifice.'
Past Medical History
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
obesity, nephrolithiasis, history of DVT/PE status post IVC filter)
Past Surgical History: Cholecystectomy (02/2020 - laparoscopic, Dr Wynn) and Urological (03/2020 difficult cysto, right ureteral stenting [Dr Chan]; 05/2020 Right Ureteroscopy, Stone Fragmentation, Stent exchange, SPT placement [Dr Chan])
Social History
Unable to obtain full social history at this time due to: Patient Intubation
Allergies/Home Medications
Allergies
Allergy/AdvReac Type Severity Reaction Status Date / Time
No Known Allergies Allergy Verified 03/27/24 16:30
Home Medications
�Medication �Instructions �Recorded �Confirmed �Type
sertraline 50 mg tablet 50 mg PO DAILY depression 06/11/16 09/17/24 History
amlodipine 5 mg tablet 5 mg PO DAILY blood pressure 03/28/20 03/27/24 History
docusate sodium 100 mg capsule 100 mg PO DAILY Constipation 12/06/21 09/17/24 History
oxycodone 5 mg tablet 0 mg PO DIRECTED severe pain 07/24/23 09/17/24 History
baclofen 20 mg tablet 40 mg PO BID Muscle Spasms 07/31/23 09/17/24 History
albuterol sulfate 90 mcg/actuation 2 puff inhalation R Q6HPRN PRN 12/22/23 09/17/24 History
aerosol inhaler wheezing
fluticasone fur. 200 mcg-umeclid 1 inh inhalation R DAILY 12/22/23 09/17/24 History
62.5 mcg-vilant 25 mcg Lung/Breathing Issues
inhalat.powder (Trelegy Ellipta)
gabapentin 600 mg tablet 300 mg PO BID Pain 12/22/23 09/17/24 History
morphine 30 mg tablet,extended 30 mg PO BID Pain 12/22/23 09/17/24 History
release
sennosides 8.6 mg tablet (senna) 17.2 mg PO DAILY Constipation 12/22/23 09/17/24 History
warfarin 6 mg tablet 0 mg PO .SEE BELOW Blood 12/22/23 09/19/24 History
Clot Prevention/Tx
polyethylene glycol 3350 17 gram 17 g PO DAILYPRN PRN constipation 12/28/23 09/17/24 Rx
oral powder packet (HealthyLax) #0 ea
pantoprazole 40 mg tablet,delayed 40 mg PO DAILY Gastrointestinal 03/28/24 03/27/24 History
release (Protonix) Issue
spironolactone 25 mg tablet 25 mg PO DAILY #30 tabs 09/23/24 Rx
(Aldactone)
acetaminophen 325 mg tablet 650 mg PO DAILYPRN PRN mild pain 01/05/25 01/05/25 History
(Tylenol)
furosemide 40 mg tablet (Lasix) 40 mg PO DAILY 01/05/25 History
potassium chloride 20 mEq 20 meq PO DAILY 01/05/25 History
tablet,extended release(part/cryst)
therapeutic multivitamin 1 tab PO DAILY 01/05/25 01/05/25 History
Physical Exam
Vital Signs
Vital Signs
Temp Pulse Resp BP Pulse Ox
100.2 F 109 10 113/72 95
01/06/25 00:14 01/05/25 23:56 01/05/25 23:56 01/05/25 23:56 01/05/25 23:56
Physical Exam
adult male
intubated, sedated, in ICU bed
Burnett draining clear- pale yellow urine
Assessment / Plan
-
Sepsis -- origin unclear
Right proximal ureteral stone
bladder stone
nephrolithiasis
Rec: Given Dr Chan's historic difficulty in accessing right ureter cystoscopically and current presence of bladder stone, would recommend that IRad attempt to place right PCN tube; if this endeavor fails, then an attempt to place a a right
ureteral stent in retrograde fashion via cystoscopic route would be attempted.
message sent to IRad on-call via TT
Data Reviewed
-
CT Scan: Image personally visualized and interpreted
Lab Data: Labs Reviewed
Old Records: Reviewed
[2025-01-06] MEDS: MAGNESIUM SULFATE 102 GRAMS IV (01:39)
[2025-01-06 01:40] LABS: B.E. 0.1 mmol/L; HCO3 26.0 mmol/L (21-28); O2 Saturation % 96.9 % (94-98); PCO2 46 mmHg (35-48); PO2 73 mmHg (83-108)
[2025-01-06] MEDS: DIPRIVAN 100 IV (01:40)
[2025-01-06 01:52] LABS: INR 2.10; PT 23.7 Sec (11.4-14.6)
[2025-01-06 01:53] LABS: APTT 37.4 Sec (23.4-35.0)
--- NOTE | 2025-01-06 02:04 | PTCARENOTE ---
Pt received from ED approximately 23:45, admitted to ICU 3371. Pt received intubated and sedated on propofol. Pt biting down on ETT, propfol titrated and fentanyl bolus given and gtt started as ordered. Pupils 2mm and sluggish, + protective
reflexes. Breath sounds coarse t/o. #8 ETT @ 23cm at the lip. AC 18/500/35%/+5, tolerating, pulse ox 95-97%. Palpable pulses, remains on levophed to maintain MAP >65. L radial a-line now in place, loosely correlates with cuff pressure. Abdomen with
hypoactive bowel sounds, found and distended. Chronic 16fr mane in place, draining reva urine. Discussed with urology at bedside--mane changed yesterday, not to be changed at this time. Skin intact with blanchable red area to buttock. Safe
environment maintained. Pt significant [id number].
[2025-01-06] MEDS: NSS 250 IV (02:14)
[2025-01-06] MEDS: LEVOPHED 250 IV ×6 (02:21→20:54)
--- NOTE | 2025-01-06 02:26 | W.PN.UPDATE ---
Update Note
Progress Note Update
- 54 yo male with urosepsis with mild right hydro secondary 7.5 mm stone in the proximal right ureter. IR consulted for percutaneous nephrostomy
- Pt intubated, history of quadriplegia, dvt/pe on coumadin, morbidly obese
- INR currently 2.10. Prior large left retroperitoneal hematoma with left pcnu placement in 2016
- Urology feels IR attempt is safer first option. PCN placement still entails significant bleeding risk and patient would need to be placed prone while currently intubated, more difficult task at this hour
- INR needs to be reversed/treated. Would continue aggressive resuscitation and will plan for the morning
[2025-01-06] MEDS: OFIRMEV 100 IV ×2 (03:30→10:40)
[2025-01-06] MEDS: AQUAMEPHYTON 51 MG IV (03:31)
--- NOTE | 2025-01-06 03:31 | W.PN.UPDATE ---
Update Note
Progress Note Update
Plan for IRAD to attempt to place a right PCN tube. �Patient is on Coumadin with an INR of 2.1 and IR is concerned for high risk of bleeding. The plan is to treat INR with Vitamin K and IR procedure in the AM.�
[2025-01-06 04:16] LABS: Hematocrit 42.7 % (39.0-52.0); Hemoglobin 13.5 g/dL (13.0-18.0); Mean Corp Hgb Conc. 31.6 g/dL (33.0-37.0); Mean Corpuscular Volume 79.7 fL (80.0-94.0); Platelet Count 167 10^3/uL (130-400); Red Cell Dist. Width 18.8 % (11.5-14.5)
[2025-01-06] MEDS: NEO-SYNEPHRINE 250 IV (04:35)
[2025-01-06 04:39] LABS: Blood Urea Nitrogen 33 mg/dl (9-20); Calcium 7.9 mg/dl (8.4-10.2); Carbon Dioxide 23 mmol/L (22-30); Chloride 103 mmol/L (98-107); Estimated Creatinine Clearance 72 ml/min; Glucose 148 mg/dl (70-99); Magnesium 1.6 mg/dl (1.6-2.3); Potassium 3.4 mmol/L (3.5-5.1); Sodium 135 mmol/L (135-145); eGFR 50.57
[2025-01-06] MEDS: CALCIUM GLUCONATE 100 IV (06:14)
[2025-01-06] MEDS: KCL 270 MEQ IV (06:14)
[2025-01-06 06:15] LABS: Glucose - Point of Care 150 mg/dl (70-99)
[2025-01-06] MEDS: ZOSYN 50 IV ×2 (06:15→11:19)
[2025-01-06] MEDS: MAGNESIUM SULFATE 50 IV (06:15)
[2025-01-06] MEDS: NOVOLOG FLEXPEN-MODERATE RESISTANCE 1 UNITS SC ×2 (06:19→11:34)
--- NOTE | 2025-01-06 07:37 | CON.INTV ---
Consultation
Consultation Request
Date/Time Consultation Requested: 01/06/2025-7 AM
Date/Time Consultation Performed: 01/06/2025-7:30 AM
Requesting Provider: Hospitalist
Performing Provider: Dr. Hong
Reason for Consultation: Sepsis/ventilator/critical care management
Medical History
-
Chief Complaint: Sepsis
History of Present Illness:
54-year-old T6 paraplegic since 2007 with spastic quadriplegia and chronic Burnett catheter, COPD, heart failure preserved EF, permanent pacemaker for bradycardia, atrial fibrillation on Coumadin, diabetes, obesity, sleep apnea on BiPAP noticed
decreased urine output, fevers found to be septic-shirt sorter consulted for ventilator/sepsis/critical care management 01/06/2025. Patient is sedated on the ventilator and review of systems is unobtainable. He does not have significant secretions
but does have some rhonchi, no abdominal pain, and has some chronic leg swelling.
Past Medical History
Past Medical History: None (T6 spinal cord injury after fall out of tree hunting 2007. Spastic quadriplegia. Chronic Burnett catheter. COPD/former smoker. Heart failure pEF. Obesity. WILBERT on BiPAP. Atrial fibrillation/Coumadin. Bradycardia/PPM.
Dysphagia. Diabetes. Obesity. Nephrolithiasis. DVT/PE/IVC filter.)
Social History
Tobacco: Former Smoker
Alcohol: Occasional
Drug: None
Personal: Other (Girlfriend)
Occupational Exposures: No known asbestos exposure
Environmental Exposures: No known tuberculosis exposure
Family History
Family History: Reviewed & Not Pertinent
Allergies / Home Medications
Allergies
Allergy/AdvReac Type Severity Reaction Status Date / Time
No Known Allergies Allergy Verified 03/27/24 16:30
Home Medications
�Medication �Instructions �Recorded �Confirmed �Last Taken �Type
sertraline 50 mg tablet 50 mg PO DAILY depression 06/11/16 09/17/24 12/21/23 History
amlodipine 5 mg tablet 5 mg PO DAILY blood pressure 03/28/20 03/27/2412/20/24 History
docusate sodium 100 mg capsule 100 mg PO DAILY Constipation 12/06/21 09/17/24 12/21/23 History
oxycodone 5 mg tablet 0 mg PO DIRECTED severe pain 07/24/23 09/17/24 2 Days Ago History
~12/20/23
baclofen 20 mg tablet 40 mg PO BID Muscle Spasms 07/31/23 09/17/24 12/21/23 History
albuterol sulfate 90 mcg/actuation 2 puff inhalation R Q6HPRN PRN 12/22/23 09/17/24 12/21/23 History
aerosol inhaler wheezing
fluticasone fur. 200 mcg-umeclid 1 inh inhalation R DAILY 12/22/23 09/17/24 12/21/23 History
62.5 mcg-vilant 25 mcg Lung/Breathing Issues
inhalat.powder (Trelegy Ellipta)
gabapentin 600 mg tablet 300 mg PO BID Pain 12/22/23 09/17/24 12/21/23 History
morphine 30 mg tablet,extended 30 mg PO BID Pain 12/22/23 09/17/24 12/21/23 History
release
sennosides 8.6 mg tablet (senna) 17.2 mg PO DAILY Constipation 12/22/23 09/17/24 12/21/23 History
warfarin 6 mg tablet 0 mg PO .SEE BELOW Blood 12/22/23 09/19/24 12/21/23 History
Clot Prevention/Tx
polyethylene glycol 3350 17 gram 17 g PO DAILYPRN PRN constipation 12/28/23 09/17/24 Unknown Rx
oral powder packet (HealthyLax) #0 ea
pantoprazole 40 mg tablet,delayed 40 mg PO DAILY Gastrointestinal 03/28/24 03/27/24 Unknown History
release (Protonix) Issue
spironolactone 25 mg tablet 25 mg PO DAILY #30 tabs 09/23/24 Unknown Rx
(Aldactone)
acetaminophen 325 mg tablet 650 mg PO DAILYPRN PRN mild pain 01/05/25 01/05/25 01/05/25 History
(Tylenol)
furosemide 40 mg tablet (Lasix) 40 mg PO DAILY 01/05/25 Unknown History
potassium chloride 20 mEq 20 meq PO DAILY 01/05/25 Unknown History
tablet,extended release(part/cryst)
therapeutic multivitamin 1 tab PO DAILY 01/05/25 01/05/25 Unknown History
Review of Systems
-
Unable to Obtain full review of systems at this time due to: Other (Per HPI)
Vitals / Labs / Diagnostic Testing
Vital Signs
Temp Pulse Resp BP Pulse Ox
101.0 F H 72 19 95/70 92
01/06/25 07:31 01/06/25 07:30 01/06/25 07:30 01/06/25 01:48 01/06/25 07:30
Lab Data
01/06/25 04:06
01/06/25 04:06
Laboratory Results
01/06/25
01:31
PT 23.7 H
INR 2.10
APTT 37.4 H
pH 7.36
pCO2 46
pO2 73 L
HCO3 26.0
O2 Delivery Level
Microbiology
01/05/25 20:30 Nasal Swab Influenza Types A & B (GUILLAUME) - Final
Negative for Influenza A & B, NAAT
Negative results must be combined with clinical observations
and patient history.
Nucleic Acid Amplification test (NAAT)performed on the
[employer] platform.
Diagnostic Testing:
Physical Exam
-
Exam:
Well-nourished and well-developed, oral tracheal intubation
HEENT-atraumatic, normocephalic, thick neck
Neck-supple, no JVD, no bruit
Heart-regular rate and rhythm-no murmurs, rubs or gallops
Chest-clear to auscultation, no wheezes, crackles
Abdomen-soft, nontender, nondistended, no hepatosplenomegaly
Extremities-no cyanosis, clubbing, edema and good peripheral pulses
Integument-intact, no rashes, lesions or ecchymosis
Neurologically spastic quadriplegic
Assessment
-
54-year-old T6 paraplegic since 2007 with spastic quadriplegia and chronic Burnett catheter, COPD, heart failure preserved EF, permanent pacemaker for bradycardia, atrial fibrillation on Coumadin, diabetes, obesity, sleep apnea on BiPAP noticed
decreased urine output, fevers found to be septic-shirt sorter consulted for ventilator/sepsis/critical care management 01/06/2025.
Septic shock unresponsive to fluids requiring pressors
VEE
Urosepsis
Positive blood culture-organism pending
Lactic acidosis
Leukocytosis
Pneumonia/aspiration risk
Renal calculi
Hypokalemia
Mild hyperglycemia
Conditions present prior to admission:
T6 spinal cord injury after fall out of tree hunting 2007.
Spastic quadriplegia.
Chronic opioid dependence
Chronic Burnett catheter.
COPD/former smoker-on 2.5 L baseline-maintained on Trelegy
Heart failure pEF.
Obesity.
WILBERT on BiPAP.
Atrial fibrillation/Coumadin.
Bradycardia/PPM.
Dysphagia.
Diabetes.
Obesity.
Nephrolithiasis.
Anxiety/depression
DVT/PE/IVC filter.
Plan
Admit patient to medical intensive care unit for persistent hypotension despite fluid resuscitation requiring pressors
Supplement oxygen as needed
High flow oxygen if needed
BiPAP if necessary
Intubate and mechanically ventilate if necessary
Aspiration precautions
Nebulizers if needed-some rhonchi and chronically on Trelegy
Obtain cultures
Empiric antibiotics
Consider Infectious disease consultation
Monitor leukocytosis
Interventional radiology for percutaneous nephrostomy
Interventional radiology for triple-lumen
Fluid resuscitation with 30 mL/kg crystalloid-preferably lactated ringer-(less VEE) with subsequent boluses as needed
Monitor lactate
Follow CVP if possible
Attempt noninvasive bedside tissue perfusion evaluation to see if fluid bolus responsive
Measure pulse pressure and stroke volume variation if patient on ventilator, passively breathing without arrhythmia and with temporary large tidal volume ventilation and if > 13% then likely fluid bolus responsive
If patient active then consider measuring bedside leg lift for 3 minutes and if cardiac output increases or if there is a rise of 2-4 on end-tidal CO2 then fluid bolus
If bedside ultrasound available then measure IVC diameter variation to evaluate for fluid bolus responsiveness
Begin pressors as needed for MAP goal of 65-Norepinephrine first, then Vasopressin and consider Angiotensin II if continues to be hypotensive
Consider methylene blue if available-specific inhibitor of induced nitric oxide synthase iNOS and its downstream enzyme soluble guanylate cyclase-noninferiority study shown to reduce time to vasopressor discontinuation, decreased ICU length of stay,
hospital stay but no change in mortality-published Critical Care 09/18/2022
If persistently hypotensive then consider checking random cortisol-hydrocortisone if random less than 3, if 3-15 then consider ACTH stimulation test
Cortisol random pending
If persistently hyperthermic then correcting hyperthermia can decrease pressor requirements, increased chances of reversal of shock and decrease mortality
Monitor renal function
Consider nephrology evaluation if does not improve
Replace electrolytes
Monitor blood sugar
Insulin supplementation as needed
DVT prophylaxis-heparin subcu
GI prophylaxis-on pantoprazole
Early nutrition if possible
Early mobilization/bedside range of motion
Dr. Hong reviewed with 'tamekaiensana' on multidisciplinary rounds
Critical care statement: A total of 70 minutes of critical care time was provided for this patient today. This includes management of unstable vital signs, evaluation of the patient at bedside, reviewing the patient's pertinent medical records
including radiographs, microbiology, laboratory evaluations, and discussion with primary team, consultants, pharmacy, nutrition, physical therapy, case management, charge nurse, critical care nursing, and respiratory therapy.
Diagnostic data:
Chest x-ray 01/05/2025-NAD
Chest x-ray 01/05/2025-new hazy right upper lobe opacification may be atelectasis or pneumonia, ET tube 4.[address] abdomen and pelvis 01/05/25-8 mm calculus proximal right ureter with moderate right renal collection system dilation, small bilateral nonobstructing renal calculi, 1.9 cm urinary bladder stone noted, prior cholecystectomy
Echocardiogram 09/18/2024-EF 60-65%, intermediate diastolic dysfunction, no gross valvular abnormalities
Data Reviewed
-
EKG: Report reviewed by me
Radiology: Image personally visualized and interpreted and Report reviewed by me
CT Scan: Image personally visualized and interpreted and Report reviewed by me
Medical Tests (Nuc Med, Echo etc): Image personally visualized and interpreted
Labs: Labs reviewed by me
Critical Care Time (in minutes): 65
[2025-01-06] MEDS: DUONEB 3 ML INH (08:37)
[2025-01-06] MEDS: NSS (PRESERVATIVE FREE) 10 ML IV ×2 (08:44→19:54)
[2025-01-06] MEDS: PROTONIX IV 40 MG IV ×2 (08:44→19:54)
[2025-01-06] MEDS: HEPARIN SC ×2 (08:44→16:02)
--- NOTE | 2025-01-06 08:51 | PHA.VAN.IN ---
Assessment
- Assessment
Renal Function: SCR Appears Elevated from baseline
Concomitant Antimicrobials: piperacillin/tazobactam
Plan
- Plan
Initial / Loading Dose: 2000mg - 01/05 22:06
Maintenance Regimen: dosing by level - re-dose today with 1250mg x1
Monitoring: random 01/07 06
Pharmacokinetics Vancomycin I
- -
Patient Age: 54
Patient Sex: Male
Vancomycin Day #: 1
Indication: Genito-Urinary Tract
Requesting Provider: Iona Hoover
Pertinent Antimicrobial Allergies:
NKDA
Height / Weight:
Height 5 ft 9 in
Actual Weight 135.5 kg
Pertinent Past Medical History: BMI ~44
- Vital Signs / Lab Results
Temp Pulse Resp BP Pulse Ox
101.0 F H 72 19 95/70 94
01/06/25 07:31 01/06/25 07:30 01/06/25 07:30 01/06/25 01:48 01/06/25 08:00
Lab Results - Hematology
01/05/25 01/06/25
20:02 04:06
WBC 27.4 H 32.1 H
Lab Results - Chemistry
01/05/25 01/06/25
20:02 04:06
BUN 33 H 33 H
Creatinine 1.4 H 1.6 H
Estimated Creat Clear 82 72
Albumin 4.0
01/05/25 01/06/25 01/06/25
20:03 00:00 04:06
Lactic Acid 1.5 Cancelled 2.6 H
Lab Results - Urine
01/05/25
20:03
Urine Nitrite (Reflex) Negative
Leukocyte Esterase Rfl 3+ A
Urine WBC (Reflex) 16-20 A
Ur Squamous Epith Cells 3-5
Urine Bacteria (Reflex) Moderate A
Microbiology Results
01/05/25 20:30 Influenza Types A & B (GUILLAUME) - Final
Nasal Swab Negative for Influenza A & B, NAAT
Negative results must be combined with clinical observations
and patient history.
Nucleic Acid Amplification test (NAAT)performed on the
[employer] platform.
[2025-01-06 10:03] LABS: INR 2.38; PT 26.0 Sec (11.4-14.6)
[2025-01-06] MEDS: MIRALAX 17 GRAMS TUBE (10:39)
[2025-01-06] MEDS: LIORESAL 20 MG TUBE ×3 (10:39→20:50)
[2025-01-06] MEDS: LR 500 IV (10:47)
[2025-01-06 11:36] LABS: Glucose - Point of Care 155 mg/dl (70-99)
--- NOTE | 2025-01-06 11:40 | PTCARENOTE ---
Systems reviewed. No new changes. Maintained on levo/malean as charted. GF at bedside and updated.
[2025-01-06] MEDS: VANCOCIN 275 MG IV (11:42)
[2025-01-06 12:25] LABS: Cortisol, Random 30.9 ug/dl
--- NOTE | 2025-01-06 12:25 | PTCARENOTE ---
IR spoke to Dr Hong and requested ffp prior to pcn. Brother contacted and message left, but no call back yet. Type and cross sent but consent pending. IR aware.
[2025-01-06] MEDS: LR 1000 IV (12:43)
--- NOTE | 2025-01-06 12:58 | PTCARENOTE ---
Attending was in and aware of improvement in bp with previous fluid bolus. Additional bolus ordered and currently infusing. Weaning pressors as able.
--- NOTE | 2025-01-06 13:00 | W.PN.HOSP.TC ---
Addendum entered and electronically signed by Nikko Cruz DO 01/07/25 11:18:
UTI is not related to catheter but rather is due to impacted ureteral stone
Original Note:
Today's Communication/Plan
-
Assessment / Plan
Assessment / Plan
General: Acutely ill-appearing, intubated and sedated
HEENT: NormoCephalic, ETT and OGT in place
Respiratory: Mechanical breath sounds bilaterally, equal expansion
Cardiac: S1/S2 and Regular Rhythm; No Rub or Gallop
GI: Soft, Non Tender, Non Distended and Normal Bowel Sounds
Musculoskeletal: No Edema, no deformity
Skin: Warm and dry
: Burnett in place draining clear yellow urine
Neuro: Responsive to noxious stimuli, no tremor
Psych: Unable to assess
Mr. Guzman is a 54-year-old male with a medical history of T6 spinal cord injury (2007), acquired spastic quadriplegia, chronic Burnett, HFpEF, COPD, bradycardia (PPM), dysphagia, A-fib (on warfarin), and DVT/PE (IVC filter) who presented with
decreased urinary output from his Burnett catheter for 1 day prior to arrival. He then developed a low-grade fever and reported feeling weak. He also complained of bilateral low back pain. He denied cough, shortness of breath, or abdominal pain.
Shortly after arrival in the hospital he became diaphoretic, hypotensive, and lethargic. He was intubated for airway protection. Chest x-ray showed possible right upper lobe atelectasis or pneumonia. Respiratory panel was negative for COVID or
influenza. CT abdomen pelvis showed 7 x 8 mm proximal right ureteral stone with hydronephrosis and perinephric fat stranding. He was evaluated by urology and IR after which she was that the best course of action would be placement of percutaneous
nephrostomy tube. However his INR was still therapeutic from his warfarin and so PCN placement has been postponed. He has been admitted to the ICU for ongoing management.
Septic shock secondary to UTI:
- Impacted right ureteral stone with proximal hydronephrosis and perinephric fat stranding
- Continue broad-spectrum antibiotics with vancomycin and Zosyn
- Currently on 2 vasopressors with phenylephrine and norepinephrine, will titrate as able
- Continue IV fluids
- Follow-up cultures
- Elevated lactic acid around 2.5, trend until within normal limits
- Plan for percutaneous nephrostomy tube placement as soon as possible considering his therapeutic INR
- Appreciate input from pension fund manager, urology, and IR
Lactic acidosis:
- Secondary to septic shock
- Treatment as above
VEE:
- Suspect prerenal due to septic shock
- Monitor with fluid resuscitation and improvement in BP
Hypokalemia:
- Mild with potassium of 3.4
- Will replete and monitor
A-fib:
- Holding warfarin pending IR/urologic procedure
- Heart rate currently well-controlled
DVT prophylaxis: INR currently therapeutic, holding warfarin for urologic procedure
CODE STATUS: Full code
Total time spent on today's encounter was 45 minutes
Anticipated Discharge: > 48 hours
Subjective/Interval History
-
Date of Service: January 06, 2025
Patient was seen and examined at bedside. He remains intubated and sedated. He remains on 2 pressors. Awaiting IR placement of right percutaneous nephrostomy tube.
Objective Data
-
Labs:
Laboratory Results
01/06/25 01/06/25 01/06/25
01:31 04:06 09:36
WBC 32.1 H
Hgb 13.5
Hct 42.7
Plt Count 167
PT 23.7 H 26.0 H
INR 2.10 2.38
APTT 37.4 H
HCO3 26.0
Sodium 135
Potassium 3.4 L D
Chloride 103
Carbon Dioxide 23
BUN 33 H
Creatinine 1.6 H
Glucose 148 H
Calcium 7.9 L
Vital Signs:
Vital Signs
Temp Pulse Resp BP Pulse Ox
100.2 F 70 18 159/68 95
01/06/25 11:40 01/06/25 12:18 01/06/25 12:18 01/06/25 12:18 01/06/25 12:18
I&O
01/05/25 01/06/25 01/07/25
06:59 06:59 06:59
Intake Total 1691.5 / 1986.5 3216.5 / 3216.5
Output Total 725 / 725 175 / 175
Balance 966.5 / 1261.5 3041.5 / 3041.5
Review of Systems
-
Unable to obtain full review of systems at this time due to: Patient Intubation
Physical Exam
-
General: Intubated
--- NOTE | 2025-01-06 13:28 | CM ---
Patient intubated. Initial assessment completed with Nguyen, patient's significant other. They live in a 2 story home with 1st floor B/B set-up. Ramp to enter the home. Patient uses an electric wheelchair for mobility. He does not drive or have
adaptive vehicle. He does have a CPAP, O2 concentrator continuous at 2.5 L, bariatric bed, pacer, mane, vanda lift and electric w/ch. Patient's SO is the caregiver through [facility] for 10-11 hours a day through waiver program. Does have a
HC-POA (brother). No service. PCP is Dr. Alida Sandy and Pharmacy is [facility] in [place].
Discharge POC: TBD.
--- NOTE | 2025-01-06 13:45 | PTCARENOTE ---
witnessed consent from sister to give blood products for pcn. blood bank aware
--- NOTE | 2025-01-06 14:39 | PTCARENOTE ---
first of ffp infusing, IR at bedside to place tlc. once line placed and second unit ffp infusing/ed will transport to IR for pcn
--- NOTE | 2025-01-06 15:30 | PTCARENOTE ---
Bedside Right IJ triple lumen central line inserted by Dr. Barnett, using US guidance, without difficulty. Portable CXR ordered for placement.
--- NOTE | 2025-01-06 16:00 | PTCARENOTE ---
Pt taken to IR for pcn. Awake prior to taking to IR, fentanyl bolus and drip increased as charted. REport given to Mis in IR. Pt very diaphoretic prior to transfer, but malena had been weaned off. Levo maintained. Otherwise no changes.
[2025-01-06 16:50] LABS: INR 2.23; PT 24.8 Sec (11.4-14.6)
[2025-01-06] MEDS: NOVOLOG FLEXPEN-MODERATE RESISTANCE SC (18:00)
[2025-01-06] MEDS: ZOSYN 100 IV ×2 (18:08→23:20)
[2025-01-06 18:10] LABS: Glucose - Point of Care 139 mg/dl (70-99)
--- NOTE | 2025-01-06 18:44 | PTCARENOTE ---
pt returned from IR with R nephrostomy tube, received 1mg versed for procedure. culture sent to lab by IR, bloody drainage noted in nephrostomy tube. vitals stable upon return. chg bath done and linens changes upon return. sister and gf given
updates by telephone.
[2025-01-06 20:08] LABS: Blood Urea Nitrogen 31 mg/dl (9-20); Calcium 7.7 mg/dl (8.4-10.2); Carbon Dioxide 24 mmol/L (22-30); Chloride 105 mmol/L (98-107); Estimated Creatinine Clearance 71 ml/min; Glucose 156 mg/dl (70-99); Magnesium 1.9 mg/dl (1.6-2.3); Potassium 3.9 mmol/L (3.5-5.1); Sodium 134 mmol/L (135-145); eGFR 50.57
[2025-01-06] MEDS: KCL ELIXIR 20 MEQ TUBE (20:51)
[2025-01-06] MEDS: SENNA SYRUP 17.6 MG TUBE (20:51)
[2025-01-06] MEDS: COLACE LIQUID 100 MG TUBE (20:51)
[2025-01-06] MEDS: MAGNESIUM OXIDE 500 MG TUBE (20:52)
[2025-01-06] MEDS: NEURONTIN 300 MG TUBE (20:52)
[2025-01-07] VITALS (9 sets, daily range): BP systolic 111–128; BP diastolic 54–56; PULSE 2–72; BMI 45.8
[2025-01-07 00:11] LABS: Glucose - Point of Care 120 mg/dl (70-99)
--- NOTE | 2025-01-07 00:19 | PTCARENOTE ---
Pt received at 19:00. Intubated and sedated on fentanyl. RASS -1, nods y/n appropriately and follows commands. Pt initially anxious and unsure of why he is in the hospital, once updated pt calm. Vpaced, rate 70s. Levophed continues to maintain MAP >
65. Pulses palpable. L radial a-line present, zeroed and transduced, correlating with cuff pressure. #8 ETT, 23 at the lip, repositioned from R to C. AC 18/500/40%/+5, pulse ox mid 90s, breath sounds coarse t/o. OGT to LIWS, bilious output. Bowel
sounds hypoactive, abdomen round/distended. No BM, bowel regimen started. Chronic mane remains in place, cloudy/reva urine. R nephrostomy, bloody output. Nephrostomy dressing CDI, surrounding area WNL. Safe environment maintained, repositioned
q2h.
[2025-01-07] MEDS: NOVOLOG FLEXPEN-MODERATE RESISTANCE SC ×4 (00:50→18:00)
[2025-01-07 04:19] LABS: B.E. -1.5 mmol/L; HCO3 24.3 mmol/L (21-28); O2 Saturation % 96.3 % (94-98); PCO2 44 mmHg (35-48); PO2 75 mmHg (83-108)
[2025-01-07] MEDS: SUBLIMAZE 50 MCG IV (04:29)
[2025-01-07 04:32] LABS: Hematocrit 37.4 % (39.0-52.0); Hemoglobin 12.1 g/dL (13.0-18.0); Mean Corp Hgb Conc. 32.4 g/dL (33.0-37.0); Mean Corpuscular Volume 78.6 fL (80.0-94.0); Platelet Count 124 10^3/uL (130-400); Red Cell Dist. Width 18.7 % (11.5-14.5)
[2025-01-07 04:42] LABS: Blood Urea Nitrogen 32 mg/dl (9-20); Calcium 7.8 mg/dl (8.4-10.2); Carbon Dioxide 22 mmol/L (22-30); Chloride 108 mmol/L (98-107); Estimated Creatinine Clearance 88 ml/min; Glucose 114 mg/dl (70-99); Magnesium 2.1 mg/dl (1.6-2.3); Potassium 4.0 mmol/L (3.5-5.1); Sodium 136 mmol/L (135-145); eGFR > 60.00
[2025-01-07] MEDS: ZOSYN 100 IV ×3 (05:58→17:11)
[2025-01-07] MEDS: LEVOPHED 250 IV (05:58)
[2025-01-07 06:08] LABS: Glucose - Point of Care 117 mg/dl (70-99)
[2025-01-07 06:29] LABS: Absolute Neutrophils -Man Diff 25.0 10^3/uL (1.4-6.5); Anisocytosis 1+; Microcytosis 2+; Normal RBC Morphology No; Platelets Checked Yes; Total Cells Counted 100
[2025-01-07] MEDS: HEPARIN 5000 UNITS SC ×2 (07:25→17:10)
[2025-01-07] MEDS: COLACE LIQUID 100 MG TUBE (07:25)
[2025-01-07] MEDS: NSS (PRESERVATIVE FREE) 10 ML IV (07:28)
[2025-01-07] MEDS: PROTONIX IV 40 MG IV (07:28)
[2025-01-07] MEDS: LIORESAL 40 MG TUBE (07:28)
[2025-01-07] MEDS: MIRALAX 17 GRAMS TUBE (07:28)
[2025-01-07] MEDS: NEURONTIN 300 MG TUBE (07:28)
--- NOTE | 2025-01-07 07:38 | W.PN.INTV ---
Today's Communication / Plan
Recommendations
Spontaneous breathing trial
Continue antibiotics
Percutaneous nephrostomy tube
Resume anticoagulation once safe
BiPAP at night and during the daytime as needed
Assessment
-
54-year-old T6 paraplegic since 2007 with spastic quadriplegia and chronic Burnett catheter, COPD, heart failure preserved EF, permanent pacemaker for bradycardia, atrial fibrillation on Coumadin, diabetes, obesity, sleep apnea on BiPAP noticed
decreased urine output, fevers found to be septic-pin attacher consulted for ventilator/sepsis/critical care management 01/06/2025.
Septic shock unresponsive to fluids requiring pressors
VEE
Urosepsis
Positive blood culture-organism pending
Lactic acidosis
Leukocytosis
Pneumonia/aspiration risk
Renal calculi
Hypokalemia
Mild hyperglycemia
Conditions present prior to admission:
T6 spinal cord injury after fall out of tree hunting 2007.
Spastic quadriplegia.
Chronic opioid dependence
Chronic Burnett catheter.
COPD/former smoker-on 2.5 L baseline-maintained on Trelegy
Heart failure pEF.
Obesity.
WILBERT on BiPAP.
Atrial fibrillation/Coumadin.
Bradycardia/PPM.
Dysphagia.
Diabetes.
Obesity.
Nephrolithiasis.
Anxiety/depression
DVT/PE/IVC filter.
Plan
Remains critically ill on a ventilator
Ventilator settings reviewed
Spontaneous breathing trial
Hope to extubate
VAP prevention protocol
Nebulizers if needed-some rhonchi and chronically on Trelegy
Nebulizers added 3 times daily
Speech therapy evaluation once extubated if concern noted by nursing-no swallowing difficulties at home
BiPAP 16/6 with O2 at bedtime and during the daytime if needed once extubated
Cultures reviewed
Blood culture with Proteus and Serratia
Urine culture pending
Sputum culture pending
Influenza negative
Empiric antibiotics continue
Consider Infectious disease consultation
Monitor leukocytosis
Interventional radiology for percutaneous nephrostomy 01/06/2025
Interventional radiology for triple-lumen 01/06/2025
Status post fluid resuscitation
Wean intravenous fluids
Trend lactate
Norepinephrine and vasopressin wean
Coagulopathy reversed with FFP 01/06/25
Resume anticoagulation when safe
Monitor renal function- significantly improved
Replace electrolytes
Monitor blood sugar
Insulin supplementation as needed
DVT prophylaxis-heparin subcu
GI prophylaxis-on pantoprazole
Early nutrition if possible
Early mobilization/bedside range of motion
Dr. Hong reviewed with 'girlfriend' on multidisciplinary rounds 01/06/2025 and again on 01/07/2025
Critical care statement: A total of 40 minutes of critical care time was provided for this patient today. This includes management of unstable vital signs, evaluation of the patient at bedside, reviewing the patient's pertinent medical records
including radiographs, microbiology, laboratory evaluations, and discussion with primary team, consultants, pharmacy, nutrition, physical therapy, case management, charge nurse, critical care nursing, and respiratory therapy.
Diagnostic data:
Chest x-ray 01/05/2025-NAD
Chest x-ray 01/05/2025-new hazy right upper lobe opacification may be atelectasis or pneumonia, ET tube 4.[address] abdomen and pelvis 01/05/25-8 mm calculus proximal right ureter with moderate right renal collection system dilation, small bilateral nonobstructing renal calculi, 1.9 cm urinary bladder stone noted, prior cholecystectomy
Echocardiogram 09/18/2024-EF 60-65%, intermediate diastolic dysfunction, no gross valvular abnormalities
Subjective Dataa
Subjective Data
Date of Service:
Date of Service: January 07, 2025
Chief Complaint: Account Review Specialist Follow Up, Pulmonary Follow Up and Vent Management Follow Up
Subjective:
hemodynamically improved, stable on the ventilator, no increased secretions, FiO2 weaned,
Review of Systems
General: Unobtainable - Sedation
Objective Data
Data Reviewed
Vital Signs / I&O / Oxygen:
Vital Signs
Temp Pulse Resp BP Pulse Ox
99.8 F 71 18 111/54 96
01/07/25 07:29 01/07/25 07:08 01/07/25 07:08 01/07/25 07:08 01/07/25 07:32
Intake and Output
01/06/25 01/07/25 01/08/25
06:59 06:59 06:59
Intake Total 1691.5 / 1986.5 6575.5 / 6575.5
Output Total 725 / 725 3100 / 3100
Balance 966.5 / 1261.5 3475.5 / 3475.5
SaO2 [A/C] 94
SaO2 96
Nasal Cannula flow liters per 3
minute
Physical Exam
General: Respiratory Distress (n) and Comfortable
HEENT: Normocephalic, Anicteric, Moist Mucous Membranes and Other ( thick neck)
Cardiovascular: Regular Rhythm
Respiratory: Wheeze (n), Crackles (n), Rhonchi ( expiratory), Non-Labored Respirations, Accessory Resp Muscle Use (n), Stridor (n) and ET Tube
GI: Soft, Non Distended and Non Tender
Neurology: Awake, Alert and Other ( spastic quadriplegic)
Skin: Warm, Good Color, Cyanosis (n) and Jaundice (n)
Labs/Micro/Reports
Lab Data
01/07/25 04:07
01/07/25 04:07
Laboratory Results
01/06/25 01/06/25 01/07/25
09:36 16:36 04:07
PT 26.0 H 24.8 H
INR 2.38 2.23
pH 7.35
pCO2 44
pO2 75 L
HCO3 24.3
O2 Delivery Level
Microbiology
01/05/25 21:23 Blood/Venous Blood Culture - Preliminary
Positive culture in progress
01/05/25 21:23 Blood/Venous Gram Stain - Preliminary
01/05/25 20:02 Blood/Venous Blood Culture - Preliminary
Proteus species
Serratia marcescens
01/05/25 20:02 Blood/Venous Gram Stain - Final
01/05/25 20:30 Nasal Swab Influenza Types A & B (GUILLAUME) - Final
Negative for Influenza A & B, NAAT
Negative results must be combined with clinical observations
and patient history.
Nucleic Acid Amplification test (NAAT)performed on the
[employer] platform.
[2025-01-07] MEDS: DUONEB 3 ML INH ×3 (08:30→20:35)
--- NOTE | 2025-01-07 08:45 | W.PN.URO.CBU ---
Today's Communication / Plan
-
Continue antibiotics
Assessment / Plan
-
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
Prior hx of kidney stone with difficult ureteral access in 2019
Presenting with septic shock likely due to obstructing R ureteral stone, also with large bladder stone
- Continue abx and f/u cultures
- Critical care per ICU
- Maintain nephrostomy tube to drainage
- Follow up after discharge to discuss and schedule ureteroscopy, kidney and bladder stone removal procedures
Diagnosis
-
Date of Service: January 07, 2025
-
Patient Diagnosis:
Sepsis
Obstructing ureteral stone
Post Op s/p R PCN placement 01/06/25
Subjective
-
No pain
intubated but able to respond/understand
Objective
-
Vital Signs
Temp Pulse Resp BP Pulse Ox
99.8 F 70 22 111/54 94
01/07/25 07:29 01/07/25 08:40 01/07/25 08:40 01/07/25 07:08 01/07/25 08:40
Intake and Output
01/06/25 01/07/25 01/08/25
06:59 06:59 06:59
Intake Total 1691.5 / 1986.5 6575.5 / 6715.5 473.5 / 473.5
Output Total 725 / 725 3100 / 3100 150 / 150
Balance 966.5 / 1261.5 3475.5 / 3615.5 323.5 / 323.5
Intake:
IV fluids (Total) 1391.5 / 1619.0 5670.5 / 5810.5 273.5 / 273.5
Nss 1,000 ml @ 120 mls/hr IV . 840 / 960 2760 / 2880 240 / 240
[id number] [facility] Rx#:[id number]
fent 17.5 / 20.0 95.0 / 100.0 11
levo 480.0 / 555.0 1117.5 / 1132.5 22.5 / 22.5
lr 1500 / 1500
malena 54 / 84 198 / 198
IV piggybacks 300 / 367.5 235.0 / 235.0
Amount instilled into GI Tube ( 235 / 235 200 / 200
Total)
Camp Sump 235 / 235 200 / 200
Blood Products 435 / 435
Fresh frozen plasma 435 / 435
Output:
Urinary Drain Output (Total) 1000 / 1000 50 / 50
Right Nephrostomy 1000 / 1000 50 / 50
Gastrointestinal tube output ( 1000 / 1000
Total)
Camp Sump 1000 / 1000
Urine, Burnett 725 / 725 1100 / 1100 100 / 100
Laboratory Results
01/07/25 04:07
01/07/25 04:07
Physical Exam
-
General - well developed, well nourished, no acute distress
Chest - clear, intubated
Abdomen - soft, non-tender
PCN in place, cloudy drainage
[2025-01-07 09:24] LABS: B.E. -3.0 mmol/L; HCO3 22.7 mmol/L (21-28); O2 Saturation % 97.4 % (94-98); PCO2 42 mmHg (35-48); PO2 83 mmHg (83-108)
[2025-01-07 09:26] LABS: O2 Therapy 40
--- NOTE | 2025-01-07 09:33 | PN.CDI ---
CDI
- -
CDI:
Physician Documentation Request
Admit Date: 01/05/25 22:57
Dear Doctor Anthony,
Patient admitted for sepsis.
01/06 Hospitalist PN: 'acquired spastic quadriplegia, chronic Mane...Septic shock secondary to UTI'
Please clarify the relationship between these conditions:
Yes, UTI is related to/associated with/due to mane catheter.
No, UTI is not related to/associated with/due to mane catheter but it is due to ___. (Please specify)
Unable to determine
Use of terms such as suspected, likely, concern for, or probable (associated with a specific diagnosis that is being evaluated, monitored, or treated as if it exists) are acceptable and can be coded in the inpatient setting, when documented at the
time of discharge.
Thank you,
Praveena Perez RN, BSN
CDI Specialist
Available via [facility] text
Please use your independent medical judgment in providing your response.
--- NOTE | 2025-01-07 09:50 | RESPNOTE ---
Respiratory: patient extubated without incident, no stridor no wheeze.
--- NOTE | 2025-01-07 11:25 | PTCARENOTE ---
pt has been extubated to 6lnc, awake, forgetful, but pleasant and cooperative. as discussed in rounds bedside swallow eval done, pt passed. currently, after repositioning, pt tired, attempting to sleep. placed on bipap 16/6 with 6l, sats
currently 93% otherwise no changes.
[2025-01-07] MEDS: DUONEB INH (11:30)
[2025-01-07 11:46] LABS: Glucose - Point of Care 132 mg/dl (70-99)
[2025-01-07] MEDS: MS CONTIN (EXTENDED RELEASE) 30 MG PO ×2 (13:22→20:14)
--- NOTE | 2025-01-07 13:48 | W.PN.HOSP.TC ---
Today's Communication/Plan
-
Assessment / Plan
Assessment / Plan
General: No acute distress, obese
HEENT: NormoCephalic, nasal cannula in place
Respiratory: Clear breath sounds bilaterally, equal expansion
Cardiac: S1/S2 and Regular Rhythm; No Rub or Gallop
GI: Soft, Non Tender, Non Distended and Normal Bowel Sounds
Musculoskeletal: No Edema, no deformity
Skin: Warm and dry
: Burnett in place draining clear yellow urine
Neuro: Awake and alert, no tremor
Psych: Calm and cooperative
Mr. Guzman is a 54-year-old male with a medical history of T6 spinal cord injury (2007), acquired spastic quadriplegia, chronic Burnett, HFpEF, COPD, bradycardia (PPM), dysphagia, A-fib (on warfarin), and DVT/PE (IVC filter) who presented with
decreased urinary output from his Burnett catheter for 1 day prior to arrival. He then developed a low-grade fever and reported feeling weak. He also complained of bilateral low back pain. He denied cough, shortness of breath, or abdominal pain.
Shortly after arrival in the hospital he became diaphoretic, hypotensive, and lethargic. He was intubated for airway protection. Chest x-ray showed possible right upper lobe atelectasis or pneumonia. Respiratory panel was negative for COVID or
influenza. CT abdomen pelvis showed 7 x 8 mm proximal right ureteral stone with hydronephrosis and perinephric fat stranding. He was evaluated by urology and IR after which she was that the best course of action would be placement of percutaneous
nephrostomy tube. However his INR was still therapeutic from his warfarin and so PCN placement has been postponed. He has been admitted to the ICU for ongoing management.
Septic shock secondary to UTI:
- Impacted right ureteral stone with proximal hydronephrosis and perinephric fat stranding
- Right PCN placed by IR and draining appropriately
- Blood cultures growing Proteus and Serratia, continue antibiotics with Zosyn, vancomycin discontinued, follow-up sensitivities
- Now extubated and off vasopressors
-Lactic acid now resolved within normal limits
- Appreciate input from business analyst, urology, and IR
Lactic acidosis:
- Secondary to septic shock, resolved
- Treatment as above
VEE:
- Suspect prerenal due to septic shock
- Now resolved
Hypokalemia:
- Mild with potassium of 3.4
- Now resolved
A-fib:
- Heart rate currently well-controlled
- INR 2.2, currently holding warfarin pending any procedures, will monitor INR and bridge with Lovenox or heparin as needed
DVT prophylaxis: INR currently therapeutic, holding warfarin for potential procedures
CODE STATUS: Full code
Total time spent on today's encounter was 45 minutes
Anticipated Discharge: > 48 hours
Subjective/Interval History
-
Date of Service: January 07, 2025
Patient was seen and examined at bedside this morning. He was successfully extubated to nasal cannula and is breathing comfortably. Off vasopressors.
Objective Data
-
Labs:
Laboratory Results
01/07/25 01/07/25
04:07 09:08
WBC 26.9 H
Hgb 12.1 L
Hct 37.4 L
Plt Count 124 L D
HCO3 24.3 22.7
Sodium 136
Potassium 4.0
Chloride 108 H
Carbon Dioxide 22
BUN 32 H
Creatinine 1.3
Glucose 114 H
Calcium 7.8 L
Vital Signs:
Vital Signs
Temp Pulse Resp BP Pulse Ox
101 F H 71 18 111/54 90
01/07/25 11:16 01/07/25 13:13 01/07/25 13:13 01/07/25 07:08 01/07/25 13:13
I&O
01/06/25 01/07/25 01/08/25
06:59 06:59 06:59
Intake Total 1691.5 / 1986.5 6575.5 / 6715.5 592.5 / 592.5
Output Total 725 / 725 3100 / 3100 150 / 150
Balance 966.5 / 1261.5 3475.5 / 3615.5 442.5 / 442.5
Review of Systems
-
History Source: Patient
All other systems: Reviewed and negative
Physical Exam
-
General: No Apparent Distress
--- NOTE | 2025-01-07 15:50 | CM ---
Extubated this am. BIPAP at HS and during day prn, Nephrostomy tube, IV/Zosyn. Discharge POC: TBD. Anticipate HH RN. Lives in [place]. Went to patient's room for HH preference. Patient sleeping and Significant other out of room. Will
follow-up.
--- NOTE | 2025-01-07 16:15 | PTCARENOTE ---
IR called because pt had minimal output since this am. IR tech will be in to flush tube
[2025-01-07 17:27] LABS: Glucose - Point of Care 125 mg/dl (70-99)
[2025-01-07] MEDS: LIORESAL 40 MG PO (20:13)
[2025-01-07] MEDS: NEURONTIN 300 MG PO (20:13)
[2025-01-07] MEDS: SENOKOT 17.2 MG PO (20:13)
[2025-01-07 21:16] LABS: Glucose - Point of Care 141 mg/dl (70-99)
[2025-01-08] VITALS (11 sets, daily range): BP systolic 97–137; BP diastolic 52–83; PULSE 2–74; BMI 46.3
[2025-01-08] MEDS: HEPARIN 5000 UNITS SC ×2 (00:15→08:45)
[2025-01-08] MEDS: ZOSYN 100 IV ×5 (00:15→22:56)
--- NOTE | 2025-01-08 00:30 | PTCARENOTE ---
Pt oriented but forgetful/anxious at times. Spastic paraplegia noted, unable to move lower extremities from previous T6 injury. Able to use upper extremities to feed self independently. No c/o pain once repositioned. Temp 100.3 rectal probe. VPaced
70s. Accu check 141 no coverage. Pulses palpable, dependent edema noted. Pt wears bipap at HS, 16/6 and 4L, placed by RT. 95-98%. Tolerating 2000 diabetic diet. Due for BM, no BM since last Sunday. Senna on SEP and Miralax PRN. Dose given awaiting
results. Pt stated he suffers from chronic constipation. Chronic Burnett draining clear yellow urine. Nephrostomy tube flushed on previous shift. 175 bloody output noted and documented in I&O. Will monitor.
[2025-01-08] MEDS: NOVOLOG FLEXPEN-MODERATE RESISTANCE SC ×2 (00:33→06:07)
[2025-01-08 04:05] LABS: Hematocrit 34.8 % (39.0-52.0); Hemoglobin 11.2 g/dL (13.0-18.0); Mean Corp Hgb Conc. 32.2 g/dL (33.0-37.0); Mean Corpuscular Volume 78.7 fL (80.0-94.0); Nucleated Red Blood Cells % 0 % (-); Platelet Count 119 10^3/uL (130-400); Red Cell Dist. Width 19.7 % (11.5-14.5)
[2025-01-08 04:10] LABS: INR 1.40; PT 17.7 Sec (11.4-14.6)
[2025-01-08 04:11] LABS: APTT 43.3 Sec (23.4-35.0)
[2025-01-08] MEDS: TYLENOL 650 MG PO (04:12)
[2025-01-08 04:21] LABS: Blood Urea Nitrogen 34 mg/dl (9-20); Calcium 7.6 mg/dl (8.4-10.2); Carbon Dioxide 20 mmol/L (22-30); Chloride 108 mmol/L (98-107); Estimated Creatinine Clearance 107 ml/min; Glucose 127 mg/dl (70-99); Potassium 3.9 mmol/L (3.5-5.1); Sodium 136 mmol/L (135-145); eGFR > 60.00
--- NOTE | 2025-01-08 04:30 | PTCARENOTE ---
Pt very cooperative and appreciative. CHG bath given. Temp 101, tylenol ordered and given, now 99.9 DE. Tolerating Bipap mask. Labs sent and pending. No change in previous assessment. Will monitor.
[2025-01-08] MEDS: DUONEB 3 ML INH ×3 (07:29→20:37)
--- NOTE | 2025-01-08 07:43 | W.PN.INTV ---
Today's Communication / Plan
Recommendations
Please see attg note/attestation for final recommendations
- medically appropriate to transfer out of ICU
- enema to facilitate bowel movement
- continue Zosyn
- monitor VS and WBC
Assessment
-
54 yo M PMH of T6 spinal cord injury in 2007, paraplegia, chronic mane, HFpEF, COPD, sleep apnea who presented because of decreased urinary output, feeling feverish, and back pain. He was found to have a stone in R ureter and underwent R PCN tube
placement with initial concern for sepsis.
ID:
# Urinary tract infection, Ureteral Stone
- infection source likely from R ureteral stone
- SIRS criteria likely no longer apply
- PCN tube in place, mane in place
- WBC trending down, and Tmax is low-grade 100.8
- Continue Zosyn
- CBC and monitor vital signs
Respiratory:
- BIPAP worked well for him
Heme:
- heparin for DVT ppx
GI:
- pantoprazole for ppx
- Has not had bowel movement yet, plan for enema
Disposition:
- medically appropriate to transfer out of ICU today
Conditions present prior to admission:
T6 spinal cord injury after fall out of tree hunting 2007.
Spastic quadriplegia.
Chronic opioid dependence
Chronic Mane catheter.
COPD/former smoker-on 2.5 L baseline-maintained on Trelegy
Heart failure pEF.
Obesity.
WILBERT on BiPAP.
Atrial fibrillation/Coumadin.
Bradycardia/PPM.
Dysphagia.
Diabetes.
Obesity.
Nephrolithiasis.
Anxiety/depression
DVT/PE/IVC filter.
Subjective Dataa
Subjective Data
Date of Service:
Date of Service: January 08, 2025
Chief Complaint: Any Commodity Buyer Follow Up, Pulmonary Follow Up and Vent Management Follow Up
Subjective:
54 yo M PMH of T6 spinal cord injury in 2007, paraplegia, chronic mane, HFpEF, COPD, sleep apnea who presented because of decreased urinary output, feeling feverish, and back pain. He was found to have a stone in R ureter and underwent R PCN tube
placement with concern for sepsis.
Overnight events, low-grade fever, but doing well. This morning, he reported that the BIPAP worked well for him.
Review of Systems
General: Other (per HPI)
Objective Data
Data Reviewed
Vital Signs / I&O / Oxygen:
Vital Signs
Temp Pulse Resp BP Pulse Ox
100.8 F H 70 16 111/54 94
01/08/25 03:07 01/08/25 07:29 01/08/25 07:29 01/07/25 07:08 01/08/25 07:29
Intake and Output
01/07/25 01/08/25 01/09/25
06:59 06:59 06:59
Intake Total 6575.5 / 6715.5 592.5 / 592.5
Output Total 3100 / 3100 775 / 775
Balance 3475.5 / 3615.5 -182.5 / -182.5
SaO2 [A/C] 95
SaO2 94
Nasal Cannula flow liters per 4
minute
Physical Exam
General: Other (no acute distress)
HEENT: Normocephalic and Anicteric
Cardiovascular: Regular Rhythm and Murmur (no murmurs on my exam)
Respiratory: Other (coarse but clear breath sounds on my exam)
GI: Soft, Non Distended and Non Tender
Neurology: Awake, Alert and Other ( paraplegia)
Skin: Warm, Good Color and Other (right PCN tube and mane)
Labs/Micro/Reports
Lab Data
01/08/25 03:31
01/08/25 03:31
Laboratory Results
01/07/25 01/08/25
09:08 03:31
PT 17.7 H
INR 1.40
APTT 43.3 H
pH 7.34 L
pCO2 42
pO2 83
HCO3 22.7
O2 Delivery Level 40
Microbiology
01/06/25 16:55 Urine Urine Culture - Preliminary
01/05/25 20:03 Urine Urine Culture - Preliminary
01/05/25 21:23 Blood/Venous Blood Culture - Preliminary
Positive culture in progress
01/05/25 21:23 Blood/Venous Gram Stain - Final
01/05/25 20:02 Blood/Venous Blood Culture - Preliminary
Proteus species
Serratia marcescens
01/05/25 20:02 Blood/Venous Gram Stain - Final
01/05/25 20:30 Nasal Swab Influenza Types A & B (GUILLAUME) - Final
Negative for Influenza A & B, NAAT
Negative results must be combined with clinical observations
and patient history.
Nucleic Acid Amplification test (NAAT)performed on the
[employer] platform.
WBC 20 from 26.9
Hgb 11.2 from 12.1
Plt 119 from 124
Micro: blood cultures positive for proteus and serratia
--- NOTE | 2025-01-08 07:44 | W.PN.INTV ---
Today's Communication / Plan
Recommendations
Tolerated extubation
Continue antibiotics
Monitor percutaneous nephrostomy drainage
Begin diet with aspiration precautions
BiPAP and supplemental oxygen as needed
Transfer out of ICU-principal archaeologist will sign off-call pulmonary if respiratory issues arise
Assessment
-
54-year-old T6 paraplegic since 2007 with spastic quadriplegia and chronic Burnett catheter, COPD, heart failure preserved EF, permanent pacemaker for bradycardia, atrial fibrillation on Coumadin, diabetes, obesity, sleep apnea on BiPAP noticed
decreased urine output, fevers found to be septic-principal archaeologist consulted for ventilator/sepsis/critical care management 01/06/2025.
Septic shock unresponsive to fluids requiring pressors
VEE
Ventilator dependent respiratory failure
Intubated 01/05/2025
Extubated 01/07/2025
Urosepsis-Proteus
Positive blood culture-organism -gram-negative bacilli-Proteus and Serratia
Lactic acidosis
Leukocytosis
Pneumonia/aspiration risk
Renal calculi
Hypokalemia
Mild hyperglycemia
Conditions present prior to admission:
T6 spinal cord injury after fall out of tree hunting 2007.
Spastic quadriplegia.
Chronic opioid dependence
Chronic Burnett catheter.
COPD/former smoker-on 2.5 L baseline-maintained on Trelegy
Heart failure pEF.
Obesity.
WILBERT on BiPAP.
Atrial fibrillation/Coumadin.
Bradycardia/PPM.
Dysphagia.
Diabetes.
Obesity.
Nephrolithiasis.
Anxiety/depression
DVT/PE/IVC filter.
Plan
Respiratory status and hemodynamics have improved
Tolerated extubation
Continue BiPAP and supplemental oxygen as needed
Nebulizers if needed-some rhonchi and chronically on Trelegy
Nebulizers added 3 times daily
BiPAP 16/6 with O2 at bedtime and during the daytime if needed once extubated
Cultures reviewed
Blood culture with Proteus and Serratia
Urine culture -Proteus
Influenza negative
Antibiotics continue-responding to Zosyn which should cover Proteus and Serratia
Consider Infectious disease consultation
Monitor leukocytosis-improving
Interventional radiology for percutaneous nephrostomy 01/06/2025-monitor output
Interventional radiology for triple-lumen 01/06/2025
Decrease IV fluids
Lactate normalized
Pressors weaned
Coagulopathy reversed with FFP 01/06/25
Resume anticoagulation when safe
Monitor renal function- significantly improved
Replace electrolytes
Monitor blood sugar
Insulin supplementation as needed
DVT prophylaxis-heparin subcu
GI prophylaxis-on pantoprazole
Diet restarted
Early mobilization/bedside range of motion
Dr. Hong reviewed with 'girlfriend' on multidisciplinary rounds 01/06/2025 and again on 01/07/2025 as well as 01/08/2025
Patient stable for transfer out of ICU to IMU with soft blood pressure-principal archaeologist will sign off-call pulmonary if respiratory issues arise
Critical care statement: A total of 38 minutes of critical care time was provided for this patient today. This includes management of unstable vital signs, evaluation of the patient at bedside, reviewing the patient's pertinent medical records
including radiographs, microbiology, laboratory evaluations, and discussion with primary team, consultants, pharmacy, nutrition, physical therapy, case management, charge nurse, critical care nursing, and respiratory therapy.
Diagnostic data:
Chest x-ray 01/05/2025-NAD
Chest x-ray 01/05/2025-new hazy right upper lobe opacification may be atelectasis or pneumonia, ET tube 4.[address] abdomen and pelvis 01/05/25-8 mm calculus proximal right ureter with moderate right renal collection system dilation, small bilateral nonobstructing renal calculi, 1.9 cm urinary bladder stone noted, prior cholecystectomy
Echocardiogram 09/18/2024-EF 60-65%, intermediate diastolic dysfunction, no gross valvular abnormalities
Subjective Dataa
Subjective Data
Date of Service:
Date of Service: January 08, 2025
Chief Complaint: Occupational Safety Specialist Follow Up, Pulmonary Follow Up and Vent Management Follow Up
Subjective:
tolerated extubation, no complaints of shortness of breath, tolerated BiPAP, no signs of aspiration when eating, no chest pain
Review of Systems
General: Other ( Per HPI)
Objective Data
Data Reviewed
Vital Signs / I&O / Oxygen:
Vital Signs
Temp Pulse Resp BP Pulse Ox
100.8 F H 70 16 111/54 94
01/08/25 03:07 01/08/25 07:29 01/08/25 07:29 01/07/25 07:08 01/08/25 07:29
Intake and Output
01/07/25 01/08/25 01/09/25
06:59 06:59 06:59
Intake Total 6575.5 / 6715.5 592.5 / 592.5
Output Total 3100 / 3100 775 / 775
Balance 3475.5 / 3615.5 -182.5 / -182.5
SaO2 [A/C] 95
SaO2 94
Nasal Cannula flow liters per 4
minute
Physical Exam
General: Respiratory Distress (n) and Comfortable
HEENT: Normocephalic, Anicteric, Moist Mucous Membranes and Other ( thick neck)
Cardiovascular: Regular Rhythm
Respiratory: Wheeze (n), Crackles (n), Rhonchi ( expiratory), Non-Labored Respirations, Accessory Resp Muscle Use (n) and Stridor (n)
GI: Soft, Non Distended and Non Tender
Neurology: Awake, Alert and Other ( spastic quadriplegic)
Skin: Warm, Good Color, Cyanosis (n) and Jaundice (n)
Labs/Micro/Reports
Lab Data
01/08/25 03:31
01/08/25 03:31
Laboratory Results
01/07/25 01/08/25
09:08 03:31
PT 17.7 H
INR 1.40
APTT 43.3 H
pH 7.34 L
pCO2 42
pO2 83
HCO3 22.7
O2 Delivery Level 40
Microbiology
01/06/25 16:55 Urine Urine Culture - Preliminary
01/05/25 20:03 Urine Urine Culture - Preliminary
01/05/25 21:23 Blood/Venous Blood Culture - Preliminary
Positive culture in progress
01/05/25 21:23 Blood/Venous Gram Stain - Final
01/05/25 20:02 Blood/Venous Blood Culture - Preliminary
Proteus species
Serratia marcescens
01/05/25 20:02 Blood/Venous Gram Stain - Final
01/05/25 20:30 Nasal Swab Influenza Types A & B (GUILLAUME) - Final
Negative for Influenza A & B, NAAT
Negative results must be combined with clinical observations
and patient history.
Nucleic Acid Amplification test (NAAT)performed on the
[email or web address] platform.
[2025-01-08 07:47] LABS: Glucose - Point of Care 128 mg/dl (70-99)
--- NOTE | 2025-01-08 08:00 | PTCARENOTE ---
Received pt @ change of shift. Pt AAOx3, forgetful/repetitive questioning; redirected as needed. V-paced on monitor. +2 anasarca. L rad a-line unable to obtain accurate reading; removed; pressure held until bleeding ceased and clean dressing
applied. SpO2 94% on 4LNC. Auscultated coarse breath sounds posteriroly w scatt rhonchi. Hypoactive BS, abd round/obese/distended; constipated; admin standing bowel reg- see MAR. Tolerating diet. R nephrostomy tube w reva/bloody output; chronic
mane w yellow output. R TL patent; c/d/i. PIVs flushed; c/d/i. Hygiene provided and pt. repositioned per protocol. Pt.'s significant other @ bedside, updated. Call varghese in reach.
[2025-01-08] MEDS: MIRALAX 17 GRAMS PO (08:44)
[2025-01-08] MEDS: PROTONIX 40 MG PO (08:44)
[2025-01-08] MEDS: MS CONTIN (EXTENDED RELEASE) 30 MG PO ×2 (08:45→20:03)
[2025-01-08] MEDS: ZOLOFT 50 MG PO (08:45)
[2025-01-08] MEDS: LIORESAL 40 MG PO ×2 (08:45→20:03)
[2025-01-08] MEDS: NEURONTIN 300 MG PO ×2 (08:45→20:03)
[2025-01-08] MEDS: COLACE 100 MG PO (08:45)
[2025-01-08] MEDS: [UNRECOGNIZED DRUG - OTHER] 37 ML RECTAL (11:13)
[2025-01-08 12:03] LABS: Glucose - Point of Care 160 mg/dl (70-99)
[2025-01-08] MEDS: NOVOLOG FLEXPEN-MODERATE RESISTANCE 1 UNITS SC ×2 (12:08→17:24)
--- NOTE | 2025-01-08 12:23 | PTCARENOTE ---
pt. w ongoing constipation; admin daily prn fleets enema; awaiting results. BP cuff pressures remains stable. Pt. repositioned per protocol. Call halima w in reach.
--- NOTE | 2025-01-08 13:43 | W.PN.HOSP.TC ---
Today's Communication/Plan
-
Assessment / Plan
Assessment / Plan
General: No acute distress, obese
HEENT: NormoCephalic, nasal cannula in place
Respiratory: Clear breath sounds bilaterally, equal expansion
Cardiac: S1/S2 and Regular Rhythm; No Rub or Gallop
GI: Soft, Non Tender, Non Distended and Normal Bowel Sounds
Musculoskeletal: No Edema, no deformity
Skin: Warm and dry
: Burnett in place draining clear yellow urine
Neuro: Awake and alert, no tremor
Psych: Calm and cooperative
Mr. Guzman is a 54-year-old male with a medical history of T6 spinal cord injury (2007), acquired spastic quadriplegia, chronic Burnett, HFpEF, COPD, bradycardia (PPM), dysphagia, A-fib (on warfarin), and DVT/PE (IVC filter) who presented with
decreased urinary output from his Burnett catheter for 1 day prior to arrival. He then developed a low-grade fever and reported feeling weak. He also complained of bilateral low back pain. He denied cough, shortness of breath, or abdominal pain.
Shortly after arrival in the hospital he became diaphoretic, hypotensive, and lethargic. He was intubated for airway protection. Chest x-ray showed possible right upper lobe atelectasis or pneumonia. Respiratory panel was negative for COVID or
influenza. CT abdomen pelvis showed 7 x 8 mm proximal right ureteral stone with hydronephrosis and perinephric fat stranding. He was evaluated by urology and IR after which she was that the best course of action would be placement of percutaneous
nephrostomy tube. However his INR was still therapeutic from his warfarin and so PCN placement has been postponed. He has been admitted to the ICU for ongoing management.
Septic shock secondary to UTI:
- Impacted right ureteral stone with proximal hydronephrosis and perinephric fat stranding
- Right PCN placed by IR and draining appropriately
- Blood cultures growing Proteus and Serratia, urine cultures growing gram-negative rods/Proteus, continue antibiotics with Zosyn, vancomycin discontinued, follow-up sensitivities
- Now extubated and off vasopressors
-Lactic acid now resolved within normal limits
- Appreciate input from secretarial stenographer, urology, and IR
- Patient downgraded to IMU
Lactic acidosis:
- Secondary to septic shock, resolved
- Treatment as above
VEE:
- Suspect prerenal due to septic shock
- Now resolved
Hypokalemia:
- Now resolved
A-fib:
- Heart rate currently well-controlled
- INR 1.4, has been holding home warfarin periprocedurally, will restart with Lovenox bridging, follow-up INR on morning labs and dose of warfarin as needed
COPD:
- Stable and without bronchospasm
- Continue scheduled nebulizers with additional as needed
Acquired spastic quadriplegia:
- Status post T6 spinal cord injury 2007
- Continue scheduled bowel regimen and gabapentin
DVT prophylaxis: INR currently subtherapeutic, restarting warfarin with Lovenox bridging
CODE STATUS: Full code
Total time spent on today's encounter was 45 minutes
Anticipated Discharge: > 48 hours
Subjective/Interval History
-
Date of Service: January 08, 2025
Patient was seen and examined at bedside this morning. Remains hemodynamically stable off of vasopressors. Continues to clinically improve.
Objective Data
-
Labs:
Laboratory Results
01/08/25
03:31
WBC 20.0 H
Hgb 11.2 L
Hct 34.8 L
Plt Count 119 L
PT 17.7 H
INR 1.40
APTT 43.3 H
Sodium 136
Potassium 3.9
Chloride 108 H
Carbon Dioxide 20 L
BUN 34 H
Creatinine 1.1
Glucose 127 H
Calcium 7.6 L
Vital Signs:
Vital Signs
Temp Pulse Resp BP Pulse Ox
99 F 76 16 119/63 95
01/08/25 11:23 01/08/25 13:22 01/08/25 13:22 01/08/25 12:00 01/08/25 13:22
I&O
01/07/25 01/08/25 01/09/25
06:59 06:59 06:59
Intake Total 6575.5 / 6715.5 592.5 / 592.5
Output Total 3100 / 3100 775 / 775
Balance 3475.5 / 3615.5 -182.5 / -182.5
Review of Systems
-
History Source: Patient
All other systems: Reviewed and negative
Physical Exam
-
General: No Apparent Distress
[2025-01-08] MEDS: LOVENOX 140 MG SC (15:02)
--- NOTE | 2025-01-08 15:36 | W.PN.URO.CBU ---
Today's Communication / Plan
-
Continue abx
Maintain nephrostomy tube
Outpatient follow up to review kidney and bladder stone removal after discharge
Assessment / Plan
-
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
Prior hx of kidney stone with difficult ureteral access in 2019
Presenting with septic shock likely due to obstructing R ureteral stone, also with large bladder stone
s/p IR for R percutaneous nephrostomy
- Continue abx and f/u cultures - proteus and serratia
- Recommend 10 day abx course for complicated UTI
- Maintain nephrostomy tube to drainage
- Follow up after discharge to discuss and schedule ureteroscopy, kidney and bladder stone removal procedures
Diagnosis
-
Date of Service: January 08, 2025
-
Patient Diagnosis:
Sepsis
Obstructing ureteral stone
Post Op s/p R PCN placement 01/06/25
Subjective
-
extubated, feeling better
Objective
-
Vital Signs
Temp Pulse Resp BP Pulse Ox
99 F 76 16 119/63 95
01/08/25 11:23 01/08/25 13:22 01/08/25 13:22 01/08/25 12:00 01/08/25 13:22
Intake and Output
01/07/25 01/08/25 01/09/25
06:59 06:59 06:59
Intake Total 6575.5 / 6715.5 592.5 / 592.5
Output Total 3100 / 3100 775 / 775 325 / 325
Balance 3475.5 / 3615.5 -182.5 / -182.5 -325 / -325
Intake:
IV fluids (Total) 5670.5 / 5810.5 392.5 / 392.5
Nss 1,000 ml @ 120 mls/hr IV . 2760 / 2880 360 / 360
Q8H20M DOUGLAS Rx#:[id number]
fent 95.0 / 100.0 10 / 10
levo 1117.5 / 1132.5 22.5 / 22.5
lr 1500 / 1500
malena 198 / 198
IV piggybacks 235.0 / 235.0
Amount instilled into GI Tube ( 235 / 235 200 / 200
Total)
[place] Sump 235 / 235 200 / 200
Blood Products 435 / 435
Fresh frozen plasma 435 / 435
Output:
Urinary Drain Output (Total) 1000 / 1000 425 / 425 125 / 125
Right Nephrostomy 1000 / 1000 425 / 425 125 / 125
Gastrointestinal tube output ( 1000 / 1000
Total)
[place] Sump 1000 / 1000
Urine, Burnett 1100 / 1100 350 / 350 200 / 200
Laboratory Results
01/08/25 03:31
01/08/25 03:31
Physical Exam
-
General - well developed, well nourished, no acute distress
Chest - clear
Abdomen - soft, non-tender
PCN in place, clear
--- NOTE | 2025-01-08 15:58 | CM ---
Nephrostomy tube, IV/Zosyn. Discharge POC: Home with caretakers. Declined KIM RN.
--- NOTE | 2025-01-08 17:08 | RESPNOTE ---
Respiratory: patient wore Bilevel for over three hours tolerated well.
[2025-01-08 17:17] LABS: Glucose - Point of Care 156 mg/dl (70-99)
[2025-01-08] MEDS: COUMADIN 10 MG PO (17:25)
--- NOTE | 2025-01-08 20:00 | PTCARENOTE ---
assumed care, Ox3 forgetful @ x's, paraplegic, able to make needs known, V-paced on the monitor c BBB, +2 GA, + radials, weak pedals, 94% on 4L NC, BIPAP HS, coarse, rhonchi, orthopneic, BSx4 round obese, Rectal probe afebrile, Chronic Burnett c
yellow output, R nephrostomy c blood tinged output, scrotal edema, R IJ TL, 18G R arm, L arm and L wrist, call varghese within reach, otherwise refer to documentation.
[2025-01-08 21:34] LABS: Glucose - Point of Care 142 mg/dl (70-99)
[2025-01-08] MEDS: SENOKOT 17.2 MG PO (22:56)
[2025-01-09] VITALS (16 sets, daily range): BP systolic 108–158; BP diastolic 58–113; PULSE 3–71; BMI 46.5
[2025-01-09] MEDS: LOVENOX 140 MG SC ×2 (02:46→15:10)
[2025-01-09 03:36] LABS: Hematocrit 35.6 % (39.0-52.0); Hemoglobin 11.0 g/dL (13.0-18.0); Mean Corp Hgb Conc. 30.9 g/dL (33.0-37.0); Mean Corpuscular Volume 81.8 fL (80.0-94.0); Nucleated Red Blood Cells % 0 % (-); Platelet Count 110 10^3/uL (130-400); Red Cell Dist. Width 19.7 % (11.5-14.5)
[2025-01-09 03:44] LABS: INR 1.34; PT 17.1 Sec (11.4-14.6)
[2025-01-09 03:53] LABS: Blood Urea Nitrogen 36 mg/dl (9-20); Calcium 8.2 mg/dl (8.4-10.2); Carbon Dioxide 25 mmol/L (22-30); Chloride 103 mmol/L (98-107); Estimated Creatinine Clearance 84 ml/min; Glucose 112 mg/dl (70-99); Potassium 3.9 mmol/L (3.5-5.1); Sodium 136 mmol/L (135-145); Triglycerides 251 mg/dl (10-149); eGFR 59.36
[2025-01-09] MEDS: ZOSYN 100 IV (05:15)
[2025-01-09 07:14] LABS: Glucose - Point of Care 120 mg/dl (70-99)
[2025-01-09] MEDS: DUONEB 3 ML INH ×4 (07:29→21:28)
[2025-01-09] MEDS: NOVOLOG FLEXPEN-MODERATE RESISTANCE SC ×3 (08:33→17:44)
[2025-01-09] MEDS: NEURONTIN 300 MG PO ×2 (08:34→20:46)
[2025-01-09] MEDS: COLACE 100 MG PO (08:34)
[2025-01-09] MEDS: LIORESAL 40 MG PO ×2 (08:35→20:46)
[2025-01-09] MEDS: MIRALAX 17 GRAMS PO (08:35)
[2025-01-09] MEDS: PROTONIX 40 MG PO (08:35)
[2025-01-09] MEDS: MS CONTIN (EXTENDED RELEASE) 30 MG PO ×2 (08:35→20:46)
[2025-01-09] MEDS: ZOLOFT 50 MG PO (08:35)
--- NOTE | 2025-01-09 11:19 | W.PN.URO.CBU ---
Today's Communication / Plan
-
PER HOSPITALIST BUT PLAN IS OUTPATIENT TREATMENT OF STONES
Assessment / Plan
-
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
Prior hx of kidney stone with difficult ureteral access in 2019
Presenting with septic shock likely due to obstructing R ureteral stone, also with large bladder stone
s/p IR for R percutaneous nephrostomy
- Continue abx and f/u cultures - proteus and serratia
- Recommend 10 day abx course for complicated UTI
- Maintain nephrostomy tube to drainage
- Follow up after discharge to discuss and schedule ureteroscopy, kidney and bladder stone removal procedures
Diagnosis
-
Date of Service: January 09, 2025
-
Patient Diagnosis:
Post Op Day:
Patient Diagnosis:
Sepsis
Obstructing ureteral stone
Post Op s/p R PCN placement 01/06/25
Subjective
-
FEELING BETTER
Objective
-
Vital Signs
Temp Pulse Resp BP Pulse Ox
98.6 F 70 18 123/65 91
01/09/25 06:58 01/09/25 07:38 01/09/25 07:38 01/09/25 06:00 01/09/25 08:00
Intake and Output
01/08/25 01/09/25 01/10/25
06:59 06:59 06:59
Intake Total 592.5 / 592.5 480 / 480
Output Total 775 / 775 900 / 900
Balance -182.5 / -182.5 -420 / -420
Intake:
Oral fluids 480 / 480
IV fluids (Total) 392.5 / 392.5
Nss 1,000 ml @ 120 mls/hr IV . 360 / 360
Q8H20M DOUGLAS Rx#:[id number]
fent
levo 22.5 / 22.5
Amount instilled into GI Tube ( 200 / 200
Total)
[place] Sump 200 / 200
Output:
Urinary Drain Output (Total) 425 / 425 150 / 150
Right Nephrostomy 425 / 425 150 / 150
Urine, Burnett 350 / 350 750 / 750
Laboratory Results
01/09/25 02:53
01/09/25 02:53
Review of Systems
-
: Difficulty Voiding
Neurological: Other (PARALYZED)
Physical Exam
-
General - well developed, well nourished, no acute distress
Chest - clear bilaterally
Abdomen - soft, non-tender, positive bowel sounds, no CVAT, no incisional pain or distention
Genitalia - normal
Rectal - normal
Skin - warm & dry with no rash
Neuro - AOx3, no motor deficits
Incision - clean, dry
Dressing - clean, dry, intact
Care Review
Data Reviewed
Discussed with: Family
CT Scan: Image Pers Reviewed
[2025-01-09 11:48] LABS: Glucose - Point of Care 124 mg/dl (70-99)
[2025-01-09] MEDS: STERILE WATER FOR INJECTION 10 ML IV ×3 (11:58→23:11)
[2025-01-09] MEDS: MAXIPIME 1000 MG IV ×3 (11:58→23:11)
[2025-01-09] MEDS: FLEET MINERAL OIL ENEMA 133 ML RECTAL (12:00)
[2025-01-09] MEDS: LASIX 40 MG PO (12:00)
[2025-01-09 13:29] LABS: Glucose - Point of Care 121 mg/dl (70-99)
--- NOTE | 2025-01-09 13:46 | PTCARENOTE ---
Pt received from shift mechanic RN. Pt is confused and forgetful but when asked, he is able to tell me where he is and the year. Paraplegic, he has sensation in his legs but is unable to move them. R foot has reflexive movement when touched. +1
anasarca. Vpaced on tele with a HR in the 70's. Currently on 4L NC with O2 sat of 93%. Pt goes on BIPAP 16/6 at night. Breath sounds coarse in both lungs but after eating today, the R side sounded worse with increased wheezing and rhonchi
throughout, MD made aware and portable CXR obtained. Round, obese ABD. Fleets enema given for constipation, pt is yet to have a BM. Chronic mane in place putting out yellow urine. R nephrostomy tube intact putting out blood tinged urine. Restarted
Lasix. R IJ TLC intact. BL wrist 18G IVs in place. Family at bedside. PT makes needs known.
--- NOTE | 2025-01-09 14:07 | W.PN.HOSP.TC ---
Today's Communication/Plan
-
Assessment / Plan
Assessment / Plan
General: No acute distress, obese
HEENT: NormoCephalic, nasal cannula in place
Respiratory: Clear breath sounds bilaterally, equal expansion
Cardiac: S1/S2 and Regular Rhythm; No Rub or Gallop
GI: Soft, Non Tender, Distended, normal Bowel Sounds
Musculoskeletal: No Edema, no deformity
Skin: Warm and dry
: Burnett in place draining clear yellow urine
Neuro: Awake and alert, no tremor
Psych: Calm and cooperative
Mr. Guzman is a 54-year-old male with a medical history of T6 spinal cord injury (2007), acquired spastic quadriplegia, chronic Burnett, HFpEF, COPD, bradycardia (PPM), dysphagia, A-fib (on warfarin), and DVT/PE (IVC filter) who presented with
decreased urinary output from his Burnett catheter for 1 day prior to arrival. He then developed a low-grade fever and reported feeling weak. He also complained of bilateral low back pain. He denied cough, shortness of breath, or abdominal pain.
Shortly after arrival in the hospital he became diaphoretic, hypotensive, and lethargic. He was intubated for airway protection. Chest x-ray showed possible right upper lobe atelectasis or pneumonia. Respiratory panel was negative for COVID or
influenza. CT abdomen pelvis showed 7 x 8 mm proximal right ureteral stone with hydronephrosis and perinephric fat stranding. He was evaluated by urology and IR after which she was that the best course of action would be placement of percutaneous
nephrostomy tube. However his INR was still therapeutic from his warfarin and so PCN placement has been postponed. He has been admitted to the ICU for ongoing management.
Septic shock secondary to UTI:
- Impacted right ureteral stone with proximal hydronephrosis and perinephric fat stranding
- Right PCN placed by IR and draining appropriately
- Blood cultures growing MDR Proteus and Serratia resistant to Zosyn, urine cultures growing gram-negative rods/Proteus, antibiotics switched to cefepime
- Now extubated and off vasopressors
- Lactic acid now resolved within normal limits
- Appreciate input from director of vital statistics, urology, and IR
- Patient downgraded to IMU
- Anticipate 10-day course of antibiotics, plan for transition to oral Cipro at time of discharge
- Outpatient urology follow-up for ureteroscopy and stone removal
Lactic acidosis:
- Secondary to septic shock, resolved
- Treatment as above
VEE:
- Suspect prerenal due to septic shock
- Creatinine at 1.4 today
- Cautiously restarting home Lasix as he appears volume overloaded
Hypokalemia:
- Now resolved
A-fib:
- Heart rate currently well-controlled
- INR 1.34, had been holding home warfarin periprocedurally, now restarted at 10 mg with Lovenox bridging, follow-up INR on morning labs and dose of warfarin as needed
Constipated:
- Continue scheduled bowel regimen
- Enema given this morning
- Will monitor
COPD:
- Stable and without bronchospasm
- Continue scheduled nebulizers with additional as needed
Acquired spastic quadriplegia:
- Status post T6 spinal cord injury 2007
- Continue scheduled bowel regimen and gabapentin
DVT prophylaxis: INR currently subtherapeutic, restarted warfarin with Lovenox bridging
CODE STATUS: Full code
Total time spent on today's encounter was 45 minutes
Anticipated Discharge: 24 - 48 hours
Subjective/Interval History
-
Date of Service: January 09, 2025
Patient was seen and examined at bedside this morning. He was feeling bloated and constipated and asking for an enema.
Objective Data
-
Labs:
Laboratory Results
01/09/25
02:53
WBC 16.1 H
Hgb 11.0 L
Hct 35.6 L
Plt Count 110 L
PT 17.1 H
INR 1.34
Sodium 136
Potassium 3.9
Chloride 103
Carbon Dioxide 25
BUN 36 H
Creatinine 1.4 H
Glucose 112 H
Calcium 8.2 L
Vital Signs:
Vital Signs
Temp Pulse Resp BP Pulse Ox
98.8 F 71 16 143/75 93
01/09/25 11:36 01/09/25 13:04 01/09/25 13:04 01/09/25 12:14 01/09/25 13:54
I&O
01/08/25 01/09/25 01/10/25
06:59 06:59 06:59
Intake Total 592.5 / 592.5 480 / 480
Output Total 775 / 775 900 / 900 550 / 550
Balance -182.5 / -182.5 -420 / -420 -550 / -550
Review of Systems
-
History Source: Patient
All other systems: Reviewed and negative
Abdomen/GI: Reports Constipated and Bloated
Physical Exam
-
General: No Apparent Distress
[2025-01-09] MEDS: GLYCERIN SUPPOSITORY ADULT 1 SUPP RECTAL (16:53)
[2025-01-09] MEDS: COUMADIN 10 MG PO (16:59)
[2025-01-09 17:42] LABS: Glucose - Point of Care 115 mg/dl (70-99)
[2025-01-09] MEDS: SENOKOT 17.2 MG PO (20:46)
--- NOTE | 2025-01-09 21:12 | PTCARENOTE ---
assumed care, pt drowsy aroused via light sternal rub, Ox3 forgetful @ x's, repetitive but redirectable, paraplegic, able to make needs known, V-paced on the monitor c BBB, +2 GA, + radials, weak pedals, 93% on 4L NC, coarse, rhonchi, orthopneic,
expiratory wheeze, 2100 PT stats dropping to low 80's, requested RT to apply BIPAP 16/6 6LNC, BSx4 round obese, Chronic Burnett c yellow output, R nephrostomy c blood tinged output, scrotal edema, R IJ TL, 18G R arm, and L arm, call varghese within reach,
otherwise refer to documentation.
[2025-01-09 22:38] LABS: Glucose - Point of Care 147 mg/dl (70-99)
[2025-01-10] VITALS (15 sets, daily range): BP systolic 120–137; BP diastolic 47–100; PULSE 2–70; BMI 46.6
[2025-01-10] MEDS: LOVENOX 140 MG SC ×2 (02:37→14:35)
[2025-01-10 03:22] LABS: Hematocrit 37.5 % (39.0-52.0); Hemoglobin 11.6 g/dL (13.0-18.0); Mean Corp Hgb Conc. 30.9 g/dL (33.0-37.0); Mean Corpuscular Volume 81.9 fL (80.0-94.0); Nucleated Red Blood Cells % 0 % (-); Platelet Count 120 10^3/uL (130-400); Red Cell Dist. Width 19.4 % (11.5-14.5)
[2025-01-10 03:27] LABS: INR 1.33; PT 16.8 Sec (11.4-14.6)
[2025-01-10 03:40] LABS: Blood Urea Nitrogen 33 mg/dl (9-20); Calcium 8.6 mg/dl (8.4-10.2); Carbon Dioxide 26 mmol/L (22-30); Chloride 102 mmol/L (98-107); Estimated Creatinine Clearance 78 ml/min; Glucose 94 mg/dl (70-99); Potassium 4.0 mmol/L (3.5-5.1); Sodium 137 mmol/L (135-145); eGFR 54.64
[2025-01-10 04:11] LABS: B.E. -0.9 mmol/L; HCO3 26.8 mmol/L (21-28); O2 Saturation % 95.8 % (94-98); PCO2 57 mmHg (35-48); PO2 72 mmHg (83-108)
[2025-01-10] MEDS: MAXIPIME 1000 MG IV ×2 (05:26→12:37)
[2025-01-10] MEDS: STERILE WATER FOR INJECTION 10 ML IV ×2 (05:26→12:37)
--- NOTE | 2025-01-10 06:34 | W.PN.UPDATE ---
Update Note
Progress Note Update
Pt more easily awakes and falls back to sleep, Ox3. On and off bipap as patient able to tolerate. Will ordered ABG and follow up CXR in am.
~ 5 am ABG results: pH 7.28, pCO2 57, pO2 72, HCO3 26.8. Patient awakens, falls back to sleep quickly, answers questions appropriately. Increased BiPAP to 20/8 on 10 L sat 99%.
[2025-01-10] MEDS: DUONEB 3 ML INH ×3 (07:27→21:01)
[2025-01-10] MEDS: NOVOLOG FLEXPEN-MODERATE RESISTANCE SC ×3 (07:42→17:19)
[2025-01-10] MEDS: PROTONIX 40 MG PO (07:43)
[2025-01-10] MEDS: NEURONTIN 300 MG PO ×2 (07:43→19:41)
[2025-01-10] MEDS: COLACE 100 MG PO (07:43)
[2025-01-10] MEDS: LASIX 40 MG PO (07:43)
[2025-01-10] MEDS: LIORESAL 40 MG PO ×2 (07:43→19:41)
[2025-01-10] MEDS: MIRALAX 17 GRAMS PO (07:44)
[2025-01-10] MEDS: MS CONTIN (EXTENDED RELEASE) 30 MG PO ×2 (07:46→19:40)
[2025-01-10 07:49] LABS: Glucose - Point of Care 108 mg/dl (70-99)
--- NOTE | 2025-01-10 07:52 | PTCARENOTE ---
0700 patient received in bed in BIPAP 20/8/10L;
07:30 BIPAP off pt on So2 4L via nasal canula
AAO x3 denies pain
V-P 70's +2 edema b/l LE BP via RT upper arm 120/60 MAP 75;
Lungs course through in 4L via nasal canula productive with white mucus occasional cough no SOB POX 95%
Indwelling Burnett reva urine Burnett care done per protocol Rt nephrostomy draining dark reva urine
Abdomen large round Bowel sound hypoactive present through NO BM . Miralex and colace adm
Aspiration precautions
RT IJ TL dressing intact dry, RT and LT peripheral line flushed
call varghese within reach
[2025-01-10] MEDS: ZOLOFT 50 MG PO (08:00)
--- NOTE | 2025-01-10 10:08 | W.PN.URO.CBU ---
Today's Communication / Plan
-
urologically stable will proceeed as outpatient once hemodynamically stable
Assessment / Plan
-
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
Prior hx of kidney stone with difficult ureteral access in 2019
Presenting with septic shock likely due to obstructing R ureteral stone, also with large bladder stone
s/p IR for R percutaneous nephrostomy
- Continue abx and f/u cultures - proteus and serratia
- Recommend 10 day abx course for complicated UTI
- Maintain nephrostomy tube to drainage
- Follow up after discharge to discuss and schedule ureteroscopy, kidney and bladder stone removal procedures
Diagnosis
-
Date of Service: January 10, 2025
-
Patient Diagnosis:
Post Op Day:
Patient Diagnosis:
Post Op Day:
Patient Diagnosis:
Sepsis
Obstructing ureteral stone
Post Op s/p R PCN placement 01/06/25
Subjective
-
improving from obstructive sepsis
Objective
-
Vital Signs
Temp Pulse Resp BP Pulse Ox
98.1 F 70 20 120/60 95
01/10/25 07:51 01/10/25 07:43 01/10/25 07:33 01/10/25 07:43 01/10/25 07:59
Intake and Output
01/09/25 01/10/25 01/11/25
06:59 06:59 06:59
Intake Total 480 / 480 480 / 480 100 / 100
Output Total 900 / 900 1825 / 1825 250 / 250
Balance -420 / -420 -1345 / -1345 -150 / -150
Intake:
Oral fluids 480 / 480 480 / 480 100 / 100
Output:
Urinary Drain Output (Total) 150 / 150 375 / 375 100 / 100
Right Nephrostomy 150 / 150 375 / 375 100 / 100
Urine, Burnett 750 / 750 1450 / 1450
Urine, Voided 150 / 150
Laboratory Results
01/10/25 03:02
01/10/25 03:02
Review of Systems
-
: Incontinence and Difficulty Voiding
Physical Exam
-
General - well developed, well nourished, no acute distress
Chest - clear bilaterally
Abdomen - soft, non-tender, positive bowel sounds, no CVAT, no incisional pain or distention
Genitalia - normal
Rectal - normal
Skin - warm & dry
Incision - clean, dry
Dressing - clean, dry, intact
[2025-01-10 12:31] LABS: Glucose - Point of Care 144 mg/dl (70-99)
[2025-01-10] MEDS: LASIX 20 MG IV (12:38)
[2025-01-10] MEDS: DULCOLAX 10 MG RECTAL (12:39)
--- NOTE | 2025-01-10 13:54 | W.PN.HOSP.TC ---
Today's Communication/Plan
-
Assessment / Plan
Assessment / Plan
General: No acute distress, obese
HEENT: NormoCephalic, nasal cannula in place
Respiratory: Mild crackles at the bases bilaterally, equal expansion
Cardiac: S1/S2 and Regular Rhythm; No Rub or Gallop
GI: Soft, Non Tender, Distended, normal Bowel Sounds
Musculoskeletal: Bilateral lower extremity edema, no deformity
Skin: Warm and dry
: Burnett in place draining clear yellow urine
Neuro: Awake and alert, no tremor
Psych: Calm and cooperative
Mr. Guzman is a 54-year-old male with a medical history of T6 spinal cord injury (2007), acquired spastic quadriplegia, chronic Burnett, HFpEF, COPD, bradycardia (PPM), dysphagia, A-fib (on warfarin), and DVT/PE (IVC filter) who presented with
decreased urinary output from his Burnett catheter for 1 day prior to arrival. He then developed a low-grade fever and reported feeling weak. He also complained of bilateral low back pain. He denied cough, shortness of breath, or abdominal pain.
Shortly after arrival in the hospital he became diaphoretic, hypotensive, and lethargic. He was intubated for airway protection. Chest x-ray showed possible right upper lobe atelectasis or pneumonia. Respiratory panel was negative for COVID or
influenza. CT abdomen pelvis showed 7 x 8 mm proximal right ureteral stone with hydronephrosis and perinephric fat stranding. He was evaluated by urology and IR after which she was that the best course of action would be placement of percutaneous
nephrostomy tube. However his INR was still therapeutic from his warfarin and so PCN placement has been postponed. He has been admitted to the ICU for ongoing management.
Septic shock secondary to UTI:
- Impacted right ureteral stone with proximal hydronephrosis and perinephric fat stranding
- Right PCN placed by IR and draining appropriately
- Blood and urine cultures growing MDR Proteus and Serratia resistant to Zosyn, antibiotics switched to cefepime and now transitioning to p.o. Cipro
- Now extubated and off vasopressors
- Patient downgraded to telemetry
- Outpatient urology follow-up for ureteroscopy and stone removal
Lactic acidosis:
- Secondary to septic shock, resolved
- Treatment as above
VEE:
- Suspect initially prerenal due to septic shock, may be slightly volume overloaded now
- Creatinine at 1.5 today
- Restarted home Lasix 40 mg p.o. on 01/09, given additional dose of Lasix 20 mg IV morning of 01/10 due to apparent volume overload
Hypokalemia:
- Now resolved
A-fib:
- Heart rate currently well-controlled
- INR 1.33, had been holding home warfarin periprocedurally, now restarted at 10 mg with Lovenox bridging, follow-up INR on morning labs and dose of warfarin as needed
Constipated:
- Continue scheduled bowel regimen
- Enema given 01/09 with minimal improvement, Dulcolax suppository given 01/10
- Will monitor
COPD:
- Stable and without bronchospasm
- Continue scheduled nebulizers with additional as needed
Acquired spastic quadriplegia:
- Status post T6 spinal cord injury 2007
- Continue scheduled bowel regimen and gabapentin
DVT prophylaxis: INR currently subtherapeutic, restarted warfarin with Lovenox bridging
CODE STATUS: Full code
Total time spent on today's encounter was 45 minutes
Anticipated Discharge: > 48 hours
Subjective/Interval History
-
Date of Service: January 10, 2025
Patient was seen and examined at bedside this morning. Still feeling bloated and and constipated despite aggressive bowel regimen clearing enema yesterday. Also appears volume overloaded. Giving a dose of IV Lasix in addition to his daily oral
dose.
Objective Data
-
Labs:
Laboratory Results
07/05/25 07/05/25
03:02 03:54
WBC 11.0 H
Hgb 11.6 L
Hct 37.5 L
Plt Count 120 L
PT 16.8 H
INR 1.33
HCO3 26.8
Sodium 137
Potassium 4.0
Chloride 102
Carbon Dioxide 26
BUN 33 H
Creatinine 1.5 H
Glucose 94
Calcium 8.6
Vital Signs:
Vital Signs
Temp Pulse Resp BP Pulse Ox
98.5 F 69 20 135/70 95
01/10/25 11:14 01/10/25 12:38 01/10/25 07:33 01/10/25 12:38 01/10/25 07:59
I&O
01/09/25 01/10/25 01/11/25
06:59 06:59 06:59
Intake Total 480 / 480 480 / 480 100 / 100
Output Total 900 / 900 1825 / 1825 250 / 250
Balance -420 / -420 -1345 / -1345 -150 / -150
Review of Systems
-
History Source: Patient
All other systems: Reviewed and negative
Abdomen/GI: Reports Constipated and Bloated
Musculoskeletal: Reports Edema
Physical Exam
-
General: No Apparent Distress
[2025-01-10 17:03] LABS: Glucose - Point of Care 109 mg/dl (70-99)
[2025-01-10] MEDS: LIPITOR 40 MG PO (17:28)
[2025-01-10] MEDS: COUMADIN 10 MG PO (17:28)
--- NOTE | 2025-01-10 19:00 | PTCARENOTE ---
Received pt. at 1900. Pt. currently in bed. Awake, alert, and oriented. Denies pain/discomfort. Afebrile. Heart rhythm sinus. Blood pressure normotensive. Currently on nasal cannula, plan for bipap HS. Lungs sound coarse. Abdomen obese. Pt. has PO
diet. Chronic mane in place. Urostomy also in place, draining without issue. Skin as documented. Discussed plan of care. Vital signs stable at this time.
[2025-01-10] MEDS: CIPRO 500 MG PO (19:41)
[2025-01-10 21:23] LABS: Glucose - Point of Care 100 mg/dl (70-99)
[2025-01-10] MEDS: SENOKOT 17.2 MG PO (21:58)
--- NOTE | 2025-01-10 23:25 | PTCARENOTE ---
Pt. assessment unchanged. Currently on bipap mask. Appears to be sleeping comfortably. Vital signs stable at this time.
[2025-01-11] VITALS (10 sets, daily range): BP systolic 105–151; BP diastolic 41–131; PULSE 2–70; BMI 46.2
[2025-01-11] MEDS: LOVENOX 140 MG SC ×2 (03:08→12:31)
[2025-01-11 03:45] LABS: Hematocrit 36.2 % (39.0-52.0); Hemoglobin 11.1 g/dL (13.0-18.0); Mean Corp Hgb Conc. 30.7 g/dL (33.0-37.0); Mean Corpuscular Volume 81.3 fL (80.0-94.0); Platelet Count 177 10^3/uL (130-400); Red Cell Dist. Width 19.1 % (11.5-14.5)
[2025-01-11 03:50] LABS: INR 1.24; PT 15.9 Sec (11.4-14.6)
--- NOTE | 2025-01-11 03:55 | PTCARENOTE ---
Pt. assessment remains unchanged. AM labs drawn. Vital signs stable at this time.
[2025-01-11 04:01] LABS: Blood Urea Nitrogen 30 mg/dl (9-20); Calcium 8.8 mg/dl (8.4-10.2); Carbon Dioxide 29 mmol/L (22-30); Chloride 103 mmol/L (98-107); Estimated Creatinine Clearance > 125 ml/min; Glucose 96 mg/dl (70-99); Potassium 3.8 mmol/L (3.5-5.1); Sodium 139 mmol/L (135-145); eGFR > 60.00
[2025-01-11] MEDS: DUONEB 3 ML INH ×3 (07:28→20:49)
[2025-01-11] MEDS: LASIX 40 MG PO (08:01)
[2025-01-11] MEDS: CIPRO 500 MG PO ×2 (08:01→19:55)
[2025-01-11] MEDS: NOVOLOG FLEXPEN-MODERATE RESISTANCE SC ×3 (08:01→17:13)
[2025-01-11] MEDS: NEURONTIN 300 MG PO ×2 (08:01→19:55)
[2025-01-11] MEDS: PROTONIX 40 MG PO (08:01)
[2025-01-11] MEDS: COLACE 100 MG PO (08:01)
[2025-01-11] MEDS: MIRALAX 17 GRAMS PO (08:01)
[2025-01-11] MEDS: LIORESAL 40 MG PO ×2 (08:02→19:55)
[2025-01-11] MEDS: MS CONTIN (EXTENDED RELEASE) 30 MG PO ×2 (08:02→19:55)
[2025-01-11] MEDS: ZOLOFT 50 MG PO (08:02)
--- NOTE | 2025-01-11 08:15 | SUR.OPER ---
07: 00 assumed care; On BIPAP
AAO x3; Forgetful Denies pain
V-P 71; BP via Right Upper arm 151/68; +2 edema feet b/l
RR: Course through; No SOB RR 19; 98%/3L via nasal canula
Abdomen soft; distended No BM ; Miralex can colace adm
Chronic Indwelling Burnett draining reva clear urine Rt Urostomy draining clear reva urine
[2025-01-11 08:19] LABS: Glucose - Point of Care 80 mg/dl (70-99)
[2025-01-11 08:38] LABS: Nucleated Red Blood Cells % 0 % (-)
--- NOTE | 2025-01-11 11:52 | PTCARENOTE ---
Urine bloody with no clots via urostomy and Indwelling Burnett. Per Dr. Sutton : bloody urine is expected as long as pt has no fever or chill.
Abdomen distended Hypoactive Bowel sounds through. No BM for few days. Fleet enema adm
--- NOTE | 2025-01-11 12:30 | W.PN.HOSP.TC ---
Today's Communication/Plan
-
see plan
Assessment / Plan
Assessment / Plan
54-year-old male with a medical history of T6 spinal cord injury (2007), acquired spastic quadriplegia, chronic Burnett, HFpEF, COPD, bradycardia (PPM), dysphagia, A-fib (on warfarin), and DVT/PE (IVC filter) who presented with decreased urinary
output from his Burnett catheter for 1 day prior to arrival. He then developed a low-grade fever and reported feeling weak. He also complained of bilateral low back pain. He denied cough, shortness of breath, or abdominal pain. Shortly after
arrival in the hospital he became diaphoretic, hypotensive, and lethargic. He was intubated for airway protection. Chest x-ray showed possible right upper lobe atelectasis or pneumonia. Respiratory panel was negative for COVID or influenza. CT
abdomen pelvis showed 7 x 8 mm proximal right ureteral stone with hydronephrosis and perinephric fat stranding. He was evaluated by urology and IR after which she was that the best course of action would be placement of percutaneous nephrostomy
tube. However his INR was still therapeutic from his warfarin and so PCN placement has been postponed. He has been admitted to the ICU for ongoing management.
Gen: NAD, AAOx3.
Eyes: EOMI, PERRLA, no scleral icterus.
Neck: supple.
CV: RRR, +S1/S2, no m/r/g.
Resp: CTAB, no rales, wheezes, or rhonchi.
Abd: +BS, soft, NT, mild distention
Skin: No rashes.
Neuro: CN 2-12 intact, non-focal.
Psych: Normal mood and affect.
01/06/25 16:55 Urine Urine Culture - Final
Serratia marcescens
Proteus mirabilis
01/05/25 21:23 Blood/Venous Blood Culture - Final
Proteus mirabilis
Serratia marcescens
01/05/25 21:23 Blood/Venous Gram Stain - Final
01/05/25 20:02 Blood/Venous Blood Culture - Final
Proteus mirabilis
Serratia marcescens
01/05/25 20:02 Blood/Venous Gram Stain - Final
01/05/25 20:03 Urine Urine Culture - Final
01/05/25 20:30 Nasal Swab Influenza Types A & B (GUILLAUME) - Final
Negative for Influenza A & B, NAAT
Negative results must be combined with clinical observations
and patient history.
Nucleic Acid Amplification test (NAAT)performed on the
[employer] platform.
CXR 01/10/25: There is a new hazy right basilar opacity, possible pneumonitis in the setting of suspected aspiration.
Septic shock secondary to UTI:
-impacted right ureteral stone with proximal hydronephrosis and perinephric fat stranding
-R PCN placed by IR and draining appropriately
-BCxs/UCx grer MDR Proteus and Serratia resistant to Zosyn, antibiotics switched to cefepime and then transitioned to Cipro PO
-initially intubated, now extubated and off vasopressors
-outpatient urology follow-up for ureteroscopy and stone removal
-lactic acidosis secondary to septic shock, resolved
-leukocytosis has resolved
VEE:
-initially thought to be prerenal due to septic shock
-s/p IVFs for septic shock and was then thought to slightly volume overloaded
-home Lasix 40 mg daily restarted on 01/09, given additional dose of Lasix 20 mg IV morning of 01/10 due to apparent volume overload
-VEE has now resolved, Cr now 0.8
Other problems:
Permanent A-fib: cont Lovenox/coumadin bridge
Hypokalemia, resolved
Constipation: cont bowel regimen, s/p enema given 01/09 with minimal improvement, Dulcolax suppository given 01/10, will give Magnesium Citrate today
COPD: not in acute exac, cont duonebs
Acquired spastic quadriplegia due to T6 spinal cord injury 2008: cont bowel regimen and gabapentin, cont MS contin
Chronic opioid use with dependence
FULL/Lovenox
Total time spent on today's encounter was 50 minutes which included time spent in counseling the patient/family regarding diagnosis and treatment plan as listed above, goals of care, and symptom management. Case was discussed with nursing staff,
specialists, and care coordinators/case management. All labs and imaging personally reviewed by me. Remainder the time spent in detailed review of previous records, lab data, imaging, and other medical provider documentation.
Anticipated Discharge: 24 - 48 hours
Subjective/Interval History
-
Date of Service: January 11, 2025
c/o constipation.
Objective Data
-
Labs:
Laboratory Results
01/11/25
03:12
WBC 10.4
Hgb 11.1 L
Hct 36.2 L
Plt Count 177 D
PT 15.9 H
INR 1.24
Sodium 139
Potassium 3.8
Chloride 103
Carbon Dioxide 29
BUN 30 H
Creatinine 0.8
Glucose 96
Calcium 8.8
Vital Signs:
Vital Signs
Temp Pulse Resp BP Pulse Ox
98.1 F 73 25 151/68 3
01/11/25 11:37 01/11/25 11:00 01/11/25 11:00 01/11/25 08:01 01/11/25 08:51
I&O
01/10/25 01/11/25 01/12/25
06:59 06:59 06:59
Intake Total 480 / 480 300 / 500 440 / 440
Output Total 1825 / 1825 3150 / 3600 1150 / 1150
Balance -1345 / -1345 -2850 / -3100 -710 / -710
[2025-01-11 12:39] LABS: Glucose - Point of Care 120 mg/dl (70-99)
--- NOTE | 2025-01-11 13:24 | PTCARENOTE ---
Transfer
Patient transfer to room # 7910. Transfer via bed. Report given prior to transfer.
At time to transfer : AAO x3 Chronic back pain . Afebrile
V-p 70's BP via RT Upper arm 130's /50's +2 edema b/l feet
Chronic Indwelling Burnett and RT nephrostomy draining bloody urine no blood clots
[2025-01-11] MEDS: CITROMA 300 ML PO (15:33)
--- NOTE | 2025-01-11 16:06 | W.PN.URO.CBU ---
Today's Communication / Plan
-
WILL NEED [facility] ORDERS BEFORE DISCHARGE ON CARE OF TUBE IE FLUSHING ETC
Assessment / Plan
-
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
Prior hx of kidney stone with difficult ureteral access in 2019
Presenting with septic shock likely due to obstructing R ureteral stone, also with large bladder stone
s/p IR for R percutaneous nephrostomy
HEMATURIA NOT UNEXPECTED IN LIGHT OF WARFARIN AND LOVENOX BUT AFBRILE DRAINAGE IS UNOBSTRUCTED AND ASX WILL OBSERVE PT AWARE TO CALL IF FEVRR CHILLS OR DECREASED DRAINAGE
- Continue abx and f/u cultures - proteus and serratia
- Recommend 10 day abx course for complicated UTI
- Maintain nephrostomy tube to drainage
- Follow up after discharge to discuss and schedule ureteroscopy, kidney and bladder stone removal procedures
Diagnosis
-
Date of Service: January 11, 2025
-
Patient Diagnosis:
Post Op Day:
Patient Diagnosis:
Post Op Day:
Patient Diagnosis:
Post Op Day:
Patient Diagnosis:
Sepsis
Obstructing ureteral stone
Post Op s/p R PCN placement 01/06/25
Subjective
-
hematuria no clots no pain and good drainage rt nephrosyomy tube
Objective
-
Vital Signs
Temp Pulse Resp BP Pulse Ox
98.5 F 72 18 113/41 94
01/11/25 15:56 01/11/25 15:56 01/11/25 15:56 01/11/25 15:56 01/11/25 15:56
Intake and Output
01/10/25 01/11/25 01/12/25
06:59 06:59 06:59
Intake Total 480 / 480 300 / 500 440 / 440
Output Total 1825 / 1825 3150 / 3600 1150 / 1150
Balance -1345 / -1345 -2850 / -3100 -710 / -710
Intake:
Oral fluids 480 / 480 300 / 500 440 / 440
Output:
Urinary Drain Output (Total) 375 / 375 1300 / 1500 400 / 400
Right Nephrostomy 375 / 375 1300 / 1500 400 / 400
Urine, Burnett 1450 / 1450 1700 / 1950 750 / 750
Urine, Voided 150 / 150
Laboratory Results
01/11/25 03:12
01/11/25 03:12
Review of Systems
-
: Bleeding
Physical Exam
-
General - well developed, well nourished, no acute distress
Chest - clear bilaterally
Abdomen - soft, non-tender, positive bowel sounds, no CVAT, no incisional pain or distention
Genitalia - n
Extremities - no clubbing, no cyanosis, no edema
Incision - clean, dry
Dressing - clean, dry, intact
Care Review
Data Reviewed
Discussed with: Nursing
--- NOTE | 2025-01-11 16:18 | PTCARENOTE ---
MD and urology made aware that pt had bloody output from mane and nephrostomy this afternoon. urology saw pt at bedside. no concerns on urology front. continue to monitor and monitor temperature curve.
[2025-01-11 16:58] LABS: Glucose - Point of Care 99 mg/dl (70-99)
[2025-01-11] MEDS: LIPITOR 40 MG PO (18:42)
[2025-01-11] MEDS: COUMADIN 10 MG PO (18:42)
[2025-01-11] MEDS: SENOKOT 17.2 MG PO (19:55)
[2025-01-11 21:55] LABS: Glucose - Point of Care 98 mg/dl (70-99)
[2025-01-12] MEDS: LOVENOX 140 MG SC (03:09)
[2025-01-12 03:21] VITALS: BP 127/59
[2025-01-12 05:43] VITALS: BMI 45.3
[2025-01-12] MEDS: DUONEB INH ×3 (07:19→19:25)
[2025-01-12 07:43] VITALS: BP 142/55
[2025-01-12 07:56] LABS: Glucose - Point of Care 90 mg/dl (70-99)
[2025-01-12 08:04] LABS: INR 1.57; PT 19.0 Sec (11.4-14.6)
[2025-01-12 08:32] LABS: Blood Urea Nitrogen 17 mg/dl (9-20); Calcium 8.8 mg/dl (8.4-10.2); Carbon Dioxide 32 mmol/L (22-30); Chloride 99 mmol/L (98-107); Estimated Creatinine Clearance > 125 ml/min; Glucose 86 mg/dl (70-99); Potassium 4.3 mmol/L (3.5-5.1); Sodium 139 mmol/L (135-145); eGFR > 60.00
[2025-01-12] MEDS: NOVOLOG FLEXPEN-MODERATE RESISTANCE SC ×3 (08:42→17:34)
--- NOTE | 2025-01-12 08:43 | W.PN.HOSP.TC ---
Today's Communication/Plan
-
see plan
Assessment / Plan
Assessment / Plan
54-year-old male with a medical history of T6 spinal cord injury (2007), acquired spastic quadriplegia, chronic Burnett, HFpEF, COPD, bradycardia (PPM), dysphagia, A-fib (on warfarin), and DVT/PE (IVC filter) who presented with decreased urinary
output from his Burnett catheter for 1 day prior to arrival. He then developed a low-grade fever and reported feeling weak. He also complained of bilateral low back pain. He denied cough, shortness of breath, or abdominal pain. Shortly after
arrival in the hospital he became diaphoretic, hypotensive, and lethargic. He was intubated for airway protection. Chest x-ray showed possible right upper lobe atelectasis or pneumonia. Respiratory panel was negative for COVID or influenza. CT
abdomen pelvis showed 7 x 8 mm proximal right ureteral stone with hydronephrosis and perinephric fat stranding. He was evaluated by urology and IR after which she was that the best course of action would be placement of percutaneous nephrostomy
tube. However his INR was still therapeutic from his warfarin and so PCN placement has been postponed. He has been admitted to the ICU for ongoing management.
Gen: NAD, AAOx3.
Eyes: EOMI, PERRLA, no scleral icterus.
Neck: supple.
CV: Remains RRR, +S1/S2, no m/r/g.
Resp: Remains CTAB, no rales, wheezes, or rhonchi.
Abd: Remains +BS, soft, NT, mild distention
Skin: No rashes.
Neuro: CN 2-12 intact, non-focal.
Psych: Normal mood and affect.
01/06/25 16:55 Urine Urine Culture - Final
Serratia marcescens
Proteus mirabilis
01/05/25 21:23 Blood/Venous Blood Culture - Final
Proteus mirabilis
Serratia marcescens
01/05/25 21:23 Blood/Venous Gram Stain - Final
01/05/25 20:02 Blood/Venous Blood Culture - Final
Proteus mirabilis
Serratia marcescens
01/05/25 20:02 Blood/Venous Gram Stain - Final
01/05/25 20:03 Urine Urine Culture - Final
01/05/25 20:30 Nasal Swab Influenza Types A & B (GUILLAUME) - Final
Negative for Influenza A & B, NAAT
Negative results must be combined with clinical observations
and patient history.
Nucleic Acid Amplification test (NAAT)performed on the
[employer] NOW platform.
CXR 01/10/25: There is a new hazy right basilar opacity, possible pneumonitis in the setting of suspected aspiration.
Septic shock secondary to UTI:
-impacted right ureteral stone with proximal hydronephrosis and perinephric fat stranding
-R PCN placed by IR and draining appropriately
-BCxs/UCx grer MDR Proteus and Serratia resistant to Zosyn, antibiotics switched to cefepime and then transitioned to Cipro PO. c/s ID for final abx recs.
-initially intubated, now extubated and off vasopressors
-outpatient urology follow-up for ureteroscopy and stone removal
-lactic acidosis secondary to septic shock, resolved
-leukocytosis has resolved
VEE:
-initially thought to be prerenal due to septic shock
-s/p IVFs for septic shock and was then thought to slightly volume overloaded
-home Lasix 40 mg daily restarted on 01/09, given additional dose of Lasix 20 mg IV morning of 01/10 due to apparent volume overload
-VEE has now resolved, Cr now 0.7
Other problems:
Permanent A-fib: cont Lovenox/coumadin bridge
Hypokalemia, resolved
Constipation: cont bowel regimen, s/p enema given 01/09 with minimal improvement, Dulcolax suppository given 01/10, will give Magnesium Citrate today
COPD: not in acute exac, cont duonebs
Acquired spastic quadriplegia due to T6 spinal cord injury 2008: cont bowel regimen and gabapentin, cont MS contin
Chronic opioid use with dependence
RN updated.
Patient states he is leaving the hospital today. He does have decision-making capacity and cannot leave AGAINST MEDICAL ADVICE.
FULL/Lovenox
Total time spent on today's encounter was 51 minutes which included time spent in counseling the patient/family regarding diagnosis and treatment plan as listed above, goals of care, and symptom management. Case was discussed with nursing staff,
specialists, and care coordinators/case management. All labs and imaging personally reviewed by me. Remainder the time spent in detailed review of previous records, lab data, imaging, and other medical provider documentation.
Anticipated Discharge: 24 - 48 hours
Subjective/Interval History
-
Date of Service: January 12, 2025
Patient without new complaints. States he cannot stay in the hospital another day.
Objective Data
-
Labs:
Laboratory Results
01/12/25
07:37
PT 19.0 H
INR 1.57
Sodium 139
Potassium 4.3
Chloride 99
Carbon Dioxide 32 H
BUN 17
Creatinine 0.7
Glucose 86
Calcium 8.8
Vital Signs:
Vital Signs
Temp Pulse Resp BP Pulse Ox
98.2 F 72 18 142/55 92
01/12/25 07:43 01/12/25 07:43 01/12/25 07:43 01/12/25 07:43 01/12/25 07:43
I&O
01/11/25 01/12/25 01/13/25
06:59 06:59 06:59
Intake Total 300 / 500 1740 / 1740
Output Total 3150 / 3600 3000 / 3000
Balance -2850 / -3100 -1260 / -1260
[2025-01-12] MEDS: PROTONIX 40 MG PO (08:54)
[2025-01-12] MEDS: LIORESAL 40 MG PO ×2 (08:55→20:51)
[2025-01-12] MEDS: COLACE 100 MG PO (08:55)
[2025-01-12] MEDS: NEURONTIN 300 MG PO ×2 (08:55→20:51)
[2025-01-12] MEDS: LASIX 40 MG PO (08:55)
[2025-01-12] MEDS: MIRALAX 17 GRAMS PO (08:55)
[2025-01-12] MEDS: MS CONTIN (EXTENDED RELEASE) 30 MG PO ×2 (08:55→20:50)
[2025-01-12] MEDS: ZOLOFT 50 MG PO (08:55)
[2025-01-12] MEDS: CIPRO 500 MG PO ×2 (09:00→20:51)
[2025-01-12] MEDS: CITROMA 300 ML PO (10:39)
[2025-01-12] MEDS: SENOKOT 17.2 MG PO ×2 (10:39→20:51)
--- NOTE | 2025-01-12 10:40 | W.PN.URO.CBU ---
Today's Communication / Plan
-
contact [facility]ae [facility] to discuss perc tube care with pt and/ or spouse
Assessment / Plan
-
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
Prior hx of kidney stone with difficult ureteral access in 2019
Presenting with septic shock likely due to obstructing R ureteral stone, also with large bladder stone
s/p IR for R percutaneous nephrostomy
HEMATURIA NOT UNEXPECTED IN LIGHT OF WARFARIN AND LOVENOX BUT AFBRILE DRAINAGE IS UNOBSTRUCTED AND ASX WILL OBSERVE PT AWARE TO CALL IF FEVRR CHILLS OR DECREASED DRAINAGE
- Continue abx and f/u cultures - proteus and serratia
- Recommend 10 day abx course for complicated UTI
- Maintain nephrostomy tube to drainage
- Follow up after discharge to discuss and schedule ureteroscopy, kidney and bladder stone removal procedures
Diagnosis
-
Date of Service: January 12, 2025
-
Patient Diagnosis:
Post Op Day:
Patient Diagnosis:
Post Op Day:
Patient Diagnosis:
Post Op Day:
Patient Diagnosis:
Post Op Day:
Patient Diagnosis:
Sepsis
Obstructing ureteral stone
Post Op s/p R PCN placement 01/06/25
Subjective
-
stable but hematuria rt pcn tube
Objective
-
Vital Signs
Temp Pulse Resp BP Pulse Ox
98.2 F 72 18 142/55 92
01/12/25 07:43 01/12/25 07:43 01/12/25 07:43 01/12/25 08:55 01/12/25 07:43
Intake and Output
01/11/25 01/12/25 01/13/25
06:59 06:59 06:59
Intake Total 300 / 500 1740 / 1740
Output Total 3150 / 3600 3000 / 3000
Balance -2850 / -3100 -1260 / -1260
Intake:
Oral fluids 300 / 500 1740 / 1740
Output:
Urinary Drain Output (Total) 1300 / 1500 650 / 650
Right Nephrostomy 1300 / 1500 650 / 650
Urine, Burnett 1700 / 1950 2350 / 2350
Urine, Voided 150 / 150
Laboratory Results
01/11/25 03:12
01/12/25 07:37
Review of Systems
-
: Bleeding
Physical Exam
-
General - well developed, well nourished, no acute distress
Chest - clear bilaterally
Abdomen - soft, non-tender, positive bowel sounds, no CVAT, no incisional pain or distention
Genitalia - normal
Rectal - normal
Skin - warm & dry with no rash
Neuro - AOx3, no motor deficits
Extremities - no clubbing, no cyanosis, no edema
Incision - clean, dry
Dressing - clean, dry, intact
Care Review
Data Reviewed
Discussed with: Nursing
[2025-01-12 11:16] VITALS: BP 150/67
--- NOTE | 2025-01-12 11:35 | PTCARENOTE ---
pt refusing to take stool softeners or drink magnesium citrate for this RN this afternoon. made aware.
--- NOTE | 2025-01-12 12:10 | CON.ID ---
Consultation
-
Date/Time Consultation Requested: 01/12/2025 0845
Date/Time Consultation Performed: 01/12/2025 1200
Requesting Provider: Dr. Victoria
Performing Provider: Dr. Pérez
Reason for Consultation: Septic shock
Chief Complaint / Past History
History of Present Illness
Adam Guzman is a 52-year-old male being evaluated at the request of Dr. Victoria regarding clinical sepsis. History is obtained from chart review, along with patient interview.
The patient has a complex history that includes T6 paraplegia and neurogenic bladder with chronic Burnett catheter. He initially presented to the ER on 01/05 for evaluation of decreased urinary output. At that time, he reported that he had noted
diminished output from his Burnett catheter, along with some back discomfort. In the ER, he was noted to decompensate with hypotension and sweating. He ultimately required intubation. His hospital course has been significant for septic shock
requiring pressor therapy. He was found to have an impacted right ureteral stone with proximal hydronephrosis and perinephric fat stranding, and a right PCN was placed by IR. At this time, he has stabilized clinically. He has been extubated and
is off pressors. Infectious Diseases is asked to comment upon further antimicrobial therapy.
Past History
Additional Past Medical History:
Chronic hypoxic respiratory failure (2.5 L home O2)
COPD
CHF
Pulmonary hypertension
Paroxysmal A-fib
HTN
Dyslipidemia
DM type II
Neurogenic bladder with chronic Burnett
Nephrolithiasis
T6 paraplegia secondary to fall
PE/DVT
Morbid obesity (BMI=45)
Depression
Additional Past Surgical History:
Spinal surgery
Left humerus fracture
IVC filter
Cholecystectomy
PPM
Allergy History:
No Known Allergies Allergy (Verified 03/27/24 16:30)
Medications Reviewed: Yes
Current Antibiotics:
Ciprofloxacin 500 mg p.o. twice daily
Social History
Tobacco: Former Smoker
Alcohol: None
Drug: None
Personal: Single
Employment: Not Employed
Family History
Family History: Not Pertinent
Review of Systems
Vital Signs
Temp Pulse Resp BP Pulse Ox
98.2 F 72 18 142/55 92
01/12/25 07:43 01/12/25 07:43 01/12/25 07:43 01/12/25 08:55 01/12/25 07:43
Physical Exam
Physical Exam
Constitutional: No Acute Distress, Comfortable, Chronically Ill, Non-toxic and Obese
Eyes: Pupils Equal, Pupils Round, No Conjunctival Hemorrhage and Sclera Anicteric
Pharynx: Erythema
Oral: No Thrush and No Ulcers
Lymph Nodes: Lymphadenopathy
Cardiovascular: Regular Rate and S1/S2; Negative S3/S4 or Murmur
Pulmonary: Clear; Negative Wheezes, Rales or Rhonchi
Gastrointestinal: Soft, Non Tender, Non Distended, Normal Bowel Sounds, No Rebound and No Guarding
Genito-Urinary: Burnett, Clear Urine, Hematuria and Other (Right PCN with clear yellow urine); Negative Turbid Urine
Extremities: Edema (2+ bilateral lower extremities); Negative Cyanosis or Erythema
Skin: Warm and Dry; Negative Rash or Jaundice
Neurological: Awake, Alert and Oriented
Psychological: Calm
Lab / Diagnostic Study Results
01/11/25 03:12
01/12/25 07:37
Abs Immat Gran (auto) 0.6 10^3/uL (0-0.05) H 01/11/25 03:12
Absolute Neuts (auto) 6.1 10^3/uL (1.4-6.5) 01/11/25 03:12
Absolute Lymphs (auto) 1.9 10^3/uL (1.2-3.4) 01/11/25 03:12
Absolute Monos (auto) 1.3 10^3/uL (0.1-0.6) H 01/11/25 03:12
Absolute Basos (auto) 0.1 10^3/uL (0-0.2) 01/11/25 03:12
Total Counted 100 01/07/25 04:07
Immature Gran % 6.2 % (0-0.5) H 01/11/25 03:12
Neutrophils % 59.0 % (42.2-75.2) 01/11/25 03:12
Lymphocytes % 18.4 % (20.5-51.1) L 01/11/25 03:12
Monocytes % 12.5 % (1.7-9.3) H 01/11/25 03:12
Eosinophils % 2.8 % (0-6) 01/11/25 03:12
Basophils % 1.1 % (0-2) 01/11/25 03:12
Abs Neuts (Manual) 25.0 10^3/uL (1.4-6.5) H 01/07/25 04:07
Segmented Neutrophils 85 % (42-75) H 01/07/25 04:07
Band Neutrophils 8 % (0-3) H 01/07/25 04:07
Lymphocytes (Manual) 2 % (20-51) L 01/07/25 04:07
Eosinophils (Manual) 4 % (0-6) 01/07/25 04:07
PT 19.0 Sec (11.4-14.6) H 01/12/25 07:37
INR 1.57 01/12/25 07:37
Lactic Acid 1.3 mmol/L (0.7-2.0) 01/06/25 19:44
Ur Squamous Epith Cells 3-5 /LPF (Few) 01/05/25 20:03
Microbiology Results
Micro:
01/06/25 16:55 Urine Culture - Final
Urine Serratia marcescens
Proteus mirabilis
01/05/25 21:23 Blood Culture - Final
Blood/Venous Proteus mirabilis
Serratia marcescens
Gram Stain - Final
01/05/25 20:02 Blood Culture - Final
Blood/Venous Proteus mirabilis
Serratia marcescens
Gram Stain - Final
01/05/25 20:03 Urine Culture - Final
Urine
01/05/25 20:30 Influenza Types A & B (GUILLAUME) - Final
Nasal Swab Negative for Influenza A & B, NAAT
Negative results must be combined with clinical observations
and patient history.
Nucleic Acid Amplification test (NAAT)performed on the
[employer] platform.
Imaging:
01/05/2025 CT abdomen/pelvis with IV contrast: A 7 x 8 mm calculus in the proximal right ureter with moderate right renal collecting system dilatation, as well as right perinephric and periureteral stranding. Small bilateral nonobstructing renal
calculi. Burnett catheter is placed within an essentially empty urinary bladder. Please see full dictation for additional detail.
Assessment / Plan
Clinical sepsis/septic shock; resolved
Obstructive uropathy secondary to nephrolithiasis
- s/p right PCN placement
Suspected pyelonephritis
Leukocytosis; improved
VEE; improved
Bacteremia with Proteus mirabilis and Serratia marcescens
Chronic hypoxic respiratory failure (2.5 L home O2)
COPD
CHF
Pulmonary hypertension
Paroxysmal A-fib
HTN
Dyslipidemia
DM type II
Neurogenic bladder with chronic Burnett
Nephrolithiasis
T6 paraplegia secondary to fall
PE/DVT
Morbid obesity (BMI=45)
Depression
Recommendations:
Recovered urinary and blood isolates are susceptible to fluoroquinolones.
Source control has been achieved with placement of right PCN. Patient will still require definitive therapy of ureteral stone.
Patient appears overall clinically improved from admission.
Would continue with ciprofloxacin 500 mg p.o. twice daily through 01/20/25.
Patient also noted to be on warfarin. INR will need to be monitored closely given fluoroquinolone interaction with warfarin.
[2025-01-12] MEDS: LOVENOX SC (13:19)
[2025-01-12 13:24] LABS: Glucose - Point of Care 97 mg/dl (70-99)
[2025-01-12 15:55] VITALS: BP 153/55
[2025-01-12 17:32] LABS: Glucose - Point of Care 98 mg/dl (70-99)
[2025-01-12] MEDS: COUMADIN 10 MG PO (18:16)
[2025-01-12] MEDS: LIPITOR 40 MG PO (18:16)
[2025-01-12] MEDS: COUMADIN 2.5 MG PO (18:16)
[2025-01-12 19:39] VITALS: BP 154/59
--- NOTE | 2025-01-12 20:07 | PTCARENOTE ---
pt with large soft brown BM this afternoon around 1545 for this RN. new sacral foam placed. pt asking about discharge, pt educated on goal of INR and increase in Coumadin dose for 1800. instructions for nephrostomy tube sent up from [facility] for
educational instructions placed in patient chart for discharge.
[2025-01-12 21:02] LABS: Glucose - Point of Care 104 mg/dl (70-99)
[2025-01-12 23:40] VITALS: BP 182/69
[2025-01-13] VITALS (9 sets, daily range): BP systolic 141–172; BP diastolic 53–72; PULSE 2–74; BMI 45.1
--- NOTE | 2025-01-13 01:10 | PTCARENOTE ---
pt called out via call varghese, stating 'Im having a heart attack' i asked did he feel like he was? he stated 'yes, my chest hurts' I turned on lights set bed up and alerted bedside RN Geraldo who instructed me to obtain EKG. EKG competed and given to RN
--- NOTE | 2025-01-13 01:22 | W.PN.UPDATE ---
Update Note
Progress Note Update
TT received from RN, patient c/o chest pain rated at 8 out of 10 to RN, on evaluation now rates at 3-4 out of 10. Pain is non-radiating, denies lightheadedness, SOB, palpitations, nausea. Patient states he has had this intermittent pain throughout
the day. Vital signs: BP 172/74, HR 71, 93% 4L Bipap. Temp 97.9.
Ordered EKG, shows Vpaced, HR 71, similiar to previous EKG on 01/05/25. Ordered serial Troponin.
Patient states pain is resolving, comes and goes. Requested Duonebs be given, pt refused scheduled dose. Awaiting labs. Consider Cardiology consult, as per attending.
[2025-01-13] MEDS: LOVENOX 140 MG SC ×2 (01:35→14:07)
[2025-01-13] MEDS: DUONEB 3 ML INH ×4 (01:48→19:21)
[2025-01-13 02:10] LABS: Troponin I < 0.012 ng/ml
--- NOTE | 2025-01-13 02:49 | PTCARENOTE ---
Patient states he has 8/10 sharp intermittent pain in chest. Patient requesting to speak with a amusement equipment operator. EKG obtained and B[employer]ER notified. CPAP on patient and oxygen saturation 94. Manual BP 172/72, HR 70. Troponin order placed by [employer]ER. Resulted
< 0.012. Respiratory treatment that patient previously refused completed by respiratory therapist. Patient now states pain in chest is 3/10.
[2025-01-13 07:38] LABS: INR 1.68; PT 20.0 Sec (11.4-14.6)
[2025-01-13 07:59] LABS: Troponin I < 0.012 ng/ml
[2025-01-13] MEDS: COLACE 100 MG PO (08:12)
[2025-01-13] MEDS: MIRALAX 17 GRAMS PO (08:12)
[2025-01-13] MEDS: SENOKOT 17.2 MG PO ×2 (08:12→19:43)
[2025-01-13] MEDS: CIPRO 500 MG PO ×2 (08:12→19:43)
[2025-01-13] MEDS: LIORESAL 40 MG PO ×2 (08:12→19:43)
[2025-01-13] MEDS: NEURONTIN 300 MG PO ×2 (08:12→19:43)
[2025-01-13] MEDS: ZOLOFT 50 MG PO (08:13)
[2025-01-13] MEDS: PROTONIX 40 MG PO (08:13)
[2025-01-13] MEDS: LASIX 40 MG PO (08:13)
[2025-01-13] MEDS: MS CONTIN (EXTENDED RELEASE) 30 MG PO ×2 (08:13→19:43)
--- NOTE | 2025-01-13 08:34 | W.PN.HOSP.TC ---
Addendum entered and electronically signed by Mandeep Victoria MD 01/13/25 11:45:
Acute hypoxic respiratory failure
Original Note:
Today's Communication/Plan
-
see plan
Assessment / Plan
Assessment / Plan
54-year-old male with a medical history of T6 spinal cord injury (2007), acquired spastic quadriplegia, chronic Burnett, HFpEF, COPD, bradycardia (PPM), dysphagia, A-fib (on warfarin), and DVT/PE (IVC filter) who presented with decreased urinary
output from his Burnett catheter for 1 day prior to arrival. He then developed a low-grade fever and reported feeling weak. He also complained of bilateral low back pain. He denied cough, shortness of breath, or abdominal pain. Shortly after
arrival in the hospital he became diaphoretic, hypotensive, and lethargic. He was intubated for airway protection. Chest x-ray showed possible right upper lobe atelectasis or pneumonia. Respiratory panel was negative for COVID or influenza. CT
abdomen pelvis showed 7 x 8 mm proximal right ureteral stone with hydronephrosis and perinephric fat stranding. He was evaluated by urology and IR after which she was that the best course of action would be placement of percutaneous nephrostomy
tube. However his INR was still therapeutic from his warfarin and so PCN placement has been postponed. He has been admitted to the ICU for ongoing management.
Gen: NAD, AAOx3.
Eyes: EOMI, PERRLA, no scleral icterus.
Neck: supple.
CV: Remains RRR, +S1/S2, no m/r/g.
Resp: Remains CTAB, no rales, wheezes, or rhonchi.
Abd: Remains +BS, soft, NT, mild distention
Skin: No rashes.
Neuro: CN 2-12 intact, non-focal.
Psych: Normal mood and affect.
01/06/25 16:55 Urine Urine Culture - Final
Serratia marcescens
Proteus mirabilis
01/05/25 21:23 Blood/Venous Blood Culture - Final
Proteus mirabilis
Serratia marcescens
01/05/25 21:23 Blood/Venous Gram Stain - Final
01/05/25 20:02 Blood/Venous Blood Culture - Final
Proteus mirabilis
Serratia marcescens
01/05/25 20:02 Blood/Venous Gram Stain - Final
01/05/25 20:03 Urine Urine Culture - Final
01/05/25 20:30 Nasal Swab Influenza Types A & B (GUILLAUME) - Final
Negative for Influenza A & B, NAAT
Negative results must be combined with clinical observations
and patient history.
Nucleic Acid Amplification test (NAAT)performed on the
[employer] NOW platform.
CXR 01/10/25: There is a new hazy right basilar opacity, possible pneumonitis in the setting of suspected aspiration.
Chest pain:
-O/N 01/12-01/13
-trop NEG x 2
-ECG (read by me): V-paced rhythm @ 71
-Echo September 2024: EF 60-65%, no RWMA, normal RV sz/fxn, no gross valvular abnormalities
-c/s cards
Septic shock secondary to UTI:
-impacted right ureteral stone with proximal hydronephrosis and perinephric fat stranding
-R PCN placed by IR and draining appropriately
-BCxs/UCx grer MDR Proteus and Serratia resistant to Zosyn, antibiotics switched to cefepime and then transitioned to Cipro PO (continue through 01/20/25 as per ID).
-initially intubated, now extubated and off vasopressors
-outpatient urology follow-up for ureteroscopy and stone removal
-lactic acidosis secondary to septic shock, resolved
-leukocytosis has resolved
VEE:
-initially thought to be prerenal due to septic shock
-s/p IVFs for septic shock and was then thought to slightly volume overloaded
-home Lasix 40 mg daily restarted on 01/09, given additional dose of Lasix 20 mg IV morning of 01/10 due to apparent volume overload
-VEE has now resolved, Cr now 0.7
Permanent A-fib:
-cont Lovenox/coumadin bridge (increase coumadin to 15mg)
Constipation:
-cont bowel regimen
-s/p enema given 01/09 with minimal improvement, Dulcolax suppository given 01/10, Magnesium Citrate given 01/11 and 01/12
Other problems:
Hypokalemia, resolved
COPD: not in acute exac, cont duonebs
Acquired spastic quadriplegia due to T6 spinal cord injury 2008: cont bowel regimen and gabapentin, cont MS contin
Chronic opioid use with dependence
RN updated.
Patient states he needs to leave the hospital today. He does have decision-making capacity and cannot leave AGAINST MEDICAL ADVICE.
FULL/Lovenox
Total time spent on today's encounter was 50 minutes which included time spent in counseling the patient/family regarding diagnosis and treatment plan as listed above, goals of care, and symptom management. Case was discussed with nursing staff,
specialists, and care coordinators/case management. All labs and imaging personally reviewed by me. Remainder the time spent in detailed review of previous records, lab data, imaging, and other medical provider documentation.
Anticipated Discharge: 24 - 48 hours
Subjective/Interval History
-
Date of Service: January 13, 2025
Pt denies CP at this time. O/N pt had sharp, L-sided CP.
Objective Data
-
Labs:
Laboratory Results
01/13/25
07:18
PT 20.0 H
INR 1.68
Vital Signs:
Vital Signs
Temp Pulse Resp BP Pulse Ox
98.2 F 73 18 147/61 94
01/13/25 07:50 01/13/25 08:13 01/13/25 07:50 01/13/25 08:13 01/13/25 07:50
I&O
01/12/25 01/13/25 01/14/25
06:59 06:59 06:59
Intake Total 1740 / 1740 1920 / 1920
Output Total 3000 / 3000 2700 / 2700
Balance -1260 / -1260 -780 / -780
[2025-01-13 08:53] LABS: Glucose - Point of Care 88 mg/dl (70-99)
[2025-01-13] MEDS: NOVOLOG FLEXPEN-MODERATE RESISTANCE SC ×3 (09:05→17:04)
--- NOTE | 2025-01-13 10:31 | PN.CDI ---
CDI
- -
CDI:
Physician Documentation Request
Admit Date: 01/05/25 22:57
Dear Doctor Esme,
Patient admitted for sepsis.
01/09 PCN: '93% on 4L NC, coarse, rhonchi, orthopneic, expiratory wheeze, 2100 PT stats dropping to low 80's, requested RT to apply BIPAP 22/12 6LNC'
Selected Entries
01/10/25
08:00 01/10/25
14:11 01/10/25
19:00
Nasal Cannula flow liters per minute 6 4 6
01/11/25
07:29
Nasal Cannula flow liters per minute 4
Clarify which of the following accurately represents the patient's respiratory status:
Acute hypoxic respiratory failure
Hypoxia
Other
Additional information for Respiratory Failure:
Recognized criteria for Respiratory Failure (Source: Alex Grier. 2019 May 28.
Documentation tips: Acute Respiratory Failure, The Hospitalist.)
ABGs: (1 or more) Symptoms Please indicate type if known
1. p)2 <60 or RA SPO2 <91% on RA 1. Tachypnea, SOB, dyspnea Hypoxic
2. pCO2 >45 and pH <7.35 2. Use of accessory muscles Hypercapnic
3. pO2 decrease of pCO2 increase by 3. Pallor or cyanosis Hypoxic and Hypercapnic
10 mmHg from baseline if known 4. Anxiety or restlessness Unable to determine
4. P/F Ratio (pO2/FiO2)nless than 300 5. Unable to speak in full sentences
Use of terms such as suspected, likely, concern for, or probable (associated with a specific diagnosis that is being evaluated, monitored, or treated as if it exists) are acceptable and can be coded in the inpatient setting, when documented at the
time of discharge.
Thank you,
Praveena Perez RN, BSN
CDI Specialist
Available via [employer] text
Please use your independent medical judgment in providing your response.
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
--- NOTE | 2025-01-13 12:10 | W.PN.URO.CBU ---
Today's Communication / Plan
-
spoke with irad they sent up instructions for tube care
Assessment / Plan
-
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
Prior hx of kidney stone with difficult ureteral access in 2019
Presenting with septic shock likely due to obstructing R ureteral stone, also with large bladder stone
s/p IR for R percutaneous nephrostomy
HEMATURIA NOT UNEXPECTED IN LIGHT OF WARFARIN AND LOVENOX BUT AFBRILE DRAINAGE IS UNOBSTRUCTED AND ASX WILL OBSERVE PT AWARE TO CALL IF FEVRR CHILLS OR DECREASED DRAINAGE
- Continue abx and f/u cultures - proteus and serratia
- Recommend 10 day abx course for complicated UTI
- Maintain nephrostomy tube to drainage
- Follow up after discharge to discuss and schedule ureteroscopy, kidney and bladder stone removal procedures
Diagnosis
-
Date of Service: January 13, 2025
-
Patient Diagnosis:
Post Op Day:
Patient Diagnosis:
Post Op Day:
Patient Diagnosis:
Post Op Day:
Patient Diagnosis:
Post Op Day:
Patient Diagnosis:
Post Op Day:
Patient Diagnosis:
Sepsis
Obstructing ureteral stone
Post Op s/p R PCN placement 01/06/25
Subjective
-
asx some blood in urine of perc tube
Objective
-
Vital Signs
Temp Pulse Resp BP Pulse Ox
98.1 F 72 18 152/68 95
01/13/25 11:34 01/13/25 11:34 01/13/25 11:34 01/13/25 11:34 01/13/25 11:34
Intake and Output
01/12/25 01/13/25 01/14/25
06:59 06:59 06:59
Intake Total 1739 / 1740 1919
Output Total 3000 / 3000 2700 / 2700
Balance -1260 / -1260 -780 / -780
Intake:
Oral fluids 0 / 1740 1919
Output:
Urinary Drain Output (Total) 650 / 650 0 / 0
Right Nephrostomy 650 / 650 0 / 0
Urine, Burnett 2350 / 2350 2700 / 2700
Laboratory Results
01/11/25 03:12
01/12/25 07:37
Review of Systems
-
: Difficulty Voiding and Bleeding
Physical Exam
-
General - well developed, well nourished, no acute distress
Chest - clear bilaterally
Abdomen - soft, non-tender, positive bowel sounds, no CVAT, no incisional pain or distention
Extremities - no clubbing, no cyanosis, no edema
Incision - clean, dry
Dressing - clean, dry, intact
Counseling
-
irad sent up sinstructions for perc tube care please provide to pt
Care Review
Data Reviewed
Discussed with: IRAD and Family
[2025-01-13 12:25] LABS: Glucose - Point of Care 96 mg/dl (70-99)
--- NOTE | 2025-01-13 12:37 | CM ---
Reviewed the chart notes. CM consult for cost of Eliquis 5mg PO bid. CM spoke with [facility] Pharmacist and per [facility] formulary cost should be $0.
--- NOTE | 2025-01-13 12:38 | W.PN.ID1 ---
Date of Service
Date of Service: January 13, 2025
Today's Communication
Continue current course of Cipro.
Assessment / Plan
Clinical sepsis/septic shock; resolved
Obstructive uropathy secondary to nephrolithiasis
- s/p right PCN placement
Suspected pyelonephritis
Leukocytosis; improved
VEE; improved
Bacteremia with Proteus mirabilis and Serratia marcescens
Chronic hypoxic respiratory failure (2.5 L home O2)
COPD
CHF
Pulmonary hypertension
Paroxysmal A-fib
HTN
Dyslipidemia
DM type II
Neurogenic bladder with chronic Burnett
Nephrolithiasis
T6 paraplegia secondary to fall
PE/DVT
Morbid obesity (BMI=45)
Depression
Recommendations:
Recovered urinary and blood isolates are susceptible to fluoroquinolones.
Source control has been achieved with placement of right PCN. Patient will still require definitive therapy of ureteral stone.
Patient appears overall clinically improved from admission.
Would continue with ciprofloxacin 500 mg p.o. twice daily through 01/20/25, although course could be extended at the discretion of Urology if definitive stone treatment delayed.
Patient also noted to be on warfarin. INR will need to be monitored closely given fluoroquinolone interaction with warfarin.
����������������������������������������������������������
Chief Complaint
-: UTI
Subjective / Review of Systems
Review of Systems: No Fever and No Chills
Vital Signs / Physical Exam
Vital Signs
Vital Signs
Temp Pulse Resp BP Pulse Ox
98.1 F 72 18 152/68 95
01/13/25 11:34 01/13/25 11:34 01/13/25 11:34 01/13/25 11:34 01/13/25 11:34
Physical Exam
Constitutional: No Acute Distress, Comfortable, Chronically Ill and Non-toxic
Eyes: Sclera Anicteric
Pulmonary: Non Labored; Negative Wheezes, Rales or Rhonchi
Gastrointestinal: Soft, Non Distended and Normal Bowel Sounds
Genito-Urinary: Burnett, Hematuria and Other (Right PCN with clear urine.)
Extremities: Edema
Neurological: Awake and Alert
Psychological: Calm
Objective Data
Lab Data
Lab Results
01/11/25 03:12
01/12/25 07:37
PT 20.0 Sec (11.4-14.6) H 01/13/25 07:18
INR 1.68 01/13/25 07:18
APTT 43.3 Sec (23.4-35.0) H 01/08/25 03:31
Estimated Creat Clear > 125 ml/min 01/12/25 07:37
Lactic Acid 1.3 mmol/L (0.7-2.0) 01/06/25 19:44
Total Bilirubin 1.3 mg/dl (0.2-1.3) 01/05/25 20:02
AST 23 U/L (17-59) 01/05/25 20:02
ALT 16 U/L (0-50) 01/05/25 20:02
Alkaline Phosphatase 111 U/L (38-126) 01/05/25 20:02
Most recent labs reviewed.
Micro Results:
01/06/25 16:55 Urine Culture - Final
Urine Serratia marcescens
Proteus mirabilis
01/05/25 21:23 Blood Culture - Final
Blood/Venous Proteus mirabilis
Serratia marcescens
Gram Stain - Final
01/05/25 20:02 Blood Culture - Final
Blood/Venous Proteus mirabilis
Serratia marcescens
Gram Stain - Final
01/05/25 20:03 Urine Culture - Final
Urine
01/05/25 20:30 Influenza Types A & B (GUILLAUME) - Final
Nasal Swab Negative for Influenza A & B, NAAT
Negative results must be combined with clinical observations
and patient history.
Nucleic Acid Amplification test (NAAT)performed on the
[employer] platform.
Imaging:
01/05/2025 CT abdomen/pelvis with IV contrast: A 7 x 8 mm calculus in the proximal right ureter with moderate right renal collecting system dilatation, as well as right perinephric and periureteral stranding. Small bilateral nonobstructing renal
calculi. Burnett catheter is placed within an essentially empty urinary bladder. Please see full dictation for additional detail.
[2025-01-13 13:57] LABS: Troponin I < 0.012 ng/ml
--- NOTE | 2025-01-13 13:59 | CM ---
Reviewed the chart notes and spoke with the patient and his significant other at the bedside. Discussed VN agencies. Patient selected VN. Referral sent via [facility]. CM continues to be available to patient/family and is monitoring medical
plan for needs at discharge.
Plan: Discharge to home with VN services.
[2025-01-13] MEDS: LASIX 40 MG IV (14:08)
--- NOTE | 2025-01-13 15:23 | PTCARENOTE ---
Dr Victoria and Herman made aware pt draining bloody tinged urine. No s/s of distress noted at this time. Plan of care ongoing.
[2025-01-13 15:50] LABS: Hematocrit 41.3 % (39.0-52.0); Hemoglobin 12.9 g/dL (13.0-18.0); Mean Corp Hgb Conc. 31.2 g/dL (33.0-37.0); Mean Corpuscular Volume 80.7 fL (80.0-94.0); Platelet Count 278 10^3/uL (130-400); Red Cell Dist. Width 19.3 % (11.5-14.5)
[2025-01-13 16:02] LABS: Blood Urea Nitrogen 13 mg/dl (9-20); Calcium 8.7 mg/dl (8.4-10.2); Carbon Dioxide 31 mmol/L (22-30); Chloride 95 mmol/L (98-107); Estimated Creatinine Clearance > 125 ml/min; Glucose 123 mg/dl (70-99); Potassium 4.0 mmol/L (3.5-5.1); Sodium 135 mmol/L (135-145); eGFR > 60.00
[2025-01-13 17:02] LABS: Glucose - Point of Care 105 mg/dl (70-99)
[2025-01-13] MEDS: LIPITOR 40 MG PO (17:02)
[2025-01-13 21:57] LABS: Glucose - Point of Care 125 mg/dl (70-99)
[2025-01-14] VITALS (8 sets, daily range): BP systolic 131–147; BP diastolic 58–75; PULSE 2–70; BMI 43.6
[2025-01-14] MEDS: ELIQUIS 5 MG PO (05:22)
[2025-01-14 06:54] LABS: Hematocrit 38.8 % (39.0-52.0); Hemoglobin 12.2 g/dL (13.0-18.0); Mean Corp Hgb Conc. 31.4 g/dL (33.0-37.0); Mean Corpuscular Volume 80.2 fL (80.0-94.0); Platelet Count 279 10^3/uL (130-400); Red Cell Dist. Width 19.1 % (11.5-14.5)
[2025-01-14 07:27] LABS: Blood Urea Nitrogen 11 mg/dl (9-20); Calcium 8.7 mg/dl (8.4-10.2); Carbon Dioxide 39 mmol/L (22-30); Chloride 95 mmol/L (98-107); Estimated Creatinine Clearance > 125 ml/min; Glucose 92 mg/dl (70-99); Potassium 3.8 mmol/L (3.5-5.1); Sodium 137 mmol/L (135-145); eGFR > 60.00
[2025-01-14] MEDS: DUONEB 3 ML INH ×3 (07:31→20:32)
--- NOTE | 2025-01-14 07:45 | W.PN.HOSP.TC ---
Today's Communication/Plan
-
see plan
Assessment / Plan
Assessment / Plan
54-year-old male with a medical history of T6 spinal cord injury (2007), acquired spastic quadriplegia, chronic Mane, HFpEF, COPD, bradycardia (PPM), dysphagia, A-fib (on warfarin), and DVT/PE (IVC filter) who presented with decreased urinary
output from his Mane catheter for 1 day prior to arrival. He then developed a low-grade fever and reported feeling weak. He also complained of bilateral low back pain. He denied cough, shortness of breath, or abdominal pain. Shortly after
arrival in the hospital he became diaphoretic, hypotensive, and lethargic. He was intubated for airway protection. Chest x-ray showed possible right upper lobe atelectasis or pneumonia. Respiratory panel was negative for COVID or influenza. CT
abdomen pelvis showed 7 x 8 mm proximal right ureteral stone with hydronephrosis and perinephric fat stranding. He was evaluated by urology and IR after which she was that the best course of action would be placement of percutaneous nephrostomy
tube. However his INR was still therapeutic from his warfarin and so PCN placement has been postponed. He has been admitted to the ICU for ongoing management.
Gen: NAD, AAOx3.
Eyes: EOMI, PERRLA, no scleral icterus.
Neck: supple.
CV: continues to remain RRR, +S1/S2, no m/r/g.
Resp: continues to remain CTAB, no rales, wheezes, or rhonchi.
Abd: continues to remain +BS, soft, NT, mild distention
Skin: No rashes.
Neuro: CN 2-12 intact, non-focal.
Psych: Normal mood and affect.
01/06/25 16:55 Urine Urine Culture - Final
Serratia marcescens
Proteus mirabilis
01/05/25 21:23 Blood/Venous Blood Culture - Final
Proteus mirabilis
Serratia marcescens
01/05/25 21:23 Blood/Venous Gram Stain - Final
01/05/25 20:02 Blood/Venous Blood Culture - Final
Proteus mirabilis
Serratia marcescens
01/05/25 20:02 Blood/Venous Gram Stain - Final
01/05/25 20:03 Urine Urine Culture - Final
01/05/25 20:30 Nasal Swab Influenza Types A & B (GUILLAUME) - Final
Negative for Influenza A & B, NAAT
Negative results must be combined with clinical observations
and patient history.
Nucleic Acid Amplification test (NAAT)performed on the
[employer] NOW platform.
CXR 01/10/25: There is a new hazy right basilar opacity, possible pneumonitis in the setting of suspected aspiration.
Chest pain:
-O/N 01/12-01/13
-trop NEG x 3
-ECG (read by me): V-paced rhythm @ 71
-Echo September 2024: EF 60-65%, no RWMA, normal RV sz/fxn, no gross valvular abnormalities
-cards saw in consult. No further workup at this time. It is possible that the patient's chest pain was related to aspiration. Speech to see pt prior to discharge.
Septic shock secondary to UTI:
-h/o chronic mane catheter, POA, due to neurogenic bladder due to T6 spinal cord injury 2007
-impacted right ureteral stone with proximal hydronephrosis and perinephric fat stranding
-R PCN placed by IR and draining appropriately
-BCxs/UCx grew MDR Proteus and Serratia resistant to Zosyn, antibiotics switched to cefepime and then transitioned to Cipro PO (continue through 01/20/25 as per ID).
-initially intubated, now extubated and off vasopressors
-outpatient urology follow-up for ureteroscopy and stone removal
-lactic acidosis secondary to septic shock, resolved
-leukocytosis has improved
VEE:
-initially thought to be prerenal due to septic shock
-s/p IVFs for septic shock and was then thought to slightly volume overloaded
-home Lasix 40 mg daily restarted on 01/09, given additional dose of Lasix 20 mg IV morning of 01/10 due to apparent volume overload
-VEE has now resolved, Cr now 0.7
Permanent A-fib:
-as per discussion with cardiology on 01/13/25 pt was transitioned to Eliquis
-Now, 01/13/25AM, pt with hematuria
-Case discussed with Dr. Sutton. Eliquis will be stopped, OK to attempt DVT proph dose heparin or Lovenox.
Constipation:
-cont bowel regimen
-s/p enema given 01/09 with minimal improvement, Dulcolax suppository given 01/10, Magnesium Citrate given 01/11 and 01/12
-had BM 01/12
Other problems:
Hypokalemia, resolved
COPD: not in acute exac, cont duonebs
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
Chronic opioid use with dependence
Morbid obesity due to excess calories
RN updated.
FULL/Lovenox
Total time spent on today's encounter was 51 minutes which included time spent in counseling the patient/family regarding diagnosis and treatment plan as listed above, goals of care, and symptom management. Case was discussed with nursing staff,
specialists, and care coordinators/case management. All labs and imaging personally reviewed by me. Remainder the time spent in detailed review of previous records, lab data, imaging, and other medical provider documentation.
Anticipated Discharge: Today
Subjective/Interval History
-
Date of Service: January 14, 2025
Objective Data
-
Labs:
Laboratory Results
01/14/25
06:27
WBC 12.3 H
Hgb 12.2 L
Hct 38.8 L
Plt Count 279
Sodium 137
Potassium 3.8
Chloride 95 L
Carbon Dioxide 39 H
BUN 11
Creatinine 0.6 L
Glucose 92
Calcium 8.7
Vital Signs:
Vital Signs
Temp Pulse Resp BP Pulse Ox
98 F 72 16 139/61 96
01/14/25 03:47 01/14/25 07:33 01/14/25 07:33 01/14/25 03:47 01/14/25 03:47
I&O
01/13/25 01/14/25 01/15/25
06:59 06:59 06:59
Intake Total 1920 / 1920 2400 / 2400
Output Total 2700 / 2700 4440 / 4440
Balance - / -780 -2039 / -2039
[2025-01-14 08:46] LABS: Glucose - Point of Care 101 mg/dl (70-99)
[2025-01-14] MEDS: NOVOLOG FLEXPEN-MODERATE RESISTANCE SC ×3 (08:59→17:18)
[2025-01-14] MEDS: ZOLOFT 50 MG PO (09:00)
[2025-01-14] MEDS: PROTONIX 40 MG PO (09:01)
[2025-01-14] MEDS: LIORESAL 40 MG PO ×2 (09:01→20:29)
[2025-01-14] MEDS: LASIX 40 MG PO (09:01)
[2025-01-14] MEDS: MS CONTIN (EXTENDED RELEASE) 30 MG PO ×2 (09:01→20:29)
[2025-01-14] MEDS: NEURONTIN 300 MG PO ×2 (09:01→20:29)
[2025-01-14] MEDS: CIPRO 500 MG PO ×2 (09:01→20:29)
[2025-01-14] MEDS: COLACE 100 MG PO (09:03)
[2025-01-14] MEDS: MIRALAX 17 GRAMS PO (09:03)
[2025-01-14] MEDS: SENOKOT 17.2 MG PO ×2 (09:03→20:29)
--- NOTE | 2025-01-14 10:08 | CM ---
Addendum entered by Genesis Mccarty RN 01/14/25 15:03:
Medical necessity and transport form on chart. Ramp to enter home.
Original Note:
Reviewed the chart notes and spoke with the patient at the bedside. IMM reviewed. CM continues to be available to patient/family and is monitoring medical plan for needs at discharge.
Plan: Discharge to home with [facility] services.
--- NOTE | 2025-01-14 10:19 | W.PN.ID1 ---
Date of Service
Date of Service: January 14, 2025
Today's Communication
Continue antibiotics.
Assessment / Plan
Clinical sepsis/septic shock; resolved
Obstructive uropathy secondary to nephrolithiasis
- s/p right PCN placement
Suspected pyelonephritis
Leukocytosis; improved
VEE; improved
Bacteremia with Proteus mirabilis and Serratia marcescens
Chronic hypoxic respiratory failure (2.5 L home O2)
COPD
CHF
Pulmonary hypertension
Paroxysmal A-fib
HTN
Dyslipidemia
DM type II
Neurogenic bladder with chronic Burnett
Nephrolithiasis
T6 paraplegia secondary to fall
PE/DVT
Morbid obesity (BMI=45)
Depression
Recommendations:
Recovered urinary and blood isolates are susceptible to fluoroquinolones.
Source control has been achieved with placement of right PCN. Patient will still require definitive therapy of ureteral stone.
Patient appears overall clinically improved from admission.
Continue with ciprofloxacin 500 mg p.o. BID through 01/20/25, although course could be extended at the discretion of Urology if definitive stone treatment delayed.
Patient also noted to be on warfarin. INR will need to be monitored closely given fluoroquinolone interaction with warfarin.
����������������������������������������������������������
Chief Complaint
-: UTI
Subjective / Review of Systems
Review of Systems: No Fever and No Chills
Vital Signs / Physical Exam
Vital Signs
Vital Signs
Temp Pulse Resp BP Pulse Ox
97.9 F 71 18 147/65 97
01/14/25 08:47 01/14/25 09:01 01/14/25 08:47 01/14/25 09:01 01/14/25 08:47
Physical Exam
Constitutional: No Acute Distress, Comfortable, Chronically Ill and Non-toxic
Eyes: Sclera Anicteric
Pulmonary: Non Labored; Negative Wheezes, Rales or Rhonchi
Gastrointestinal: Soft, Non Distended and Normal Bowel Sounds
Genito-Urinary: Burnett, Hematuria and Other (Right PCN with bloody urine.)
Extremities: Edema
Neurological: Awake and Alert
Psychological: Calm
Objective Data
Lab Data
Lab Results
01/14/25 06:27
01/14/25 06:27
PT 20.0 Sec (11.4-14.6) H 01/13/25 07:18
INR 1.68 01/13/25 07:18
APTT 43.3 Sec (23.4-35.0) H 01/08/25 03:31
Estimated Creat Clear > 125 ml/min 01/14/25 06:27
Lactic Acid 1.3 mmol/L (0.7-2.0) 01/06/25 19:44
Total Bilirubin 1.3 mg/dl (0.2-1.3) 01/05/25 20:02
AST 23 U/L (17-59) 01/05/25 20:02
ALT 16 U/L (0-50) 01/05/25 20:02
Alkaline Phosphatase 111 U/L (38-126) 01/05/25 20:02
Most recent labs reviewed.
Micro Results:
01/06/25 16:55 Urine Culture - Final
Urine Serratia marcescens
Proteus mirabilis
01/05/25 21:23 Blood Culture - Final
Blood/Venous Proteus mirabilis
Serratia marcescens
Gram Stain - Final
01/05/25 20:02 Blood Culture - Final
Blood/Venous Proteus mirabilis
Serratia marcescens
Gram Stain - Final
01/05/25 20:03 Urine Culture - Final
Urine
01/05/25 20:30 Influenza Types A & B (GUILLAUME) - Final
Nasal Swab Negative for Influenza A & B, NAAT
Negative results must be combined with clinical observations
and patient history.
Nucleic Acid Amplification test (NAAT)performed on the
[employer] platform.
asdfg
Blood Culture Final 01/05/2025
Proteus mirabilis
Serratia marcescens
Positive for Proteus species and Serratia marcescens
Performed by [employer] PCR methodology.
Organism 1 Proteus mirabilis
Organism 2 Serratia marcescens
P.MIRABILI S.MARCES
M.I.C. RX M.I.C. RX
--------- --- --------- ---
Amoxicillin/Potas. Clavulanate <=8/4 S >16/8 R
Ampicillin <=8 S >16 R
Ampicillin/Sulbactam <=4/2 S >16/8 R
Aztreonam <=4 S <=4 S
Cefazolin <=2 S >16 R
Cefepime <=2 S
Ceftazidime <=1 S
Ceftriaxone 2 I
Ertapenem <=0.5 S <=0.5 S
Ciprofloxacin <=0.25 S <=0.25 S
Gentamicin <=2 S <=2 S
Meropenem <=1 S <=1 S
Piperacillin/Tazobactam <=8 S <=8 S
Tetracycline >8 R <=4 S
Tobramycin <=2 S <=2 S
Trimethoprim/Sulfamethoxazole <=2/38 S <=2/38 S
Imaging:
01/05/2025 CT abdomen/pelvis with IV contrast: A 7 x 8 mm calculus in the proximal right ureter with moderate right renal collecting system dilatation, as well as right perinephric and periureteral stranding. Small bilateral nonobstructing renal
calculi. Burnett catheter is placed within an essentially empty urinary bladder. Please see full dictation for additional detail.
Care Review
Plan reviewed with: Physician (Hospitalist)
--- NOTE | 2025-01-14 10:42 | W.CARD.DEVCH ---
Cardiac Device Check
-
Device: Pacemaker
Dough Mixer Helper: Medtronic (Micra)
The patient's device was interrogated with assistance of the device sales representative malt liquors. The device had normal function. Patient in AF.
--- NOTE | 2025-01-14 10:53 | PTOTSP ---
Speech Therapy Evaluation:
Pt presents with grossly functional oropharyngeal swallow at bedside. Despite this, pt has multiple acute on chronic risk factors of dysphagia including hx of recent and recurrent pneumonias, limited mobility (T6 SCI 2007), COPD, and recent
intubation. 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 Re-addressed concerns with pt given new R opacity on CXR, suspicious for
pneumonitis in the setting of aspiration with increased O2 requirements and WBC count. Pt reported he 'felt fine' and declined instrumental assessment (declined x4 now). Given chronicity of dysphagia hx, patient appears safe to resume baseline diet
of regular solids and thin liquids with adherence to aspiration precautions.
Recommend:
1. Continue regular diet and thin liquids
2. Medications whole with liquid, large pills cut in 1/2
3. Aspiration precautions including: Upright positioning, small single sips/bites, slow rate of intake, only provide p.o. when SpO2>90% and RR<30, alternate textures, monitor for signs of aspiration, d/c oral diet if any decline in mental or
respiratory status
4. Oral care 3x/day
5. Speech therapy to follow briefly
--- NOTE | 2025-01-14 10:56 | VNURNOTE ---
Home Health Liaison met with patient and blaire Cedillo at bedside to discuss [facility] nurse/therapy, visits, schedule and homebound status. Patient is agreeable and understands that visits at home will be 2-3 x per week to assess and teach medical
management. patient has had [facility] in the past and stated he has had a mane and neph tube in the past. Patient is aware that [facility] will contact them for start of care in 1-2 days after discharge from .
[facility] referral accepted in [facility].
[2025-01-14 11:44] LABS: Glucose - Point of Care 125 mg/dl (70-99)
--- NOTE | 2025-01-14 12:43 | W.PN.URO.CBU ---
Today's Communication / Plan
-
try and reduce blood thinners
Assessment / Plan
-
54-year-old male past medical history of T6 spinal cord injury since 2007, acquired spastic quadriplegia with chronic Mane catheter
Prior hx of kidney stone with difficult ureteral access in 2019
Presenting with septic shock likely due to obstructing R ureteral stone, also with large bladder stone
s/p IR for R percutaneous nephrostomy
HEMATURIA NOT UNEXPECTED IN LIGHT OF WARFARIN AND LOVENOX BUT AFBRILE DRAINAGE IS UNOBSTRUCTED AND ASX WILL OBSERVE PT AWARE TO CALL IF FEVRR CHILLS OR DECREASED DRAINAGE
- Continue abx and f/u cultures - proteus and serratia
- Recommend 10 day abx course for complicated UTI
- Maintain nephrostomy tube to drainage
- Follow up after discharge to discuss and schedule ureteroscopy, kidney and bladder stone removal procedures
Diagnosis
-
Date of Service: January 14, 2025
-
Patient Diagnosis:
Post Op Day:
Patient Diagnosis:
Post Op Day:
Patient Diagnosis:
Post Op Day:
Patient Diagnosis:
Post Op Day:
Patient Diagnosis:
Post Op Day:
Patient Diagnosis:
Post Op Day:
Patient Diagnosis:
Sepsis
Obstructing ureteral stone
Post Op s/p R PCN placement 01/06/25
Subjective
-
hematuria mane and p[ec tube
Objective
-
Vital Signs
Temp Pulse Resp BP Pulse Ox
98.1 F 72 18 137/58 96
01/14/25 11:27 01/14/25 11:27 01/14/25 11:27 01/14/25 11:27 01/14/25 11:27
Intake and Output
01/13/25 01/14/25 01/15/25
06:59 06:59 06:59
Intake Total 0 / 0 2400 / 2400
Output Total 2700 / 2700 4440 / 4440 1575 / 1575
Balance -780 / -780 -0 / -2040 -157 / -157
Intake:
Oral fluids 0 / 0 2400 / 2400
Output:
Urinary Drain Output (Total) 0 / 0 0 / 0
Right Nephrostomy 0 / 0 0 / 0
Urine, Mane 2700 / 2700 4440 / 4440 1575 / 1575
Laboratory Results
01/14/25 06:27
01/14/25 06:27
Review of Systems
-
: Dark Urine
Physical Exam
-
General - well developed, well nourished, no acute distress
Chest - clear bilaterally
Abdomen - soft, non-tender, positive bowel sounds, no CVAT, no incisional pain or distent
Extremities - no clubbing, no cyanosis, no edema
Incision - clean, dry
Dressing - clean, dry, intact
Care Review
Data Reviewed
Discussed with: Hospitalist
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
[2025-01-14] MEDS: LASIX 40 MG IV (14:15)
--- NOTE | 2025-01-14 16:19 | PTCARENOTE ---
Patient Burnett draining yellow clear urine at this time noted.output 1200. No s/s of distress noted. Plan of care ongoing.
[2025-01-14 17:17] LABS: Glucose - Point of Care 109 mg/dl (70-99)
[2025-01-14] MEDS: LOVENOX 40 MG SC (17:48)
[2025-01-14] MEDS: LIPITOR 40 MG PO (17:48)
[2025-01-14 22:08] LABS: Glucose - Point of Care 103 mg/dl (70-99)
[2025-01-15 03:34] VITALS: BP 124/63
[2025-01-15 04:41] VITALS: PULSE 2; PULSE 77
[2025-01-15 05:45] VITALS: BMI 43.6
[2025-01-15] MEDS: DUONEB 3 ML INH ×3 (07:25→21:40)
--- NOTE | 2025-01-15 07:31 | W.PN.HOSP.TC ---
Today's Communication/Plan
-
see plan
Assessment / Plan
Assessment / Plan
54-year-old male with a medical history of T6 spinal cord injury (2007), acquired spastic quadriplegia, chronic Mane, HFpEF, COPD, bradycardia (PPM), dysphagia, A-fib (on warfarin), and DVT/PE (IVC filter) who presented with decreased urinary
output from his Mane catheter for 1 day prior to arrival. He then developed a low-grade fever and reported feeling weak. He also complained of bilateral low back pain. He denied cough, shortness of breath, or abdominal pain. Shortly after
arrival in the hospital he became diaphoretic, hypotensive, and lethargic. He was intubated for airway protection. Chest x-ray showed possible right upper lobe atelectasis or pneumonia. Respiratory panel was negative for COVID or influenza. CT
abdomen pelvis showed 7 x 8 mm proximal right ureteral stone with hydronephrosis and perinephric fat stranding. He was evaluated by urology and IR after which she was that the best course of action would be placement of percutaneous nephrostomy
tube. However his INR was still therapeutic from his warfarin and so PCN placement has been postponed. He has been admitted to the ICU for ongoing management.
Gen: NAD, AAOx3.
Eyes: EOMI, PERRLA, no scleral icterus.
Neck: supple.
CV: RRR, +S1/S2, no m/r/g.
Resp: CTAB, no rales, wheezes, or rhonchi.
Abd: +BS, soft, NT, mild distention
Skin: No rashes.
: mane with clear/yellow urine
Neuro: CN 2-12 intact, non-focal.
Psych: Normal mood and affect.
01/06/25 16:55 Urine Urine Culture - Final
Serratia marcescens
Proteus mirabilis
01/05/25 21:23 Blood/Venous Blood Culture - Final
Proteus mirabilis
Serratia marcescens
01/05/25 21:23 Blood/Venous Gram Stain - Final
01/05/25 20:02 Blood/Venous Blood Culture - Final
Proteus mirabilis
Serratia marcescens
01/05/25 20:02 Blood/Venous Gram Stain - Final
01/05/25 20:03 Urine Urine Culture - Final
01/05/25 20:30 Nasal Swab Influenza Types A & B (GUILLAUME) - Final
Negative for Influenza A & B, NAAT
Negative results must be combined with clinical observations
and patient history.
Nucleic Acid Amplification test (NAAT)performed on the
[employer] ID NOW platform.
CXR 01/10/25: There is a new hazy right basilar opacity, possible pneumonitis in the setting of suspected aspiration.
Chest pain:
-O/N 01/12-01/13
-trop NEG x 3
-ECG (read by me): V-paced rhythm @ 71
-Echo September 2024: EF 60-65%, no RWMA, normal RV sz/fxn, no gross valvular abnormalities
-cards saw in consult. No further workup at this time. It is possible that the patient's chest pain was related to aspiration. Speech to see pt prior to discharge.
Septic shock secondary to UTI:
-h/o chronic mane catheter, POA, due to neurogenic bladder due to T6 spinal cord injury 2007
-impacted right ureteral stone with proximal hydronephrosis and perinephric fat stranding
-R PCN placed by IR and draining appropriately
-BCxs/UCx grew MDR Proteus and Serratia resistant to Zosyn, antibiotics switched to cefepime and then transitioned to Cipro PO (continue through 01/20/25 as per ID).
-initially intubated, now extubated and off vasopressors
-outpatient urology follow-up for ureteroscopy and stone removal
-lactic acidosis secondary to septic shock, resolved
-leukocytosis has improved
VEE:
-initially thought to be prerenal due to septic shock
-s/p IVFs for septic shock and was then thought to slightly volume overloaded
-home Lasix 40 mg daily restarted on 01/09, given additional dose of Lasix 20 mg IV morning of 01/10 due to apparent volume overload
-VEE has now resolved, Cr now 0.7
Permanent A-fib:
-as per discussion with cardiology on 01/13/25 pt was transitioned to Eliquis
-01/13/25AM pt with hematuria, Eliquis stopped. Urine has now cleared.
-at this moment the risk of anticoagulation outweighs the benefit. Patient can follow-up with his primary care physician and specialists after discharge to reevaluate the risk-benefit analysis of resuming Eliquis.
Constipation:
-cont bowel regimen
-s/p enema given 01/09 with minimal improvement, Dulcolax suppository given 01/10, Magnesium Citrate given 01/11 and 01/12
-had BM 01/12
Other problems:
Hypokalemia, resolved
COPD: not in acute exac, cont duonebs
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
Chronic opioid use with dependence
Morbid obesity due to excess calories
FULL/Lovenox
Dispo: Medically cleared for d/c if OK with Uro/cardiology with respect to anticoagulation.
Anticipated Discharge: 24 - 48 hours
Subjective/Interval History
-
Date of Service: January 15, 2025
Objective Data
-
Labs:
Laboratory Results
01/15/25
06:42
WBC Pending
Hgb Pending
Hct Pending
Plt Count Pending
Sodium Pending
Potassium Pending
Chloride Pending
Carbon Dioxide Pending
BUN Pending
Creatinine Pending
Glucose Pending
Calcium Pending
Vital Signs:
Vital Signs
Temp Pulse Resp BP Pulse Ox
98.1 F 71 18 124/63 95
01/15/25 03:34 01/15/25 03:34 01/15/25 03:34 01/15/25 03:34 01/15/25 03:34
I&O
01/14/25 01/15/25 01/16/25
06:59 06:59 06:59
Intake Total 2400 / 2400 2260 / 2260
Output Total 4440 / 4440 4775 / 4775
Balance -2040 / -2040 -2515 / -2515
[2025-01-15 07:47] LABS: Hematocrit 39.6 % (39.0-52.0); Hemoglobin 12.3 g/dL (13.0-18.0); Mean Corp Hgb Conc. 31.1 g/dL (33.0-37.0); Mean Corpuscular Volume 80.8 fL (80.0-94.0); Platelet Count 288 10^3/uL (130-400); Red Cell Dist. Width 19.3 % (11.5-14.5)
[2025-01-15 08:14] LABS: Blood Urea Nitrogen 13 mg/dl (9-20); Calcium 8.6 mg/dl (8.4-10.2); Carbon Dioxide 35 mmol/L (22-30); Chloride 96 mmol/L (98-107); Estimated Creatinine Clearance > 125 ml/min; Glucose 90 mg/dl (70-99); Potassium 3.6 mmol/L (3.5-5.1); Sodium 137 mmol/L (135-145); eGFR > 60.00
[2025-01-15 08:38] LABS: Glucose - Point of Care 100 mg/dl (70-99)
[2025-01-15 08:39] VITALS: BP 138/70
[2025-01-15] MEDS: NOVOLOG FLEXPEN-MODERATE RESISTANCE SC ×3 (08:42→17:26)
[2025-01-15] MEDS: NEURONTIN 300 MG PO ×2 (09:18→20:27)
[2025-01-15] MEDS: PROTONIX 40 MG PO (09:18)
[2025-01-15] MEDS: MS CONTIN (EXTENDED RELEASE) 30 MG PO ×2 (09:18→20:28)
[2025-01-15] MEDS: LIORESAL 40 MG PO ×2 (09:19→20:28)
[2025-01-15] MEDS: CIPRO 500 MG PO ×2 (09:19→20:28)
[2025-01-15] MEDS: SENOKOT 17.2 MG PO ×2 (09:19→20:28)
[2025-01-15] MEDS: COLACE 100 MG PO (09:19)
[2025-01-15] MEDS: LASIX 40 MG PO (09:19)
[2025-01-15] MEDS: MIRALAX 17 GRAMS PO (09:20)
[2025-01-15] MEDS: ZOLOFT 50 MG PO (09:20)
[2025-01-15 11:09] VITALS: BP 143/67
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
[2025-01-15 12:46] LABS: Glucose - Point of Care 103 mg/dl (70-99)
--- NOTE | 2025-01-15 14:07 | CM ---
Reviewed the chart notes. Patient scheduled for a procedure tomorrow, then possible discharge. CM continues to be available to patient/family and is monitoring medical plan for needs at discharge.
Plan: Discharge back to [facility]. BLS transport needed. Medical and transport forms on chart.
--- NOTE | 2025-01-15 14:33 | W.PN.ID1 ---
Date of Service
Date of Service: January 15, 2025
Today's Communication
Continue current course of antibiotics. See below�
Assessment / Plan
Clinical sepsis/septic shock; resolved
Obstructive uropathy secondary to nephrolithiasis
- s/p right PCN placement
Suspected pyelonephritis
Leukocytosis; improved
VEE; improved
Bacteremia with Proteus mirabilis and Serratia marcescens
Chronic hypoxic respiratory failure (2.5 L home O2)
COPD
CHF
Pulmonary hypertension
Paroxysmal A-fib
HTN
Dyslipidemia
DM type II
Neurogenic bladder with chronic Burnett
Nephrolithiasis
T6 paraplegia secondary to fall
PE/DVT
Morbid obesity (BMI=45)
Depression
Recommendations:
Recovered urinary and blood isolates are susceptible to fluoroquinolones.
Source control has been achieved with placement of right PCN. Patient will still require definitive therapy of ureteral stone.
Patient appears overall clinically improved from admission.
Continue with ciprofloxacin 500 mg p.o. BID through 01/20/25, although course could be extended at the discretion of Urology if definitive stone treatment delayed.
Patient also noted to be on warfarin. INR will need to be monitored closely given fluoroquinolone interaction with warfarin.
Little more to offer from an Infectious Diseases standpoint. Will see again at your request.
����������������������������������������������������������
Chief Complaint
-: UTI
Subjective / Review of Systems
Review of Systems: No Fever
Vital Signs / Physical Exam
Vital Signs
Vital Signs
Temp Pulse Resp BP Pulse Ox
98.1 F 72 16 143/67 96
01/15/25 11:09 01/15/25 11:09 01/15/25 13:47 01/15/25 11:09 01/15/25 13:47
Physical Exam
Constitutional: No Acute Distress, Comfortable, Chronically Ill and Non-toxic
Pulmonary: Non Labored
Genito-Urinary: Burnett, Hematuria and Other (Right PCN with bloody urine.)
Extremities: Edema
Neurological: Awake and Alert
Psychological: Calm
Objective Data
Lab Data
Lab Results
01/15/25 06:42
01/15/25 06:42
PT 20.0 Sec (11.4-14.6) H 01/13/25 07:18
INR 1.68 01/13/25 07:18
APTT 43.3 Sec (23.4-35.0) H 01/08/25 03:31
Estimated Creat Clear > 125 ml/min 01/15/25 06:42
Lactic Acid 1.3 mmol/L (0.7-2.0) 01/06/25 19:44
Total Bilirubin 1.3 mg/dl (0.2-1.3) 01/05/25 20:02
AST 23 U/L (17-59) 01/05/25 20:02
ALT 16 U/L (0-50) 01/05/25 20:02
Alkaline Phosphatase 111 U/L (38-126) 01/05/25 20:02
Most recent labs reviewed.
Micro Results:
01/06/25 16:55 Urine Culture - Final
Urine Serratia marcescens
Proteus mirabilis
01/05/25 21:23 Blood Culture - Final
Blood/Venous Proteus mirabilis
Serratia marcescens
Gram Stain - Final
01/05/25 20:02 Blood Culture - Final
Blood/Venous Proteus mirabilis
Serratia marcescens
Gram Stain - Final
01/05/25 20:03 Urine Culture - Final
Urine
01/05/25 20:30 Influenza Types A & B (GUILLAUME) - Final
Nasal Swab Negative for Influenza A & B, NAAT
Negative results must be combined with clinical observations
and patient history.
Nucleic Acid Amplification test (NAAT)performed on the
[employer] ID NOW platform.
asdfg
Blood Culture Final 01/05/2025
Proteus mirabilis
Serratia marcescens
Positive for Proteus species and Serratia marcescens
Performed by [employer] PCR methodology.
Organism 1 Proteus mirabilis
Organism 2 Serratia marcescens
P.MIRABILI S.MARCES
M.I.C. RX M.I.C. RX
--------- --- --------- ---
Amoxicillin/Potas. Clavulanate <=8/4 S >16/8 R
Ampicillin <=8 S >16 R
Ampicillin/Sulbactam <=4/2 S >16/8 R
Aztreonam <=4 S <=4 S
Cefazolin <=2 S >16 R
Cefepime <=2 S
Ceftazidime <=1 S
Ceftriaxone 2 I
Ertapenem <=0.5 S <=0.5 S
Ciprofloxacin <=0.25 S <=0.25 S
Gentamicin <=2 S <=2 S
Meropenem <=1 S <=1 S
Piperacillin/Tazobactam <=8 S <=8 S
Tetracycline >8 R <=4 S
Tobramycin <=2 S <=2 S
Trimethoprim/Sulfamethoxazole <=2/38 S <=2/38 S
Imaging:
01/05/2025 CT abdomen/pelvis with IV contrast: A 7 x 8 mm calculus in the proximal right ureter with moderate right renal collecting system dilatation, as well as right perinephric and periureteral stranding. Small bilateral nonobstructing renal
calculi. Burnett catheter is placed within an essentially empty urinary bladder. Please see full dictation for additional detail.
[2025-01-15 16:57] VITALS: BP 142/70
[2025-01-15 16:57] LABS: Glucose - Point of Care 107 mg/dl (70-99)
--- NOTE | 2025-01-15 17:21 | W.PN.URO.CBU ---
Today's Communication / Plan
-
Plan for procedure tomorrow
Assessment / Plan
-
54-year-old male past medical history of T6 spinal cord injury since 2007, acquired spastic quadriplegia with chronic Mane catheter
Prior hx of kidney stone with difficult ureteral access in 2019
Presenting with septic shock likely due to obstructing R ureteral stone, also with large bladder stone
s/p IR for R percutaneous nephrostomy
- Continue cipro BID for UTI
- NPO at [place] for procedure tomorrow: cystoscopy, bladder stone removal, right ureteroscopy with laser lithotripsy, stent placement, nephrostomy tube removal
- Maintain chronic mane catheter
- Can resume anticoagulation 1-2 days after procedure
Diagnosis
-
Date of Service: January 15, 2025
-
Patient Diagnosis:
Sepsis
Obstructing ureteral stone
Bladder stone
Post Op s/p R PCN placement 01/06/25
Subjective
-
No new issues
Objective
-
Vital Signs
Temp Pulse Resp BP Pulse Ox
98.2 F 71 18 142/70 95
01/15/25 16:57 01/15/25 16:57 01/15/25 16:57 01/15/25 16:57 01/15/25 16:57
Intake and Output
01/14/25 01/15/25 01/16/25
06:59 06:59 06:59
Intake Total 2400 / 2400 2260 / 2260
Output Total 4440 / 4440 4775 / 4775
Balance -0 / -0 -5 / -5
Intake:
Oral fluids 2400 / 2400 1780 / 1780
Amount of oral supplement(s) 480 / 480
consumed
Output:
Urinary Drain Output (Total) 0 / 0 1200 / 1200
Right Nephrostomy 0 1199 / 1199
Urine, Mane 4440 / 4440 3575 / 3575
Laboratory Results
01/15/25 06:42
01/15/25 06:42
Physical Exam
-
General - well developed, well nourished, no acute distress
Chest - clear
Abd - soft
Mane in place
PCN in place
[2025-01-15] MEDS: LIPITOR 40 MG PO (18:12)
[2025-01-15 22:05] LABS: Glucose - Point of Care 99 mg/dl (70-99)
[2025-01-15 23:24] VITALS: BP 141/62
[2025-01-16] VITALS (13 sets, daily range): BP systolic 124–143; BP diastolic 46–70; PULSE 2–80; BMI 43.5
[2025-01-16 06:45] LABS: Hematocrit 40.3 % (39.0-52.0); Hemoglobin 12.4 g/dL (13.0-18.0); Mean Corp Hgb Conc. 30.8 g/dL (33.0-37.0); Mean Corpuscular Volume 80.4 fL (80.0-94.0); Platelet Count 247 10^3/uL (130-400); Red Cell Dist. Width 19.6 % (11.5-14.5)
[2025-01-16 07:11] LABS: Blood Urea Nitrogen 16 mg/dl (9-20); Calcium 8.4 mg/dl (8.4-10.2); Carbon Dioxide 38 mmol/L (22-30); Chloride 96 mmol/L (98-107); Estimated Creatinine Clearance > 125 ml/min; Glucose 89 mg/dl (70-99); Potassium 3.5 mmol/L (3.5-5.1); Sodium 137 mmol/L (135-145); eGFR > 60.00
[2025-01-16 07:48] LABS: Glucose - Point of Care 94 mg/dl (70-99)
[2025-01-16] MEDS: DUONEB 3 ML INH ×3 (08:15→20:07)
[2025-01-16] MEDS: MIRALAX 17 GRAMS PO (09:01)
[2025-01-16] MEDS: NEURONTIN 300 MG PO ×2 (09:02→19:54)
[2025-01-16] MEDS: LIORESAL 40 MG PO ×2 (09:02→19:54)
[2025-01-16] MEDS: MS CONTIN (EXTENDED RELEASE) 30 MG PO ×2 (09:02→19:55)
[2025-01-16] MEDS: CIPRO 500 MG PO ×2 (09:02→19:57)
[2025-01-16] MEDS: ZOLOFT 50 MG PO (09:02)
[2025-01-16] MEDS: PROTONIX 40 MG PO (09:02)
[2025-01-16] MEDS: SENOKOT 17.2 MG PO ×2 (09:02→20:06)
[2025-01-16] MEDS: COLACE 100 MG PO (09:03)
[2025-01-16] MEDS: LASIX 40 MG PO ×2 (09:03→15:50)
[2025-01-16 09:45] LABS: Glucose - Point of Care 113 mg/dl (70-99)
[2025-01-16] MEDS: NOVOLOG FLEXPEN-MODERATE RESISTANCE SC ×3 (10:24→17:29)
--- NOTE | 2025-01-16 10:32 | W.PN.HOSP.TC ---
Today's Communication/Plan
-
see plan
Assessment / Plan
Assessment / Plan
54-year-old male with a medical history of T6 spinal cord injury (2007), acquired spastic quadriplegia, chronic Mane, HFpEF, COPD, bradycardia (PPM), dysphagia, A-fib (on warfarin), and DVT/PE (IVC filter) who presented with decreased urinary
output from his Mane catheter for 1 day prior to arrival. He then developed a low-grade fever and reported feeling weak. He also complained of bilateral low back pain. He denied cough, shortness of breath, or abdominal pain. Shortly after
arrival in the hospital he became diaphoretic, hypotensive, and lethargic. He was intubated for airway protection. Chest x-ray showed possible right upper lobe atelectasis or pneumonia. Respiratory panel was negative for COVID or influenza. CT
abdomen pelvis showed 7 x 8 mm proximal right ureteral stone with hydronephrosis and perinephric fat stranding. He was evaluated by urology and IR after which she was that the best course of action would be placement of percutaneous nephrostomy
tube. However his INR was still therapeutic from his warfarin and so PCN placement has been postponed. He has been admitted to the ICU for ongoing management.
Gen: NAD, AAOx3.
Eyes: EOMI, PERRLA, no scleral icterus.
Neck: supple.
CV: remains RRR, +S1/S2, no m/r/g.
Resp: CTAB anteriorly, no rales, wheezes, or rhonchi.
Abd: +BS, soft, NT, ND
Skin: No rashes.
: mane with punch colored urine
Neuro: CN 2-12 intact, non-focal.
Psych: Normal mood and affect.
01/06/25 16:55 Urine Urine Culture - Final
Serratia marcescens
Proteus mirabilis
01/05/25 21:23 Blood/Venous Blood Culture - Final
Proteus mirabilis
Serratia marcescens
01/05/25 21:23 Blood/Venous Gram Stain - Final
01/05/25 20:02 Blood/Venous Blood Culture - Final
Proteus mirabilis
Serratia marcescens
01/05/25 20:02 Blood/Venous Gram Stain - Final
01/05/25 20:03 Urine Urine Culture - Final
01/05/25 20:30 Nasal Swab Influenza Types A & B (GUILLAUME) - Final
Negative for Influenza A & B, NAAT
Negative results must be combined with clinical observations
and patient history.
Nucleic Acid Amplification test (NAAT)performed on the
[employer] NOW platform.
CXR 01/10/25: There is a new hazy right basilar opacity, possible pneumonitis in the setting of suspected aspiration.
Chest pain:
-O/N 01/12-01/13
-trop NEG x 3
-ECG (read by me): V-paced rhythm @ 71
-Echo September 2024: EF 60-65%, no RWMA, normal RV sz/fxn, no gross valvular abnormalities
-cards saw in consult. No further workup at this time. It is possible that the patient's chest pain was related to aspiration. Speech to see pt prior to discharge.
Septic shock secondary to UTI:
-h/o chronic mane catheter, POA, due to neurogenic bladder due to T6 spinal cord injury 2007
-impacted right ureteral stone with proximal hydronephrosis and perinephric fat stranding
-R PCN placed by IR and draining appropriately
-BCxs/UCx grew MDR Proteus and Serratia resistant to Zosyn, antibiotics switched to cefepime and then transitioned to Cipro PO (continue through 01/20/25 as per ID).
-initially intubated, now extubated and off vasopressors
-lactic acidosis secondary to septic shock, resolved
-leukocytosis has improved
-for cystoscopy, bladder stone removal, right ureteroscopy with laser lithotripsy, stent placement, nephrostomy tube removal today
VEE:
-initially thought to be prerenal due to septic shock
-s/p IVFs for septic shock and was then thought to slightly volume overloaded
-home Lasix 40 mg daily restarted on 01/09, given additional dose of Lasix 20 mg IV morning of 01/10 due to apparent volume overload
-VEE has now resolved, Cr now 0.6
Permanent A-fib:
-as per discussion with cardiology on 01/13/25 pt was transitioned to Eliquis
-01/13/25AM pt with hematuria, Eliquis stopped. Urine has now cleared.
-plan to resume Eliquis post-op
Constipation:
-cont bowel regimen
-s/p enema given 01/09 with minimal improvement, Dulcolax suppository given 01/10, Magnesium Citrate given 01/11 and 01/12
-had BM 01/12
Other problems:
Hypokalemia, resolved
COPD: not in acute exac, cont duonebs
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
Chronic opioid use with dependence
Morbid obesity due to excess calories
FULL/Lovenox
Anticipated Discharge: Within 24 hours
Subjective/Interval History
-
Date of Service: January 16, 2025
No new complaints.
Objective Data
-
Labs:
Laboratory Results
01/16/25
06:27
WBC 10.6
Hgb 12.4 L
Hct 40.3
Plt Count 247
Sodium 137
Potassium 3.5
Chloride 96 L
Carbon Dioxide 38 H
BUN 16
Creatinine 0.6 L
Glucose 89
Calcium 8.4
Vital Signs:
Vital Signs
Temp Pulse Resp BP Pulse Ox
98.1 F 73 16 124/46 95
01/16/25 07:35 01/16/25 09:03 01/16/25 08:16 01/16/25 09:03 01/16/25 07:35
I&O
01/15/25 01/16/25 01/17/25
06:59 06:59 06:59
Intake Total 2260 / 2260 1060 / 1060
Output Total 4775 / 4775 2745 / 2745
Balance -2515 / -2515 -1685 / -1685
--- NOTE | 2025-01-16 11:34 | CM ---
Reviewed the chart notes. Per notes, patient scheduled today for cystoscopy, bladder stone removal, right ureteroscopy with laser lithotripsy, stent placement, nephrostomy tube removal. CM continues to be available to patient/family and is
monitoring medical plan for needs at discharge.
Plan: Discharge back to home when medically stable with [facility] services. Referral sent and accept in [facility].
--- NOTE | 2025-01-16 12:01 | W.IMMPOSTOP ---
Surgical Immed Post Op Note
-
Primary Surgeon:
edwina
Assisting Surgeon:
Pre-op Diagnosis:
large bladder stone, right ureteral and renal stone
Post-op Diagnosis:
same
Procedure Performed:
cysto/complex cystolitholopaxy/right ureteroscopy and laser fragmentation of ureteral and renal stone, stent placement and perc removal
Anesthesia Type:
gen
Specimen / Cultures:
none
Estimated Blood Loss:
5cc
Complications:
none
Operative Findings:
very difficult anatomy
able to fragment and evacuate all bladder stone
right ureter accessed- flex scope passed and fragmented ureteral and renal stone
stent placed/tied to mane with string and right perc tube removed
would hold eliquis for 48hrs and if urine clear- ok to restart
[2025-01-16 12:22] LABS: Glucose - Point of Care 107 mg/dl (70-99)
[2025-01-16 14:13] LABS: Glucose - Point of Care 118 mg/dl (70-99)
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
[2025-01-16 17:15] LABS: Glucose - Point of Care 113 mg/dl (70-99)
[2025-01-16] MEDS: LIPITOR 40 MG PO (17:30)
[2025-01-16] MEDS: TYLENOL 650 MG PO (19:54)
[2025-01-16] MEDS: DESENEX/MITRAZOL/ZEASORB 1 APPLIC TOPICAL (20:01)
[2025-01-16 21:39] LABS: Glucose - Point of Care 113 mg/dl (70-99)
[2025-01-17 03:24] VITALS: BP 143/63
[2025-01-17 06:00] VITALS: BMI 43.5
[2025-01-17 07:00] LABS: Hematocrit 37.7 % (39.0-52.0); Hemoglobin 12.0 g/dL (13.0-18.0); Mean Corp Hgb Conc. 31.8 g/dL (33.0-37.0); Mean Corpuscular Volume 80.9 fL (80.0-94.0); Platelet Count 248 10^3/uL (130-400); Red Cell Dist. Width 19.6 % (11.5-14.5)
[2025-01-17 07:25] VITALS: BP 127/65
[2025-01-17 07:26] LABS: Glucose - Point of Care 89 mg/dl (70-99)
[2025-01-17 07:28] LABS: Blood Urea Nitrogen 14 mg/dl (9-20); Calcium 8.2 mg/dl (8.4-10.2); Carbon Dioxide 33 mmol/L (22-30); Chloride 98 mmol/L (98-107); Estimated Creatinine Clearance > 125 ml/min; Glucose 89 mg/dl (70-99); Potassium 3.5 mmol/L (3.5-5.1); Sodium 137 mmol/L (135-145); eGFR > 60.00
[2025-01-17] MEDS: DUONEB 3 ML INH (07:39)
--- NOTE | 2025-01-17 08:20 | W.PN.HOSP.TC ---
Addendum entered and electronically signed by Mandeep Victoria MD 01/17/25 09:03:
Total time spent on d/c = 33 min. This included today's physical exam, progress note, review of laboratory and diagnostic data, preparation of discharge documents and prescriptions, and discussions about the pt's hospital course and discharge plan
with the patient and other biomedical engineer involved in the patient's care.
Original Note:
Today's Communication/Plan
-
d/c
Assessment / Plan
Assessment / Plan
Gen: NAD, AAOx3.
Eyes: EOMI, PERRLA, no scleral icterus.
Neck: supple.
CV: continues to remain RRR, +S1/S2, no m/r/g.
Resp: remains CTAB anteriorly, no rales, wheezes, or rhonchi.
Abd: +BS, soft, NT, ND
Skin: No rashes.
: mane with very faintly blood tinged urine (vs simply slightly dark urine)
Neuro: CN 2-12 intact, non-focal.
Psych: Normal mood and affect.
01/06/25 16:55 Urine Urine Culture - Final
Serratia marcescens
Proteus mirabilis
01/05/25 21:23 Blood/Venous Blood Culture - Final
Proteus mirabilis
Serratia marcescens
01/05/25 21:23 Blood/Venous Gram Stain - Final
01/05/25 20:02 Blood/Venous Blood Culture - Final
Proteus mirabilis
Serratia marcescens
01/05/25 20:02 Blood/Venous Gram Stain - Final
01/05/25 20:03 Urine Urine Culture - Final
01/05/25 20:30 Nasal Swab Influenza Types A & B (GUILLAUME) - Final
Negative for Influenza A & B, NAAT
Negative results must be combined with clinical observations
and patient history.
Nucleic Acid Amplification test (NAAT)performed on the
[employer] platform.
CXR 01/10/25: There is a new hazy right basilar opacity, possible pneumonitis in the setting of suspected aspiration.
Septic shock secondary to UTI:
-h/o chronic mane catheter, POA, due to neurogenic bladder due to T6 spinal cord injury 2007
-impacted right ureteral stone with proximal hydronephrosis and perinephric fat stranding
-R PCN placed by IR and draining appropriately
-BCxs/UCx grew MDR Proteus and Serratia resistant to Zosyn, antibiotics switched to cefepime and then transitioned to Cipro PO (continue through 01/20/25 as per ID).
-initially intubated, now extubated and off vasopressors
-lactic acidosis secondary to septic shock, resolved
-leukocytosis has improved
-s/p cysto/complex cystolitholopaxy/right ureteroscopy and laser fragmentation of ureteral and renal stone, stent placement and perc removal on 01/16/25
VEE:
-initially thought to be prerenal due to septic shock
-s/p IVFs for septic shock and was then thought to be slightly volume overloaded
-home Lasix 40 mg daily restarted on 01/09, given additional dose of Lasix 20 mg IV morning of 01/10 due to apparent volume overload
-VEE has now resolved, Cr now 0.5
Permanent A-fib:
-as per discussion with cardiology on 01/13/25 pt was transitioned to Eliquis
-01/13/25AM pt with hematuria, Eliquis stopped. Urine now almost entirely cleared.
-resume Eliquis
Chest pain:
-O/N 01/12-01/13
-trop NEG x 3
-ECG (read by me): V-paced rhythm @ 71
-Echo September 2024: EF 60-65%, no RWMA, normal RV sz/fxn, no gross valvular abnormalities
-cards saw in consult. No further workup at this time.
-It is possible that the patient's chest pain was related to aspiration. Speech saw the pt, no change in diet.
Other problems:
Constipation: cont bowel regimen
Hypokalemia, resolved
COPD: not in acute exac, cont duonebs
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
Chronic opioid use with dependence
Morbid obesity due to excess calories
FULL/Lovenox
Medically cleared for d/c, case management aware.
Anticipated Discharge: Today
Subjective/Interval History
-
Date of Service: January 17, 2025
No new complaints.
Objective Data
-
Labs:
Laboratory Results
01/17/25
06:44
WBC 13.8 H
Hgb 12.0 L
Hct 37.7 L
Plt Count 248
Sodium 137
Potassium 3.5
Chloride 98
Carbon Dioxide 33 H
BUN 14
Creatinine 0.5 L
Glucose 89
Calcium 8.2 L
Vital Signs:
Vital Signs
Temp Pulse Resp BP Pulse Ox
98.1 F 72 16 127/65 95
01/17/25 07:25 01/17/25 07:25 01/17/25 07:25 01/17/25 07:25 01/17/25 07:25
I&O
01/16/25 01/17/25 01/18/25
06:59 06:59 06:59
Intake Total 1060 / 1060 1740 / 1740
Output Total 2745 / 2745 2375 / 2375
Balance -1685 / -1685 -635 / -635
[2025-01-17] MEDS: NOVOLOG FLEXPEN-MODERATE RESISTANCE SC ×2 (08:40→12:56)
[2025-01-17] MEDS: LIORESAL 40 MG PO (08:41)
[2025-01-17] MEDS: PROTONIX 40 MG PO (08:41)
[2025-01-17] MEDS: ALDACTONE 12.5 MG PO (08:41)
[2025-01-17] MEDS: MS CONTIN (EXTENDED RELEASE) 30 MG PO (08:41)
[2025-01-17] MEDS: SENOKOT 17.2 MG PO (08:41)
[2025-01-17] MEDS: NEURONTIN 300 MG PO (08:41)
[2025-01-17] MEDS: LASIX 40 MG PO (08:41)
[2025-01-17] MEDS: COLACE 100 MG PO (08:41)
[2025-01-17] MEDS: ZOLOFT 50 MG PO (08:41)
[2025-01-17] MEDS: CIPRO 500 MG PO (08:41)
[2025-01-17] MEDS: DESENEX/MITRAZOL/ZEASORB 1 APPLIC TOPICAL (08:45)
[2025-01-17] MEDS: MIRALAX PO (08:47)
--- NOTE | 2025-01-17 10:02 | W.PN.URO.CBU ---
Addendum entered and electronically signed by Toy Chan MD 01/17/25 10:07:
Given clear urine, resuming Eliquis today is also acceptable
Original Note:
Today's Communication / Plan
-
Stable for DC from standpoint
Okay to resume AC tomorrow
Follow up for stent removal in 1-2 weeks outpatient
Assessment / Plan
-
54-year-old male past medical history of T6 spinal cord injury since 2007, acquired spastic quadriplegia with chronic Mane catheter
Prior hx of kidney stone with difficult ureteral access in 2019
Presenting with septic shock likely due to obstructing R ureteral stone, also with large bladder stone
s/p IR for R percutaneous nephrostomy
s/p R ureteroscopy, laser lithotripsy, bladder stone removal, stent placement, PCN Removal 01/16/25
- Continue cipro BID for UTI through 01/20
- Maintain chronic mane catheter
- Can resume anticoagulation tomorrow 01/18
- Stable for discharge from standpoint
Follow up with Dr. Dong in about 10 days for catheter change/stent removal in the office
Patient to call to get appointment
Diagnosis
-
Date of Service: January 17, 2025
-
Patient Diagnosis:
Sepsis
Obstructing ureteral stone
Bladder stone
Post Op s/p R PCN placement 01/06/25
s/p bladder stone removal and ureteroscopy, PCN removal 01/16
Subjective
-
Feeling well
No hematuria
Objective
-
Vital Signs
Temp Pulse Resp BP Pulse Ox
98.1 F 70 20 127/65 96
01/17/25 07:25 01/17/25 07:40 01/17/25 07:40 01/17/25 07:25 01/17/25 07:40
Intake and Output
01/16/25 01/17/25 01/18/25
06:59 06:59 06:59
Intake Total 1060 / 1060 1740 / 1740
Output Total 2745 / 2745 2375 / 2375
Balance -1685 / -1685 -635 / -635
Intake:
Oral fluids 1060 / 1060 1590 / 1590
IV fluids (Total) 150 / 150
Normosol 150 / 150
Output:
Urinary Drain Output (Total) 1145 / 1145
Right Nephrostomy 1145 / 1145
Urine, Mane 1600 / 1600 2375 / 2375
Other:
Number of unmeasured liquid
stools
Rectum 1
Laboratory Results
01/17/25 06:44
01/17/25 06:44
Physical Exam
-
General - well developed, well nourished, no acute distress
Chest - clear bilaterally
Abdomen - soft, non-tender, positive bowel sounds, no CVAT, no incisional pain or distention
Mane in place clear yellow
[2025-01-17] MEDS: ELIQUIS 5 MG PO (11:15)
[2025-01-17 12:19] LABS: Glucose - Point of Care 123 mg/dl (70-99)
--- NOTE | 2025-01-17 13:35 | W.DCSUMMARY ---
Discharge Summary
Discharge Data
Date of Admission: 01/05/25
Date of Discharge: 01/17/25
-
Pending Results: No
Hospital Course
Primary diagnoses:
Septic shock due to urinary tract infection due to right ureterolithiasis
Acute kidney injury
Permanent atrial fibrillation
Chest pain, non cardiac
Secondary diagnoses:
Lactic acidosis
Neurogenic bladder due to T6 spinal cord injury 2007
Constipation
Hypokalemia
Chronic obstructive pulmonary disease
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
Chronic opioid use with dependence
Morbid obesity due to excess calories
Consultants:
Cardiology
Urology
Infectious disease
Critical care medicine
Interventional radiology
Imaging:
CT A/P 01/05/25: Approximate 7 x 8 mm calculus in the proximal right ureter with moderate right renal collecting system dilatation as well as right perinephric and periureteral stranding. Cannot exclude infection. Small bilateral nonobstructing renal
calculi. Mane catheter within an essentially empty urinary bladder, 1.9 cm urinary bladder stone noted. Prior cholecystectomy.
CXR 01/10/25: There is a new hazy right basilar opacity, possible pneumonitis in the setting of suspected aspiration.
54-year-old male who presented with a chief complaint of decreased urine output as outlined in the H&P done on admission. Hospital course by problem list:
Septic shock due to urinary tract infection due to right ureterolithiasis: The patient had a history of a chronic mane cathete due to neurogenic bladder due to T6 spinal cord injury 2007. On admission the patient was in septic shock with fever,
tachycardia, leukocytosis, and hypotension and was intubated on admission. He was placed on Levophed for blood pressure support. He was placed on broad-spectrum antibiotics with vancomycin and Zosyn. Imaging showed an impacted right ureteral
stone with proximal hydronephrosis and perinephric fat stranding. He had a R PCN placed by IR which drained appropriately. The patient was extubated and his vasopressors were weaned off. BCxs/UCx grew MDR Proteus and Serratia resistant to Zosyn,
antibiotics switched to cefepime and then transitioned to Cipro PO (continue through 01/20/25 as per ID).initially intubated, now extubated and off vasopressors. The patient underwent cysto/complex cystolitholopaxy/right ureteroscopy and laser
fragmentation of ureteral and renal stone, stent placement and perc removal on 01/16/25.
VEE: This was initially thought to be prerenal due to septic shock. The patient received IVFs for septic shock and was then thought to be slightly volume overloaded. His home Lasix 40 mg daily restarted on 01/09/25, he was given additional dose of
Lasix 20 mg IV morning of 01/10 due to apparent volume overload. His acute kidney injury resolved and his creatinine was 0.5 at the time of discharge.
-VEE has now resolved, Cr now 0.5
Permanent A-fib: The patient been on Coumadin prior to admission. As per discussion with cardiology on 01/13/25 the patient was transitioned to Eliquis. On 01/13/25AM the patient had hematuria and his Eliquis was stopped. On the morning of discharge
his urine had almost entirely cleared. His Eliquis was resumed on discharge.
Chest pain, noncardiac: The patient had chest pain overnight 01/12/25-01/13/25. He had 3 negative troponins. ECG showed a V-paced rhythm @ 71. Cardiology saw the patient in consultation. They did not recommend any further workup at that time. It is
possible that the patient's chest pain was related to aspiration. Speech saw the patient and no changes were recommended to the patient's diet.
Discharge Plan
-
Patient Disposition: Home (Routine Discharge)
Discharge Diagnosis/Procedures: Septic shock secondary to urinary tract infection, R percutaneous nephrostomy placement followed by cysto/complex cystolitholopaxy/right ureteroscopy and laser fragmentation of ureteral and renal stone, stent
placement and perc removal, acute kidney injury
Condition: Good
Diet: Diabetic, Carb Controlled
Activity: Other activity
Additional Activity: as prior to admission
Driving Restrictions: No driving
Activity Restrictions/Additional Instructions:
Call the urology office to make a follow up with Dr. Dong to remove the stent and change mane catheter in 1-2 weeks
Call [phone] - [facility]
Referrals:
Alida Sandy DO [Family Provider, Family Practice] - in less than 1 week
Toy Chan MD [Active, Urology]
Rosita Mathews CRNP [Specified Professional Personl, Cardiology] - 02/03/25 2:40 pm
Referral Note: You have a cardiology follow-up appointment at the [facility]. Please call with questions
Prescriptions:
New
ciprofloxacin HCl 500 mg Tablet
500 mg PO BID Qty: 8 0RF
Eliquis 5 mg Tablet
5 mg PO BID Qty: 60 0RF
atorvastatin 40 mg Tablet
40 mg PO QPM Qty: 30 0RF
spironolactone 25 mg Tablet
12.5 mg PO DAILY Qty: 15 0RF
furosemide 40 mg Tablet
40 mg PO BID AT 0800,1600 Qty: 60 0RF
Continued
sertraline 50 MG tablet
50 mg PO DAILY
docusate sodium 100 MG capsule
100 mg PO DAILY
oxycodone 5 MG tablet
0 mg PO DIRECTED
Patient Comments:
01/05/2025, significant other is not sure if pt. is taking this med. or not; however it was recently filled in the pharmacy on 12/17/2024 for 30 tabs.
baclofen 20 mg tablet
40 mg PO BID
sennosides [senna] 8.6 mg Tablet
17.2 mg PO DAILY
gabapentin 600 mg Tablet
300 mg PO BID
morphine 30 mg Tablet Extended Release
30 mg PO BID
albuterol sulfate 90 mcg/actuation Hfa Aerosol Inhaler
2 puff INHALATION R Q6HPRN PRN (Reason: wheezing)
Trelegy Ellipta 200-62.5-25 mcg Blister With Device
1 inh INHALATION R DAILY
polyethylene glycol 3350 [HealthyLax] 17 gram Powder In Packet
17 g PO DAILYPRN PRN (Reason: constipation) Qty: 0 0RF
pantoprazole [Protonix] 40 mg tablet,delayed release (DR/EC)
40 mg PO DAILY
potassium chloride 20 mEq Tablet,Er Particles/Crystals
20 meq PO DAILY
acetaminophen [Tylenol] 325 mg Tablet
650 mg PO DAILYPRN PRN (Reason: mild pain)
therapeutic multivitamin Tablet
1 tab PO DAILY
Discontinued
amlodipine 5 MG tablet
5 mg PO DAILY
warfarin 6 mg Tablet
9 mg PO .SEE BELOW
Patient Comments:
01/05/2025, significant other is unsure of current dosing; last filled on 10/09/2024 for 180 tabs; could not confirm dosing w/ pt. at time of interview.
furosemide [Lasix] 40 mg tablet
40 mg PO DAILY
spironolactone [Aldactone] 25 mg tablet
25 mg PO DAILY
Discharge Orders:
Discharge Patient (As Directed); Ordered 01/17/25
Ordered By: Mandeep Victoria
Discharge Date and Time
Discharge Date/Time: 01/17/25 13:30
Print Language: LITHUANIAN
== END 2025-01-17 13:30 | disposition home health service (06) | DRG 853 ==
LOC: 2 NORTH 22:57
PROVIDERS: Internal Medicine; Internal Medicine Cardiovascular Disease; Nurse Practitioner Family; Nurse Practitioner Primary Care; Physician Assistant; Radiology Vascular & Interventional Radiology; Specialist; ADMITTING PHYSICIAN Hospitalist; ATTENDING PHYSICIAN Internal Medicine; CONSULT PHYSICIAN Internal Medicine Cardiovascular Disease; CONSULT PHYSICIAN Internal Medicine Critical Care Medicine; CONSULT PHYSICIAN Internal Medicine Infectious Disease; CONSULT PHYSICIAN Specialist; EMERGENCY PHYSICIAN Student in an Organized Health Care Education/Training Program; FAMILY PHYSICIAN Family Medicine
PROC: 5A1945Z Respiratory Ventilation, 24-96 Consecutive Hours (ICD-10-PCS; 2025-01-05)
PROC: 0BH17EZ Insertion of Endotracheal Airway into Trachea, Via Natural or Artificial Opening (ICD-10-PCS; 2025-01-05)
PROC: 0T9030Z Drainage of Right Kidney with Drainage Device, Percutaneous Approach (ICD-10-PCS; 2025-01-05)
PROC: 03HY32Z Insertion of Monitoring Device into Upper Artery, Percutaneous Approach (ICD-10-PCS; 2025-01-05)
PROC: 30233K1 Transfusion of Nonautologous Frozen Plasma into Peripheral Vein, Percutaneous Approach (ICD-10-PCS; 2025-01-05)
PROC: 5A09357 Assistance with Respiratory Ventilation, Less than 24 Consecutive Hours, Continuous Positive Airway Pressure (ICD-10-PCS; 2025-01-07)
PROC: 4B02XSZ Measurement of Cardiac Pacemaker, External Approach (ICD-10-PCS; 2025-01-14)
PROC: 0T768DZ Dilation of Right Ureter with Intraluminal Device, Via Natural or Artificial Opening Endoscopic (ICD-10-PCS; 2025-01-16)
PROC: 0TF38ZZ Fragmentation in Right Kidney Pelvis, Via Natural or Artificial Opening Endoscopic (ICD-10-PCS; 2025-01-16)
PROC: 0TF68ZZ Fragmentation in Right Ureter, Via Natural or Artificial Opening Endoscopic (ICD-10-PCS; 2025-01-16)
PROC: 0TCB8ZZ Extirpation of Matter from Bladder, Via Natural or Artificial Opening Endoscopic (ICD-10-PCS; 2025-01-16)
PROC: 0TP5X0Z Removal of Drainage Device from Kidney, External Approach (ICD-10-PCS; 2025-01-16)
DX: A41.9 Sepsis, unspecified organism (principal); G82.50 Quadriplegia, unspecified; R65.21 Severe sepsis with septic shock; J96.21 Acute and chronic respiratory failure with hypoxia; I50.33 Acute on chronic diastolic (congestive) heart failure; J69.0 Pneumonitis due to inhalation of food and vomit; N17.9 Acute kidney failure, unspecified; N13.6 Pyonephrosis; I48.21 Permanent atrial fibrillation; E87.20 Acidosis, unspecified; F11.20 Opioid dependence, uncomplicated; Z68.41 Body mass index [BMI] 40.0-44.9, adult; D68.9 Coagulation defect, unspecified; I44.2 Atrioventricular block, complete; I42.9 Cardiomyopathy, unspecified; N21.0 Calculus in bladder; R07.89 Other chest pain; N31.9 Neuromuscular dysfunction of bladder, unspecified; K59.00 Constipation, unspecified; E87.6 Hypokalemia; J44.9 Chronic obstructive pulmonary disease, unspecified; S24.102S Unspecified injury at T2-T6 level of thoracic spinal cord, sequela; W14.XXXS Fall from tree, sequela; E66.01 Morbid (severe) obesity due to excess calories; E11.65 Type 2 diabetes mellitus with hyperglycemia; G47.33 Obstructive sleep apnea (adult) (pediatric); I11.0 Hypertensive heart disease with heart failure; F32.A Depression, unspecified; F41.9 Anxiety disorder, unspecified; E78.00 Pure hypercholesterolemia, unspecified; I27.20 Pulmonary hypertension, unspecified; I49.5 Sick sinus syndrome; R31.9 Hematuria, unspecified; R00.1 Bradycardia, unspecified; R13.10 Dysphagia, unspecified; Z99.81 Dependence on supplemental oxygen; Z11.52 Encounter for screening for COVID-19; Z87.442 Personal history of urinary calculi; Z79.01 Long term (current) use of anticoagulants; Z86.711 Personal history of pulmonary embolism; Z86.718 Personal history of other venous thrombosis and embolism; Z95.0 Presence of cardiac pacemaker; Z87.891 Personal history of nicotine dependence
CPT/HCPCS: 31500; 36556; 36600; 50432; 71045; 71046; 74018; 74177; 76000; 76937; 80048; 80053; 80202; 81003; 81015; 82533; 82805; 82962; 83605; 83735; 83880; 84100; 84478; 84484; 85025; 85027; 85610; 85730; 86850; 86900; 86901; 87040; 87077; 87086; 87154; 87186; 87205; 87502; 87811; 92610; 93005; 94002; 94003; 94640; 94660; 96361; 96374; 96375; 99152; 99153; 99285; A4300; C1729; C1751; C1769; C1894; C2617; P9059; Q9967

== ENCOUNTER 2025-06-03 04:30 | Inpatient (IN) | payer MEDICARE, OTHER, SELFPAY ==
[2025-06-02 22:55] VITALS: BP 172/67
[2025-06-02 22:56] VITALS: BP 172/67
[2025-06-02 23:00] VITALS: BP 183/68
[2025-06-02 23:09] VITALS: BMI 43.3
[2025-06-02 23:19] VITALS: PULSE 71
[2025-06-02 23:23] LABS: ALT (SGPT) 16 U/L (0-50); AST (SGOT) 24 U/L (17-59); Albumin 4.0 g/dl (3.5-5.0); Alkaline Phosphatase 127 U/L (38-126); Blood Urea Nitrogen 7 mg/dl (9-20); Calcium 8.7 mg/dl (8.4-10.2); Chloride 96 mmol/L (98-107); Estimated Creatinine Clearance > 125 ml/min; Glucose 189 mg/dl (70-99); Potassium 3.8 mmol/L (3.5-5.1); Sodium 139 mmol/L (135-145); Total Protein 7.8 g/dl (6.3-8.2); eGFR > 60.00
[2025-06-02 23:32] LABS: Carbon Dioxide 37 mmol/L (22-30); Troponin I 0.018 ng/ml
[2025-06-03] VITALS (20 sets, daily range): BP systolic 107–163; BP diastolic 52–84; PULSE 2–85; BMI 42.0
[2025-06-03 00:44] LABS: Hematocrit 46.3 % (39.0-52.0); Hemoglobin 13.0 g/dL (13.0-18.0); Mean Corp Hgb Conc. 28.1 g/dL (33.0-37.0); Mean Corpuscular Volume 82.7 fL (80.0-94.0); Normal RBC Morphology No; Nucleated Red Blood Cells % 0 % (-); Platelet Count 313 10^3/uL (130-400); Red Cell Dist. Width 18.6 % (11.5-14.5)
[2025-06-03 00:45] LABS: Hypochromasia 2+
[2025-06-03 00:52] LABS: Anisocytosis 2+; Macrocytosis 1+
--- NOTE | 2025-06-03 01:40 | ED.GENMED ---
History of Present Illness
General
Chief Complaint: Breathing Problem
Source: patient and ambulance crew
Time Seen by Provider: 06/02/25 22:57
Nursing documentation reviewed up to this point in time: agreed with
History of Present Illness
History of Present Illness:
Note:
CHIEF COMPLAINT(S)
Chest pain for two weeks, occurring intermittently.
HISTORY OF PRESENT ILLNESS
The patient is a 54-year-old male who reports experiencing chest pain on and off for the past two weeks. The patient mentions having a pacemaker. The details of frequency, specific triggers, or alleviating factors were not provided during the
conversation.
PAST MEDICAL AND SURIGICAL HISTORY
History of paraplegia and Acute Kidney Injury (VEE)
History of Deep Vein Thrombosis (DVTs) and Pulmonary Embolism (PEs)
Chronic Obstructive Pulmonary Disease (COPD)
Presence of a pacemaker
PHYSICAL EXAM
General: Alert, no acute distress.
Skin: Warm, dry.
Head: Normocephalic, atraumatic.
Neck: Supple, trachea midline.
Eye, Ears, Nose, Mouth and Throat: Oral mucosa moist.
Cardiovascular: Normal peripheral perfusion, No edema.
Respiratory: Respirations are non-labored.
Gastrointestinal: Abdomen nondistended.
Back: Normal range of motion, Normal alignment.
Musculoskeletal: Normal range of motion, normal strength.
Neurological: Alert and oriented to person, place, time, and situation, No focal neurological deficit observed.
Psychiatric: Cooperative, appropriate mood and affect.
PROBLEM LIST
Acute:
Intermittent chest pain
Chronic:
Paraplegia
Acute Kidney Injury (VEE)
Deep Vein Thrombosis (DVTs)
Pulmonary Embolism (PEs)
Chronic Obstructive Pulmonary Disease (COPD)
Presence of a pacemaker
DIFFERENTIAL DIAGNOSIS
The Differential Diagnosis includes, in no particular order and is not limited to:
1. Myocardial Infarction
2. Angina
3. Pulmonary Embolism
4. Pericarditis
5. Aortic Dissection
6. Gastroesophageal Reflux Disease (GERD)
7. Costochondritis
8. Anxiety-related Chest Pain
9. Pneumothorax
10. Pleural Effusion
Disposition:
SUMMARY OF ENCOUNTER
A 54-year-old male with a two-week history of intermittent chest pain and current episode of chest pain accompanied by difficulty breathing was seen in the emergency department. The patient has a past medical history of congestive heart failure and
obtained relief from chest pain with the administration of nitroglycerin. Given the persistent symptoms and the patients medical history, the decision was made to admit the patient for further evaluation and management.
DISPOSITION
Admit to hospital for further evaluation and management.
ASSESSMENT
The patient presented with chest pain and shortness of breath, with a significant history of congestive heart failure. Relief of chest pain with nitroglycerin raises suspicion for cardiac-related chest pain, possibly angina exacerbation or heart
failure exacerbation.
MEDICATION RECONCILIATION
- Nitroglycerin (relieved chest pain)
MEDICAL DECISION MAKING
- Number and Complexity of Problems Addressed: Chronic conditions affecting care include congestive heart failure, intermittent chest pain.
- Data:
- Category 1
- Clinical information obtained from the patient.
- Category 2
- Considered diagnostic testing due to cardiac-related symptoms.
- Risk:
- Consideration of Admission/Observation: Escalation of care including admission was considered necessary given the patients presenting symptoms, medical history of congestive heart failure, and relief with nitroglycerin. Admission is warranted for
further evaluation and management to ensure patient safety.
DIAGNOSIS
- Chest pain, unspecified (ICD-10: R07.9)
- Acute exacerbation of congestive heart failure, unspecified (ICD-10: I50.9)
Past History
Past History
ED Past Medical History: COPD, HTN, Hypercholesterolemia and Other (T6 paraplegic, Hematuria, DVT L leg)
ED Past Surgical History: Other (Green field filter)
Social History
Tobacco: Former smoker
Alcohol: None
Drug: None
Personal:
Living: with family
Employment: Disabled
Family History
Family History: Other (Noncontributory)
Phy Exam
Physical Exam
Physical Exam:
.
Scores
Heart Failure Risk
Heart Failure Risk Score: Yes
History of Stroke or TIA: No
History of intubation for respiratory distress: Yes
Heart rate on ED arrival >/= 110: No
SaO2 <90% on arrival on room air: No
HR >/=110 during 3min walk test (or too ill to perform test): Yes
ECG has acute ischemic changes: No
Urea >/=12mmol/L (BUN 33.6mg/dL): No
Serum CO2>/=35mmol/L: Yes
Troponin I or T elevated to SC Level (0.4mg/dL): No
NT-proBNP >/=5,000ng/L (5,000pg/ml): No
HF Risk Score: 6
Admission Status: VERY HIGH RISK 55.3% Consider admission to hospital
Course
Orders/Labs/Results
Orders:
Orders
06/02/25 22:56
Electrocardiogram (*1) Urgent
Reason for Study: Other
Other Reason for Exam: Respiratory Distress
Cardiac Monitoring- Treatment ONCE
EKG- Treatment ONCE
IV Insert/Care/Rem.- Treatment PRN
CR Chest Portable - 1 View Urgent
Comment:
Reason For Exam: respiratory distress
Reason Study Needs to be Portable: Patient Unstable
O2 Therapy [RESP] Urgent
Titrate/Wean O2 to maintain O2 sat greater than (%): 93
Special Instructions: TO MAINTAIN CONTINUOUS O2 SATS >/= 93%
Pulse Ox/cont/shift [RESP] Urgent
Quantity: 1
Special Instructions: continuous pulse ox
06/02/25 22:59
Complete Blood Count/With Diff Urgent
Comprehensive Metabolic Panel Urgent
NT-proBNP Urgent
Troponin I Urgent
06/02/25 23:04
Nitroglycerin Sublingual [Nitrostat (Sublingual)] 0.4 mg .ROUTE .STK-MED ONE
06/03/25 01:41
Nitroglycerin Ointment [Nitro-Bid] 1 inch TOPICAL NOW STA
06/03/25 01:47
Furosemide [Lasix] 40 mg IV NOW STA
Abnormal Lab Results
06/02/25
22:59
WBC 14.2 H 10^3/uL
(4.8-10.8)
MCH 23.2 L pg
(27.0-31.0)
MCHC 28.1 L g/dL
(33.0-37.0)
RDW 18.6 H %
(11.5-14.5)
MPV 10.6 H fL
(7.4-10.4)
Abs Immat Gran (auto) 0.1 H 10^3/uL
(0-0.05)
Absolute Neuts (auto) 10.2 H 10^3/uL
(1.4-6.5)
Absolute Monos (auto) 1.2 H 10^3/uL
(0.1-0.6)
Lymphocytes % 16.1 L %
(20.5-51.1)
Chloride 96 L mmol/L
(98-107)
Carbon Dioxide 37 H mmol/L
(22-30)
BUN 7 L mg/dl
(9-20)
Creatinine 0.6 L mg/dL
(0.7-1.3)
Glucose 189 H mg/dl
(70-99)
Alkaline Phosphatase 127 H U/L
(38-126)
06/02/25 22:59
06/02/25 22:59
Vital Signs
Initial and Last Documented VS:
Initial Vital Signs
BP
172/67
06/02/25 22:55
Last Documented Vital Signs
Pulse Resp BP Pulse Ox
72 21 147/77 91
06/03/25 02:30 06/03/25 02:30 06/03/25 02:00 06/03/25 02:30
*Radiology
Radiology exam reviewed: preliminary read by ED provider
*Pulse Oximetry
SaO2: 97
Nasal Cannula flow liters per minute: 6
Oxygen Mode of Delivery: BiPAP
Patient hypoxic: no
*Critical Care Note
Total Time (30-74mins, 75-104mins- exclusive of procedures): Not Applicable
ED Attending Note
-
Portions of this chart may have been created with voice recognition software.� Occasional wrong word or��sound alike� substitutions may have occurred due to the inherent limitations of voice recognition software.
Discharge Plan
Departure
Patient Disposition: Admit
Date of Disposition: 06/03/25
Time of Disposition: 01:48
Admit to: IMU
Presentation/result/management discussed w/ accepting MD/DO: Hospitalist
Patient with high blood pressure during this ER visit?: Yes
Condition: Serious
Discharge Problem:
CHF (congestive heart failure), Chest pain, Hypertensive heart disease with heart failure, Morbid obesity with BMI of 40.0-44.9, adult
Prescriptions:
No Action
sertraline 50 MG tablet
50 mg PO DAILY
docusate sodium 100 MG capsule
100 mg PO DAILY
oxycodone 5 MG tablet
0 mg PO DIRECTED
Patient Comments:
01/05/2025, significant other is not sure if pt. is taking this med. or not; however it was recently filled in the pharmacy on 12/17/2024 for 30 tabs.
baclofen 20 mg tablet
40 mg PO BID
sennosides [senna] 8.6 mg Tablet
17.2 mg PO DAILY
gabapentin 600 mg Tablet
300 mg PO BID
morphine 30 mg Tablet Extended Release
30 mg PO BID
albuterol sulfate 90 mcg/actuation Hfa Aerosol Inhaler
2 puff INHALATION R Q6HPRN PRN (Reason: wheezing)
Trelegy Ellipta 200-62.5-25 mcg Blister With Device
1 inh INHALATION R DAILY
polyethylene glycol 3350 [HealthyLax] 17 gram Powder In Packet
17 g PO DAILYPRN PRN (Reason: constipation) Qty: 0 0RF
pantoprazole [Protonix] 40 mg tablet,delayed release (DR/EC)
40 mg PO DAILY
potassium chloride 20 mEq Tablet,Er Particles/Crystals
20 meq PO DAILY
acetaminophen [Tylenol] 325 mg Tablet
650 mg PO DAILYPRN PRN (Reason: mild pain)
therapeutic multivitamin Tablet
1 tab PO DAILY
ciprofloxacin HCl 500 mg Tablet
500 mg PO BID Qty: 8 0RF
Eliquis 5 mg Tablet
5 mg PO BID Qty: 60 0RF
atorvastatin 40 mg Tablet
40 mg PO QPM Qty: 30 0RF
spironolactone 25 mg Tablet
12.5 mg PO DAILY Qty: 15 0RF
furosemide 40 mg Tablet
40 mg PO BID AT 0800,1600 Qty: 60 0RF
Referrals:
Alida Sandy DO [Family Provider, Family Practice]
Interventions
Interventions:
*Risk Screen - Suicide Last Done: 06/02/25 22:56
*General Assessment Last Done: 06/02/25 22:59
*Neglect/Abuse Screening Last Done: 06/02/25 22:59
*ED- Fall Risk Assessment Last Done: 06/02/25 23:00
*ED COVID-19 Vaccine History Last Done: 06/02/25 23:00
*ED Influenza Vaccine History Last Done: 06/02/25 23:00
ED- Cardiac Assessment Last Done: 06/02/25 23:13
ED- Pulmonary Assessment Last Done: 06/02/25 23:13
Discharge Date and Time
Print Language: ICELANDIC
[2025-06-03] MEDS: NITRO-BID 1 INCH TOPICAL (01:46)
[2025-06-03] MEDS: LASIX 40 MG IV ×3 (01:51→17:13)
--- NOTE | 2025-06-03 03:40 | HPS.HSE ---
Family Physician
-
Family Physician: Alida Sandy
Chief Complaint
-
Shortness of breath
History of Present Illness
This is a 54-year-old T6 paraplegic was past medical history that is significant for atrial fibrillation on Eliquis, CHF, hypertension, hypothyroid, COPD on 2 L home O2, status post PNC L4 large-volume kidney stones, status post laparoscopic
cholecystectomy and a recent admission for sepsis secondary to urinary tract infection in January with presents to the emergency department with shortness of breath.
Apparently patient complained of chest pain and shortness of breath acutely although he says he has been feeling short of breath intermittently for the last 4 days. He arrived in the emergency department on nonrebreather as he was satting 74% on
room air as per EMS.
In the ED he was afebrile, blood pressure was 110/64 with a pulse rate of 71 and is currently satting 94% on BiPAP.
Chest x-ray shows bilateral interstitial increased markings consistent with CHF. Troponin was 0.018, BNP was elevated 1900,
He has a white count of 14.2 otherwise hemoglobin and platelet normal. Electrolytes were unremarkable except for a bicarb of 37 which is similar to prior. BUN 7 and creatinine was 0.6.
Medical History
Past Medical History
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
diabetes, obesity, nephrolithiasis, history of DVT/PE status post IVC filter)
Past Surgical History: Reports None
Social History
Tobacco: Former Smoker
Alcohol: Occasional
Drug: None
Family History
Family History: Not pertinent
Allergies / Home Medications
Allergies reflects when Allergies were last updated in [facility].
Home Medications with original date entered in [facility]
Allergy/Medication List:
Allergies
Allergy/AdvReac Type Severity Reaction Status Date / Time
No Known Allergies Allergy Verified 03/27/24 16:30
Home Medications
sertraline 50 mg tablet 50 mg PO DAILY depression 06/11/16
amlodipine 5 mg tablet 5 mg PO DAILY blood pressure 03/28/20
docusate sodium 100 mg capsule 100 mg PO DAILY Constipation 12/06/21
oxycodone 5 mg tablet 0 mg PO DIRECTED severe pain 07/24/23
baclofen 20 mg tablet 40 mg PO BID Muscle Spasms 07/31/23
albuterol sulfate 90 mcg/actuation aerosol inhaler 2 puff inhalation R Q6HPRN PRN wheezing 12/22/23
fluticasone fur. 200 mcg-umeclid 62.5 mcg-vilant 25 mcg inhalat.powder (Trelegy Ellipta) 1 inh inhalation R DAILY Lung/Breathing Issues 12/22/23
gabapentin 600 mg tablet 300 mg PO BID Pain 12/22/23
morphine 30 mg tablet,extended release 30 mg PO BID Pain 12/22/23
sennosides 8.6 mg tablet (senna) 17.2 mg PO DAILY Constipation 12/22/23
warfarin 6 mg tablet 0 mg PO .SEE BELOW Blood Clot Prevention/Tx 12/22/23
polyethylene glycol 3350 17 gram oral powder packet (HealthyLax) 17 g PO DAILYPRN PRN constipation #0 ea 12/28/23
pantoprazole 40 mg tablet,delayed release (Protonix) 40 mg PO DAILY Gastrointestinal Issue 03/28/24
spironolactone 25 mg tablet (Aldactone) 25 mg PO DAILY #30 tabs 09/23/24
acetaminophen 325 mg tablet (Tylenol) 650 mg PO DAILYPRN PRN mild pain 01/05/25
furosemide 40 mg tablet (Lasix) 40 mg PO DAILY 01/05/25
potassium chloride 20 mEq tablet,extended release(part/cryst) 20 meq PO DAILY 01/05/25
therapeutic multivitamin 1 tab PO DAILY 01/05/25
Review of Systems
-
History Source: Patient
A 12 point ROS was completed and negative except as noted: Yes
Constitutional: Reports No Symptoms
EENT: Reports No Symptoms
Respiratory: Reports Trouble Breathing
Cardiac: Reports Chest Pain
Abdomen/GI: Reports See HPI
: Reports No Symptoms
Musculoskeletal: Reports No Symptoms
Skin: Reports No Symptoms
Neurological: Reports No Symptoms
Endocrine: Reports No Symptoms
Hematologic/Lymphatic: Reports No Symptoms
Psych: Reports No Symptoms
Physical Exam
Vital Signs
Vital Signs
Pulse Resp BP Pulse Ox
71 16 139/64 94
06/03/25 03:00 06/03/25 03:00 06/03/25 03:00 06/03/25 03:00
Physical Exam
General: Respiratory Distress and Morbidly Obese
HEENT: NormoCephalic, Moist mucous membranes and Atraumatic
Respiratory: Other (Distant breath sounds but this sounds clear without any wheezing, no crackles auscultated. No significant rhonchi)
Cardiac: S1/S2 and Regular Rhythm; No Murmur or Rub
GI: Soft, Non Tender, Non Distended and Normal Bowel Sounds; No Organomegaly
Rectal: Deferred by Provider
Genito-urinary: Burnett
Musculoskeletal: No Clubbing, No Cyanosis and No Edema
Skin: No Rash
Neuro: AO x 3 and Nonfocal/grossly intact
Laboratory Results
-
06/02/25 22:59
06/02/25 22:59
Laboratory Results
Total Bilirubin 0.4 mg/dl (0.2-1.3) 06/02/25 22:59
AST 24 U/L (17-59) 06/02/25 22:59
ALT 16 U/L (0-50) 06/02/25 22:59
Alkaline Phosphatase 127 U/L (38-126) H 06/02/25 22:59
Troponin I 0.018 ng/ml 06/02/25 22:59
Data Reviewed
-
Diagnostic Radiology: Image Personally Visualized and interpreted
Medical Tests (Nuc Med, Echo, EKG etc): Image Personally Visualized and interpreted
Lab Data: Labs Reviewed by me
Old Records: Reviewed
Impression/Plan
-
IMPRESSION:
54-year-old with T6 paraplegia, history of CHF, hypertension, atrial fibrillation on anticoagulation, COPD on 2 L home O2, chronic indwelling urinary catheter who presents to the emergency department with shortness of breath and hypoxia requiring
nonrebreather initially and now currently on 10 L BiPAP 18/8. He is satting 94%. His examination reveals a morbidly obese male with distant breath sounds but currently no increased work of breathing and no crackles on examination. Chest x-ray
does and reveals increased interstitial markings consistent with pulmonary edema. Patient reported productive cough worse than baseline prior to coming to the ED. He has no focal infiltrates on x-ray does have leukocytosis to 14. He is afebrile
here. He is hemodynamically stable. He is anticoagulated on Eliquis.
PLAN:
Hypoxic respiratory failure -possibly multifactorial, a very specific etiology could not be delineated at this time but suspect significant admission and COPD exacerbation. No signs of acute infiltrates concerning for pneumonia at this time.
� Admit to IMU
� Continue BiPAP support for now
� Repeat blood gas in a.m.
� Status post nitroglycerin and IV Lasix in the ED with improvement
- IV Lasix as below
� Will give COPD treatment with DuoNebs [id number], as needed nebulizer, Solu-Medrol 40 every 12. Given sputum changes will also start doxycycline.
� Pulmonary consultation for now
Heart failure�as stated above possibly mild CHF exacerbation patient is quite morbidly obese and does not have overt signs of volume overload except for interstitial pulmonary edema seen on x-ray
� IV Lasix 40 twice daily for now
� Continue spironolactone
- Continue with atorvastatin
A-fib�currently in a ventricularly paced rhythm
� Continue Eliquis 5 mg twice daily
Will continue GI prophylaxis with pantoprazole, continue sertraline and baclofen
DVT prophylaxis�on apixaban
CODE STATUS�full code
[2025-06-03] MEDS: DUONEB 3 ML INH ×2 (04:44→07:05)
[2025-06-03] MEDS: ZITHROMAX INFUSION 250 IV (05:02)
[2025-06-03] MEDS: SOLU-MEDROL PF 125 MG IV (05:02)
[2025-06-03] MEDS: SYMBICORT 160/4.5 MCG INHALER INH ×2 (07:05→07:12)
[2025-06-03] MEDS: SPIRIVA RESPIMAT 2.5 MCG INH ×2 (07:05→07:12)
[2025-06-03 07:18] LABS: Hematocrit 39.5 % (39.0-52.0); Hemoglobin 11.6 g/dL (13.0-18.0); Mean Corp Hgb Conc. 29.4 g/dL (33.0-37.0); Mean Corpuscular Volume 77.5 fL (80.0-94.0); Platelet Count 235 10^3/uL (130-400); Red Cell Dist. Width 18.4 % (11.5-14.5)
[2025-06-03 07:23] LABS: B.E. 13.8 mmol/L; O2 Saturation % 97.4 % (94-98); PCO2 65 mmHg (35-48); PO2 78 mmHg (83-108)
[2025-06-03 07:25] LABS: HCO3 41.2 mmol/L (21-28)
[2025-06-03 07:27] LABS: COVID-19 Antigen Negative (Negative)
[2025-06-03] MEDS: VENTOLIN NEBULES INH (07:37)
[2025-06-03 07:40] LABS: Blood Urea Nitrogen 9 mg/dl (9-20); Calcium 8.5 mg/dl (8.4-10.2); Chloride 97 mmol/L (98-107); Estimated Creatinine Clearance > 125 ml/min; Glucose 112 mg/dl (70-99); Magnesium 1.9 mg/dl (1.6-2.3); Potassium 4.3 mmol/L (3.5-5.1); Sodium 137 mmol/L (135-145); eGFR > 60.00
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
[2025-06-03 08:18] LABS: Carbon Dioxide 36 mmol/L (22-30)
--- NOTE | 2025-06-03 08:48 | W.PN.UPDATE ---
Update Note
Progress Note Update
Patient seen and examined after postmidnight admission. Patient states that shortness of breath is improving from admission. Vital signs stable. Currently on BiPAP 18/8, 8L. No acute distress, awake and alert. Regular rate and rhythm, normal
S1-S2. End expiratory wheezes bilaterally a component of which is upper airway sound transmission. Continue plan as outlined in the H&P done after midnight.
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
--- NOTE | 2025-06-03 09:26 | CM ---
I.A: Completed By KEATON Gaspar. Patient was sleeping
Patient lives with his Sig-Other in a [facility] with 2 [facility] where his Sig-Other is his caregiver via [facility] 10-11 hours a day via waiver program.
DME: Electric Wheelchair, [employer], O2 at 2.5 liters, and CPAP.
PCP: Dr. Alida Sandy
Pharmacy: [facility]
Patient will need transportation home, please check with patient/ GF. PLAN: Anticipate Home No Needs.
[2025-06-03] MEDS: MS CONTIN (EXTENDED RELEASE) 30 MG PO ×2 (10:18→22:01)
[2025-06-03] MEDS: LIORESAL 40 MG PO ×2 (10:19→22:01)
[2025-06-03] MEDS: NEURONTIN 300 MG PO ×2 (10:19→22:01)
[2025-06-03] MEDS: ZOLOFT 50 MG PO (10:19)
[2025-06-03] MEDS: ALDACTONE 12.5 MG PO (10:20)
[2025-06-03] MEDS: COLACE 100 MG PO (10:28)
[2025-06-03] MEDS: ELIQUIS 5 MG PO ×2 (10:28→22:01)
[2025-06-03] MEDS: PROTONIX 40 MG PO (10:28)
[2025-06-03] MEDS: SENOKOT 17.2 MG PO (10:29)
[2025-06-03] MEDS: VENTOLIN NEBULES 2.5 MG INH ×4 (11:17→20:51)
--- NOTE | 2025-06-03 12:20 | CARDSERVLU ---
Echocardiogram with Lumason completed after protocol screening completed. Allergies verified.
Patent IV site: _L hand____
IV site flushed with 0.9% NaCl pre and post administration.
Diluted bolus method utilized to enhance visualization of ventricular langston.
Total volume given: __2.5__ mL
Patient tolerated all procedures well without complications.
--- NOTE | 2025-06-03 15:18 | PTCARENOTE ---
Patient on BIPAP for most of the day. 18/8 at 8L order to keep spo2 >93%. Patient AAOX3. Chronic catheter at baseline. As per patient alhaji changed out 2 wks ago. Echo done at bedside today. V-paced on monitor. VS stable. Patient drowsy but
arousable. Call varghese in reach. Will monitor.
[2025-06-03] MEDS: SOLU-MEDROL PF 40 MG IV (17:11)
[2025-06-03] MEDS: ROXICODONE 5 MG PO (17:12)
[2025-06-03] MEDS: FLUSH (NSS) 2 FLUSH IV (17:13)
[2025-06-03] MEDS: LIPITOR 40 MG PO (18:24)
[2025-06-03 19:56] LABS: Urine Character Cloudy (Clear)
[2025-06-03 20:11] LABS: Urine Red Blood Cell 0-2 /HPF (0-2)
[2025-06-03] MEDS: SYMBICORT 160/4.5 MCG INHALER 2 PUFF INH (20:44)
[2025-06-04] VITALS (12 sets, daily range): BP systolic 98–165; BP diastolic 62–81; PULSE 2–85; BMI 42.0
[2025-06-04 04:22] LABS: Blood Urea Nitrogen 14 mg/dl (9-20); Calcium 8.8 mg/dl (8.4-10.2); Chloride 93 mmol/L (98-107); Estimated Creatinine Clearance > 125 ml/min; Glucose 133 mg/dl (70-99); Potassium 4.3 mmol/L (3.5-5.1); Sodium 135 mmol/L (135-145); eGFR > 60.00
[2025-06-04 04:31] LABS: Carbon Dioxide 40 mmol/L (22-30)
[2025-06-04 04:35] LABS: Procalcitonin 0.30 ng/ml (0.0-0.25)
[2025-06-04] MEDS: ZITHROMAX INFUSION 250 IV (05:07)
[2025-06-04] MEDS: SOLU-MEDROL PF 40 MG IV ×2 (05:07→17:14)
--- NOTE | 2025-06-04 05:32 | PTCARENOTE ---
pt tolerated bipap overnight. satting 90-92%. moderately productive cough. suction at bedside.
[2025-06-04] MEDS: VENTOLIN NEBULES 2.5 MG INH ×4 (07:35→20:09)
[2025-06-04] MEDS: SYMBICORT 160/4.5 MCG INHALER 2 PUFF INH ×2 (07:36→20:09)
[2025-06-04] MEDS: SPIRIVA RESPIMAT 2.5 MCG 2 PUFF INH (07:36)
[2025-06-04] MEDS: SENOKOT PO (08:33)
[2025-06-04] MEDS: ALDACTONE 12.5 MG PO (08:35)
[2025-06-04] MEDS: COLACE 100 MG PO (08:35)
[2025-06-04] MEDS: PROTONIX 40 MG PO (08:35)
[2025-06-04] MEDS: MS CONTIN (EXTENDED RELEASE) 30 MG PO ×2 (08:35→19:40)
[2025-06-04] MEDS: ELIQUIS 5 MG PO ×2 (08:36→19:40)
[2025-06-04] MEDS: NEURONTIN 300 MG PO ×2 (08:36→19:40)
[2025-06-04] MEDS: LASIX 40 MG IV ×2 (08:36→17:16)
[2025-06-04] MEDS: ZOLOFT 50 MG PO (08:36)
[2025-06-04] MEDS: LIORESAL 40 MG PO ×2 (08:36→19:40)
--- NOTE | 2025-06-04 10:09 | W.PN.HOSP.TC ---
Today's Communication/Plan
-
see plan
Assessment / Plan
Assessment / Plan
Gen: NAD, AAOx3.
Eyes: EOMI, PERRLA, no scleral icterus.
Neck: supple.
CV: RRR, +S1/S2, no m/r/g.
Resp: mild exp wheezes
Abd: +BS, soft, NT, ND
Skin: No rashes.
Neuro: CN 2-12 intact, non-focal.
Psych: Normal mood and affect.
CXR: Increased interstitial opacities bilaterally with suggestion of tiny bilateral pleural effusions. Findings are nonspecific but could represent mild pulmonary edema.
Echo:
1. Very technically difficult study despite use of Lumason.
2. Normal left ventricular chamber size with moderate LVH preserved left ventricular systolic function with ejection fraction 65 to 70%.
3. No significant valve disease within the limitations of the study.
4. Compared to a prior echo from September 2024, findings are similar.
Acute on chronic hypoxic respiratory failure:
-on presentation pt was 74% RA (EMS) and was on NRB in the ER. Received NTG and IV lasix in the ER. Then was on BIPAP 18/8, 8L.
-likely multifactorial due to acute HFpEF and acute COPD Exac
-note, on 2.5-3L NC O2 at baseline
-echo unchanged from prior
-cont solumedrol/Symbicort/Spiriva/albuterol, cont Azithro for antiinflammatory properties
-cont IV lasix, daily wts, I/Os
-pulm following
Other problems:
Afib (unknown type): V-paced, cont Eliquis
Morbid obesity due to excess calories
Essential HTN: cont Aldactone
T6 paraplegia
Chronic opioid use with dependence: cont MS Contin
Chronic indwelling urinary catheter
Family updated at bedside.
FULL/Eliquis
Anticipated Discharge: 24 - 48 hours
Subjective/Interval History
-
Date of Service: June 04, 2025
SOB had improved significantly.
Objective Data
-
Labs:
Laboratory Results
06/04/25
03:58
Sodium 135
Potassium 4.3
Chloride 93 L
Carbon Dioxide 40 H
BUN 14
Creatinine 0.5 L
Glucose 133 H
Calcium 8.8
Vital Signs:
Vital Signs
Temp Pulse Resp BP Pulse Ox
97.9 F 71 20 98/64 92
06/04/25 07:07 06/04/25 07:39 06/04/25 07:39 06/04/25 06:00 06/04/25 07:39
I&O
06/03/25 06/04/25 06/05/25
06:59 06:59 06:59
Output Total 1959 300 / 300
Balance -1959 / -1959 -300 / -300
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
--- NOTE | 2025-06-04 13:58 | PTOTSP ---
Speech-Therapy Evaluation
Pt seen for bedside swallow assessment. With PO trials, pt demonstrated functional oropharyngeal swallow. Cannot rule out silent aspiration at bedside. At baseline, pt reports intermittent globus sensation when eating too fast and intermittent
coughing at meals. Pt seen by speech-language therapy during previous admissions and declined a videofluoroscopic swallow study during the past 4 bedside assessments (most recent January 2025). Pt is at an increased risk of aspiration given PMH of
recurrent pneumonias, parapalegia (T6, in 2007), chronic HFpEF, COPD with 2L O2 at home compounded by hypoxic respiratory failure due to COPD exacerbation. Pt WBC trending upwards (15.2) and is on 2L NC (decreased from 4L this AM).�
Pt educated on purpose of VSE and plan for examination to be completed 06/05. Pt verbalized agreement with recommendation.
Recommend:�
1. IDDSI 7 regular solids and IDDSI 0 thin liquids
2. Medication as best�tolerated
3. Swallow Strategies: upright to 90 degrees, single small sips/bites, slow rate, intermittent cough swallow, upright for 30 minutes post PO, oral care 3x daily
4. Complete VSE to objectively assess swallow function and rule out silent aspiration
5. POULTRY BUYER to follow�
[2025-06-04] MEDS: LIPITOR 40 MG PO (17:16)
--- NOTE | 2025-06-04 18:37 | PTCARENOTE ---
VSS throughout shift. Able to be weaned to 3L O2. Assisted onto bariatric bed. Offers no complaints at this time.
[2025-06-05] VITALS (15 sets, daily range): BP systolic 120–164; BP diastolic 52–89; PULSE 2–88; BMI 42.9
--- NOTE | 2025-06-05 00:34 | PTCARENOTE ---
Pt resting comfortably. VSS. Will continue to moniotr.
[2025-06-05 03:29] LABS: Hematocrit 38.6 % (39.0-52.0); Hemoglobin 11.5 g/dL (13.0-18.0); Mean Corp Hgb Conc. 29.8 g/dL (33.0-37.0); Mean Corpuscular Volume 76.7 fL (80.0-94.0); Platelet Count 244 10^3/uL (130-400); Red Cell Dist. Width 18.3 % (11.5-14.5)
[2025-06-05 03:39] LABS: Blood Urea Nitrogen 17 mg/dl (9-20); Calcium 9.2 mg/dl (8.4-10.2); Chloride 95 mmol/L (98-107); Estimated Creatinine Clearance > 125 ml/min; Glucose 149 mg/dl (70-99); Potassium 4.0 mmol/L (3.5-5.1); Sodium 137 mmol/L (135-145); eGFR > 60.00
[2025-06-05 03:48] LABS: Carbon Dioxide 37 mmol/L (22-30)
[2025-06-05] MEDS: SOLU-MEDROL PF 40 MG IV (04:31)
[2025-06-05] MEDS: ZITHROMAX INFUSION 250 IV (04:31)
[2025-06-05] MEDS: VENTOLIN NEBULES 2.5 MG INH ×4 (07:27→19:42)
[2025-06-05] MEDS: SYMBICORT 160/4.5 MCG INHALER 2 PUFF INH ×2 (07:28→19:42)
[2025-06-05] MEDS: SPIRIVA RESPIMAT 2.5 MCG 2 PUFF INH (07:28)
[2025-06-05] MEDS: ALDACTONE 12.5 MG PO (08:12)
[2025-06-05] MEDS: COLACE 100 MG PO (08:14)
[2025-06-05] MEDS: LIORESAL 40 MG PO ×2 (08:15→20:11)
[2025-06-05] MEDS: ELIQUIS 5 MG PO ×2 (08:15→20:11)
[2025-06-05] MEDS: SENOKOT 17.2 MG PO (08:15)
[2025-06-05] MEDS: MS CONTIN (EXTENDED RELEASE) 30 MG PO ×2 (08:16→20:10)
[2025-06-05] MEDS: NEURONTIN 300 MG PO ×2 (08:16→20:10)
[2025-06-05] MEDS: PROTONIX 40 MG PO (08:16)
[2025-06-05] MEDS: ZOLOFT 50 MG PO (08:16)
[2025-06-05] MEDS: LASIX 40 MG IV ×2 (08:17→15:13)
--- NOTE | 2025-06-05 08:22 | W.PN.HOSP.TC ---
Addendum entered and electronically signed by Mandeep Victoria MD 06/05/25 15:16:
Stage 2 pressure injury, gluteal cleft, POA
Original Note:
Today's Communication/Plan
-
see plan
Assessment / Plan
Assessment / Plan
Gen: NAD, AAOx3.
Eyes: EOMI, PERRLA, no scleral icterus.
Neck: supple.
CV: remains RRR, +S1/S2, no m/r/g.
Resp: very mild exp wheezes
Abd: +BS, soft, NT, ND
Skin: No rashes.
Neuro: CN 2-12 intact
Psych: Normal mood and affect.
CXR: Increased interstitial opacities bilaterally with suggestion of tiny bilateral pleural effusions. Findings are nonspecific but could represent mild pulmonary edema.
Echo:
1. Very technically difficult study despite use of Lumason.
2. Normal left ventricular chamber size with moderate LVH preserved left ventricular systolic function with ejection fraction 65 to 70%.
3. No significant valve disease within the limitations of the study.
4. Compared to a prior echo from September 2024, findings are similar.
Acute on chronic hypoxic respiratory failure:
-on presentation pt was 74% RA (EMS) and was on NRB in the ER. Received NTG and IV lasix in the ER. Then was on BIPAP 18/8, 8L.
-likely multifactorial due to acute HFpEF and acute COPD Exac
-note, on 2.5-3L NC O2 at baseline
-echo unchanged from prior
-cont solumedrol/Symbicort/Spiriva/albuterol, cont Azithro for antiinflammatory properties
-cont IV lasix, may need to increase lasix if weight does not improve
-daily wts, I/Os
-pulm/cards following
Other problems:
Afib (unknown type): V-paced, cont Eliquis
Morbid obesity due to excess calories
Essential HTN: cont Aldactone
T6 paraplegia
Chronic opioid use with dependence: cont MS Contin
Chronic indwelling urinary catheter
FULL/Eliquis
Anticipated Discharge: 24 - 48 hours
Subjective/Interval History
-
Date of Service: June 05, 2025
Pt states SOB has improved significantly.
Objective Data
-
Labs:
Laboratory Results
06/05/25
03:01
WBC 11.9 H
Hgb 11.5 L
Hct 38.6 L
Plt Count 244
Sodium 137
Potassium 4.0
Chloride 95 L
Carbon Dioxide 37 H
BUN 17
Creatinine 0.5 L
Glucose 149 H
Calcium 9.2
Vital Signs:
Vital Signs
Temp Pulse Resp BP Pulse Ox
97.5 F 72 12 148/68 88
06/05/25 08:05 06/05/25 08:13 06/05/25 08:13 06/05/25 08:17 06/05/25 08:13
I&O
06/04/25 06/05/25 06/06/25
06:59 06:59 06:59
Intake Total 960 / 960
Output Total 1959 3950 / 3950
Balance -1959 / -1959 -2990 / -2990
[2025-06-05] MEDS: ROXICODONE 5 MG PO (09:14)
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
--- NOTE | 2025-06-05 10:29 | PN.CDI ---
CDI
- -
CDI:
Physician Documentation Request
Admit Date: 06/03/25 04:30
Dear Doctor Esme,
Please review the following and provide your response in the progress notes.
Clinical Indicators:
Nurses' Assessment, 06/04
Selected Entries
06/04/25
11:59
Pressure injury stage [Gluteal cleft (vertical)] Stage 2
Physician documentation of the type and location of wounds is required for compliant documentation. Based on the above clinical findings and your assessment, please provide the following in your progress note:
Yes, Stage 2 pressure injury, gluteal cleft, POA
No, Stage 2 pressure injury, gluteal cleft
Other (please specify)
1. Location of the ulcer/wound, including laterality.
2. Type (etiology) of ulcer/wound:
- Diabetic ulcer
- Arterial (ischemic) ulcer
- Traumatic wound
- Venous stasis ulcer
- Pressure (decubitus) ulcer
- Non-healing surgical wound
3. For a pressure ulcer, please also include the stage* of the ulcer:
- Stage 1 - Skin intact, non-blanchable redness
- Stage 2 - Partial thickness loss of dermis, includes intact or open blister
- Stage 3 - Full thickness tissue not including bone, tendon or muscle
- Stage 4 - Full thickness tissue loss, including exposed bone, tendon or muscle
- Unstageable - Full thickness loss in which the base of the ulcer is covered by slough (yellow, heard, pappas, green or brown) and/or eschar (heard, brown or black) in the wound bed.
- Unable to determine
Use of terms such as suspected, likely, concern for, or probable (associated with a specific diagnosis that is being evaluated, monitored, or treated as if it exists) are acceptable and can be coded in the inpatient setting, when documented at the
time of discharge.
Thank you,
Rosemarie Ford RN BSN CCDS
CDI Specialist
Please contact via tiger text
Please use your independent medical judgment in providing your response.
*Source: National Pressure Ulcer Advisory Panel (NPUAP)
--- NOTE | 2025-06-05 10:34 | WOUNDNOTE ---
BILATERAL HEELS INTACT
--- NOTE | 2025-06-05 10:36 | WOUNDNOTE ---
RIGHT AND LEFT POSTERIOR THIGH
--- NOTE | 2025-06-05 10:50 | WOUNDNOTE ---
WOC RN note: Patient admitted with SOB, respiratory failure
See H&P for complete history.
PMH: This is a 54-year-old T6 paraplegic was past medical history that is significant for atrial fibrillation on Eliquis, CHF, hypertension, hypothyroid, COPD on 2 L home O2, status post PNC L4 large-volume kidney stones, status post laparoscopic
cholecystectomy and a recent admission for sepsis secondary to urinary tract infection in January with presents to the emergency department with shortness of breath. Patient lives at home and has a caregiver.
Wound Location and type/assessment: Patient admitted with 'shearing skin tear with pink wound bed and scabs.' This wound is likely a linear stage 1 PI surrounded by friction appearing skin and scabbed areas. Left posterior thigh also with dry,
chaffing skin. This radio script writer visited patient for new stage 2 PI of gluteal cleft. No open area noted on gluteal cleft and sacrum and heels were intact. Patient demonstrates ability to turn self with assistance.
Appetite: Good
Pressure redistribution devices in place: Bariatric air bed, turning schedule, heels off-loaded with pillow and air cushion under calves.
Plan: Will recommend clear barrier ointment to posterior thighs. May cover with silicone foam PRN. Discussed plan with patient and he asked that all information be added to discharge orders for his caregiver. Sacrum covered with silicone border
foam. Will confirm orders with hospitalist and update nurse. Updated care plan and discharge and will follow as needed.
Note to case management of equipment requested for discharge:
Recommend follow up at wound care center upon discharge.
--- NOTE | 2025-06-05 15:05 | CM ---
F/U: Patient still not ready, but close so completed IMM. Patient will need transport home, no other needs. PLAN: Home No Needs
[2025-06-05] MEDS: LIPITOR 40 MG PO (16:55)
--- NOTE | 2025-06-05 17:06 | PTCARENOTE ---
Pt transferred to 428 in bariatric air mattress bed. No C/o pain. AAOx3, safety measures in place, able to make needs known, call varghese within reach.
--- NOTE | 2025-06-05 17:36 | PTCARENOTE ---
Patient transferred to room 428. Report given to Jorge Hidalgo. Patient made aware of plan of care.
[2025-06-06] VITALS (7 sets, daily range): BP systolic 119–141; BP diastolic 58–68; PULSE 2–89; BMI 39.3; BMI 39.7
[2025-06-06] MEDS: ZITHROMAX INFUSION 250 IV (06:06)
[2025-06-06] MEDS: SYMBICORT 160/4.5 MCG INHALER 2 PUFF INH ×2 (07:57→19:22)
[2025-06-06] MEDS: SPIRIVA RESPIMAT 2.5 MCG 2 PUFF INH (07:57)
[2025-06-06] MEDS: VENTOLIN NEBULES 2.5 MG INH ×4 (07:57→19:22)
--- NOTE | 2025-06-06 08:15 | PTCARENOTE ---
Weight obtained this AM by nightclub manager staff very different from prior recordings. It appears as if people, prior to this morning, have not been removing the air mattress attachment thus adding weight to the bed/causing inaccurate weights. Will
instruct staff moving forward to be sure to remove the air mattress attachment.
--- NOTE | 2025-06-06 09:21 | W.PN.HOSP.TC ---
Today's Communication/Plan
-
see plan
Assessment / Plan
Assessment / Plan
Gen: NAD, AAOx3.
Eyes: EOMI, PERRLA, no scleral icterus.
Neck: supple.
CV: continues to remain RRR, +S1/S2, no m/r/g.
Resp: remains with very mild exp wheezes
Abd: remains +BS, soft, NT, ND
Skin: No rashes.
Neuro: CN 2-12 intact
Psych: Normal mood and affect.
CXR: Increased interstitial opacities bilaterally with suggestion of tiny bilateral pleural effusions. Findings are nonspecific but could represent mild pulmonary edema.
Echo:
1. Very technically difficult study despite use of Lumason.
2. Normal left ventricular chamber size with moderate LVH preserved left ventricular systolic function with ejection fraction 65 to 70%.
3. No significant valve disease within the limitations of the study.
4. Compared to a prior echo from September 2024, findings are similar.
Acute on chronic hypoxic respiratory failure:
-on presentation pt was 74% RA (EMS) and was on NRB in the ER. Received NTG and IV lasix in the ER. Then was on BIPAP 18/8, 8L.
-likely multifactorial due to acute HFpEF and acute COPD Exac
-note, on 2.5-3L NC O2 at baseline
-echo unchanged from prior
-was on IV Solumedrol, now transitioned to Prednisone
-cont Symbicort/Spiriva/albuterol
-currently on IV lasix, can likely transition PO lasix. Note, weight down and on previous days the weight was not accurately being taken.
-daily wts, I/Os
-pulm/cards following
Other problems:
Permanent Afib: V-paced, cont Eliquis
Morbid obesity due to excess calories
Essential HTN: cont Aldactone
T6 paraplegia
Chronic opioid use with dependence: cont MS Contin
Chronic indwelling urinary catheter
FULL/Eliquis
Dispo: Likely d/c after seen by cards
Anticipated Discharge: Today
Subjective/Interval History
-
Date of Service: June 06, 2025
Denies shortness of breath. Complains of some chest congestion.
Objective Data
-
Vital Signs:
Vital Signs
Temp Pulse Resp BP Pulse Ox
97.4 F 72 18 120/63 95
06/06/25 07:20 06/06/25 07:20 06/06/25 08:01 06/06/25 07:20 06/06/25 08:01
I&O
06/05/25 06/06/25 06/07/25
06:59 06:59 06:59
Intake Total 960 / 960 1420 / 1420
Output Total 3950 / 3950 4650 / 4650
Balance -2990 / -2990 -3230 / -3230
[2025-06-06] MEDS: DELTASONE 50 MG PO (09:23)
[2025-06-06] MEDS: LIORESAL 40 MG PO ×2 (09:23→21:41)
[2025-06-06] MEDS: MS CONTIN (EXTENDED RELEASE) 30 MG PO ×2 (09:23→21:40)
[2025-06-06] MEDS: ELIQUIS 5 MG PO ×2 (09:23→21:41)
[2025-06-06] MEDS: NEURONTIN 300 MG PO ×2 (09:23→21:41)
[2025-06-06] MEDS: PROTONIX 40 MG PO (09:23)
[2025-06-06] MEDS: ALDACTONE 12.5 MG PO (09:24)
[2025-06-06] MEDS: SENOKOT PO ×2 (09:24→09:30)
[2025-06-06] MEDS: ZOLOFT 50 MG PO (09:24)
[2025-06-06] MEDS: LASIX 40 MG IV ×2 (09:24→18:31)
[2025-06-06] MEDS: COLACE 100 MG PO (09:24)
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
[2025-06-06] MEDS: LIPITOR 40 MG PO (18:31)
[2025-06-07] VITALS (9 sets, daily range): BP systolic 123–147; BP diastolic 56–79; PULSE 2–88
[2025-06-07] MEDS: ZITHROMAX INFUSION 250 IV (05:17)
[2025-06-07] MEDS: NEURONTIN 300 MG PO ×2 (07:30→19:43)
[2025-06-07] MEDS: DELTASONE 50 MG PO (07:30)
[2025-06-07] MEDS: COLACE 100 MG PO (07:30)
[2025-06-07] MEDS: MS CONTIN (EXTENDED RELEASE) 30 MG PO ×2 (07:30→19:43)
[2025-06-07] MEDS: SENOKOT 17.2 MG PO (07:30)
[2025-06-07] MEDS: ELIQUIS 5 MG PO ×2 (07:30→19:43)
[2025-06-07] MEDS: PROTONIX 40 MG PO (07:30)
[2025-06-07] MEDS: LIORESAL 40 MG PO ×2 (07:30→19:43)
[2025-06-07] MEDS: LASIX 40 MG IV ×2 (07:31→17:11)
[2025-06-07] MEDS: ALDACTONE 12.5 MG PO (07:31)
[2025-06-07] MEDS: ZOLOFT 50 MG PO (07:31)
[2025-06-07 07:35] LABS: Hematocrit 41.4 % (39.0-52.0); Hemoglobin 12.3 g/dL (13.0-18.0); Mean Corp Hgb Conc. 29.7 g/dL (33.0-37.0); Mean Corpuscular Volume 76.2 fL (80.0-94.0); Platelet Count 231 10^3/uL (130-400); Red Cell Dist. Width 18.6 % (11.5-14.5); Venous Blood Gas B.E. 14.6 mmol/L (-4 to +4); Venous Blood Gas O2 Sat % 89.0 %
[2025-06-07] MEDS: SPIRIVA RESPIMAT 2.5 MCG 2 PUFF INH (07:40)
[2025-06-07] MEDS: VENTOLIN NEBULES 2.5 MG INH ×4 (07:40→19:10)
[2025-06-07] MEDS: SYMBICORT 160/4.5 MCG INHALER 2 PUFF INH ×2 (07:40→19:10)
[2025-06-07 08:23] LABS: Blood Urea Nitrogen 15 mg/dl (9-20); Calcium 9.3 mg/dl (8.4-10.2); Chloride 94 mmol/L (98-107); Estimated Creatinine Clearance > 125 ml/min; Glucose 106 mg/dl (70-99); Magnesium 2.0 mg/dl (1.6-2.3); Potassium 3.6 mmol/L (3.5-5.1); Sodium 137 mmol/L (135-145); eGFR > 60.00
[2025-06-07] MEDS: KCL 40 MEQ PO (08:45)
[2025-06-07 08:55] LABS: Carbon Dioxide 36 mmol/L (22-30)
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
--- NOTE | 2025-06-07 11:14 | W.PN.HOSP.TC ---
Today's Communication/Plan
-
see plan
Assessment / Plan
Assessment / Plan
Gen: NAD, AAOx3.
Eyes: EOMI, PERRLA, no scleral icterus.
Neck: supple.
CV: RRR, +S1/S2, no m/r/g.
Resp: continues to remain with very mild exp wheezes
Abd: continues to remain +BS, soft, NT, ND
Skin: No rashes.
Neuro: CN 2-12 intact
Psych: Normal mood and affect.
CXR: Increased interstitial opacities bilaterally with suggestion of tiny bilateral pleural effusions. Findings are nonspecific but could represent mild pulmonary edema.
Echo:
1. Very technically difficult study despite use of Lumason.
2. Normal left ventricular chamber size with moderate LVH preserved left ventricular systolic function with ejection fraction 65 to 70%.
3. No significant valve disease within the limitations of the study.
4. Compared to a prior echo from September 2024, findings are similar.
Acute on chronic hypoxic respiratory failure:
-on presentation pt was 74% RA (EMS) and was on NRB in the ER. Received NTG and IV lasix in the ER. Then was on BIPAP 18/8, 8L.
-likely multifactorial due to acute HFpEF and acute COPD Exac
-note, on 2.5-3L NC O2 at baseline, now weaned to baseline O2 requirement
-echo unchanged from prior
-was on IV Solumedrol, now transitioned to Prednisone
-cont Symbicort/Spiriva/albuterol
-currently on IV lasix, Dr. Isaacs continues to recommend continued IV diuresis
-daily wts, I/Os
-pulm/cards following
Other problems:
Permanent Afib: V-paced, cont Eliquis
Morbid obesity due to excess calories
Essential HTN: cont Aldactone
T6 paraplegia
Chronic opioid use with dependence: cont MS Contin
Chronic indwelling urinary catheter
FULL/Eliquis
Anticipated Discharge: Within 24 hours
Subjective/Interval History
-
Date of Service: June 07, 2025
No new complaints.
Objective Data
-
Labs:
Laboratory Results
06/07/25
07:28
WBC 11.1 H
Hgb 12.3 L
Hct 41.4
Plt Count 231
Sodium 137
Potassium 3.6
Chloride 94 L
Carbon Dioxide 36 H
BUN 15
Creatinine 0.5 L
Glucose 106 H
Calcium 9.3
Vital Signs:
Vital Signs
Temp Pulse Resp BP Pulse Ox
97.9 F 71 18 147/62 92
06/07/25 07:30 06/07/25 07:30 06/07/25 07:44 06/07/25 07:30 06/07/25 07:44
I&O
06/06/25 06/07/25 06/08/25
06:59 06:59 06:59
Intake Total 1420 / 1420 720 / 720
Output Total 4650 / 4650 5505 / 5505
Balance -3230 / -3230 -5185 / -4524
--- NOTE | 2025-06-07 16:33 | W.PN.PUL3 ---
Today's Communication / Plan
-
BIPAP at night, now weaned to 3L NC (BL use is 2.5L)
Transitioned to PO prednisone on 06/06 - taper down prednisone by 10mg every 4th day until off
May need BIPAP settings adjusted at home, will arrange OP FU
Sputum culture growing Pseudomonas aeruginosa � add cefepime to Zithromax and follow-up sensitivities; consider ID consult
Further diuresis per team
Symbicort + spiriva with nebulized albuterol; resume Trelegy upon discharge
Could assess for d/c planning if otherwise remains stable
Assessment
-
54-year-old M w/ T6 paraplegia, atrial fibrillation on Eliquis, CHF, hypertension, hypothyroidism, COPD on 2 L home O2, presents to emergency department with shortness of breath intermittently for the last 4 days. Had associated chest pain as
well. He arrived in the emergency department on nonrebreather as he was satting 74% on room air as per EMS. Chest x-ray shows bilateral interstitial increased markings consistent with CHF. Troponin was 0.018, BNP was elevated 1900. Adm to IMU for
BIPAP use.
Acute on chronic HF exacerbation
Acute on chronic hypoxic respiratory failure
COPD with acute exacerbation with recent URI lasting >7-10 days (admits that he received Abx ENGRAVER LETTER)
Leukocytosis
Progressive shortness of breath
Chronic CO2 retention,
Conditions present prior to admission:
Adm for Urosepsis-Proteus 01/2025 c/b hypotension/pressors, ventilator dependent respiratory failure/Intubated 01/05/2025-Extubated 01/07/2025
T6 spinal cord injury after fall out of [place] 2007
Spastic quadriplegia
Chronic opioid dependence
Neurogenic bladder s/p chronic indwelling Burnett catheter
Nephrolithiasis (history of 2 cm bladder calculus + right ureteral + renal stones) s/p cystoscopy with complex cystolithotomy with laser lithotripsy and JJ stent 01/16/25
COPD/former smoker-on 2.5 L baseline-maintained on Trelegy
Heart failure pEF.
Obesity.
WILBERT on BiPAP.
Atrial fibrillation/Coumadin.
Bradycardia/PPM.
Dysphagia.
Diabetes.
Obesity.
Anxiety/depression
DVT/PE/IVC filter.
Plan
Chronic hypoxia and hypercarbia are noted, BL use of O2 2.5L, he is currently on 3L
Continue supplemental oxygen, titrating to SpO2 88-95%; if possible, check ambulatory pulse oximetry prior to discharge (may be limited by ambulatory dysfunction)
Chronically on Trelegy � continue Symbicort 160 mcg + Spiriva Respimat 2.5 mcg while hospitalized; resume Trelegy upon discharge
Continue nebulized albuterol QID with prn nebs
Continue systemic steroids, weaning down as he clinically improves. Currently on prednisone 50mg daily s/p Solu-Medrol 40 mg IV q12hr
- Taper down prednisone by 10mg every 4th day until off
Zithromax - rec'd to complete 1.5g total worth; sputum culture collected 06/05 has grown Pseudomonas aeruginosa � follow-up sensitivities, and add cefepime
BiPAP 18/8cmH2O with O2 at bedtime and during the daytime if needed; recommend continued trending of AM blood gas to assure pH + pCO2 remained stable
HF component suspected as well
Elevated proBNP
CXR from 06/02/2025 shows interstitial edema with small pleural effusions
Agree with IV diuresis while trending UOP with strict I/O, and replete K>4, Mg>2
- Currently on lasix 40mg IV BID
Previous cultures reviewed
Blood culture with Proteus and Serratia
Urine culture -Proteus
Influenza negative
Trend WBC and temperature curve
Procal slightly elevated at 0.3; UA is suggestive of UTI with positive nitrites and +3 leukocyte esterase, however with chronic Burnett and patient without UTI symptoms, unlikely true infection
- Urine Cx negative
- Continue zithromax and start cefepime as stated above
- If he spikes a fever, then would check blood Cx and consider broadening Abx
Aspiration was suspected on prior admissions
Speech therapy evaluation was reviewed, patient refused VSE
WILDLIFE OFFICER evaluated the patient on 06/04, recommending IDDSI 7 regular solids with thin liquids
High risk for aspiration, continue precautions
DVT prophylaxis-Eliquis
GI prophylaxis- n/a - however he is on pantoprazole (home med)
Early mobilization/bedside range of motion as tolerated
OP FU recommended, to manage BIPAP settings, which may need to be adjusted given CO2 retention
Will place FU instructions in chart - he previously was set up for office visit with us ([facility]) in February 2022 but he was a no-show
We will follow
Diagnostic data:
Chest x-ray 01/05/2025-NAD
Chest x-ray 01/05/2025-new hazy right upper lobe opacification may be atelectasis or pneumonia, ET tube 4.[address] abdomen and pelvis 01/05/25-8 mm calculus proximal right ureter with moderate right renal collection system dilation, small bilateral nonobstructing renal calculi, 1.9 cm urinary bladder stone noted, prior cholecystectomy
Echocardiogram 09/18/2024-EF 60-65%, intermediate diastolic dysfunction, no gross valvular abnormalities
Total time spent on this consultation/encounter __41__ minutes which includes review of history, physical exam, medications, laboratory data, personal review of imaging, extensive review of outpatient records, discussion with care team and
respiratory therapy.
Subjective Data
-
Date of Service:
Date of Service: June 07, 2025
Chief Complaint: Pulmonary Follow Up
Subjective:
patient was seen and evaluated this afternoon (late note entry). No acute events reported overnight. Afebrile overnight. Saturating 94% on 3 L/min. Wore BiPAP overnight at 18/8 bled with 8 L/min.
Review of Systems
General: Other (Negative unless mentioned above)
Objective Data
Data Reviewed
Vital Signs / I&O / Oxygen:
Vital Signs
Temp Pulse Resp BP Pulse Ox
97.9 F 71 18 147/62 92
06/07/25 07:30 06/07/25 07:30 06/07/25 07:44 06/07/25 07:30 06/07/25 07:44
Intake and Output
06/06/25 06/07/25 06/08/25
06:59 06:59 06:59
Intake Total 1420 / 1420 720 / 720
Output Total 4650 / 4650 5505 / 5505
Balance -3230 / -3230 -4785 / -4785
SaO2 92
Nasal Cannula flow liters per 3
minute
Physical Exam
General: Respiratory Distress (n), Comfortable and Other (Morbidly obese male in NAD)
HEENT: Normocephalic, Anicteric and Other (Thick neck)
Cardiovascular: Murmur (RICHMOND heard best at LUSB), Rub (n), Peripheral Edema (+1 lower extremity pedal edema (pitting)) and Other (Paced rhythm)
Respiratory: Wheeze (n), Crackles (bibasilar), Rhonchi (n), Non-Labored Respirations and Stridor (n)
GI: Soft, Distended (Abdominal obesity), Non Tender and Normal Bowel Sounds
Neurology: AO x 3 and Tremors (n)
Skin: Warm, Dry, Good Color, Cyanosis (n) and Jaundice (n)
Labs/Micro/Reports
Lab Data
06/07/25 07:28
06/07/25 07:28
Microbiology
06/05/25 22:47 Sputum Gram Stain - Preliminary
06/03/25 19:48 Urine Urine Culture - Final
[2025-06-07] MEDS: LIPITOR 40 MG PO (17:10)
[2025-06-07] MEDS: ROXICODONE 5 MG PO (22:59)
[2025-06-08] VITALS (9 sets, daily range): BP systolic 116–144; BP diastolic 57–77; PULSE 2–82; BMI 40.7
[2025-06-08] MEDS: MAXIPIME 2000 MG IV ×4 (00:07→23:58)
[2025-06-08] MEDS: STERILE WATER FOR INJECTION 10 ML IV ×4 (00:08→23:58)
[2025-06-08] MEDS: ZITHROMAX INFUSION 250 IV (05:03)
[2025-06-08 07:50] LABS: Glucose - Point of Care 113 mg/dl (70-99)
[2025-06-08] MEDS: NEURONTIN 300 MG PO ×2 (07:52→19:58)
[2025-06-08] MEDS: ELIQUIS 5 MG PO ×2 (07:53→19:58)
[2025-06-08] MEDS: LIORESAL 40 MG PO ×2 (07:53→19:57)
[2025-06-08] MEDS: ALDACTONE 12.5 MG PO (07:53)
[2025-06-08] MEDS: DELTASONE 50 MG PO (07:53)
[2025-06-08] MEDS: COLACE 100 MG PO (07:53)
[2025-06-08] MEDS: PROTONIX 40 MG PO (07:53)
[2025-06-08] MEDS: SENOKOT 17.2 MG PO (07:53)
[2025-06-08] MEDS: MS CONTIN (EXTENDED RELEASE) 30 MG PO ×2 (07:53→19:58)
[2025-06-08] MEDS: ZOLOFT 50 MG PO (07:53)
[2025-06-08] MEDS: LASIX 40 MG IV ×2 (07:54→16:17)
[2025-06-08] MEDS: SPIRIVA RESPIMAT 2.5 MCG 2 PUFF INH (07:59)
[2025-06-08] MEDS: SYMBICORT 160/4.5 MCG INHALER 2 PUFF INH ×2 (07:59→19:19)
[2025-06-08] MEDS: VENTOLIN NEBULES 2.5 MG INH ×4 (07:59→19:18)
--- NOTE | 2025-06-08 10:46 | CON.ID ---
Consultation
-
Date/Time Consultation Requested: 06/08/25 8:51
Date/Time Consultation Performed: 06/08/25 10:47
Requesting Provider: Dr Banuelos
Performing Provider: Dr Malin
Reason for Consultation: sptm cx +PSA intermed sens to cipro
Chief Complaint / Past History
Chief Complaint
shortness of breath
History of Present Illness
Mr Guzman is a 54 year old male with T6 paraplegia, COPD on 2-3L home O2, HFpEF, Class III obesity who presented here 06/03 for shortness of breath, edema and weight gain. Symptom began about 1-2 weeks before arrival. Two days prior to arrival
increased home lasix toBID without improvment in dyspnea. He did notice some increase in urine output. He had to increase his home O2 due to dyspnea and decided to call EMS. When they arrived his SpO2 was in the 70s and he was placed on Bipap.
He additionally complained of chest pain.
Since arrival here he has been afebrile, BP was initailly hypertensive to the 170s/180 systolic, NRB was placed, he was started on nitroglycerin and IV lasix and transitioned to Bipap. Echo with EF 65-70%
His weight was up 9lbs on arrival and resolved overnight. He was started on solumedrol 40 mg IV q12h. He was weaned back to NC late on the night of admission. WBC on arrival 14.2, hgb 13, plt 313, no L shfit, na 139, cr 0.6, 06/04 procalcitonin
0.3, ua no significant pyuria, covid ag negative, 06/02 CXR: increased interstitial opacities bilaterally - mild pulmonary edema, he was started on azithromycin 500 mg on admission 06/02 and this continued until yesterday 06/07 when 06/05 resp
culture resulted with many pseudomonas and cefepime was added. Isoalte was intermediate to ciprofloxacin
Past History
Additional Past Medical History:
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
of DVT/PE status post IVC filter
Additional Past Surgical History:
cervical spinal fusion with hardwear
IVC filter
pacemaker
Allergy History:
No Known Allergies Allergy (Verified 06/02/25 22:58)
Medications Reviewed: Yes
Social History
Tobacco: Former Smoker
Alcohol: Occasional
Drug: None
Family History
Family History: Not Pertinent
Review of Systems
Review of Systems
Constitutional: Reports No Symptoms
EENT: Reports No Symptoms
Respiratory: Reports dyspnea
Cardiac: Reports Chest Pain
Abdomen/GI: Reports See HPI
: Reports No Symptoms
Musculoskeletal: Reports No Symptoms
Skin: Reports No Symptoms
Neurological: Reports No Symptoms
Endocrine: Reports No Symptoms
Hematologic/Lymphatic: Reports No Symptoms
Psych: Reports No Symptoms
Vital Signs
Temp Pulse Resp BP Pulse Ox
97.1 F 78 18 141/77 96
06/08/25 07:30 06/08/25 08:00 06/08/25 08:00 06/08/25 07:54 06/08/25 08:00
Physical Exam
Physical Exam
Constitutional: No Acute Distress, Chronically Ill and Obese
Cardiovascular: Regular Rate and S1/S2; Negative Murmur or Rub
Pulmonary: Clear, Symmetric, Wheezes, Non Labored and Other (on a breathing treatment when evaluated); Negative Rales or Rhonchi
Gastrointestinal: Soft, Non Tender, Non Distended and Normal Bowel Sounds
Skin: Warm and Dry; Negative Rash or Jaundice
Lab / Diagnostic Study Results
06/07/25 07:28
06/07/25 07:28
Abs Immat Gran (auto) 0.1 10^3/uL (0-0.05) H 06/02/25 22:59
Absolute Neuts (auto) 10.2 10^3/uL (1.4-6.5) H 06/02/25 22:59
Absolute Lymphs (auto) 2.3 10^3/uL (1.2-3.4) 06/02/25 22:59
Absolute Monos (auto) 1.2 10^3/uL (0.1-0.6) H 06/02/25 22:59
Absolute Basos (auto) 0.1 10^3/uL (0-0.2) 06/02/25 22:59
Immature Gran % 0.5 % (0-0.5) 06/02/25 22:59
Neutrophils % 72.0 % (42.2-75.2) 06/02/25 22:59
Lymphocytes % 16.1 % (20.5-51.1) L 06/02/25 22:59
Monocytes % 8.5 % (1.7-9.3) 06/02/25 22:59
Eosinophils % 2.2 % (0-6) 06/02/25 22:59
Basophils % 0.7 % (0-2) 06/02/25 22:59
Procalcitonin 0.30 ng/ml (0.0-0.25) H 06/04/25 03:58
Ur Squamous Epith Cells 6-10 /LPF (Few) 06/03/25 19:48
Microbiology Results
Micro:
06/05/25 22:47 Respiratory Culture - Final
Sputum Pseudomonas aeruginosa
Gram Stain - Final
06/03/25 19:48 Urine Culture - Final
Urine
06/03/25 06:33 Influenza Types A & B (GUILLAUME) - Final
Nasal Swab Negative for Influenza A & B, NAAT
Negative results must be combined with clinical observations
and patient history.
Nucleic Acid Amplification test (NAAT)performed on the
[employer] platform.
Respiratory Culture Final 06/08/25
Many Pseudomonas aeruginosa
Few Usual Respiratory Chloe
Organism 1 Pseudomonas aeruginosa
1. Pseudomonas aeruginosa
M.I.C. RX
--------- ---
Aztreonam 8 S
Cefepime <=2 S
Ceftazidime 4 S
Ciprofloxacin 1 I
Meropenem <=1 S
Piperacillin/Tazobactam <=8 S
Tobramycin <=2 S
Assessment / Plan
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
CHF
Leukocytosis - some component of steroid effect
Class III obesity
- sputum culture with pseudomonas with intermediate sensitivity to ciprofloxacin
- agree with cefepime
- place midline
- script to caser up and our office today
- has completed sufficient course of azithromycin 7 days, stopped
- steroid management per pulmonary service
- follow up with pulmonary
--- NOTE | 2025-06-08 11:40 | CM ---
CM reviewed chart, patient seen bedside with significant other, Nguyen.
Script received for home infusion- cefepime 1gm IV Q8 hours.
Patient agreeable to referral to [facility], will require VN referral to [facility].
Patient will require ambulance transport home- confirmed no steps, ramp to enter.
Significant other, Nguyen confirms she will learn teaching.
CM will continue to follow for d.c needs.
Plan; referral to [facility] for home infusion, referral to [facility] for VN
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
--- NOTE | 2025-06-08 15:06 | W.PN.HOSP.TC ---
Today's Communication/Plan
-
Assessment / Plan
Assessment / Plan
Gen: NAD, AAOx3.
Eyes: EOMI, PERRLA, no scleral icterus.
Neck: supple.
CV: RRR, +S1/S2, no m/r/g.
Resp: continues to remain with very mild exp wheezes
Abd: continues to remain +BS, soft, NT, ND
Skin: No rashes.
Neuro: CN 2-12 intact, no tremor
Psych: Normal mood and affect.
CXR: Increased interstitial opacities bilaterally with suggestion of tiny bilateral pleural effusions. Findings are nonspecific but could represent mild pulmonary edema.
Echo:
1. Very technically difficult study despite use of Lumason.
2. Normal left ventricular chamber size with moderate LVH preserved left ventricular systolic function with ejection fraction 65 to 70%.
3. No significant valve disease within the limitations of the study.
4. Compared to a prior echo from September 2024, findings are similar.
Acute on chronic hypoxic respiratory failure:
-on presentation pt was 74% RA (EMS) and was on NRB in the ER. Received NTG and IV lasix in the ER. Then was on BIPAP 18/8, 8L.
-likely multifactorial due to acute HFpEF, acute COPD Exac, and pneumonia with sputum culture growing Pseudomonas
-note, on 2.5-3L NC O2 at baseline, now weaned to baseline O2 requirement
-echo unchanged from prior
-was on IV Solumedrol, now transitioned to Prednisone
-cont Symbicort/Spiriva/albuterol
-currently on IV lasix, will follow-up with cardiology regarding further recommendations
-daily wts, I/Os
-pulm/cards following
-Evaluated by ID today, appreciate recommendations for continued antibiotic treatment with cefepime, midline to be placed, case management following for home infusion arrangements
Other problems:
Permanent Afib: V-paced, cont Eliquis
Morbid obesity due to excess calories
Essential HTN: cont Aldactone
T6 paraplegia
Chronic opioid use with dependence: cont MS Contin
Chronic indwelling urinary catheter
FULL/Eliquis
Anticipated Discharge: 24 - 48 hours
Subjective/Interval History
-
Date of Service: June 08, 2025
Patient was seen and examined at bedside this morning. Diuresing well. Transition to oral steroids. Back to baseline oxygen requirements of 2 to 3 L. Sputum culture growing Pseudomonas.
Objective Data
-
Vital Signs:
Vital Signs
Temp Pulse Resp BP Pulse Ox
98.2 F 72 20 130/57 95
06/08/25 11:15 06/08/25 11:15 06/08/25 11:15 06/08/25 11:15 06/08/25 11:15
I&O
06/07/25 06/08/25 06/09/25
06:59 06:59 06:59
Intake Total 720 / 720 1715 / 1715
Output Total 5505 / 5505 4650 / 4650
Balance -4785 / -4785 -2935 / -2935
Review of Systems
-
History Source: Patient
All other systems: Reviewed and negative
Physical Exam
-
General: No Apparent Distress
--- NOTE | 2025-06-08 15:31 | PTCARENOTE ---
Per patient, his mane needs to be changed out tomorrow. MD notified. Awaiting new orders.
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
[2025-06-08] MEDS: LIPITOR 40 MG PO (17:47)
--- NOTE | 2025-06-08 18:13 | PTCARENOTE ---
New mane placed. 16 FR. 10 ml balloon inflation. Urine clear yellow.
[2025-06-09] VITALS (7 sets, daily range): BP systolic 117–141; BP diastolic 58–81; PULSE 2–88; BMI 43.3; BMI 33.8
[2025-06-09] MEDS: ALDACTONE 12.5 MG PO (07:54)
[2025-06-09] MEDS: PROTONIX 40 MG PO (07:54)
[2025-06-09] MEDS: NEURONTIN 300 MG PO ×2 (07:54→19:55)
[2025-06-09] MEDS: MS CONTIN (EXTENDED RELEASE) 30 MG PO ×2 (07:54→19:56)
[2025-06-09] MEDS: DELTASONE 50 MG PO (07:54)
[2025-06-09] MEDS: ELIQUIS 5 MG PO ×2 (07:55→19:55)
[2025-06-09] MEDS: VENTOLIN NEBULES 2.5 MG INH ×4 (07:55→19:09)
[2025-06-09] MEDS: SPIRIVA RESPIMAT 2.5 MCG 2 PUFF INH (07:55)
[2025-06-09] MEDS: SYMBICORT 160/4.5 MCG INHALER 2 PUFF INH ×2 (07:55→19:09)
[2025-06-09] MEDS: LIORESAL 40 MG PO ×2 (07:55→19:56)
[2025-06-09] MEDS: ZOLOFT 50 MG PO (07:56)
[2025-06-09] MEDS: LASIX 40 MG IV ×2 (07:56→15:39)
[2025-06-09] MEDS: SENOKOT 17.2 MG PO (07:56)
[2025-06-09] MEDS: COLACE 100 MG PO (07:56)
[2025-06-09] MEDS: MAXIPIME 2000 MG IV ×2 (07:57→15:38)
[2025-06-09] MEDS: STERILE WATER FOR INJECTION 10 ML IV ×2 (07:57→15:38)
--- NOTE | 2025-06-09 10:02 | W.PN.ID1 ---
Date of Service
Date of Service: June 09, 2025
Today's Communication
- agree with cefepime - 7 day course through 06/13
- midline
- script to showcase maker and our office 06/08
Assessment / Plan
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
CHF
Leukocytosis - some component of steroid effect
Class III obesity
- sputum culture with pseudomonas with intermediate sensitivity to ciprofloxacin
- agree with cefepime - 7 day course through 06/13
- midline
- script to showcase maker and our office 06/08
- has completed sufficient course of azithromycin 7 days, stopped
- steroid management per pulmonary service
- mane was exchanged yesterday; mane is chronic
- follow up with pulmonary
Chief Complaint
-: Other (COPD exacerbation)
Subjective / Review of Systems
afebrile
bp stable
reports subjective better air entry
Vital Signs / Physical Exam
Vital Signs
Vital Signs
Temp Pulse Resp BP Pulse Ox
97.5 F 71 18 123/81 96
06/09/25 08:22 06/09/25 08:22 06/09/25 08:22 06/09/25 08:22 06/09/25 08:22
Physical Exam
Constitutional: No Acute Distress and Obese
Cardiovascular: Regular Rate and S1/S2; Negative Murmur or Rub
Pulmonary: Clear and Symmetric; Negative Wheezes or Rales
Gastrointestinal: Soft, Non Tender, Non Distended and Normal Bowel Sounds
Skin: Warm and Dry; Negative Rash or Jaundice
Objective Data
Lab Data
Lab Results
06/07/25 07:28
06/07/25 07:28
Estimated Creat Clear > 125 ml/min 06/07/25 07:28
Total Bilirubin 0.4 mg/dl (0.2-1.3) 06/02/25 22:59
AST 24 U/L (17-59) 06/02/25 22:59
ALT 16 U/L (0-50) 06/02/25 22:59
Alkaline Phosphatase 127 U/L (38-126) H 06/02/25 22:59
Most recent labs reviewed.
Micro Results:
06/05/25 22:47 Respiratory Culture - Final
Sputum Pseudomonas aeruginosa
Gram Stain - Final
06/03/25 19:48 Urine Culture - Final
Urine
06/03/25 06:33 Influenza Types A & B (GUILLAUME) - Final
Nasal Swab Negative for Influenza A & B, NAAT
Negative results must be combined with clinical observations
and patient history.
Nucleic Acid Amplification test (NAAT)performed on the
[employer] platform.
--- NOTE | 2025-06-09 14:09 | W.PN.HOSP.TC ---
Today's Communication/Plan
-
Assessment / Plan
Assessment / Plan
Gen: NAD, AAOx3.
Eyes: EOMI, PERRLA, no scleral icterus.
Neck: supple.
CV: RRR, +S1/S2, no m/r/g.
Resp: continues to remain with very mild exp wheezes
Abd: continues to remain +BS, soft, NT, ND
Skin: No rashes. Right upper extremity midline
Neuro: CN 2-12 intact, no tremor
Psych: Normal mood and affect.
CXR: Increased interstitial opacities bilaterally with suggestion of tiny bilateral pleural effusions. Findings are nonspecific but could represent mild pulmonary edema.
Echo:
1. Very technically difficult study despite use of Lumason.
2. Normal left ventricular chamber size with moderate LVH preserved left ventricular systolic function with ejection fraction 65 to 70%.
3. No significant valve disease within the limitations of the study.
4. Compared to a prior echo from September 2024, findings are similar.
Acute on chronic hypoxic respiratory failure:
-on presentation pt was 74% RA (EMS) and was on NRB in the ER. Received NTG and IV lasix in the ER. Then was on BIPAP 18/8, 8L.
-likely multifactorial due to acute HFpEF, acute COPD Exac, and pneumonia with sputum culture growing Pseudomonas
-Now back to baseline 2-3L NC O2
-echo unchanged from prior
-was on IV Solumedrol, now transitioned to Prednisone taper
-cont Symbicort/Spiriva/albuterol
-currently on IV lasix, will plan to transition to Lasix 60 mg p.o. twice daily at discharge
-daily wts, I/Os
-pulm/cards following
-Evaluated by ID, appreciate recommendations for continued antibiotic treatment with cefepime via midline through through 06/13, case management following for home infusion arrangements
Other problems:
Permanent Afib: V-paced, cont Eliquis
Morbid obesity due to excess calories
Essential HTN: cont Aldactone
T6 paraplegia
Chronic opioid use with dependence: cont MS Contin
Chronic indwelling urinary catheter
FULL/Eliquis
Anticipated Discharge: Within 24 hours
Subjective/Interval History
-
Date of Service: June 09, 2025
Patient was seen and examined at bedside this morning. No acute distress. Awaiting arrangements for home antibiotic infusion anticipation of discharge.
Objective Data
-
Vital Signs:
Vital Signs
Temp Pulse Resp BP Pulse Ox
98.1 F 77 18 128/58 93
06/09/25 11:11 06/09/25 11:22 06/09/25 11:22 06/09/25 11:11 06/09/25 11:22
I&O
06/08/25 06/09/25 06/10/25
06:59 06:59 06:59
Intake Total 1715 / 1715 1170 / 1170
Output Total 4650 / 4650 4050 / 4050
Balance -2935 / -2935 -2880 / -2880
Review of Systems
-
History Source: Patient
All other systems: Reviewed and negative
Physical Exam
-
General: No Apparent Distress
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
[2025-06-09] MEDS: LIPITOR 40 MG PO (17:07)
--- NOTE | 2025-06-09 17:17 | CM ---
Spoke with Tawnya [facility] faxed Mid line information .
Ellen [place] can do SOC tomorrow after noon.
MD aware of above .
PLAN Discharge tomorrow to home with Deny Barton and Ellen fax [phone]
[2025-06-10] MEDS: STERILE WATER FOR INJECTION 10 ML IV ×3 (00:58→16:03)
[2025-06-10] MEDS: MAXIPIME 2000 MG IV ×3 (00:58→16:03)
[2025-06-10 02:26] VITALS: PULSE 2
[2025-06-10 03:08] VITALS: BP 124/66
[2025-06-10 06:00] VITALS: BMI 33.9
[2025-06-10 07:30] VITALS: BP 119/62
[2025-06-10] MEDS: SPIRIVA RESPIMAT 2.5 MCG 2 PUFF INH (08:08)
[2025-06-10] MEDS: SYMBICORT 160/4.5 MCG INHALER 2 PUFF INH (08:08)
[2025-06-10] MEDS: VENTOLIN NEBULES 2.5 MG INH ×3 (08:09→15:26)
[2025-06-10] MEDS: NEURONTIN 300 MG PO (10:21)
[2025-06-10] MEDS: PROTONIX 40 MG PO (10:21)
[2025-06-10] MEDS: MS CONTIN (EXTENDED RELEASE) 30 MG PO (10:21)
[2025-06-10] MEDS: LIORESAL 40 MG PO (10:21)
[2025-06-10] MEDS: LASIX 40 MG PO ×2 (10:21→16:03)
[2025-06-10] MEDS: ELIQUIS 5 MG PO (10:21)
[2025-06-10] MEDS: ALDACTONE 12.5 MG PO (10:21)
[2025-06-10] MEDS: COLACE 100 MG PO (10:21)
[2025-06-10] MEDS: SENOKOT 17.2 MG PO (10:22)
[2025-06-10] MEDS: DELTASONE 40 MG PO (10:22)
[2025-06-10] MEDS: ZOLOFT 50 MG PO (10:22)
--- NOTE | 2025-06-10 10:35 | W.PN.ID1 ---
Date of Service
Date of Service: June 10, 2025
Today's Communication
- agree with cefepime - 7 day course through 06/13
Assessment / Plan
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
CHF
Leukocytosis - some component of steroid effect
Class III obesity
- sputum culture with pseudomonas with intermediate sensitivity to ciprofloxacin
- agree with cefepime - 7 day course through 06/13
- midline
- script to director case and our office 06/08
- follow up with pulmonary
Chief Complaint
-: Other (COPD exacerbation)
Subjective / Review of Systems
afebrile
bp stable
no events overnight
Vital Signs / Physical Exam
Vital Signs
Vital Signs
Temp Pulse Resp BP Pulse Ox
98.3 F 72 18 119/62 99
06/10/25 07:30 06/10/25 08:09 06/10/25 08:09 06/10/25 07:30 06/10/25 08:09
Physical Exam
Constitutional: No Acute Distress
Cardiovascular: Regular Rate and S1/S2; Negative Murmur or Rub
Pulmonary: Clear and Symmetric; Negative Wheezes or Rales
Gastrointestinal: Soft, Non Tender, Non Distended and Normal Bowel Sounds
Skin: Warm and Dry; Negative Rash or Jaundice
Lines: Other (midline)
Objective Data
Lab Data
Lab Results
06/07/25 07:28
06/07/25 07:28
Estimated Creat Clear > 125 ml/min 06/07/25 07:28
Total Bilirubin 0.4 mg/dl (0.2-1.3) 06/02/25 22:59
AST 24 U/L (17-59) 06/02/25 22:59
ALT 16 U/L (0-50) 06/02/25 22:59
Alkaline Phosphatase 127 U/L (38-126) H 06/02/25 22:59
Most recent labs reviewed.
Micro Results:
06/05/25 22:47 Respiratory Culture - Final
Sputum Pseudomonas aeruginosa
Gram Stain - Final
06/03/25 19:48 Urine Culture - Final
Urine
06/03/25 06:33 Influenza Types A & B (GUILLAUME) - Final
Nasal Swab Negative for Influenza A & B, NAAT
Negative results must be combined with clinical observations
and patient history.
Nucleic Acid Amplification test (NAAT)performed on the
[employer] platform.
[2025-06-10 11:27] VITALS: BP 117/65
[2025-06-10 11:30] VITALS: BP 117/65
--- NOTE | 2025-06-10 12:01 | CM ---
Chart reviewed. Patient will d/c home today. Confirmed w/ Tawnya/[facility] abx delivery scheduled between 1-3 pm today
[facility] scheduled to start care this afternoon, potentially 2pm per Tawnya
Tawnya attempted to call patient, unable to connect, met w/ patient in room, provided Tawnya's phone number to give her a call
Patient need ambulance transport, forms provided to
IMM verbally reviewed, copy provided, copy on chart
[facility]

Plan: Home w/ [facility] and [facility]
--- NOTE | 2025-06-10 12:47 | W.DCSUMMARY ---
Discharge Summary
Discharge Data
Date of Admission: 06/03/25
Date of Discharge: 06/10/25
Total time spent discharging patient (in min): 49
-
Pending Results: No
Hospital Course
Mr. Guzman is a 54-year-old male with medical history of A-fib (on Eliquis), HFpEF, COPD (2 L O2 at baseline), T6 spinal cord injury with spastic paraplegia (2007), chronic Burnett, bradycardia (PPM), and hypothyroidism who presented with
shortness of breath. He was admitted for treatment of acute on chronic hypoxic respiratory failure. Etiology of his symptoms are multifactorial due to pneumonia, COPD exacerbation, and acute on chronic heart failure. He was treated with
diuretics, antibiotics, steroids, and breathing treatments. He clinically improved. His sputum culture grew Pseudomonas with intermediate sensitivity to cefepime. The midline has been placed in his right upper extremity for continued cefepime
treatment after discharge through 06/13/2025. Home antibiotic administration arrangements have been completed. He was medically stable at time of discharge to home.
Gen: NAD, AAOx3.
Eyes: EOMI, PERRLA, no scleral icterus.
Neck: supple.
CV: Regular rhythm, heart rate controlled around 70
Resp: continues to remain with very mild exp wheezes
Abd: continues to remain +BS, soft, NT, ND
Skin: No rashes. Right upper extremity midline
Neuro: CN 2-12 intact, no tremor
Psych: Normal mood and affect.
Discharge Plan
-
Patient Disposition: Home with Home Care
Discharge Diagnosis/Procedures: Acute on chronic hypoxic respiratory failure, COPD exacerbation, Pseudomonas pulmonary infection, acute on chronic HFpEF
Diet: 2 Gram Sodium and Restrict fluids to 64 oz
Other Services: VN
Specialty Instructions: Weigh Daily- Call MD for wt gain/loss 3 lbs overnight/5 lbs in 1 week
Activity Restrictions/Additional Instructions:
Wound Care Instructions Posterior Thighs- Clean with soap and water or normal saline and apply clear barrier ointment to dry/peeling areas. May cover with silicone border foam Q 48 hours and PRN.
Air bed
Turning schedule
Keep heels off-loaded with pillow or air cushion under calves when in bed
You were admitted for treatment of acute on chronic respiratory failure due to COPD exacerbation, pneumonia, and heart failure exacerbation. Your breathing significantly improved with steroids, diuresis, and antibiotics. Your sputum culture grew a
bacteria called Pseudomonas. You will be continued on antibiotics for the Pseudomonas infection through 06/13/2025. The antibiotics will need to be administered intravenously and so a midline catheter was placed in your arm. Home antibiotic
administration has been arranged for you. You will need to follow-up with your primary care physician and with pulmonology after hospital discharge.
Instructions: *[facility] Heart Failure Instructions
Referrals:
Ana Cristina Govea DO [Active, Pulmonary Medicine] - in four to six weeks
Referral Note: PFT
Alida Sandy DO [Family Provider, Family Practice]
Abel Brambila MD [Active, Cardiology] - 06/24/25 3:20 pm
Referral Note: You have an appointment to see Dr. Brambila's physician assistant reading teacher, Piper, at the [place] office on 06/24/2025 at 3:20 PM. Please call [phone] if you need to reschedule.
Additional Discharge Medication Instructions: - Continue with Lasix (furosemide) 40 mg twice daily and call the office if you notice weight gain or increased swelling despite compliance with Lasix.
Prescriptions:
New
cefepime 2 gram Recon Soln
2,000 mg IV Q8H Qty: 12 0RF
prednisone 10 mg tablet
See Taper PO DIRECTED Qty: 30 0RF
Taper: Prednisone DC Starting at 40 mg daily
40 mg Daily for 3 Days and 0 Hour
30 mg Daily for 3 Days and 0 Hour
20 mg Daily for 3 Days and 0 Hour
10 mg Daily for 3 Days and 0 Hour
Continued
sertraline 50 MG tablet
50 mg PO DAILY
docusate sodium 100 MG capsule
100 mg PO BID
baclofen 20 mg tablet
40 mg PO BID
sennosides [senna] 8.6 mg Tablet
17.2 mg PO DAILY
gabapentin 600 mg Tablet
300 mg PO BID
morphine 30 mg Tablet Extended Release
30 mg PO BID
Rx Instructions:
last filled on 05/11/25 a quantity of 60 for a 30day supply
albuterol sulfate 90 mcg/actuation Hfa Aerosol Inhaler
2 puff INHALATION R Q6HPRN PRN (Reason: wheezing)
Trelegy Ellipta 200-62.5-25 mcg Blister With Device
1 inh INHALATION R DAILY
polyethylene glycol 3350 [HealthyLax] 17 gram Powder In Packet
17 g PO DAILYPRN PRN (Reason: constipation) Qty: 0 0RF
pantoprazole [Protonix] 40 mg tablet,delayed release (DR/EC)
40 mg PO DAILY
potassium chloride 20 mEq Tablet,Er Particles/Crystals
20 meq PO DAILY
acetaminophen [Tylenol] 325 mg Tablet
650 mg PO DAILYPRN PRN (Reason: mild pain)
therapeutic multivitamin Tablet
1 tab PO DAILY
Eliquis 5 mg Tablet
5 mg PO BID Qty: 60 0RF
atorvastatin 40 mg Tablet
40 mg PO QPM Qty: 30 0RF
spironolactone 25 mg Tablet
12.5 mg PO DAILY Qty: 15 0RF
furosemide 40 mg Tablet
40 mg PO BID AT 0800,1600 Qty: 60 0RF
Held
oxycodone 5 MG tablet
5 mg PO DIRECTED
Hold Instructions: Hold until confirmed with your prescribing physician
Patient Comments:
01/05/2025, significant other is not sure if pt. is taking this med. or not; however it was recently filled in the pharmacy on 12/17/2024 for 30 tabs.
Rx Instructions:
last filled 05/27/25 for a quantity of 30 for a 30day supply
Discontinued
ciprofloxacin HCl 500 mg Tablet
500 mg PO BID Qty: 8 0RF
Discharge Orders:
Discharge Patient (As Directed); Ordered 06/10/25
Ordered By: Nikko Cruz
Discharge Date and Time
Print Language: MICRONESIAN
[2025-06-10 15:30] VITALS: BP 136/61
== END 2025-06-10 16:33 | disposition home or self-care (01) | DRG 291 ==
LOC: 4 WEST ACU 04:30
PROVIDERS: Internal Medicine; Internal Medicine Cardiovascular Disease; Internal Medicine Critical Care Medicine; ADMITTING PHYSICIAN Internal Medicine; ATTENDING PHYSICIAN Internal Medicine; CONSULT PHYSICIAN Student in an Organized Health Care Education/Training Program; EMERGENCY PHYSICIAN Student in an Organized Health Care Education/Training Program; FAMILY PHYSICIAN Family Medicine; OTHER PHYSICIAN Internal Medicine; OTHER PHYSICIAN Nuclear Medicine Nuclear Cardiology
PROC: 5A09357 Assistance with Respiratory Ventilation, Less than 24 Consecutive Hours, Continuous Positive Airway Pressure (ICD-10-PCS; 2025-06-03)
DX: I11.0 Hypertensive heart disease with heart failure (principal); G82.50 Quadriplegia, unspecified; I50.33 Acute on chronic diastolic (congestive) heart failure; J96.21 Acute and chronic respiratory failure with hypoxia; J15.1 Pneumonia due to Pseudomonas; J44.1 Chronic obstructive pulmonary disease with (acute) exacerbation; I44.2 Atrioventricular block, complete; I48.21 Permanent atrial fibrillation; F11.20 Opioid dependence, uncomplicated; E87.29 Other acidosis; J44.0 Chronic obstructive pulmonary disease with (acute) lower respiratory infection; E66.813 Obesity, class 3; Z68.33 Body mass index [BMI] 33.0-33.9, adult; Z79.899 Other long term (current) drug therapy; Z79.01 Long term (current) use of anticoagulants; Z95.828 Presence of other vascular implants and grafts; Z95.0 Presence of cardiac pacemaker; Z98.1 Arthrodesis status; Z99.81 Dependence on supplemental oxygen; Z87.891 Personal history of nicotine dependence; R00.1 Bradycardia, unspecified; E11.9 Type 2 diabetes mellitus without complications; G89.29 Other chronic pain; E78.00 Pure hypercholesterolemia, unspecified; E03.9 Hypothyroidism, unspecified; F32.A Depression, unspecified; F41.9 Anxiety disorder, unspecified; G47.33 Obstructive sleep apnea (adult) (pediatric); Z86.711 Personal history of pulmonary embolism; Z86.718 Personal history of other venous thrombosis and embolism; Z87.440 Personal history of urinary (tract) infections; Z87.442 Personal history of urinary calculi; Z90.49 Acquired absence of other specified parts of digestive tract; Z11.52 Encounter for screening for COVID-19; L89.302 Pressure ulcer of unspecified buttock, stage 2
CPT/HCPCS: 36600; 71045; 80048; 80053; 81003; 81015; 82805; 82962; 83735; 83880; 84100; 84145; 84484; 85025; 85027; 87070; 87071; 87086; 87186; 87205; 87502; 87811; 92526; 92610; 92612; 93005; 93306; 94640; 94660; 94760; 96365; 96375; 99285; 99406; Q9957